=== PATIENT | male | born 1965 | race Caucasian/White ===

== ENCOUNTER 2018-07-02 13:36 | Inpatient (IN) | payer MEDICAID, SELFPAY ==
[2018-07-02] VITALS (61 sets, daily range): BP systolic 105–168; BP diastolic 78–108; PULSE 72–111; RESP 2–38; TEMP 36.6–37.1; O2SAT 87–99
--- NOTE | 2018-07-02 13:43 | DI.RAD_ITS ---
SYMPTOM/DIAGNOSIS: SEVERE SOB, HYPOXIC, PURULENT SPUTUM PORTABLE SEMI ERECT CHEST: Comparison is made with 08/25/17 and 03/01/18. The heart size is normal. There are old bilateral rib fractures. Leads overlie the chest. There are mildly increased interstitial markings which may represent chronic fibrotic changes. No focal infiltrate is seen. IMPRESSION: Increased interstitial markings are likely chronic. No acute infiltrate is seen.
[2018-07-02] MEDS: Albuterol/Ipratropium 3 ML UPD VIAL 9 ML UPD (13:47)
--- NOTE | 2018-07-02 13:51 | W.ED.GENAD ---
Discharge Plan Disposition Patient Disposition: [facility] INPATIENT Condition: Good Discharge Details Chief Complaint: SOB Clinical Impression: COPD with exacerbation, Bronchitis, Acute respiratory distress Reason For Visit: SHINE Primary Care Provider: Kristian Petersen ED Provider: Joshua Delgado Home Meds and New Rx's Prescriptions: No Action nicotine [Nicoderm CQ] 1 EACH patch 24 hour 21 mg Transdermal DAILY Qty: 30 RF: 2 polyethylene glycol 3350 [Miralax] 17 GM powder in packet 17 g PO DAILY Qty: 255 RF: 4 pulse oximeter 1 ea Miscellaneous DAILY Qty: 1 RF: 0 levothyroxine 100 MCG tablet 100 mcg PO DAILY Qty: 90 RF: 3 guaifenesin [Mucinex] 600 MG tablet extended release 12hr 1,200 mg PO BID Qty: 60 RF: 3 diltiazem HCl [Cardizem CD] 180 MG capsule,extended release 24hr 180 mg PO DAILY Qty: 90 RF: 3 ibuprofen 800 MG tablet 800 mg PO TID PRNQty: 30 RF: 0 furosemide 40 MG tablet 2 tab PO DAILY Qty: 180 RF: 3 cetirizine [Zyrtec] 10 MG capsule 10 mg PO DAILY PRN PRNQty: 90 RF: 4 ipratropium-albuterol 3 ML solution for nebulization 3 ml UPD Q4H PRN PRNQty: 3 RF: 5 albuterol sulfate [ProAir HFA] 8.5 GM HFA aerosol inhaler 2 puff Inhalation Q4H PRN Qty: 3 RF: 1 lorazepam 0.5 mg tablet 0.5 mg PO TID PRN (Reason: anxiety) Qty: 40 RF: 0 prednisone 20 mg tablet 40 mg PO DAILY Qty: 14 RF: 0 azithromycin 250 mg tablet See Label Instructions PO .COMPLEX Qty: 6 RF: 0 albuterol sulfate 0.63 mg/3 mL solution for nebulization 0.63 mg Inhalation Q4H PRN (Reason: bronchospasm) Qty: 50 RF: 4 methadone 10 MG/ML concentrate 39 mg PO BID RF: 0 fexofenadine 180 MG tablet 180 mg PO DAILY Qty: 30 RF: 3 benzonatate 200 MG capsule 200 mg PO TID PRN PRN (Reason: Cough) Qty: 30 RF: 0 Medical Decision Making This is a 52-year-old male with a past medical history of COPD, previous intubation, frequently occurring pneumonia, who presents today in respiratory distress. His home health worker called EMS after she noted him to be hypoxic and in respiratory distress. Upon his arrival to the ED after receiving a DuoNeb and 125 of Solu-Medrol he was saturating at 85-86% on his 5-6 L of home oxygen. Because of this we did start the patient on BiPAP for improved airway function. He has been on azithromycin for the last few days for suspected upper respiratory infection versus pneumonia. He is worsened in his symptoms since being on the antibiotic. He has notable purulent sputum with expectoration, he demonstrates severe wheezes rales and rhonchi throughout. He demonstrates +2 pitting edema bilaterally, but has no history of pulmonary embolism or blood clots. He does have a history of congestive heart failure for which he takes 40 mg of Flomax. We will start the patient on vancomycin and Zosyn as he has been unresponsive to his azithromycin. We will start BiPAP, evaluate for any acute cardiac etiology, continue duo nebs, and reevaluate. The patient will likely require admission. EKG 13: 47 Rate 106, sinus tachycardia, VT 180, QTc 441, QRS 102, no significant ST elevations or depressions, no T wave inversions. No delta waves or epsilon waves. 1 mm Q wave in aVF, no other significant abnormalities 3:03 PM Patient's laboratory workup has returned, she rates mild leukocytosis of the WBC count of 11.6. VBG demonstrates a normal pH but it notably elevated PCO2 showing a well compensated respiratory component. Troponin is negative, EKG is benign. Electrolytes are within normal limits. Patient's proBNP is slightly elevated, lactate is normal. Chest x-ray results are not back however notable bronchitis is suspected. Questionable left lower lobe infiltrate. I discussed the case with the hospitalist Dr. Napier, she is accepted the patient for admission, continued BiPAP, and respiratory management. I have extensively reviewed the treatment plan with the patient. I have addressed all patient concerns at this time. I have also discussed the plan with the admitting physician and they agree with the current assessment and plan and have agreed to assume responsibility for the patient. All parties demonstrate verbal understanding and agreement with our assessment and plan at this time. HPI General Date/Time Provider Initiated Documentation: 07/02/18 13:41. HPI Narrative: This is a 52-year-old male with a past medical history of severe COPD, intubation in the past, recent hospital-acquired pneumonia within the last 90 days, as well as past medical history of thyroid disease, congestive heart failure, and reflux. He presents today for evaluation of respiratory distress. Over the last 4 days the patient has had a cough with associated shortness of breath. He has had productive green sputum. He is normally on 4-6 L of home oxygen. He has been taking his home breathing treatments and oxygen but feeling increasingly short of breath. He was started on azithromycin by his primary care provider but has had no improvement of his symptomatology with this. Home health did come to visit the patient today and noted him to be in notable respiratory distress. EMS was called and the patient was noted to be in the high 80s, low 90s on pulse oximetry. They did give 125 of Solu-Medrol, and a DuoNeb and his oxygen saturation improved to the mid to high 90s. The patient denies any chest pain but does admit to notable shortness of breath. His sputum has been green and purulent. He denies any history of blood clots, he denies any recent surgeries or procedures. Patient denies any other complaints at this time. He denies any systemic symptoms of fever, chills, vomiting, or diarrhea. He denies any pertinent family history. Related Data Home Medications Medication Instructions Recorded Confirmed nicotine [Nicoderm CQ] 21 mg TRANSDERMAL DAILY #30 patch 04/15/16 07/02/18 methadone 39 mg PO BID 04/27/16 03/01/18 polyethylene glycol 3350 [Miralax] 17 g PO DAILY #255 gm 05/11/16 07/02/18 benzonatate 200 mg PO TID PRN PRN #30 capsule 08/30/17 07/02/18 fexofenadine 180 mg PO DAILY #30 tab-cap 08/30/17 07/02/18 guaifenesin [Mucinex] 1,200 mg PO BID #60 tabcr 09/15/17 07/02/18 levothyroxine 100 mcg PO DAILY #90 tab-cap 09/15/17 07/02/18 diltiazem HCl [Cardizem Cd] 180 mg PO DAILY #90 cap.er.24h 11/04/17 07/02/18 ibuprofen 800 mg PO TID PRN #30 tab 11/17/17 07/02/18 furosemide 2 tab PO DAILY #180 tab-cap 12/06/17 07/02/18 cetirizine [Zyrtec] 10 mg PO DAILY PRN PRN #90 cap 02/03/18 07/02/18 albuterol sulfate [Proair Hfa] 2 puff INHALATION Q4H PRN #3 03/07/18 07/02/18 inhaler ipratropium-albuterol 3 ml UPD Q4H PRN PRN #3 box 03/07/18 07/02/18 azithromycin 250 mg tablet See Label Instructions PO .COMPLEX 06/01/18 07/02/18 #6 tab lorazepam 0.5 mg tablet 0.5 mg PO TID PRN #40 tab 06/01/18 07/02/18 prednisone 20 mg tablet 40 mg PO DAILY #14 tab 06/01/18 07/02/18 albuterol sulfate 0.63 mg/3 mL 0.63 mg INHALATION Q4H PRN #50 06/07/18 07/02/18 solution for nebulization packet Previous Rx's Medication Instructions Recorded benzonatate 200 mg PO TID PRN PRN #30 capsule 08/30/17 fexofenadine 180 mg PO DAILY #30 tab-cap 08/30/17 guaifenesin [Mucinex] 1,200 mg PO BID #60 tabcr 09/15/17 levothyroxine 100 mcg PO DAILY #90 tab-cap 09/15/17 diltiazem HCl [Cardizem Cd] 180 mg PO DAILY #90 cap.er.24h 11/04/17 furosemide 2 tab PO DAILY #180 tab-cap 12/06/17 albuterol sulfate [Proair Hfa] 2 puff INHALATION Q4H PRN #3 03/07/18 inhaler azithromycin 250 mg tablet See Label Instructions PO .COMPLEX 06/01/18 #6 tab lorazepam 0.5 mg tablet 0.5 mg PO TID PRN #40 tab 06/01/18 prednisone 20 mg tablet 40 mg PO DAILY #14 tab 06/01/18 albuterol sulfate 0.63 mg/3 mL 0.63 mg INHALATION Q4H PRN #50 06/07/18 solution for nebulization packet Allergies Allergy/AdvReac Type Severity Reaction Status Date / Time No Known Allergies Allergy Unverified 03/01/18 14:21 General Stated Complaint: SOB MIGUEL: 2 Review of Systems Review of Systems All systems reviewed & are unremarkable except as noted in HPI and below PFSH Social History Smoking/Tobacco Use Status: Former Tobacco Use Exam Narrative Exam Narrative: 1.Const: Well-nourished, Well-developed, appearing older than stated age 2.Eyes: PERRL, no conjunctival injection, and symmetrical lids. 3.ENT: Atraumatic external nose and ears. Moist MM. Neck: Symmetric, trachea midline, No thyromegaly. 4.CVS: +S1/S2, No murmurs or gallops. Peripheral pulses 2+ and equal in all extremities. Brisk capillary refill in all extremities. 5.RESP: Notable respiratory distress with tachypnea, severe wheezes throughout, crackles throughout. Numerous rhonchi. 6.GI: Soft, Nontender/Nondistended, No hepatosplenomegaly. No guarding or rebound. 7.MSK: Normocephalic/Atraumatic, Extremities w/o deformity or ttp No cyanosis or clubbing, Normal movement of all extremities. +2 pitting edema of his lower extremities bilaterally. No calf tenderness, negative Homans sign 8.Skin: Warm, Dry. No rashes or lesions. 9.Neuro: inside b2b sales II-XII grossly intact. Sensation grossly intact, no focal neurologic deficits. 10.Psych: (AAO) x3. Appropriate mood and affect Course Vital Signs Temperature 36.6 C 07/02/18 13:41 Pulse 99 H 07/02/18 13:41 Respiratory Rate 22 07/02/18 13:41 Blood Pressure 168/99 H 07/02/18 13:41 Pulse Oximetry 87 L 07/02/18 13:41 Temperature 36.6 C 07/02/18 13:41 Temperature Source Skin 07/02/18 13:41 Pulse 99 H 07/02/18 13:41 Respiratory Rate 22 07/02/18 13:41 Blood Pressure 168/99 H 07/02/18 13:41 Pulse Oximetry 87 L 07/02/18 13:41 Oxygen Delivery Method Nasal Cannula 07/02/18 13:41 Oxygen Flow Rate 6 07/02/18 13:41 Pain Level 6 07/02/18 13:41
[2018-07-02] MEDS: Albuterol/Ipratropium 3 ML UPD VIAL 9 ML ×2 (13:55→14:07)
[2018-07-02 14:03] LABS: HCO3 (Venous) 54 mmol/L (22-28); O2 Sat (Venous) 99 % (70-80); TCO2 (Venous) 48 mmol/L (22-29); pH (Venous) 7.41 (7.32-7.43); pO2 (Venous) 115 mm/Hg (28-44)
[2018-07-02 14:04] LABS: Abs Immature Grans 0.14 k/cumm (0.0-0.09); Absolute Monocyte Count 2.04 k/cumm (0.11-0.7); Basophils % 0.3; Eosinophils % 1.6; HCT 44.8 % (40.0-50.0); HGB 14.2 g/dL (13.5-17.5); Immature Grans % 1.2; Mean Corp. HGB Concentration 31.7 g/dL (32.0-36.0); Mean Corpuscular Hemoglobin 34.3 pg (27.0-33.0); Mean Corpuscular Volume 108.2 fL (80-95); Mean Platelet Volume 8.7 fL (8.0-11.0); Monocytes % 17.6; Neutrophils % 60.3; Platelet Count 314 x1000/uL (130-400); RBC 4.14 m/cumm (4.50-6.00); RBC Distribution Width 12.9 % (11.8-14.1)
[2018-07-02] MEDS: PIPERACILLIN/TAZO 3.375 GM in Normal Saline 50 ML IVPB ×2 (14:06→20:06)
[2018-07-02 14:13] LABS: pCO2 (Venous) 86 mm/Hg (34-47)
[2018-07-02 14:17] LABS: Lactate-non-spesis 0.9 mmol/L (0.6-1.4)
[2018-07-02 14:19] LABS: Absolute Basophil Count 0.03 k/cumm (0.0-0.2); Absolute Eosinophil Count 0.19 k/cumm (0.0-0.7); Absolute Neutrophil Count 6.99 k/cumm (1.2-6.7)
[2018-07-02 14:23] LABS: Basophilic Stippling Present; Diff Comment Agrees w/ Instrument; Macrocytosis 2+; Polychromasia Present; Stomatocytes 3+
[2018-07-02 14:30] LABS: ALT 93 U/L (12-78); AST 112 U/L (15-37); Albumin 3.1 g/dL (3.4-5.0); Alkaline Phosphatase 160 U/L (46-116); BUN 3 mg/dL (7-18); Bilirubin, Total 0.5 mg/dL (0.2-1.0); CREATININE 0.52 mg/dL (0.70-1.30); Calcium 8.2 mg/dL (8.5-10.1); Chloride 88 mmol/L (98-107); Glucose 116 mg/dL (70-100); Potassium 3.4 mmol/L (3.5-5.1); Sodium 137 mmol/L (136-145); Total Protein 7.8 g/dL (6.4-8.2)
[2018-07-02 14:34] LABS: Anion Gap 3.99999 mmol/L (3-11); CO2 > 45.0 mmol/L (21.0-32.0); Troponin I < 0.02 ng/mL (0.00-0.06)
[2018-07-02 14:36] LABS: NT-proBNP 482 pg/mL
[2018-07-02] MEDS: VANCOMYCIN 2,000 MG in Normal Saline 500 ML 250 MG IVPB (14:51)
[2018-07-02 14:54] LABS: HCO3 54 mmol/L (22-28); pH 7.34 (7.35-7.45); pO2 118 mmHg (83-108); sO2 98 % (94-98); tCO2 48 mmol/L (22-29)
[2018-07-02 14:59] LABS: FIO2 50 %; Site Right Radial; pCO2 99 mmHg (34-47)
--- NOTE | 2018-07-02 15:49 | DI.VRAD_ITS ---
EXAM: XR Chest, 1 View EXAM DATE/TIME: 07/02/2018 1:48 PM CLINICAL HISTORY: 52 years old, male; Signs and symptoms; Other: Severe sob/hypoxic, purulent s TECHNIQUE: XR of the chest, 1 view. COMPARISON: CR PORTABLE CHEST ONE VIEW 03/01/2018 2:20 PM FINDINGS: Lungs: Interstitial thickening in the mid and lower lung fernandes. No consolidation. Pleural space: Unremarkable. No pleural effusion. No pneumothorax. Heart/Mediastinum: Unremarkable. No cardiomegaly. Bones/joints: Healed posterior left rib fractures. IMPRESSION: 1. Interstitial thickening in the mid and lower lung fernandes. This may represent infectious or inflammatory pneumonitis, mild pulmonary edema or artifactual accentuation of the interstitial markings by decreased penetration through the large amount of overlying soft tissue. 2. No focal infiltrate or consolidation. Dictated and Authenticated by: Tami Daley MD. Ordering:DAVIAN CHAMBERS MD
[2018-07-02] MEDS: methylPREDNISolone SUCC 125 MG VIAL 80 MG IVP ×2 (16:11→23:39)
[2018-07-02] MEDS: Furosemide 40 MG/4 ML VIAL IVP ×2 (16:11→16:21)
[2018-07-02] MEDS: Lactobacillus Acidophilus CAP 1 CAP PO (16:12)
[2018-07-02] MEDS: Enoxaparin 40 MG/0.4 ML SYR SC (16:12)
--- NOTE | 2018-07-02 16:16 | W.PM.HP.N ---
Date of service: 07/02/18 Time of Service: 16:16 Assessment and Plan (1) COPD with exacerbation: Current visit: Yes Status: Acute Due to acute bronchitis vs pneumonia - CXR read unclear. My impression is that the patient has acute bacterial bronchitis. Patient is being admitted to the ICU with BiPAP, scheduled and prn nebs, systemic steroids, symbicort, and empiric vancomycin/zosyn. We are obtaininig sputum cx. It is expected that he might be able to be weaned off of BiPAP tonight. For now, he is NPO. He is on PPI ppx as he is on steroids. (2) Acute and chronic respiratory failure with hypercapnia: Current visit: Yes Status: Acute This is already improving with above therapy - continue to monitor in the ICU on BiPAP. Patient is full code, if he deteriorates. (3) Peripheral edema: Current visit: Yes Status: Acute I suspect that the patient has underlying pulmonary hypertension from untreated obstructive sleep apnea. The patient states that he was supposed to have a sleep study yesterday, but couldn't attend it because he was sick. Will obtain echo to look for EF and any evidence of pulmonary hypertension. Diurese, monitoring I/O's and daily weights. (4) Cellulitis of both lower extremities: Current visit: Yes Status: Acute Mild and should improve with diuresis/IV abx. (5) Smoker: Current visit: Yes Status: Chronic Counselled on quitting, but not very receptive to the idea. (6) Acquired hypothyroidism: Current visit: Yes Status: Chronic Chest TSH, Continue synthroid (7) History of intravenous drug abuse: Current visit: Yes Status: Chronic Continue methadone therapy. Check UDS. History of Present Illness Chief Complaint: Shortness of breath Narrative: Mr Chi is a 52 year old male with PMHx of oxygen-dependent COPD, chronic hypoxic hypercapnic respiratory failure, normally on 4-6L of O2, RANDALL, not using CPAP, who continues to smoke who for the last 3-4 days has been feeling more short of breath and coughing at home. He was using his home nebulizer treatments without relief. His PCP prescribed him azithromycin as well as prednisone - however, the patient continued to get progressively short of breath, was wheezing, and had a productive cough. He was brought to ER by ambulance today. O2 sats were 86% on 5L. He was in visible respiratory distress. He was treated with solumedrol and nebulizers by EMS. He was placed on BiPAP in ER. With nebulizer treatments and BiPAP, the patient improved markedly, but continues to require BiPAP and is still quite bronchospastic. Hospitalists were asked to take over care for the patient, who is being admitted to the ICU. Review of Systems Review of Systems 12 systems reviewed. 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) Multiple rib fractures involving four or more ribs (Resolved) Social History Smoking/Tobacco Use Status: Current every day quit status: has quit before counseling given: provider counseling alcohol intake: current alcohol intake frequency: a few times a week substance use type: former substance user, marijuana, IV drugs and other details: Currently on methadone therapy counseling given: Yes counseling provided: provider counseling Meds Home Medications Medication Instructions Recorded Confirmed Type nicotine [Nicoderm CQ] 21 mg TRANSDERMAL DAILY #30 patch 04/15/16 07/02/18 History methadone 39 mg PO BID 04/27/16 03/01/18 History polyethylene glycol 3350 [Miralax] 17 g PO DAILY #255 gm 05/11/16 07/02/18 History Pulse Oximeter 1 ea MISCELLANEOUS DAILY #1 ea 05/27/16 07/02/18 Clinic benzonatate 200 mg PO TID PRN PRN #30 capsule 08/30/17 07/02/18 Rx fexofenadine 180 mg PO DAILY #30 tab-cap 08/30/17 07/02/18 Rx guaifenesin [Mucinex] 1,200 mg PO BID #60 tabcr 09/15/17 07/02/18 Rx levothyroxine 100 mcg PO DAILY #90 tab-cap 09/15/17 07/02/18 Rx diltiazem HCl [Cardizem Cd] 180 mg PO DAILY #90 cap.er.24h 11/04/17 07/02/18 Rx ibuprofen 800 mg PO TID PRN #30 tab 11/17/17 07/02/18 History furosemide 2 tab PO DAILY #180 tab-cap 12/06/17 07/02/18 Rx cetirizine [Zyrtec] 10 mg PO DAILY PRN PRN #90 cap 02/03/18 07/02/18 History albuterol sulfate [Proair Hfa] 2 puff INHALATION Q4H PRN #3 03/07/18 07/02/18 Rx inhaler ipratropium-albuterol 3 ml UPD Q4H PRN PRN #3 box 03/07/18 07/02/18 History azithromycin 250 mg tablet See Label Instructions PO .COMPLEX 06/01/18 07/02/18 Rx #6 tab lorazepam 0.5 mg tablet 0.5 mg PO TID PRN #40 tab 06/01/18 07/02/18 Rx prednisone 20 mg tablet 40 mg PO DAILY #14 tab 06/01/18 07/02/18 Rx albuterol sulfate 0.63 mg/3 mL 0.63 mg INHALATION Q4H PRN #50 06/07/18 07/02/18 Rx solution for nebulization packet Allergies Allergy/AdvReac Type Severity Reaction Status Date / Time No Known Allergies Allergy Unverified 03/01/18 14:21 Exam Narrative Exam Narrative: General: Obese male, wearing BiPAP, having some difficulty talking over it, speaking in 2-3 word phrases, wheezing Neurological: A&Ox3, no focal deficits Psychiatric: appropriate speech pattern and content to the extent that I was able to evaluate it with patient on BiPAP Skin: chronic venous stasis changes/mild erythema BLE's; abrasions on BLE's HEENT: atraumatic, normocephalic, EOMI, MMM, wearing BiPAP complicating exam of oropharynx, small asymmetric goiter, no submandibular/cervical lymphadenopathy, no JVD Cardiovascular: RRR, mildly tachycardic Lungs: loud wheezing on expiration Bilaterally Gastrointestinal: abdomen soft, nontender, nondistended Extremities: 2+ BLE edema 2/[address] up to the knees with mild erythema in place, no cyanosis Results Imaging Additional studies: EKG: HR 106, Sinus tach, no acute ischemia Imaging Studies: CXR: 1. Interstitial thickening in the mid and lower lung fernandes. This may represent infectious or inflammatory pneumonitis, mild pulmonary edema or artifactual accentuation of the interstitial markings by decreased penetration through the large amount of overlying soft tissue. 2. No focal infiltrate or consolidation Labs : 07/02/18 13:55 07/02/18 13:55 Laboratory Results - last 24 hr 07/02/18 07/02/18 07/02/18 13:55 13:55 13:55 WBC 11.60 H RBC 4.14 L Hgb 14.2 Hct 44.8 MCV 108.2 H MCH 34.3 H MCHC 31.7 L RDW 12.9 Plt Count 314 MPV 8.7 Immature Gran % 1.2 Neutrophils % 60.3 Lymphocytes % 19.0 Monocytes % 17.6 Eosinophils % 1.6 Basophils % 0.3 Absolute Neutrophils 6.99 H Absolute Lymphocytes 2.20 Absolute Monocytes 2.04 H Absolute Eosinophils 0.19 Absolute Basophils 0.03 Differential Comment Agrees w/ instrument RBC Morphology See below Polychromasia Present Basophilic Stippling Present Macrocytosis 2+ Stomatocytes 3+ Sample Site pCO2 pO2 O2 Saturation ABG pH ABG HCO3 ABG Total CO2 ABG Base Excess VBG pH 7.41 VBG pCO2 86 H VBG pO2 115 H VBG HCO3 54 H VBG Total CO2 48 H VBG O2 Saturation 99 H VBG Base Excess FiO2 Sodium 137 Potassium 3.4 L Chloride 88 L Carbon Dioxide > 45.0 H Anion Gap 3.87787 BUN 3 L Creatinine 0.52 L Estimated GFR/1.73 m2 >= 60.00 Glucose 116 H Lactate Calcium 8.2 L Total Bilirubin 0.5 AST 112 H ALT 93 H Alkaline Phosphatase 160 H Troponin I < 0.02 NT-Pro-B Natriuret Pep Total Protein 7.8 Albumin 3.1 L 07/02/18 07/02/18 07/02/18 13:55 13:55 14:50 WBC RBC Hgb Hct MCV MCH MCHC RDW Plt Count MPV Immature Gran % Neutrophils % Lymphocytes % Monocytes % Eosinophils % Basophils % Absolute Neutrophils Absolute Lymphocytes Absolute Monocytes Absolute Eosinophils Absolute Basophils Differential Comment RBC Morphology Polychromasia Basophilic Stippling Macrocytosis Stomatocytes Sample Site Right radial pCO2 99 H* pO2 118 H O2 Saturation 98 ABG pH 7.34 L ABG HCO3 54 H ABG Total CO2 48 H ABG Base Excess VBG pH VBG pCO2 VBG pO2 VBG HCO3 VBG Total CO2 VBG O2 Saturation VBG Base Excess FiO2 50 Sodium Potassium Chloride Carbon Dioxide Anion Gap BUN Creatinine Estimated GFR/1.73 m2 Glucose Lactate 0.9 Calcium Total Bilirubin AST ALT Alkaline Phosphatase Troponin I NT-Pro-B Natriuret Pep 482 H Total Protein Albumin Last Vital Signs Temp 36.9 C 07/02/18 15:09 Pulse 96 H 07/02/18 15:31 Resp 38 H 07/02/18 15:31 BP 131/87 07/02/18 15:31 Pulse Ox 91 L 07/02/18 15:31
--- NOTE | 2018-07-02 17:32 | DI.US_ITS ---
SYMPTOM/DIAGNOSIS: ? DVT, EDEMA BILATERAL LEGS BILATERAL LOWER EXTREMITY ULTRASOUND: The femoral and popliteal veins and visualized calf veins are freely compressible. The doppler venous wave form augments normally. No superficial thrombus or Ramirez's cyst is seen. IMPRESSION: Negative bilateral lower extremity ultrasound. No evidence of DVT.
--- NOTE | 2018-07-02 17:47 | DI.VRAD_ITS ---
EXAM: US Bilateral Duplex Lower Extremity Veins EXAM DATE/TIME: 07/02/2018 3:08 PM CLINICAL HISTORY: 52 years old, male; Signs and symptoms; Other: Bilateral lower extremity edema TECHNIQUE: Real-time duplex ultrasound of the Bilateral Lower Extremities with 2-D garner scale, color Doppler flow and spectral waveform analysis. Complete exam focused on the bilateral lower extremity veins. COMPARISON: No relevant prior studies available. FINDINGS: Right deep veins: Unremarkable. The common femoral, femoral and popliteal veins are patent without thrombus. Normal compressibility, augmentation response and Doppler waveforms. Right superficial veins: Saphenofemoral junction is patent without thrombus. Left deep veins: Unremarkable. The common femoral, femoral and popliteal veins are patent without thrombus. Normal compressibility, augmentation response and Doppler waveforms. Left superficial veins: Saphenofemoral junction is patent without thrombus. Soft tissues: Bilateral subcutaneous edema. IMPRESSION: Negative for DVT in the lower extremities. Dictated and Authenticated by: Tami Daley MD. Ordering:ANYA FLOREZ MD
[2018-07-02] MEDS: Albuterol/Ipratropium 3 ML UPD VIAL UPD ×2 (18:21→23:32)
[2018-07-02 18:46] LABS: *AMPHETAMINES SCREEN URINE Negative (Negative); *BARBITURATES SCREEN URINE Negative (Negative); *BENZODIAZEPINES SCREEN URINE Negative (Negative); Cannabinoids THC Negative (Negative); Cocaine Screen,Urine Negative (Negative); METHADONE URINE SCREEN POSITIVE (Negative); OPIATES URINE SCREEN Negative (Negative)
[2018-07-02 18:51] LABS: Tricyclic Antidepressants Negative (Negative)
[2018-07-02] MEDS: guaiFENesin 600 MG TABCR PO (20:04)
[2018-07-02] MEDS: Budesonide/Formoterol 160/4.5 6 GM 60 PUFF INH IH (20:04)
[2018-07-02] MEDS: Methadone Liquid 10 MG/ML 39 MG PO (20:04)
[2018-07-02] MEDS: Ibuprofen 800 MG TAB PO (20:31)
[2018-07-02] MEDS: LORazepam 0.5 MG TAB PO (20:32)
[2018-07-02] MEDS: Normal Saline Flush 10 ML SYR IVP ×2 (20:33→22:00)
[2018-07-02] MEDS: VANCOMYCIN 1,000 MG in Normal Saline 250 ML 166.6666 MG IV (21:35)
[2018-07-02] MEDS: Albuterol 2.5 MG/3 ML INH SOLN VIAL UPD (22:38)
[2018-07-02] MEDS: LORazepam 0.5 MG TAB 1 MG PO (23:41)
[2018-07-03] VITALS (57 sets, daily range): BP systolic 103–172; BP diastolic 59–134; PULSE 75–115; RESP 2–30; TEMP 35.2–36.6; O2SAT 88–99
[2018-07-03] MEDS: PIPERACILLIN/TAZO 3.375 GM in Normal Saline 50 ML IVPB ×4 (02:04→21:37)
[2018-07-03] MEDS: MORPHine 2 MG/ML SYR IVP ×3 (03:09→04:59)
[2018-07-03] MEDS: VANCOMYCIN 1,000 MG in Normal Saline 250 ML 167 MG IV (03:37)
[2018-07-03] MEDS: Albuterol/Ipratropium 3 ML UPD VIAL UPD ×3 (05:13→17:24)
[2018-07-03 07:16] LABS: Abs Immature Grans 0.07 k/cumm (0.0-0.09); Absolute Monocyte Count 0.58 k/cumm (0.11-0.7); Absolute Neutrophil Count 11.67 k/cumm (1.2-6.7); Basophils % 0.2; HCT 42.8 % (40.0-50.0); HGB 14.1 g/dL (13.5-17.5); Immature Grans % 0.5; Lymphocytes % 5.7; Mean Corp. HGB Concentration 32.9 g/dL (32.0-36.0); Mean Corpuscular Hemoglobin 33.9 pg (27.0-33.0); Mean Corpuscular Volume 102.9 fL (80-95); Mean Platelet Volume 9.1 fL (8.0-11.0); Monocytes % 4.4; Neutrophils % 89.2; Platelet Count 305 x1000/uL (130-400); RBC 4.16 m/cumm (4.50-6.00); RBC Distribution Width 12.6 % (11.8-14.1); White Blood Cell Count 13.08 k/cumm (4.4-10.8)
[2018-07-03 07:23] LABS: Absolute Basophil Count 0.03 k/cumm (0.0-0.2); Absolute Lymphocyte Count 0.75 k/cumm (1.2-3.4)
[2018-07-03 07:54] LABS: BUN 7 mg/dL (7-18); CREATININE 0.64 mg/dL (0.70-1.30); Glucose 140 mg/dL (70-100); Magnesium 1.8 mg/dL (1.8-2.4); TSH 1.38 uIU/mL (0.358-3.74)
[2018-07-03 08:04] LABS: Anion Gap 2.99999 mmol/L (3-11)
[2018-07-03 08:05] LABS: CO2 > 45.0 mmol/L (21.0-32.0); Chloride 89 mmol/L (98-107); Potassium 2.9 mmol/L (3.5-5.1)
[2018-07-03 08:06] LABS: Sodium 137 mmol/L (136-145)
[2018-07-03] MEDS: Levothyroxine 100 MCG TAB PO (08:53)
[2018-07-03] MEDS: LORazepam 0.5 MG TAB 1 MG PO (08:53)
[2018-07-03] MEDS: guaiFENesin 600 MG TABCR PO (08:53)
[2018-07-03] MEDS: Lactobacillus Acidophilus CAP 1 CAP PO ×2 (08:54→14:07)
[2018-07-03] MEDS: Fexofenadine 180 MG TAB PO (08:54)
[2018-07-03] MEDS: Methadone Liquid 10 MG/ML 39 MG PO (09:07)
[2018-07-03] MEDS: methylPREDNISolone SUCC 125 MG VIAL 80 MG IVP ×2 (09:08→16:32)
[2018-07-03] MEDS: Normal Saline Flush 10 ML SYR IVP ×4 (09:08→17:48)
[2018-07-03] MEDS: Nicotine 21 MG/24 HR PATCH TD (09:10)
[2018-07-03] MEDS: Pantoprazole 40 MG VIAL IVP (09:10)
[2018-07-03] MEDS: Polyethylene Glycol 3350 17 GM PACKET PO (09:33)
[2018-07-03] MEDS: Furosemide 40 MG/4 ML VIAL IVP ×2 (09:33→16:32)
[2018-07-03 09:53] LABS: Site Left Radial
[2018-07-03 09:54] LABS: FIO2 35 %
[2018-07-03 09:55] LABS: pCO2 88 mmHg (34-47); pO2 90 mmHg (83-108); sO2 96 % (94-98); tCO2 > 50 mmol/L (22-29)
[2018-07-03 09:56] LABS: HCO3 55 mmol/L (22-28)
[2018-07-03] MEDS: POTASSIUM CHLORIDE 20 MEQ/100 ML BAG 50 MEQ IVPB ×3 (09:56→14:18)
--- NOTE | 2018-07-03 10:45 | PDOC.CMIN ---
- If Service Date Differs Date of service: 07/03/18 Time of Service: 10:45 Care Management Initial Assess REASON FOR HOSPITALIZATION:: COPD, acute resp failure PAST MEDICAL HISTORY/PAST SURGICAL HISTORY:: COPD, Hep C, tobacco dependency, depressive disorder, asthma, bronchititis, hypothyroidism, multiple rib fractures, substance dependency. PREVIOUS FUNCTIONAL STATUS/SOCIAL/FAMILY SUPPORTS:: Mahamed lives at home with his roomate Marcie. He receives services through the [facility] and is on the methadone program. He care for himself with help from his roomate Marcie who transports him as needed. CURRENT FUNCTIONAL STATUS:: Mahamed is restless and having difficulty breathing. Mahamed continues to remove his bipap, he has been placed on nasal cannula. CM contacted [facility] Marcie and reviewed current supports. Marcie states that Mahamed has been ill for a few days his last cocktail was at least two days ago. She states that he drinks a few cocktails daily. Marcie will get some rest and return to be with Mahamed this afternoon. ADVANCE DIRECTIVES:: None on file at [facility] Has patient been provided with information about the portal?: No Did the patient sign up for the portal?: No CODE STATUS:: Full Code INSURANCE COVERAGE / FINANCIAL ISSUES:: Medicaid CURRENT HOME/COMMUNITY SERVICES/EQUIPMENT:: Mahamed in on chronic oxygen at home he receives his services and equipment through [facility] including nebulizer. He uses [facility] for transporation. PRIMARY CARE PHYSICIAN:: POTENTIAL DISCHARGE NEEDS:: Follow up appointment with primary care provider. PATIENT/FAMILY EDUCATION NEEDS:: Discharge education, limitations and follow up plan of care and ask me three discussion and self management. ANTICIPATED BARRIERS TO DISCHARGE:: No identified TRANSPORTATION:: Via [facility] at time of discharge. PLAN:: Mahamed is currently receiving care in the ICU. He is on bipap, receiving IV antibiotics and steroids. He will have an ABG this morning. CM reviewed plan with primary nurse. Anticpate Mahamed will remain in the ICU at this time. CM to continue to provide support to patient, discharge disposition and planning
--- NOTE | 2018-07-03 11:00 | INITIAL_ITS ---
- If Service Date Differs Date of service: 07/03/18 Time of Service: 10:45 Care Management Initial Assess REASON FOR HOSPITALIZATION:: COPD, acute resp failure PAST MEDICAL HISTORY/PAST SURGICAL HISTORY:: COPD, Hep C, tobacco dependency, depressive disorder, asthma, bronchititis, hypothyroidism, multiple rib fractures, substance dependency. PREVIOUS FUNCTIONAL STATUS/SOCIAL/FAMILY SUPPORTS:: Mahamed lives at home with his roomate Marcie. He receives services through the [facility] and is on the methadone program. He care for himself with help from his roomate Marcie who transports him as needed. CURRENT FUNCTIONAL STATUS:: Mahamed is restless and having difficulty breathing. Mahamed continues to remove his bipap, he has been placed on nasal cannula. CM contacted SO Marcie and reviewed current supports. Marcie states that Mahamed has been ill for a few days his last cocktail was at least two days ago. She states that he drinks a few cocktails daily. Marcie will get some rest and return to be with Mahamed this afternoon. ADVANCE DIRECTIVES:: None on file at [facility] Has patient been provided with information about the portal?: No Did the patient sign up for the portal?: No CODE STATUS:: Full Code INSURANCE COVERAGE / FINANCIAL ISSUES:: Medicaid CURRENT HOME/COMMUNITY SERVICES/EQUIPMENT:: Mahamed in on chronic oxygen at home he receives his services and equipment through [facility] including nebulizer. He uses [facility] for transporation. PRIMARY CARE PHYSICIAN:: POTENTIAL DISCHARGE NEEDS:: Follow up appointment with primary care provider. PATIENT/FAMILY EDUCATION NEEDS:: Discharge education, limitations and follow up plan of care and ask me three discussion and self management. ANTICIPATED BARRIERS TO DISCHARGE:: No identified TRANSPORTATION:: Via [facility] at time of discharge. PLAN:: Mahamed is currently receiving care in the ICU. He is on bipap, receiving IV antibiotics and steroids. He will have an ABG this morning. CM reviewed plan with primary nurse. Anticpate Mahamed will remain in the ICU at this time. CM to continue to provide support to patient, discharge disposition and planning
[2018-07-03] MEDS: VANCOMYCIN 1,000 MG in Normal Saline 250 ML 166 MG IV (11:15)
[2018-07-03] MEDS: LORazepam 2 MG/ML VIAL IVP ×4 (15:37→21:54)
[2018-07-03 15:41] LABS: Vancomycin, Trough 23.6 ug/mL (10.0-20.0)
[2018-07-03 15:47] LABS: Site Right Radial
[2018-07-03 15:49] LABS: pH 7.46 (7.35-7.45)
[2018-07-03 15:50] LABS: pCO2 75 mmHg (34-47); pO2 70 mmHg (83-108); sO2 93 % (94-98); tCO2 > 50 mmol/L (22-29)
[2018-07-03 15:51] LABS: HCO3 53 mmol/L (22-28)
[2018-07-03] MEDS: Enoxaparin 40 MG/0.4 ML SYR SC (16:33)
--- NOTE | 2018-07-03 16:44 | PHARADMIT ---
Addendum entered by Gene Burks III 07/14/18 15:54: Pharmacy Note Subjective Had visit from [facility], BED offer on Tuesday. Objective VS-OK Temp-37.5C Pain:03/21 Lytes,SCr, H&H,Plts-OK WBC-23.45 BM 07/13 Assessment On PO steroids, Plan Here for the weekend. Working with PT Original Note: Addendum entered by Gene Burks III 07/13/18 11:09: Pharmacy Note Subjective Improving, MD considering possible discharge home tomorrow. PT says No, he can not negotiate the stairs. Objective VS-OK Pain: 01/19 Na-135 WBC-25.46 Assessment Weaning steroids continues Plan Working with PT. SNF have refused him Original Note: Addendum entered by Sera Acosta 07/12/18 14:10: Pharmacy Note Subjective Ten day admission to date Objective VS-ok, WBC 24.87, 4L oxygen w/Sats 93% Assessment Weaning steroids Plan working w/PT (risk of falls, tremors, shaking), weak, deconditioned-not safe to return home, referral to [facility] short term rehab LE Cellulities resolved, continues Methadone Original Note: Addendum entered by Gene Burks III 07/11/18 16:12: Pharmacy Note Subjective MD says patient is good. has dyspnea on exertion. Objective BP-145/96 HR-112 K+3.7 WBC-26.45 H&H-Plts,SCr-OK Assessment IV Steroids to BID Plan Will a stay in SNF Original Note: Addendum entered by Gene Burks III 07/10/18 11:50: Pharmacy Note Subjective CIWA-Zero Objective VS-OK pain:0 K+4.5 SCr,H&H,Plts- OK WBC-20.97 Assessment Vanco,Zosyn & Levaquin have completed (6 days). IV steroids continue (see WBC) Plan No chnages Original Note: Addendum entered by Gene Burks III 07/07/18 17:35: Pharmacy Note Subjective CIWA-7 Nursing reports patient now oriented to self & place. Refusing BiPAP. MD to conduct voiding trial today. Objective VS-OK Pain:03/21 Lytes, SCr H&H,Plts-OK WBC-16.57 Wgt-93.4 kg Having BMs Assessment Zosyn & Vancomycin continue. Trough today 16.1 Plan Palliative care consult set for Tuesday Original Note: Addendum entered by Gene Burks III 07/06/18 15:09: Pharmacy Note Subjective CIWA- 8 ..ETOH withdrawal & Hepatic encephalopathy. MD believes patients new baseline is with BiPAP on. Objective VS-OK K+3.2 Na-146 SCr-0.81 WBC-17.46 H&H,Plts-up Wgt-95.3 kg. Large BM 07/05 Assessment Steroids being weaned, Lactulose added Zosyn Vancomycin continue Plan Oriented to self at this time. Original Note: Addendum entered by Gene Burks III 07/05/18 16:34: Pharmacy Note Subjective Improving, has Palliative Care consult pending Objective VS-OK HR-74 CIWA-4 K+3.3 SCr,H&H,Plts-OK WBC-17.85 Assessment Vancomycin trough (24.1) dose held 4hrs, restarted as Vancomycin 1gm IV q8hrs Zosyn ,Levaquin continue On Methadone Liquid BID, receiving Banana Bag @1800 daily. to start Flomax, (quintanilla still in place) Plan No MD note yet today Original Note: Addendum entered by Bruna Unger 07/04/18 15:44: Pharmacy Note Subjective ECHO this morning Objective HR-94 BP-159/96 other VS okay CIWA-26 K+3.2 WBC-16.15(up) Assessment vanco and zosyn continue (day 3), levofloxacin ordered today Plan vanco trough scheduled for tomorrow Original Note: Admission Pharmacy Clinical Review acute exacerbation of copd, acute/chronic resp failure Code Status Full Code Current Weight 103 kg Renally Cleared and Narrow Therapeutic Index Meds Crcl ~105.00 mL/min QTc Value / Action Taken BP Control, Fever BP 144/104 afebrile Electrolytes reviewed K+ 2.9 DVT Prophylaxis enoxaparin Opiate Usage / Scheduled Bowel Regimen Ordered heather/prn Plt/SCr for Heparin / Enoxaparin plt 305 SCr 0.64 INR for Warfarin n/a H/H stable, WBC/Bands h/h 14.1/42.8 wbc 13.08 Antibiotic appropriateness zosyn vanco Cultures and Sensitivities blood cultures- no growth at 24 hours influenza negative sputum culture- gram- cocco bacillus Surgical ABX d/c within 24 hr n/a DM control / Insulin Dosing BG 140 none Heart Failure (Check EF%) (GAURAV's, B-Block, Diuretics) diltiazem, furosemide, IV to PO Switch n/a Home Meds Reviewed multiple anticholinergic meds increases risk of adverse reactions (cetirizine, ipratropium, fexofenadine, tiotropium) multiple QTc prolonging meds- azithromycin, methadone multiple UTILITIES MANAGER depressants- methadone, lorazepam, cetirizine, fexofenadine Home Meds Not Ordered azithromycin (has other abx ordered), prednisone, tiotropium Comments vanco trough high today so dose changed to 1250 Q8h to target a trough of 14.5
--- NOTE | 2018-07-03 17:22 | PGE_ITS ---
Assessment and Plan (1) COPD with exacerbation: Current visit: Yes Status: Acute Due to acute bronchitis. Continue to monitor in the ICU with BiPAP, steroids, nebulizers. Sputum cx with Gram negative Cocco Bacillus - continue Vanco/zosyn. (2) Acute and chronic respiratory failure with hypercapnia: Current visit: Yes Status: Acute Improved by ABG - continue nebs/steroids. (3) Encephalopathy acute: Current visit: Yes Status: Acute Unlikely to be due to either CO2 retention or hypoxia. It is plausible that this is alcohol withdrawal. Continue to monitor on CIWA. Has a environmental health safety engineer at bedside (4) Peripheral edema: Current visit: Yes Status: Acute No DVT, resolved. (5) Cellulitis of both lower extremities: Current visit: Yes Status: Acute Already resolved. (6) Smoker: Current visit: Yes Status: Chronic Counselled on quitting (7) Acquired hypothyroidism: Current visit: Yes Status: Chronic TSH within desired limits, Continue synthroid (8) History of intravenous drug abuse: Current visit: Yes Status: Chronic Continue methadone therapy. UDS positive for only methadone Subjective Interval history since last seen: Mr Chi has been more anxious/confused today. We were unable to get him off of the BiPAP. Nursing has raised suspicion that his behavior might be due to alcohol withdrawal (the patient stated he drinks 2 drinks/week). He was initiated on morphine and ativan overnight - and now on CIWA. It is difficult to get the patient to respond to questions - he is distracted. Exam Narrative Exam Narrative: General: Patient was seen twice today. The first time, he was off BiPAP, tachypneic/with respiratory distress, requiring immediate placement back on BiPAP. The 2nd time, he was trying to repeatedly get up from the bed, unsteady, difficult to orient. Neurological: Difficult to establish orientation. Patient does verbalize but not so much in response to our questions Psychiatric: Anxious Skin: chronic venous stasis changes, abrasions on BLE's. Erythema resolved. HEENT: atraumatic, normocephalic, EOMI, MMM, wearing BiPAP Cardiovascular: RRR, tachycardic Lungs: Less wheezing today, but having obvious air hunger/tachypnea Gastrointestinal: abdomen soft, nontender, nondistended Extremities: trace edema BLE's, no clubbing or cyanosis Objective Objective Clinical Data: Abnormal lab results 07/03/18 07/03/18 07/03/18 Range/Units 06:38 06:38 09:00 WBC 13.08 H (4.4-10.8) k/cumm RBC 4.16 L (4.50-6.00) m/cumm MCV 102.9 H D (80-95) fL MCH 33.9 H (27.0-33.0) pg Absolute Neutrophils 11.67 H (1.2-6.7) k/cumm Absolute Lymphocytes 0.75 L (1.2-3.4) k/cumm pCO2 88 H* (34-47) mmHg pO2 (83-108) mmHg O2 Saturation (94-98) % ABG pH (7.35-7.45) ABG HCO3 55 H (22-28) mmol/L ABG Total CO2 > 50 H (22-29) mmol/L ABG Base Excess 30.0 H (-3-3) mmol/L Potassium 2.9 L* (3.5-5.1) mmol/L Chloride 89 L (98-107) mmol/L Carbon Dioxide > 45.0 H (21.0-32.0) mmol/L Anion Gap 2.10114 L (3-11) mmol/L Creatinine 0.64 L (0.70-1.30) mg/dL Glucose 140 H (70-100) mg/dL Vancomycin Trough (10.0-20.0) ug/mL 07/03/18 07/03/18 Range/Units 15:04 15:47 WBC (4.4-10.8) k/cumm RBC (4.50-6.00) m/cumm MCV (80-95) fL MCH (27.0-33.0) pg Absolute Neutrophils (1.2-6.7) k/cumm Absolute Lymphocytes (1.2-3.4) k/cumm pCO2 75 H* (34-47) mmHg pO2 70 L (83-108) mmHg O2 Saturation 93 L (94-98) % ABG pH 7.46 H (7.35-7.45) ABG HCO3 53 H (22-28) mmol/L ABG Total CO2 > 50 H (22-29) mmol/L ABG Base Excess 29.0 H (-3-3) mmol/L Potassium (3.5-5.1) mmol/L Chloride (98-107) mmol/L Carbon Dioxide (21.0-32.0) mmol/L Anion Gap (3-11) mmol/L Creatinine (0.70-1.30) mg/dL Glucose (70-100) mg/dL Vancomycin Trough 23.6 H* (10.0-20.0) ug/mL Vital Signs Temperature 36.1 C L 07/03/18 16:18 Temperature Source Temporal Artery Scan 07/03/18 16:18 Pulse 98 H 07/03/18 12:23 Pulse 107 H 07/03/18 12:10 Respiratory Rate 19 07/03/18 12:23 Respiratory Effort Accessory Muscle Use 07/03/18 16:18 Respiratory Depth Normal 07/03/18 12:23 Respiratory Pattern Normal 07/03/18 12:23 Blood Pressure 144/104 H 07/03/18 12:10 Blood Pressure Mean 113 07/03/18 12:10 Blood Pressure Position Supine 07/03/18 16:18 Pulse Oximetry 93 L 07/03/18 16:18 Oxygen Delivery Method Bi-pap 07/03/18 16:18 Oxygen Flow Rate 6 07/03/18 10:34 Fraction of Inspired Oxygen (FIO2) 30 07/03/18 16:18 Pain Level 0 07/03/18 16:18 Intake & Output 07/02/18 07/03/18 07/03/18 23:59 11:59 23:59 Intake Total 580.0 / 580.0 1360 / 1360 286 / 286 Output Total 2700 / 2700 3400 / 3400 100 / 100 Balance -2120.0 / -2120.0 -2040 / -2040 186 / 186 Weight 104 kg 103 kg Intake: IV 580.0 / 580.0 700 / 700 286 / 286 Oral 660 / 660 Output: Urine 2700 / 2700 3400 / 3400 100 / 100 Other: Urine Color Yellow Yellow Urine Appearance Clear Clear Clear Urine Odor None None Normal Comment PT REFUSED Voiding Methods Urinal Urinal Urinal Incontinent Laboratory Results WBC 13.08 k/cumm (4.4-10.8) H 07/03/18 06:38 RBC 4.16 m/cumm (4.50-6.00) L 07/03/18 06:38 Hgb 14.1 g/dL (13.5-17.5) 07/03/18 06:38 Hct 42.8 % (40.0-50.0) 07/03/18 06:38 MCV 102.9 fL (80-95) H D 07/03/18 06:38 MCH 33.9 pg (27.0-33.0) H 07/03/18 06:38 MCHC 32.9 g/dL (32.0-36.0) 07/03/18 06:38 RDW 12.6 % (11.8-14.1) 07/03/18 06:38 Plt Count 305 x1000/uL (130-400) 07/03/18 06:38 MPV 9.1 fL (8.0-11.0) 07/03/18 06:38 Immature Gran % 0.5 07/03/18 06:38 Neutrophils % 89.2 07/03/18 06:38 Lymphocytes % 5.7 07/03/18 06:38 Monocytes % 4.4 07/03/18 06:38 Eosinophils % 0.0 07/03/18 06:38 Basophils % 0.2 07/03/18 06:38 Absolute Neutrophils 11.67 k/cumm (1.2-6.7) H 07/03/18 06:38 Absolute Lymphocytes 0.75 k/cumm (1.2-3.4) L 07/03/18 06:38 Absolute Monocytes 0.58 k/cumm (0.11-0.7) 07/03/18 06:38 Absolute Eosinophils 0.00 k/cumm (0.0-0.7) 07/03/18 06:38 Absolute Basophils 0.03 k/cumm (0.0-0.2) 07/03/18 06:38 Differential Comment Agrees w/ instrument 07/02/18 13:55 RBC Morphology See below 07/02/18 13:55 Polychromasia Present 07/02/18 13:55 Basophilic Stippling Present 07/02/18 13:55 Macrocytosis 2+ 07/02/18 13:55 Stomatocytes 3+ 07/02/18 13:55 Sample Site Right radial 07/03/18 15:47 pCO2 75 mmHg (34-47) H* 07/03/18 15:47 pO2 70 mmHg (83-108) L 07/03/18 15:47 O2 Saturation 93 % (94-98) L 07/03/18 15:47 ABG pH 7.46 (7.35-7.45) H 07/03/18 15:47 ABG HCO3 53 mmol/L (22-28) H 07/03/18 15:47 ABG Total CO2 > 50 mmol/L (22-29) H 07/03/18 15:47 ABG Base Excess 29.0 mmol/L (-3-3) H 07/03/18 15:47 VBG pH 7.41 (7.32-7.43) 07/02/18 13:55 VBG pCO2 86 mm/Hg (34-47) H 07/02/18 13:55 VBG pO2 115 mm/Hg (28-44) H 07/02/18 13:55 VBG HCO3 54 mmol/L (22-28) H 07/02/18 13:55 VBG Total CO2 48 mmol/L (22-29) H 07/02/18 13:55 VBG O2 Saturation 99 % (70-80) H 07/02/18 13:55 VBG Base Excess mmol/L (-3-3) 07/02/18 13:55 Oxygen Liter Flow Bipap 06/16 30% L 07/03/18 15:47 FiO2 35 % 07/03/18 09:00 Sodium 137 mmol/L (136-145) 07/03/18 06:38 Potassium 2.9 mmol/L (3.5-5.1) L* 07/03/18 06:38 Chloride 89 mmol/L (98-107) L 07/03/18 06:38 Carbon Dioxide > 45.0 mmol/L (21.0-32.0) H 07/03/18 06:38 Anion Gap 2.16197 mmol/L (3-11) L 07/03/18 06:38 BUN 7 mg/dL (7-18) 07/03/18 06:38 Creatinine 0.64 mg/dL (0.70-1.30) L 07/03/18 06:38 Estimated GFR/1.73 m2 >= 60.00 (mL/min/1.73m2) 07/03/18 06:38 Glucose 140 mg/dL (70-100) H 07/03/18 06:38 Lactate 0.9 mmol/L (0.6-1.4) 07/02/18 13:55 Calcium 9.0 mg/dL (8.5-10.1) 07/03/18 06:38 Magnesium 1.8 mg/dL (1.8-2.4) 07/03/18 06:38 Total Bilirubin 0.5 mg/dL (0.2-1.0) 07/02/18 13:55 AST 112 U/L (15-37) H 07/02/18 13:55 ALT 93 U/L (12-78) H 07/02/18 13:55 Alkaline Phosphatase 160 U/L (46-116) H 07/02/18 13:55 Troponin I < 0.02 ng/mL (0.00-0.06) 07/02/18 13:55 NT-Pro-B Natriuret Pep 482 pg/mL (-299) H 07/02/18 13:55 Total Protein 7.8 g/dL (6.4-8.2) 07/02/18 13:55 Albumin 3.1 g/dL (3.4-5.0) L 07/02/18 13:55 TSH 1.38 uIU/mL (0.358-3.74) 07/03/18 06:38 Vancomycin Trough 23.6 ug/mL (10.0-20.0) H* 07/03/18 15:04 Urine Opiates Screen Negative (Negative) 07/02/18 18:10 Urine Methadone Screen Positive (Negative) 07/02/18 18:10 Ur Barbiturates Screen Negative (Negative) 07/02/18 18:10 Ur Tricyclics Screen Negative (Negative) 07/02/18 18:10 Ur Amphetamines Screen Negative (Negative) 07/02/18 18:10 U Benzodiazepines Scrn Negative (Negative) 07/02/18 18:10 Urine Cocaine Screen Negative (Negative) 07/02/18 18:10 Ur THC Screen Negative (Negative) 07/02/18 18:10
[2018-07-03] MEDS: POTASSIUM CHLORIDE 20 MEQ/100 ML BAG 5 MEQ IVPB (17:24)
[2018-07-03] MEDS: VANCOMYCIN 1,250 MG in Normal Saline 250 ML 166.667 MG IVPB (21:37)
[2018-07-04] VITALS (53 sets, daily range): BP systolic 94–163; BP diastolic 56–113; PULSE 64–111; RESP 4–22; TEMP 35.7–36.8; O2SAT 90–96
[2018-07-04] MEDS: LORazepam 2 MG/ML VIAL IVP ×5 (00:21→12:50)
[2018-07-04] MEDS: methylPREDNISolone SUCC 125 MG VIAL 80 MG IVP ×3 (00:40→16:39)
[2018-07-04] MEDS: Albuterol/Ipratropium 3 ML UPD VIAL UPD ×3 (00:42→18:20)
[2018-07-04] MEDS: Normal Saline Flush 10 ML SYR IVP ×7 (00:46→16:40)
[2018-07-04] MEDS: PIPERACILLIN/TAZO 3.375 GM in Normal Saline 50 ML IVPB ×4 (03:16→19:11)
[2018-07-04] MEDS: VANCOMYCIN 1,250 MG in Normal Saline 250 ML 166.667 MG IVPB ×2 (04:25→19:55)
[2018-07-04 07:19] LABS: Abs Immature Grans 0.12 k/cumm (0.0-0.09); Absolute Basophil Count 0.02 k/cumm (0.0-0.2); Absolute Lymphocyte Count 0.89 k/cumm (1.2-3.4); Absolute Monocyte Count 1.41 k/cumm (0.11-0.7); Basophils % 0.1; HCT 41.3 % (40.0-50.0); HGB 13.2 g/dL (13.5-17.5); Immature Grans % 0.7; Lymphocytes % 5.5; Mean Corpuscular Hemoglobin 33.9 pg (27.0-33.0); Mean Corpuscular Volume 106.2 fL (80-95); Mean Platelet Volume 9.1 fL (8.0-11.0); Monocytes % 8.7; Platelet Count 288 x1000/uL (130-400); RBC 3.89 m/cumm (4.50-6.00); RBC Distribution Width 13.2 % (11.8-14.1); White Blood Cell Count 16.15 k/cumm (4.4-10.8)
[2018-07-04 07:21] LABS: Absolute Neutrophil Count 13.73 k/cumm (1.2-6.7)
[2018-07-04 07:27] LABS: BUN 16 mg/dL (7-18); CREATININE 0.65 mg/dL (0.70-1.30); Calcium 8.4 mg/dL (8.5-10.1); Chloride 95 mmol/L (98-107); Glucose 141 mg/dL (70-100); Potassium 3.2 mmol/L (3.5-5.1); Sodium 139 mmol/L (136-145)
[2018-07-04 07:31] LABS: ALT 79 U/L (12-78); AST 103 U/L (15-37); Albumin 2.5 g/dL (3.4-5.0); Alkaline Phosphatase 116 U/L (46-116); Bilirubin, Direct 0.15 mg/dL (0.00-0.20); Bilirubin, Total 0.4 mg/dL (0.2-1.0); PHOSPHORUS 3.4 mg/dL (2.6-4.7); Total Protein 6.8 g/dL (6.4-8.2)
[2018-07-04 07:36] LABS: Anion Gap -1.00001 mmol/L (3-11); CO2 > 45.0 mmol/L (21.0-32.0)
[2018-07-04] MEDS: Furosemide 40 MG/4 ML VIAL IVP ×2 (09:20→16:38)
[2018-07-04] MEDS: Pantoprazole 40 MG VIAL IVP (09:20)
[2018-07-04] MEDS: Nicotine 21 MG/24 HR PATCH TD (09:39)
[2018-07-04] MEDS: POTASSIUM CHLORIDE 20 MEQ/100 ML BAG 50 MEQ IVPB ×2 (11:57→14:05)
[2018-07-04] MEDS: LEVOFLOXACIN 500 MG/100 ML BAG 100 MG IVPB (11:57)
--- NOTE | 2018-07-04 12:22 | PDOC.CMPRO ---
- If Service Date Differs Date of service: 07/04/18 Time of Service: 12:22 Care Management Progress Note S/O: Mahamed continues to be cared for in the ICU his SO Marcie has been at the bedside. No change in status today he continues to be monitored for etoh withdrawal and receive oxygen support. CM to continue to provide support to patient and family. A: 52 year old male admitted COPD, resp failure. P: Mahamed is currently receiving care in the ICU. He is on bipap, receiving IV antibiotics and steroids. CM reviewed plan with primary nurse. Anticipate Mahamed will remain in the ICU at this time. CM to continue to provide support to patient, discharge disposition and planning
--- NOTE | 2018-07-04 12:30 | MERGE_ITS ---
*[facility]* *[facility]* [address] [place] [address] Date of study: 07/04/2018 Transthoracic Echocardiography M-mode, complete 2D, complete spectral Doppler, and color Doppler *STUDY CONCLUSIONS* Summary: 1. Procedure narrative: Image quality was poor. 2. Left ventricle: The cavity size was normal. Wall thickness was normal. Systolic function was hyperdynamic. The estimated ejection fraction was 65-70%. Although no diagnostic regional wall motion abnormality was identified, this possibility cannot be completely excluded on the basis of this study. 3. Right ventricle: The cavity size was normal. Systolic function was normal. 4. Inferior vena cava: The vessel was patent and dilated. The respirophasic diameter changes were blunted (less than 50%). *PATIENT PRESENTATION* Height: 175.3cm ((69in) ) S/D Pressure: 109 / 66 Weight: 103kg ((226.5lb) ) BSA: 2.27m^2 Test start time: 12:50 PM. Test stop time: 01:30 PM. PERFORMING Unknown PERFORMING [facility] PILOT INSTRUCTOR Isela Estevez RT (R)(CT), CS REFERRING Md Jackson Duggan ORDERING Rama Napier REFERRING Rama Napier *PROCEDURE DATA* Procedure information: The patient was identified by two identifiers. This study was interpreted by [facility]. Pertinent images and digital data are archived for permanent storage and are available for subsequent review. Comparison was made to the study of 04/27/2016. Study status: Routine. Transthoracic echocardiography. M-mode, complete 2D, complete spectral Doppler, and color Doppler. A Transthoracic Echocardiogram was performed. Scanning was performed from the parasternal, apical, subcostal, and suprasternal notch acoustic windows. Images were obtained using an [id number] cardiac ultrasound machine. Image quality was poor. Study completion: The patient tolerated the procedure well. There were no complications. History: PMH: CHF ? PHTN. *CARDIAC ANATOMY* Left ventricle: The cavity size was normal. Wall thickness was normal. Systolic function was hyperdynamic. The estimated ejection fraction was 65-70%. Although no diagnostic regional wall motion abnormality was identified, this possibility cannot be completely excluded on the basis of this study. Aortic valve: Probably trileaflet; normal thickness leaflets. Mobility was not restricted. Doppler: Transvalvular velocity was within the normal range. There was no stenosis. There was no significant regurgitation. Aorta: Aortic root: The aortic root was normal in size. Ascending aorta: The ascending aorta was normal in size. Mitral valve: Structurally normal valve. Mobility was not restricted. Doppler: Transvalvular velocity was within the normal range. There was no evidence for stenosis. There was no significant regurgitation. Left atrium: The atrium was normal in size. Right ventricle: The cavity size was normal. Systolic function was normal. Pulmonic valve: Doppler: Transvalvular velocity was within the normal range. There was no evidence for stenosis. There was no significant regurgitation. Tricuspid valve: The valve appears to be grossly normal. Doppler: Transvalvular velocity was within the normal range. There was no evidence for stenosis. There was no significant regurgitation. Pulmonary artery: Systolic pressure could not be accurately estimated. Right atrium: Poorly visualized. Pericardium: A prominent pericardial fat pad was present. There was no pericardial effusion. Systemic veins: Inferior vena cava: Well visualized. The vessel was patent and dilated. The respirophasic diameter changes were blunted (less than 50%). Baseline ECG: Normal sinus rhythm. Measurements Left ventricle Value Reference LV ID, ED, PLAX 3.7 cm 3.5 - 6.0 LV ID, ES, PLAX 2.5 cm 2.1 - 4.0 LV PW thickness, ED, PLAX 1.1 cm --------- Ventricular septum Value Reference IVS thickness, ED, PLAX 0.9 cm --------- LVOT Value Reference LVOT ID, A-P 2.2 cm --------- LVOT area 3.8 cm^2 --------- Aorta Value Reference Aortic root ID, ED 3.7 cm --------- Left atrium Value Reference LA ID, A-P, ES 3.7 cm --------- LA ID/bsa, A-P 1.6 cm/m^2 <=2.2 LA/aortic root ratio 0.98 --------- Tricuspid valve Value Reference Tricuspid regurg peak velocity 2.5 m/sec --------- Tricuspid peak RV-RA gradient 25.9 mm Hg --------- Legend: (L) and (H) gagan values outside specified reference range. I have personally reviewed the images and have reviewed and edited the reported findings. Electronically signed by Sunil Guadalupe 07/04/2018 14:30
[2018-07-04] MEDS: LORazepam 2 MG/ML VIAL 1 MG IVP (13:26)
[2018-07-04] MEDS: VANCOMYCIN 1,250 MG in Normal Saline 250 ML 166 MG IVPB (14:15)
--- NOTE | 2018-07-04 15:48 | CHAPLAIN ---
Mahamed was sleeping. I visited with his SO Marcie. She has spent the night here and was planning to go home about 1:30 and return later. She hopes to unpack some boxes while she is home and set up some bookcases. She that Mahamed is interested in stopping smoking. She talked about trying to convince Mahamed to come to the hospital initially and that was frustrating for her. She seems to be very supportive of Mahamed.
[2018-07-04] MEDS: Methadone Liquid 10 MG/ML 39 MG PO (16:27)
[2018-07-04] MEDS: Enoxaparin 40 MG/0.4 ML SYR SC (16:40)
--- NOTE | 2018-07-04 18:38 | PGE_ITS ---
Assessment and Plan (1) COPD with exacerbation: Current visit: Yes Status: Acute Due to acute bronchitis with sputum cx positive for Haemophilus spp and staph aureus - speciation/sensitivities pending. Continue to monitor in the ICU with BiPAP, steroids, nebulizers. Not weaning steroids yet. Continue Vanco/ zosyn. Azithromycin added. I have placed a consult for Pulmonlogy, but none is present in the hospital today. Will attempt to contact again tomorrow. (2) Acute and chronic respiratory failure with hypercapnia: Current visit: Yes Status: Acute As above. (3) Encephalopathy acute: Current visit: Yes Status: Acute Alcohol withdrawal suspected. Continue monitoring in the ICU on CIWA. (4) Peripheral edema: Current visit: Yes Status: Acute No DVT, resolved. EF preserved on EF. Echo could not get a good look at pulmonary artery pressures - my suspicion is that the patient has R heart failure due to untreated sleep apnea. He will eventually need to obtain a formal sleep study. (5) Cellulitis of both lower extremities: Current visit: Yes Status: Acute Already resolved. (6) Smoker: Current visit: Yes Status: Chronic Counselled on quitting (7) Acquired hypothyroidism: Current visit: Yes Status: Chronic TSH within desired limits, Continue synthroid (8) History of intravenous drug abuse: Current visit: Yes Status: Chronic Continue methadone therapy. UDS positive for only methadone (9) Urinary retention: Current visit: Yes Status: Acute S/p quintanilla. Will eventually need a voiding trial. Subjective Interval history since last seen: The patient has been more calm today. He was found to be retaining >2,000 urine when quintanilla catheter was finally inserted ( when the patient was calm enough). He was too asleep to answer any questions for me. During the night he was confused, anxious, appeared to be withdrawing from alcohol. Exam Narrative Exam Narrative: General: The paient is wearing BiPAP, briefly wakes up, does not answer my questions. Neurological: Somnolent, no focal deficits Psychiatric: Difficult to assess while the patient is asleep Skin: chronic venous stasis changes, abrasions on BLE's. Erythema resolved. HEENT: atraumatic, normocephalic, EOMI, MMM, wearing BiPAP Cardiovascular: RRR, no m/r/g Lungs: Diminished breath sounds B; wearing BiPAP Gastrointestinal: abdomen soft, nontender, nondistended Extremities: trace edema BLE's, no clubbing or cyanosis Objective Objective Clinical Data: Abnormal lab results 07/04/18 07/04/18 07/04/18 Range/Units 06:23 06:23 06:23 WBC 16.15 H (4.4-10.8) k/cumm RBC 3.89 L (4.50-6.00) m/cumm Hgb 13.2 L (13.5-17.5) g/dL MCV 106.2 H D (80-95) fL MCH 33.9 H (27.0-33.0) pg Absolute Neutrophils 13.73 H (1.2-6.7) k/cumm Absolute Lymphocytes 0.89 L (1.2-3.4) k/cumm Absolute Monocytes 1.41 H (0.11-0.7) k/cumm Potassium 3.2 L (3.5-5.1) mmol/L Chloride 95 L (98-107) mmol/L Carbon Dioxide > 45.0 H (21.0-32.0) mmol/L Anion Gap -1.07181 L (3-11) mmol/L Creatinine 0.65 L (0.70-1.30) mg/dL Glucose 141 H (70-100) mg/dL Calcium 8.4 L (8.5-10.1) mg/dL AST 103 H (15-37) U/L ALT 79 H (12-78) U/L Albumin 2.5 L (3.4-5.0) g/dL Vital Signs Temperature 36.8 C 07/04/18 15:56 Temperature Source Tympanic 07/04/18 15:56 Pulse 84 07/04/18 18:01 Pulse 89 07/04/18 18:01 Respiratory Rate 12 07/04/18 18:01 Respiratory Effort Labored 07/04/18 15:56 Respiratory Depth Deep 07/04/18 15:56 Respiratory Pattern Normal 07/04/18 15:56 Blood Pressure 110/70 07/04/18 18:01 Blood Pressure Mean 80 07/04/18 18:01 Blood Pressure Position Supine 07/04/18 15:56 Pulse Oximetry 92 L 07/04/18 15:00 Oxygen Delivery Method Bi-pap 07/04/18 15:56 Oxygen Flow Rate 7.2 07/04/18 00:42 Fraction of Inspired Oxygen (FIO2) 35 07/04/18 15:00 Pain Level 0 07/04/18 15:56 Intake & Output 07/03/18 07/04/18 07/04/18 23:59 11:59 23:59 Intake Total 1276.75 / 1276.75 1027.45 / 1027.45 614 / 614 Output Total 600 / 600 4145 / 4145 Balance 676.75 / 676.75 1027.45 / 1027.45 -3531 / -3531 Weight 100.9 kg Intake: IV 1276.75 / 1276.75 1027.45 / 1027.45 614 / 614 Oral 0 / 0 Output: Urine 600 / 600 4145 / 4145 Other: Urine Color Yellow Light Tamara Urine Appearance Clear Clear Urine Odor Normal Comment PT REFUSED quintanilla patent Voiding Methods Urinal Laboratory Results WBC 16.15 k/cumm (4.4-10.8) H 07/04/18 06:23 RBC 3.89 m/cumm (4.50-6.00) L 07/04/18 06:23 Hgb 13.2 g/dL (13.5-17.5) L 07/04/18 06:23 Hct 41.3 % (40.0-50.0) 07/04/18 06:23 MCV 106.2 fL (80-95) H D 07/04/18 06:23 MCH 33.9 pg (27.0-33.0) H 07/04/18 06:23 MCHC 32.0 g/dL (32.0-36.0) 07/04/18 06:23 RDW 13.2 % (11.8-14.1) 07/04/18 06:23 Plt Count 288 x1000/uL (130-400) 07/04/18 06:23 MPV 9.1 fL (8.0-11.0) 07/04/18 06:23 Immature Gran % 0.7 07/04/18 06:23 Neutrophils % 85.0 07/04/18 06:23 Lymphocytes % 5.5 07/04/18 06:23 Monocytes % 8.7 07/04/18 06:23 Eosinophils % 0.0 07/04/18 06:23 Basophils % 0.1 07/04/18 06:23 Absolute Neutrophils 13.73 k/cumm (1.2-6.7) H 07/04/18 06:23 Absolute Lymphocytes 0.89 k/cumm (1.2-3.4) L 07/04/18 06:23 Absolute Monocytes 1.41 k/cumm (0.11-0.7) H 07/04/18 06:23 Absolute Eosinophils 0.00 k/cumm (0.0-0.7) 07/04/18 06:23 Absolute Basophils 0.02 k/cumm (0.0-0.2) 07/04/18 06:23 Differential Comment Agrees w/ instrument 07/02/18 13:55 RBC Morphology See below 07/02/18 13:55 Polychromasia Present 07/02/18 13:55 Basophilic Stippling Present 07/02/18 13:55 Macrocytosis 2+ 07/02/18 13:55 Stomatocytes 3+ 07/02/18 13:55 Sample Site Right radial 07/03/18 15:47 pCO2 75 mmHg (34-47) H* 07/03/18 15:47 pO2 70 mmHg (83-108) L 07/03/18 15:47 O2 Saturation 93 % (94-98) L 07/03/18 15:47 ABG pH 7.46 (7.35-7.45) H 07/03/18 15:47 ABG HCO3 53 mmol/L (22-28) H 07/03/18 15:47 ABG Total CO2 > 50 mmol/L (22-29) H 07/03/18 15:47 ABG Base Excess 29.0 mmol/L (-3-3) H 07/03/18 15:47 VBG pH 7.41 (7.32-7.43) 07/02/18 13:55 VBG pCO2 86 mm/Hg (34-47) H 07/02/18 13:55 VBG pO2 115 mm/Hg (28-44) H 07/02/18 13:55 VBG HCO3 54 mmol/L (22-28) H 07/02/18 13:55 VBG Total CO2 48 mmol/L (22-29) H 07/02/18 13:55 VBG O2 Saturation 99 % (70-80) H 07/02/18 13:55 VBG Base Excess mmol/L (-3-3) 07/02/18 13:55 Oxygen Liter Flow Bipap 06/16 30% L 07/03/18 15:47 FiO2 35 % 07/03/18 09:00 Sodium 139 mmol/L (136-145) 07/04/18 06:23 Potassium 3.2 mmol/L (3.5-5.1) L 07/04/18 06:23 Chloride 95 mmol/L (98-107) L 07/04/18 06:23 Carbon Dioxide > 45.0 mmol/L (21.0-32.0) H 07/04/18 06:23 Anion Gap -1.93767 mmol/L (3-11) L 07/04/18 06:23 BUN 16 mg/dL (7-18) D 07/04/18 06:23 Creatinine 0.65 mg/dL (0.70-1.30) L 07/04/18 06:23 Estimated GFR/1.73 m2 >= 60.00 (mL/min/1.73m2) 07/04/18 06:23 Glucose 141 mg/dL (70-100) H 07/04/18 06:23 Lactate 0.9 mmol/L (0.6-1.4) 07/02/18 13:55 Calcium 8.4 mg/dL (8.5-10.1) L 07/04/18 06:23 Phosphorus 3.4 mg/dL (2.6-4.7) 07/04/18 06:23 Magnesium 2.0 mg/dL (1.8-2.4) 07/04/18 06:23 Total Bilirubin 0.4 mg/dL (0.2-1.0) 07/04/18 06:23 Conjugated Bilirubin 0.15 mg/dL (0.00-0.20) 07/04/18 06:23 AST 103 U/L (15-37) H 07/04/18 06:23 ALT 79 U/L (12-78) H 07/04/18 06:23 Alkaline Phosphatase 116 U/L (46-116) 07/04/18 06:23 Troponin I < 0.02 ng/mL (0.00-0.06) 07/02/18 13:55 NT-Pro-B Natriuret Pep 482 pg/mL (-299) H 07/02/18 13:55 Total Protein 6.8 g/dL (6.4-8.2) 07/04/18 06:23 Albumin 2.5 g/dL (3.4-5.0) L 07/04/18 06:23 TSH 1.38 uIU/mL (0.358-3.74) 07/03/18 06:38 Vancomycin Trough 23.6 ug/mL (10.0-20.0) H* 07/03/18 15:04 Urine Opiates Screen Negative (Negative) 07/02/18 18:10 Urine Methadone Screen Positive (Negative) 07/02/18 18:10 Ur Barbiturates Screen Negative (Negative) 07/02/18 18:10 Ur Tricyclics Screen Negative (Negative) 07/02/18 18:10 Ur Amphetamines Screen Negative (Negative) 07/02/18 18:10 U Benzodiazepines Scrn Negative (Negative) 07/02/18 18:10 Urine Cocaine Screen Negative (Negative) 07/02/18 18:10 Ur THC Screen Negative (Negative) 07/02/18 18:10 Sputum cx positive for Haemophilus and staph aureus spp. Echo: 1. Procedure narrative: Image quality was poor. 2. Left ventricle: The cavity size was normal. Wall thickness was normal. Systolic function was hyperdynamic. The estimated ejection fraction was 65-70%. Although no diagnostic regional wall motion abnormality was identified, this possibility cannot be completely excluded on the basis of this study. 3. Right ventricle: The cavity size was normal. Systolic function was normal. 4. Inferior vena cava: The vessel was patent and dilated. The respirophasic diameter changes were blunted (less than 50%). -
[2018-07-04] MEDS: Patch Removal 1 EACH TD (23:25)
[2018-07-05] VITALS (38 sets, daily range): BP systolic 102–150; BP diastolic 62–89; PULSE 57–110; RESP 4–21; TEMP 35.6–36.8; O2SAT 86–95
[2018-07-05] MEDS: Normal Saline Flush 10 ML SYR IVP ×7 (00:35→21:27)
[2018-07-05] MEDS: methylPREDNISolone SUCC 125 MG VIAL 80 MG IVP ×3 (00:36→16:07)
[2018-07-05] MEDS: Albuterol/Ipratropium 3 ML UPD VIAL UPD ×4 (00:37→18:20)
[2018-07-05] MEDS: PIPERACILLIN/TAZO 3.375 GM in Normal Saline 50 ML IVPB ×4 (02:23→21:26)
[2018-07-05] MEDS: VANCOMYCIN 1,250 MG in Normal Saline 250 ML 167 MG IVPB (04:48)
--- NOTE | 2018-07-05 06:30 | NUR.NOTE ---
Nursing Note:5am Pt was taken off his Bipap and placed on NC at 4lmin
--- NOTE | 2018-07-05 06:41 | NUR.NOTE ---
Nursing Note: at 0500, Bipap was removed for oral care. The had of his bed was raised. At this time he opened his eyes and began to cough. Suction was initiated. Hebo-tinged sputum was expectorated. After 4minutes of suctioning on the cannula, the pt's o2sat dropped to 82%, his respirations increased from 9-10.min overnigh to 24/min. He became agitated, grunting with increased frequency in his grunting increased in frequency. He could not speak any words at this time as he had been just minutes earlier. The Bipap was put back in place. RN Chelsea encouraged deep breaths and pursed lip breathing as this caption writer gave PRN Morphine. The pt's O2 sats increased to 91%. Decreased signs of respiratory distress were observed. Pr became calm, grunting stopped.
[2018-07-05 07:33] LABS: Abs Immature Grans 0.11 k/cumm (0.0-0.09); Absolute Monocyte Count 1.71 k/cumm (0.11-0.7); Basophils % 0.1; HCT 41.5 % (40.0-50.0); HGB 12.9 g/dL (13.5-17.5); Immature Grans % 0.6; Mean Corp. HGB Concentration 31.1 g/dL (32.0-36.0); Mean Corpuscular Hemoglobin 34.1 pg (27.0-33.0); Mean Corpuscular Volume 109.8 fL (80-95); Mean Platelet Volume 9.3 fL (8.0-11.0); Monocytes % 9.6; Neutrophils % 85.7; Platelet Count 278 x1000/uL (130-400); RBC 3.78 m/cumm (4.50-6.00); RBC Distribution Width 13.3 % (11.8-14.1); White Blood Cell Count 17.85 k/cumm (4.4-10.8)
[2018-07-05 07:34] LABS: Absolute Basophil Count 0.02 k/cumm (0.0-0.2); Absolute Lymphocyte Count 0.71 k/cumm (1.2-3.4)
[2018-07-05 07:43] LABS: Anion Gap 1.99999 mmol/L (3-11); BUN 18 mg/dL (7-18); CO2 > 45.0 mmol/L (21.0-32.0); CREATININE 0.69 mg/dL (0.70-1.30); Calcium 8.4 mg/dL (8.5-10.1); Chloride 96 mmol/L (98-107); Glucose 141 mg/dL (70-100); Magnesium 2.1 mg/dL (1.8-2.4); Potassium 3.3 mmol/L (3.5-5.1); Sodium 143 mmol/L (136-145)
[2018-07-05 07:53] LABS: Diff Comment Diff Reviewed; Macrocytosis 2+; Stomatocytes 3+
[2018-07-05 07:55] LABS: Ammonia 53 umol/L (11-32)
[2018-07-05] MEDS: Furosemide 40 MG/4 ML VIAL IVP ×2 (08:42→16:08)
[2018-07-05] MEDS: Pantoprazole 40 MG VIAL IVP (08:42)
[2018-07-05] MEDS: Methadone Liquid 10 MG/ML 39 MG PO ×2 (08:51→21:27)
[2018-07-05] MEDS: Fexofenadine 180 MG TAB PO (08:52)
[2018-07-05] MEDS: Lactobacillus Acidophilus CAP 1 CAP PO (08:52)
[2018-07-05] MEDS: Levothyroxine 100 MCG TAB PO (08:52)
[2018-07-05] MEDS: guaiFENesin 600 MG TABCR PO ×2 (08:52→21:53)
[2018-07-05] MEDS: Nicotine 21 MG/24 HR PATCH TD (09:09)
[2018-07-05] MEDS: Polyethylene Glycol 3350 17 GM PACKET PO (09:10)
[2018-07-05] MEDS: Lactulose 20 GM/30 ML CUP PO ×3 (09:51→21:26)
[2018-07-05] MEDS: LEVOFLOXACIN 500 MG/100 ML BAG 100 MG IVPB (09:51)
[2018-07-05] MEDS: Potassium Chloride 20 MEQ TABCR 40 MEQ PO (09:52)
[2018-07-05] MEDS: Budesonide/Formoterol 160/4.5 6 GM 60 PUFF INH IH ×2 (10:29→20:30)
[2018-07-05 11:45] LABS: Vancomycin, Trough 24.1 ug/mL (10.0-20.0)
--- NOTE | 2018-07-05 13:15 | DI.US_ITS ---
SYMPTOMS/DIAGNOSIS: URINARY RETENTION, ? HYDRONEPHROSIS RENAL ULTRASOUND: The exam was performed portably. The exam is limited due to the patient's body habitus and inability to fully cooperate. The right kidney measures 12 cm in length. The left kidney measures 11.5 cm in length. There is no evidence of hydronephrosis or large calculi. The prevoid bladder volume measured 48 cc's. A Rice catheter is present. Postvoid volume is 7 cc's. The prostate measures 35 cc's. The bladder appears thick walled but is not well evaluated due to inadequate distention. IMPRESSION: No evidence of hydronephrosis. Thick walled bladder.
--- NOTE | 2018-07-05 13:52 | CMPROGNOTE_ITS ---
- If Service Date Differs Date of service: 07/05/18 Time of Service: 13:03 Care Management Progress Note S/O: CM into meet with patient he is resting with his BIPAP in place. CM did not awake the patient. Reviewed current care with primary nurse. Mahamed is wearing his bipap he is resting and less agitated. He continues to receive IV antibiotics, steroids and monitoring. He continues as an ICU patient. He will be transition to the floor when medically ready. Mahamed when more alert will be referred to Palliative care and CM will review advance directives with patient. A: 52 year old male admitted with COPD and resp failure P: Mahamed will have no change in status today he remains in the ICU. He will be discharged home resume services through [facility] for oxygen. Referral to palliative care and [facility]. CM to continue to provide support to patient and care team discharge planning. Mahamed will transport home via [facility] at time of discharge.
[2018-07-05] MEDS: VANCOMYCIN 1,000 MG in Normal Saline 250 ML 166.667 MG IVPB (16:07)
[2018-07-05] MEDS: Enoxaparin 40 MG/0.4 ML SYR SC (16:08)
--- NOTE | 2018-07-05 19:25 | W.PM.PROGNOT ---
Assessment and Plan (1) COPD with exacerbation: Current visit: Yes Status: Acute Due to acute bronchitis with sputum cx positive for Haemophilus spp and staph aureus - continue bipap HS and prn, weaning steroids, O2 as tolerated. Improving. (2) Acute and chronic respiratory failure with hypercapnia: Current visit: Yes Status: Acute As above. (3) Encephalopathy acute: Current visit: Yes Status: Acute Combination of hepatic encephalopathy/hyperammonemia as well as DT's. Continue CIWA. Lactulose added. (4) Peripheral edema: Current visit: Yes Status: Acute No DVT, resolved. EF preserved on echo. Will needa sleep study - ? R heart failure due to untreated sleep apnea. (5) Cellulitis of both lower extremities: Current visit: Yes Status: Acute Already resolved. (6) Smoker: Current visit: Yes Status: Chronic Counselled on quitting (7) Acquired hypothyroidism: Current visit: Yes Status: Chronic TSH within desired limits, Continue synthroid (8) History of intravenous drug abuse: Current visit: Yes Status: Chronic Continue methadone therapy. UDS positive for only methadone (9) Urinary retention: Current visit: Yes Status: Acute S/p quintanilla. Will eventually need a voiding trial. (10) Hepatic encephalopathy: Current visit: Yes Status: Acute Will need outpatient workup of possible/likely cirrhosis. At this point, on lactulose. WIll need to follow up with GI as outpatient. Subjective Interval history since last seen: The patient is having a much better day today. He is more compliant, calmer. He wears the mask. He ate. He is asleep at the time of my visit, but arousable. I was unable to get answers to my questions. Exam Narrative Exam Narrative: General: asleep, arousable, audibly wheezing. Neurological: No obvious focal deficits Skin: chronic venous stasis changes, abrasions on BLE's. No erythema. HEENT: atraumatic, normocephalic, EOMI, MMM; wheezing best heard at the neck level Cardiovascular: RRR, no m/r/g Lungs: upper airway wheezing Gastrointestinal: abdomen soft, nontender, nondistended Extremities: trace edema BLE's, no clubbing or cyanosis Objective Objective Clinical Data: Abnormal lab results 07/05/18 07/05/18 07/05/18 Range/Units 06:50 06:50 07:40 WBC 17.85 H (4.4-10.8) k/cumm RBC 3.78 L (4.50-6.00) m/cumm Hgb 12.9 L (13.5-17.5) g/dL MCV 109.8 H (80-95) fL MCH 34.1 H (27.0-33.0) pg MCHC 31.1 L (32.0-36.0) g/dL Absolute Neutrophils 15.30 H (1.2-6.7) k/cumm Absolute Lymphocytes 0.71 L (1.2-3.4) k/cumm Absolute Monocytes 1.71 H (0.11-0.7) k/cumm Potassium 3.3 L (3.5-5.1) mmol/L Chloride 96 L (98-107) mmol/L Carbon Dioxide > 45.0 H (21.0-32.0) mmol/L Anion Gap 1.56463 L (3-11) mmol/L Creatinine 0.69 L (0.70-1.30) mg/dL Glucose 141 H (70-100) mg/dL Calcium 8.4 L (8.5-10.1) mg/dL Ammonia 53 H (11-32) umol/L Vancomycin Trough (10.0-20.0) ug/mL 07/05/18 Range/Units 11:15 WBC (4.4-10.8) k/cumm RBC (4.50-6.00) m/cumm Hgb (13.5-17.5) g/dL MCV (80-95) fL MCH (27.0-33.0) pg MCHC (32.0-36.0) g/dL Absolute Neutrophils (1.2-6.7) k/cumm Absolute Lymphocytes (1.2-3.4) k/cumm Absolute Monocytes (0.11-0.7) k/cumm Potassium (3.5-5.1) mmol/L Chloride (98-107) mmol/L Carbon Dioxide (21.0-32.0) mmol/L Anion Gap (3-11) mmol/L Creatinine (0.70-1.30) mg/dL Glucose (70-100) mg/dL Calcium (8.5-10.1) mg/dL Ammonia (11-32) umol/L Vancomycin Trough 24.1 H* (10.0-20.0) ug/mL Vital Signs Temperature 36.8 C 07/05/18 15:48 Temperature Source Tympanic 07/05/18 15:48 Pulse 81 07/05/18 16:30 Pulse 83 07/05/18 16:01 Respiratory Rate 12 07/05/18 16:30 Respiratory Effort 07/05/18 15:48 Respiratory Depth Normal 07/05/18 15:48 Respiratory Pattern Normal 07/05/18 15:48 Blood Pressure 116/71 07/05/18 16:01 Blood Pressure Mean 82 07/05/18 16:01 Blood Pressure Position Supine 07/05/18 15:48 Pulse Oximetry 92 L 07/05/18 16:30 Oxygen Delivery Method Bi-pap 07/05/18 15:48 Oxygen Flow Rate 6 07/05/18 09:48 Fraction of Inspired Oxygen (FIO2) 35 07/05/18 18:11 Pain Level 0 07/05/18 15:48 Intake & Output 07/04/18 07/05/18 07/05/18 23:59 11:59 23:59 Intake Total 1717.75 / 1717.75 1170 / 1170 120 / 120 Output Total 6145 / 6145 1925 / 1925 1050 / 1050 Balance -4427.25 / -4427.25 -755 / -755 -930 / -930 Weight 96.9 kg Intake: IV 1417.75 / 1417.75 450 / 450 0 / 0 Oral 300 / 300 720 / 720 120 / 120 Output: Urine 6145 / 6145 1924 / 1924 1050 / 1050 Other: Urine Color Pale Light Roman Yellow Yellow [place] Urine Appearance Clear Hematuria Clear Comment quintanilla patent, draining clear harden colored urine Pt is reporting discomfort related to his Quintanilla catheter, writhing around in his bed at times related to catheter discomfort. Red blood noted in Quintanilla tubing. Urine is roman pink colored in collection bag. Indwelling Quintanilla catheter. Stool Occult Blood Negative Stool Size Copious Stool Characteristics Liquid Brown Laboratory Results WBC 17.85 k/cumm (4.4-10.8) H 07/05/18 06:50 RBC 3.78 m/cumm (4.50-6.00) L 07/05/18 06:50 Hgb 12.9 g/dL (13.5-17.5) L 07/05/18 06:50 Hct 41.5 % (40.0-50.0) 07/05/18 06:50 MCV 109.8 fL (80-95) H 07/05/18 06:50 MCH 34.1 pg (27.0-33.0) H 07/05/18 06:50 MCHC 31.1 g/dL (32.0-36.0) L 07/05/18 06:50 RDW 13.3 % (11.8-14.1) 07/05/18 06:50 Plt Count 278 x1000/uL (130-400) 07/05/18 06:50 MPV 9.3 fL (8.0-11.0) 07/05/18 06:50 Immature Gran % 0.6 07/05/18 06:50 Neutrophils % 85.7 07/05/18 06:50 Lymphocytes % 4.0 07/05/18 06:50 Monocytes % 9.6 07/05/18 06:50 Eosinophils % 0.0 07/05/18 06:50 Basophils % 0.1 07/05/18 06:50 Absolute Neutrophils 15.30 k/cumm (1.2-6.7) H 07/05/18 06:50 Absolute Lymphocytes 0.71 k/cumm (1.2-3.4) L 07/05/18 06:50 Absolute Monocytes 1.71 k/cumm (0.11-0.7) H 07/05/18 06:50 Absolute Eosinophils 0.00 k/cumm (0.0-0.7) 07/05/18 06:50 Absolute Basophils 0.02 k/cumm (0.0-0.2) 07/05/18 06:50 Differential Comment Diff reviewed 07/05/18 06:50 RBC Morphology See below 07/05/18 06:50 Polychromasia Present 07/02/18 13:55 Basophilic Stippling Present 07/02/18 13:55 Macrocytosis 2+ 07/05/18 06:50 Stomatocytes 3+ 07/05/18 06:50 Sample Site Right radial 07/03/18 15:47 pCO2 75 mmHg (34-47) H* 07/03/18 15:47 pO2 70 mmHg (83-108) L 07/03/18 15:47 O2 Saturation 93 % (94-98) L 07/03/18 15:47 ABG pH 7.46 (7.35-7.45) H 07/03/18 15:47 ABG HCO3 53 mmol/L (22-28) H 07/03/18 15:47 ABG Total CO2 > 50 mmol/L (22-29) H 07/03/18 15:47 ABG Base Excess 29.0 mmol/L (-3-3) H 07/03/18 15:47 VBG pH 7.41 (7.32-7.43) 07/02/18 13:55 VBG pCO2 86 mm/Hg (34-47) H 07/02/18 13:55 VBG pO2 115 mm/Hg (28-44) H 07/02/18 13:55 VBG HCO3 54 mmol/L (22-28) H 07/02/18 13:55 VBG Total CO2 48 mmol/L (22-29) H 07/02/18 13:55 VBG O2 Saturation 99 % (70-80) H 07/02/18 13:55 VBG Base Excess mmol/L (-3-3) 07/02/18 13:55 Oxygen Liter Flow Bipap 06/16 30% L 07/03/18 15:47 FiO2 35 % 07/03/18 09:00 Sodium 143 mmol/L (136-145) 07/05/18 06:50 Potassium 3.3 mmol/L (3.5-5.1) L 07/05/18 06:50 Chloride 96 mmol/L (98-107) L 07/05/18 06:50 Carbon Dioxide > 45.0 mmol/L (21.0-32.0) H 07/05/18 06:50 Anion Gap 1.17036 mmol/L (3-11) L 07/05/18 06:50 BUN 18 mg/dL (7-18) 07/05/18 06:50 Creatinine 0.69 mg/dL (0.70-1.30) L 07/05/18 06:50 Estimated GFR/1.73 m2 >= 60.00 (mL/min/1.73m2) 07/05/18 06:50 Glucose 141 mg/dL (70-100) H 07/05/18 06:50 Lactate 0.9 mmol/L (0.6-1.4) 07/02/18 13:55 Calcium 8.4 mg/dL (8.5-10.1) L 07/05/18 06:50 Phosphorus 3.4 mg/dL (2.6-4.7) 07/04/18 06:23 Magnesium 2.1 mg/dL (1.8-2.4) 07/05/18 06:50 Total Bilirubin 0.4 mg/dL (0.2-1.0) 07/04/18 06:23 Conjugated Bilirubin 0.15 mg/dL (0.00-0.20) 07/04/18 06:23 AST 103 U/L (15-37) H 07/04/18 06:23 ALT 79 U/L (12-78) H 07/04/18 06:23 Alkaline Phosphatase 116 U/L (46-116) 07/04/18 06:23 Ammonia 53 umol/L (11-32) H 07/05/18 07:40 Troponin I < 0.02 ng/mL (0.00-0.06) 07/02/18 13:55 NT-Pro-B Natriuret Pep 482 pg/mL (-299) H 07/02/18 13:55 Total Protein 6.8 g/dL (6.4-8.2) 07/04/18 06:23 Albumin 2.5 g/dL (3.4-5.0) L 07/04/18 06:23 TSH 1.38 uIU/mL (0.358-3.74) 07/03/18 06:38 Vancomycin Trough 24.1 ug/mL (10.0-20.0) H* 07/05/18 11:15 Urine Opiates Screen Negative (Negative) 07/02/18 18:10 Urine Methadone Screen Positive (Negative) 07/02/18 18:10 Ur Barbiturates Screen Negative (Negative) 07/02/18 18:10 Ur Tricyclics Screen Negative (Negative) 07/02/18 18:10 Ur Amphetamines Screen Negative (Negative) 07/02/18 18:10 U Benzodiazepines Scrn Negative (Negative) 07/02/18 18:10 Urine Cocaine Screen Negative (Negative) 07/02/18 18:10 Ur THC Screen Negative (Negative) 07/02/18 18:10
[2018-07-06] VITALS (33 sets, daily range): BP systolic 124–148; BP diastolic 78–91; PULSE 73–109; RESP 4–22; TEMP 36.3–36.7; O2SAT 90–95
[2018-07-06] MEDS: VANCOMYCIN 1,000 MG in Normal Saline 250 ML 166.667 MG IVPB (00:37)
[2018-07-06] MEDS: methylPREDNISolone SUCC 125 MG VIAL 80 MG IVP ×2 (00:37→09:54)
[2018-07-06] MEDS: Albuterol/Ipratropium 3 ML UPD VIAL UPD ×5 (00:38→23:31)
[2018-07-06] MEDS: PIPERACILLIN/TAZO 3.375 GM in Normal Saline 50 ML IVPB ×4 (02:53→23:12)
[2018-07-06 07:18] LABS: Abs Immature Grans 0.24 k/cumm (0.0-0.09); Absolute Basophil Count 0.03 k/cumm (0.0-0.2); Absolute Monocyte Count 1.59 k/cumm (0.11-0.7); Basophils % 0.2; HCT 44.4 % (40.0-50.0); HGB 13.5 g/dL (13.5-17.5); Immature Grans % 1.4; Lymphocytes % 3.6; Mean Corp. HGB Concentration 30.4 g/dL (32.0-36.0); Mean Corpuscular Hemoglobin 33.8 pg (27.0-33.0); Mean Corpuscular Volume 111.3 fL (80-95); Mean Platelet Volume 9.4 fL (8.0-11.0); Monocytes % 9.1; Neutrophils % 85.7; Platelet Count 283 x1000/uL (130-400); RBC 3.99 m/cumm (4.50-6.00); RBC Distribution Width 13.4 % (11.8-14.1); White Blood Cell Count 17.46 k/cumm (4.4-10.8)
[2018-07-06 07:19] LABS: Absolute Lymphocyte Count 0.63 k/cumm (1.2-3.4); Absolute Neutrophil Count 14.96 k/cumm (1.2-6.7)
[2018-07-06 07:25] LABS: BUN 22 mg/dL (7-18); CREATININE 0.81 mg/dL (0.70-1.30); Calcium 8.8 mg/dL (8.5-10.1); Chloride 97 mmol/L (98-107); Glucose 189 mg/dL (70-100); Magnesium 2.2 mg/dL (1.8-2.4); Potassium 3.2 mmol/L (3.5-5.1); Sodium 146 mmol/L (136-145)
[2018-07-06 07:41] LABS: Anion Gap 3.99999 mmol/L (3-11); CO2 > 45.0 mmol/L (21.0-32.0)
[2018-07-06] MEDS: Normal Saline 500 ML 30 ML IV ×2 (09:43→11:00)
[2018-07-06] MEDS: VANCOMYCIN 1,000 MG in Normal Saline 250 ML 167 MG IVPB ×2 (09:43→16:28)
[2018-07-06] MEDS: Pantoprazole 40 MG VIAL IVP (09:53)
[2018-07-06] MEDS: Furosemide 40 MG/4 ML VIAL IVP ×2 (09:54→16:35)
[2018-07-06] MEDS: Normal Saline Flush 10 ML SYR IVP (09:55)
[2018-07-06] MEDS: Tamsulosin 0.4 MG CAPCR PO (10:03)
[2018-07-06] MEDS: Lactulose 20 GM/30 ML CUP PO ×3 (10:03→20:46)
[2018-07-06] MEDS: Nicotine 21 MG/24 HR PATCH TD (10:04)
[2018-07-06] MEDS: Fexofenadine 180 MG TAB PO (10:04)
[2018-07-06] MEDS: guaiFENesin 600 MG TABCR PO ×2 (10:04→20:46)
[2018-07-06] MEDS: Lactobacillus Acidophilus CAP 1 CAP PO ×3 (10:04→16:27)
[2018-07-06] MEDS: Methadone Liquid 10 MG/ML 39 MG PO ×2 (10:06→20:51)
[2018-07-06] MEDS: Polyethylene Glycol 3350 17 GM PACKET PO (10:06)
[2018-07-06] MEDS: LEVOFLOXACIN 500 MG/100 ML BAG 100 MG IVPB (11:04)
[2018-07-06] MEDS: Potassium Chloride 20 MEQ TABCR 40 MEQ PO (11:21)
--- NOTE | 2018-07-06 12:56 | PDOC.CMPRO ---
- If Service Date Differs Date of service: 07/06/18 Time of Service: 12:56 Care Management Progress Note S/O: CM attempted to meet with Mahamed at the bedside he continues to be sleepy. He has been wearing his BIPAP the nurse states he is able to take his oral medications. Mahamed continues to be monitored anticipate he will have a change in status to medical surgical Pt per provider. Mahamed is receiving Lactulose for hepatic encephalapathy. He continues to receive IV antibiotics and resp support. A:52 year old male admitted with COPD, resp failure, ETOH withdrawal and hepatic encephalapathy P:Mahamed will return home when medically ready per provider. He continues to be ICU patient at this time. He will transport home via [facility] at time of discharge.
--- NOTE | 2018-07-06 13:08 | CMPROGNOTE_ITS ---
- If Service Date Differs Date of service: 07/06/18 Time of Service: 12:56 Care Management Progress Note S/O: CM attempted to meet with Mahamed at the bedside he continues to be sleepy. He has been wearing his BIPAP the nurse states he is able to take his oral medications. Mahamed continues to be monitored anticipate he will have a change in status to medical surgical Pt per provider. Mahamed is receiving Lactulose for hepatic encephalapathy. He continues to receive IV antibiotics and resp support. A:52 year old male admitted with COPD, resp failure, ETOH withdrawal and hepatic encephalapathy P:Mahamed will return home when medically ready per provider. He continues to be ICU patient at this time. He will transport home via [facility] at time of discharge.
[2018-07-06] MEDS: methylPREDNISolone SUCC 125 MG VIAL 60 MG IVP ×2 (16:27→22:00)
[2018-07-06] MEDS: Enoxaparin 40 MG/0.4 ML SYR SC (16:30)
--- NOTE | 2018-07-06 17:20 | W.PM.PROGNOT ---
Assessment and Plan (1) COPD with exacerbation: Current visit: Yes Status: Acute Due to acute bronchitis with sputum cx positive for Haemophilus spp, normal resp. renata, devon (devon is likely colonization) - continue bipap HS and prn, continue weaning steroids. Get patient ambulating. PT/OT. (2) Acute and chronic respiratory failure with hypercapnia: Current visit: Yes Status: Acute As above. (3) Encephalopathy acute: Current visit: Yes Status: Acute Improving. Due to Combination of hepatic encephalopathy/hyperammonemia as well as DT's. Continue CIWA, prn ativan, lactulose. (4) Peripheral edema: Current visit: Yes Status: Acute No DVT, resolved. EF preserved on echo. Will need a sleep study - ? R heart failure due to untreated sleep apnea. (5) Cellulitis of both lower extremities: Current visit: Yes Status: Resolved Resolved (6) Smoker: Current visit: Yes Status: Chronic Counselled on quitting (7) Acquired hypothyroidism: Current visit: Yes Status: Chronic TSH within desired limits, Continue synthroid (8) History of intravenous drug abuse: Current visit: Yes Status: Chronic Continue methadone therapy. UDS positive for only methadone (9) Urinary retention: Current visit: Yes Status: Acute S/p quintanilla. Will eventually need a voiding trial. (10) Hepatic encephalopathy: Current visit: Yes Status: Acute Clinically improving on lactulose. ?underlying cirrhosis Subjective Interval history since last seen: The patient has been more cooperative, appropriate, tolerating BiPAP when asleep. Spending some time on nasal canula while awake. He denied dizziness, chest pain, nausea, vomiting. He stated he is less short of breath. He was interested in getting into a chair and watching TV. Exam Narrative Exam Narrative: General: easily arousable, wearing bipap, answering questions Neurological: No obvious focal deficits Skin: chronic venous stasis changes, abrasions on BLE's. No erythema. HEENT: atraumatic, normocephalic, EOMI, MMM; some upper airway breathing noted Cardiovascular: RRR, no m/r/g Lungs: wheezing on expiration bilaterally Gastrointestinal: abdomen soft, nontender, nondistended Extremities: trace edema BLE's, no clubbing or cyanosis Objective Objective Clinical Data: Abnormal lab results 07/06/18 07/06/18 Range/Units 06:35 06:35 WBC 17.46 H (4.4-10.8) k/cumm RBC 3.99 L (4.50-6.00) m/cumm MCV 111.3 H (80-95) fL MCH 33.8 H (27.0-33.0) pg MCHC 30.4 L (32.0-36.0) g/dL Absolute Neutrophils 14.96 H (1.2-6.7) k/cumm Absolute Lymphocytes 0.63 L (1.2-3.4) k/cumm Absolute Monocytes 1.59 H (0.11-0.7) k/cumm Sodium 146 H (136-145) mmol/L Potassium 3.2 L (3.5-5.1) mmol/L Chloride 97 L (98-107) mmol/L Carbon Dioxide > 45.0 H (21.0-32.0) mmol/L BUN 22 H (7-18) mg/dL Glucose 189 H (70-100) mg/dL Vital Signs Temperature 36.3 C L 07/06/18 10:22 Temperature Source Tympanic 07/06/18 10:22 Pulse 75 07/06/18 12:01 Pulse 74 07/06/18 12:01 Respiratory Rate 9 L 07/06/18 12:01 Respiratory Effort Incrsd Work of Breathing 07/06/18 10:22 Respiratory Depth Normal 07/06/18 10:22 Respiratory Pattern Normal 07/06/18 10:22 Blood Pressure 134/79 07/06/18 12:01 Blood Pressure Mean 92 07/06/18 12:01 Blood Pressure Position Supine 07/06/18 10:22 Pulse Oximetry 92 L 07/06/18 11:10 Oxygen Delivery Method Bi-pap 07/06/18 12:14 Oxygen Flow Rate 6 07/06/18 04:29 Fraction of Inspired Oxygen (FIO2) 30 07/06/18 11:10 Pain Level 0 07/06/18 04:29 Intake & Output 07/05/18 07/06/18 07/06/18 23:59 11:59 23:59 Intake Total 470 / 470 1030 / 1030 100 / 100 Output Total 1050 / 1050 660 / 660 870 / 870 Balance -580 / -580 370 / 370 -770 / -770 Weight 95.3 kg Intake: IV 350 / 350 550 / 550 100 / 100 Oral 120 / 120 480 / 480 Output: Urine 1050 / 1050 460 / 460 870 / 870 Emesis 200 / 200 Other: Urine Color Yellow Light Tamara Pale Straw Yellow Urine Appearance Clear Clear Clear Comment Indwelling Quintanilla catheter is draining a mix of blood and urine. Quintanilla catheter intact and draining well. Stool Occult Blood Negative Stool Size Copious Smear Stool Characteristics Liquid Liquid Brown Bloody Laboratory Results WBC 17.46 k/cumm (4.4-10.8) H 07/06/18 06:35 RBC 3.99 m/cumm (4.50-6.00) L 07/06/18 06:35 Hgb 13.5 g/dL (13.5-17.5) 07/06/18 06:35 Hct 44.4 % (40.0-50.0) 07/06/18 06:35 MCV 111.3 fL (80-95) H 07/06/18 06:35 MCH 33.8 pg (27.0-33.0) H 07/06/18 06:35 MCHC 30.4 g/dL (32.0-36.0) L 07/06/18 06:35 RDW 13.4 % (11.8-14.1) 07/06/18 06:35 Plt Count 283 x1000/uL (130-400) 07/06/18 06:35 MPV 9.4 fL (8.0-11.0) 07/06/18 06:35 Immature Gran % 1.4 07/06/18 06:35 Neutrophils % 85.7 07/06/18 06:35 Lymphocytes % 3.6 07/06/18 06:35 Monocytes % 9.1 07/06/18 06:35 Eosinophils % 0.0 07/06/18 06:35 Basophils % 0.2 07/06/18 06:35 Absolute Neutrophils 14.96 k/cumm (1.2-6.7) H 07/06/18 06:35 Absolute Lymphocytes 0.63 k/cumm (1.2-3.4) L 07/06/18 06:35 Absolute Monocytes 1.59 k/cumm (0.11-0.7) H 07/06/18 06:35 Absolute Eosinophils 0.00 k/cumm (0.0-0.7) 07/06/18 06:35 Absolute Basophils 0.03 k/cumm (0.0-0.2) 07/06/18 06:35 Differential Comment Diff reviewed 07/05/18 06:50 RBC Morphology See below 07/05/18 06:50 Polychromasia Present 07/02/18 13:55 Basophilic Stippling Present 07/02/18 13:55 Macrocytosis 2+ 07/05/18 06:50 Stomatocytes 3+ 07/05/18 06:50 Sample Site Right radial 07/03/18 15:47 pCO2 75 mmHg (34-47) H* 07/03/18 15:47 pO2 70 mmHg (83-108) L 07/03/18 15:47 O2 Saturation 93 % (94-98) L 07/03/18 15:47 ABG pH 7.46 (7.35-7.45) H 07/03/18 15:47 ABG HCO3 53 mmol/L (22-28) H 07/03/18 15:47 ABG Total CO2 > 50 mmol/L (22-29) H 07/03/18 15:47 ABG Base Excess 29.0 mmol/L (-3-3) H 07/03/18 15:47 VBG pH 7.41 (7.32-7.43) 07/02/18 13:55 VBG pCO2 86 mm/Hg (34-47) H 07/02/18 13:55 VBG pO2 115 mm/Hg (28-44) H 07/02/18 13:55 VBG HCO3 54 mmol/L (22-28) H 07/02/18 13:55 VBG Total CO2 48 mmol/L (22-29) H 07/02/18 13:55 VBG O2 Saturation 99 % (70-80) H 07/02/18 13:55 VBG Base Excess mmol/L (-3-3) 07/02/18 13:55 Oxygen Liter Flow Bipap 06/16 30% L 07/03/18 15:47 FiO2 35 % 07/03/18 09:00 Sodium 146 mmol/L (136-145) H 07/06/18 06:35 Potassium 3.2 mmol/L (3.5-5.1) L 07/06/18 06:35 Chloride 97 mmol/L (98-107) L 07/06/18 06:35 Carbon Dioxide > 45.0 mmol/L (21.0-32.0) H 07/06/18 06:35 Anion Gap 3.14539 mmol/L (3-11) 07/06/18 06:35 BUN 22 mg/dL (7-18) H 07/06/18 06:35 Creatinine 0.81 mg/dL (0.70-1.30) 07/06/18 06:35 Estimated GFR/1.73 m2 >= 60.00 (mL/min/1.73m2) 07/06/18 06:35 Glucose 189 mg/dL (70-100) H 07/06/18 06:35 Lactate 0.9 mmol/L (0.6-1.4) 07/02/18 13:55 Calcium 8.8 mg/dL (8.5-10.1) 07/06/18 06:35 Phosphorus 3.4 mg/dL (2.6-4.7) 07/04/18 06:23 Magnesium 2.2 mg/dL (1.8-2.4) 07/06/18 06:35 Total Bilirubin 0.4 mg/dL (0.2-1.0) 07/04/18 06:23 Conjugated Bilirubin 0.15 mg/dL (0.00-0.20) 07/04/18 06:23 AST 103 U/L (15-37) H 07/04/18 06:23 ALT 79 U/L (12-78) H 07/04/18 06:23 Alkaline Phosphatase 116 U/L (46-116) 07/04/18 06:23 Ammonia 53 umol/L (11-32) H 07/05/18 07:40 Troponin I < 0.02 ng/mL (0.00-0.06) 07/02/18 13:55 NT-Pro-B Natriuret Pep 482 pg/mL (-299) H 07/02/18 13:55 Total Protein 6.8 g/dL (6.4-8.2) 07/04/18 06:23 Albumin 2.5 g/dL (3.4-5.0) L 07/04/18 06:23 TSH 1.38 uIU/mL (0.358-3.74) 10/22/18 06:38 Vancomycin Trough 24.1 ug/mL (10.0-20.0) H* 07/05/18 11:15 Urine Opiates Screen Negative (Negative) 07/02/18 18:10 Urine Methadone Screen Positive (Negative) 07/02/18 18:10 Ur Barbiturates Screen Negative (Negative) 07/02/18 18:10 Ur Tricyclics Screen Negative (Negative) 07/02/18 18:10 Ur Amphetamines Screen Negative (Negative) 07/02/18 18:10 U Benzodiazepines Scrn Negative (Negative) 07/02/18 18:10 Urine Cocaine Screen Negative (Negative) 07/02/18 18:10 Ur THC Screen Negative (Negative) 07/02/18 18:10
[2018-07-06] MEDS: Budesonide/Formoterol 160/4.5 6 GM 60 PUFF INH IH (20:44)
[2018-07-06] MEDS: LORazepam 0.5 MG TAB 1 MG PO (20:47)
[2018-07-07] VITALS (25 sets, daily range): BP systolic 121–148; BP diastolic 74–86; PULSE 66–104; RESP 4–21; TEMP 36.2–37; O2SAT 77–99
[2018-07-07] MEDS: VANCOMYCIN 1,000 MG in Normal Saline 250 ML 167 MG IVPB ×3 (00:13→16:29)
[2018-07-07] MEDS: Albuterol/Ipratropium 3 ML UPD VIAL UPD ×3 (05:29→18:35)
[2018-07-07] MEDS: Levothyroxine 100 MCG TAB PO (05:36)
[2018-07-07] MEDS: PIPERACILLIN/TAZO 3.375 GM in Normal Saline 50 ML IVPB ×3 (05:37→18:29)
[2018-07-07] MEDS: methylPREDNISolone SUCC 125 MG VIAL 60 MG IVP (05:37)
[2018-07-07 07:38] LABS: Absolute Basophil Count 0.02 k/cumm (0.0-0.2); Absolute Lymphocyte Count 0.71 k/cumm (1.2-3.4); Absolute Monocyte Count 1.49 k/cumm (0.11-0.7); Absolute Neutrophil Count 14.15 k/cumm (1.2-6.7); Ammonia 36 umol/L (11-32); Basophils % 0.1; HCT 43.5 % (40.0-50.0); HGB 13.6 g/dL (13.5-17.5); Immature Grans % 1.2; Lymphocytes % 4.3; Mean Corp. HGB Concentration 31.3 g/dL (32.0-36.0); Mean Corpuscular Hemoglobin 34.3 pg (27.0-33.0); Mean Corpuscular Volume 109.6 fL (80-95); Mean Platelet Volume 9.1 fL (8.0-11.0); Neutrophils % 85.4; Platelet Count 274 x1000/uL (130-400); RBC 3.97 m/cumm (4.50-6.00); RBC Distribution Width 13.2 % (11.8-14.1); White Blood Cell Count 16.57 k/cumm (4.4-10.8)
[2018-07-07 07:41] LABS: Vancomycin, Trough 16.1 ug/mL (10.0-20.0)
[2018-07-07 07:43] LABS: BUN 22 mg/dL (7-18); CREATININE 0.76 mg/dL (0.70-1.30); Calcium 8.7 mg/dL (8.5-10.1); Chloride 97 mmol/L (98-107); Glucose 158 mg/dL (70-100); Magnesium 2.2 mg/dL (1.8-2.4); Sodium 143 mmol/L (136-145)
[2018-07-07 07:48] LABS: Anion Gap 0.99999 mmol/L (3-11); CO2 > 45.0 mmol/L (21.0-32.0)
[2018-07-07] MEDS: Lactobacillus Acidophilus CAP 1 CAP PO ×3 (07:58→16:29)
[2018-07-07] MEDS: Fexofenadine 180 MG TAB PO (08:24)
[2018-07-07] MEDS: Pantoprazole 40 MG VIAL IVP (08:24)
[2018-07-07] MEDS: Lactulose 20 GM/30 ML CUP PO ×3 (08:24→21:06)
[2018-07-07] MEDS: guaiFENesin 600 MG TABCR PO ×2 (08:24→21:06)
[2018-07-07] MEDS: Tamsulosin 0.4 MG CAPCR PO (08:24)
[2018-07-07] MEDS: Nicotine 21 MG/24 HR PATCH TD (08:25)
[2018-07-07] MEDS: Furosemide 40 MG/4 ML VIAL IVP ×2 (08:25→16:29)
[2018-07-07] MEDS: Normal Saline Flush 10 ML SYR IVP (08:26)
[2018-07-07] MEDS: Methadone Liquid 10 MG/ML 39 MG PO ×2 (08:49→21:06)
--- NOTE | 2018-07-07 09:00 | PDOC.CMPRO ---
- If Service Date Differs Date of service: 07/07/18 Time of Service: 09:00 Care Management Progress Note S/O: CM met with Mahamed at the bedside he is sitting up in the chair. He is more alert today he is able to have a conversation with CM related to discharge planning. He is willing to have a referral to home health for nursing prior to discharge vs SNF referral. Mahamed thinks he may benefit from a short rehab however his conversation is not clear to CM if he is willing to have a referral sent at this time. CM will continue to provide support to patient and send referrals when he is more alert. Mahamed is not able to complete his advance directives at this time he has not wanted to deal with it. A:52 year old male admitted with COPD, resp failure, ETOH withdrawal and hepatic encephalapathy P:Mahamed is now a medical surgical patient he remains in the ICU at this time. He continues with oxygen support nasal cannula, IV antibiotics and monitoring. He will be discharged home with home health vs SNF no referral sent at this time. CM anticipates as Mahamed clears mentally he will want to be discharged home with services. CM to continue to offer SNF referral after prolonged hospitalization and PT requirement. Palliative consult will be ordered per provider.
[2018-07-07] MEDS: Budesonide/Formoterol 160/4.5 6 GM 60 PUFF INH IH ×2 (10:23→21:08)
[2018-07-07] MEDS: LEVOFLOXACIN 500 MG/100 ML BAG 100 MG IVPB (10:45)
[2018-07-07] MEDS: methylPREDNISolone SUCC 125 MG VIAL 40 MG IVP ×2 (14:05→21:07)
[2018-07-07] MEDS: Enoxaparin 40 MG/0.4 ML SYR SC (16:29)
[2018-07-07] MEDS: Normal Saline 500 ML 30 ML IV (16:40)
--- NOTE | 2018-07-07 18:33 | PGE_ITS ---
Assessment and Plan (1) COPD with exacerbation: Current visit: Yes Status: Acute Due to acute bronchitis with sputum cx positive for Haemophilus spp, normal resp. renata, devon (devon is likely colonization) - continue bipap HS and prn, continue weaning steroids. Likely needs BiPAP as outpatient - would need to have a sleep study. Signifincantly better today. To finish a 5 day course of levofloxacin tomorrow. D/c vanco and zosyn. (2) Acute and chronic respiratory failure with hypercapnia: Current visit: Yes Status: Acute As above. (3) Encephalopathy acute: Current visit: Yes Status: Acute Improving. Due to Combination of hepatic encephalopathy/hyperammonemia as well as DT's. Continue CIWA, prn ativan, lactulose. (4) Peripheral edema: Current visit: Yes Status: Resolved No DVT, resolved. EF preserved on echo. Will need a sleep study - ? R heart failure due to untreated sleep apnea. (5) Cellulitis of both lower extremities: Current visit: Yes Status: Resolved Resolved (6) Smoker: Current visit: Yes Status: Chronic Counselled on quitting (7) Acquired hypothyroidism: Current visit: Yes Status: Chronic TSH within desired limits, Continue synthroid (8) History of intravenous drug abuse: Current visit: Yes Status: Chronic Continue methadone therapy. UDS positive for only methadone. (9) Urinary retention: Current visit: Yes Status: Acute Voiding trial today. (10) Hepatic encephalopathy: Current visit: Yes Status: Acute Clinically improving on lactulose. ?underlying cirrhosis - will need outpatient workup (11) DVT prophylaxis: Current visit: Yes Status: Acute Lovenox (12) Discharge planning issues: Current visit: Yes Status: Acute Could potentially benefit from rehab as outpatient. Continue to work with PT. Subjective Interval history since last seen: Doing much better today. Denies any dizziness , chest pain, nausea, or pain in general. States he is breathing better today. Continues to have a productive cough. Using incentive spirometry. Much more awake and alert. Nurses note that the patient keeps asking for something to drink while he in fact is holding a glass of gingerale in his hand. Able to tolerate long periods of time on Nasal canula at 4 L without BiPAP on. Exam Narrative Exam Narrative: General: awake, sitting in the chair, conversant, watching TV Neurological: No obvious focal deficits Skin: chronic venous stasis changes, abrasions on BLE's. No erythema. HEENT: atraumatic, normocephalic, EOMI, MMM Cardiovascular: RRR, no m/r/g Lungs: wheezing on expiration bilaterally, much quieter today Gastrointestinal: abdomen soft, nontender, nondistended Extremities: trace edema BLE's, no clubbing or cyanosis Objective Objective Clinical Data: Abnormal lab results 07/07/18 07/07/18 07/07/18 Range/Units 07:16 07:16 07:16 WBC 16.57 H (4.4-10.8) k/cumm RBC 3.97 L (4.50-6.00) m/cumm MCV 109.6 H (80-95) fL MCH 34.3 H (27.0-33.0) pg MCHC 31.3 L (32.0-36.0) g/dL Absolute Neutrophils 14.15 H (1.2-6.7) k/cumm Absolute Lymphocytes 0.71 L (1.2-3.4) k/cumm Absolute Monocytes 1.49 H (0.11-0.7) k/cumm Chloride 97 L (98-107) mmol/L Carbon Dioxide > 45.0 H (21.0-32.0) mmol/L Anion Gap 0.01193 L (3-11) mmol/L BUN 22 H (7-18) mg/dL Glucose 158 H (70-100) mg/dL Ammonia 36 H (11-32) umol/L Vital Signs Temperature 36.4 C L 07/07/18 14:45 Temperature Source Temporal Artery Scan 07/07/18 14:45 Pulse 101 H 07/07/18 14:48 Pulse Rhythm Regular 07/07/18 14:45 Pulse 91 H 07/07/18 08:08 Respiratory Rate 17 07/07/18 08:08 Respiratory Effort 07/07/18 14:45 Respiratory Depth Shallow 07/07/18 14:45 Respiratory Pattern Normal 07/07/18 14:45 Blood Pressure 132/80 07/07/18 14:48 Blood Pressure Mean 90 07/07/18 14:48 Blood Pressure Position Supine 07/07/18 04:00 Pulse Oximetry 77 L 07/07/18 16:15 Oxygen Delivery Method Nasal Cannula 07/07/18 16:15 Oxygen Flow Rate 4 10/26/18 16:15 Fraction of Inspired Oxygen (FIO2) 30 07/06/18 11:10 Pain Level 0 07/07/18 14:45 Comment 07/07/18 14:45 Intake & Output 07/06/18 07/07/18 07/07/18 23:59 11:59 23:59 Intake Total 900 / 900 1030 / 1030 882.5 / 882.5 Output Total 3120 / 3120 2049 200 / 200 Balance -2220 / -2220 -1020 / -1020 682.5 / 682.5 Weight 93.4 kg Intake: IV 450 / 450 730 / 730 402.5 / 402.5 Oral 450 / 450 300 / 300 480 / 480 Output: Urine 2720 / 2720 2049 200 / 200 Stool 400 / 400 Other: Urine Color Yellow Yellow Urine Appearance Clear Clear Clear Urine Odor None Comment Rice catheter intact and draining well. Rice catheter intact and draining well. mixed with small amount of stool Stool Occult Blood Negative Negative Stool Size Moderate Moderate Stool Characteristics Liquid Liquid Brown Voiding Methods Indwelling Catheter Bedside Commode Laboratory Results WBC 16.57 k/cumm (4.4-10.8) H 07/07/18 07:16 RBC 3.97 m/cumm (4.50-6.00) L 07/07/18 07:16 Hgb 13.6 g/dL (13.5-17.5) 07/07/18 07:16 Hct 43.5 % (40.0-50.0) 07/07/18 07:16 MCV 109.6 fL (80-95) H 07/07/18 07:16 MCH 34.3 pg (27.0-33.0) H 07/07/18 07:16 MCHC 31.3 g/dL (32.0-36.0) L 07/07/18 07:16 RDW 13.2 % (11.8-14.1) 07/07/18 07:16 Plt Count 274 x1000/uL (130-400) 07/07/18 07:16 MPV 9.1 fL (8.0-11.0) 07/07/18 07:16 Immature Gran % 1.2 07/07/18 07:16 Neutrophils % 85.4 07/07/18 07:16 Lymphocytes % 4.3 07/07/18 07:16 Monocytes % 9.0 07/07/18 07:16 Eosinophils % 0.0 07/07/18 07:16 Basophils % 0.1 07/07/18 07:16 Absolute Neutrophils 14.15 k/cumm (1.2-6.7) H 07/07/18 07:16 Absolute Lymphocytes 0.71 k/cumm (1.2-3.4) L 07/07/18 07:16 Absolute Monocytes 1.49 k/cumm (0.11-0.7) H 07/07/18 07:16 Absolute Eosinophils 0.00 k/cumm (0.0-0.7) 07/07/18 07:16 Absolute Basophils 0.02 k/cumm (0.0-0.2) 07/07/18 07:16 Differential Comment Diff reviewed 07/05/18 06:50 RBC Morphology See below 07/05/18 06:50 Polychromasia Present 07/02/18 13:55 Basophilic Stippling Present 07/02/18 13:55 Macrocytosis 2+ 07/05/18 06:50 Stomatocytes 3+ 07/05/18 06:50 Sample Site Right radial 07/03/18 15:47 pCO2 75 mmHg (34-47) H* 07/03/18 15:47 pO2 70 mmHg (83-108) L 07/03/18 15:47 O2 Saturation 93 % (94-98) L 07/03/18 15:47 ABG pH 7.46 (7.35-7.45) H 07/03/18 15:47 ABG HCO3 53 mmol/L (22-28) H 07/03/18 15:47 ABG Total CO2 > 50 mmol/L (22-29) H 07/03/18 15:47 ABG Base Excess 29.0 mmol/L (-3-3) H 07/03/18 15:47 VBG pH 7.41 (7.32-7.43) 07/02/18 13:55 VBG pCO2 86 mm/Hg (34-47) H 07/02/18 13:55 VBG pO2 115 mm/Hg (28-44) H 07/02/18 13:55 VBG HCO3 54 mmol/L (22-28) H 07/02/18 13:55 VBG Total CO2 48 mmol/L (22-29) H 07/02/18 13:55 VBG O2 Saturation 99 % (70-80) H 07/02/18 13:55 VBG Base Excess mmol/L (-3-3) 07/02/18 13:55 Oxygen Liter Flow Bipap 06/16 30% L 07/03/18 15:47 FiO2 35 % 07/03/18 09:00 Sodium 143 mmol/L (136-145) 07/07/18 07:16 Potassium 4.0 mmol/L (3.5-5.1) D 07/07/18 07:16 Chloride 97 mmol/L (98-107) L 07/07/18 07:16 Carbon Dioxide > 45.0 mmol/L (21.0-32.0) H 07/07/18 07:16 Anion Gap 0.34997 mmol/L (3-11) L 07/07/18 07:16 BUN 22 mg/dL (7-18) H 07/07/18 07:16 Creatinine 0.76 mg/dL (0.70-1.30) 07/07/18 07:16 Estimated GFR/1.73 m2 >= 60.00 (mL/min/1.73m2) 07/07/18 07:16 Glucose 158 mg/dL (70-100) H 07/07/18 07:16 Lactate 0.9 mmol/L (0.6-1.4) 07/02/18 13:55 Calcium 8.7 mg/dL (8.5-10.1) 07/07/18 07:16 Phosphorus 3.4 mg/dL (2.6-4.7) 07/04/18 06:23 Magnesium 2.2 mg/dL (1.8-2.4) 07/07/18 07:16 Total Bilirubin 0.4 mg/dL (0.2-1.0) 07/04/18 06:23 Conjugated Bilirubin 0.15 mg/dL (0.00-0.20) 07/04/18 06:23 AST 103 U/L (15-37) H 07/04/18 06:23 ALT 79 U/L (12-78) H 07/04/18 06:23 Alkaline Phosphatase 116 U/L (46-116) 07/04/18 06:23 Ammonia 36 umol/L (11-32) H 07/07/18 07:16 Troponin I < 0.02 ng/mL (0.00-0.06) 07/02/18 13:55 NT-Pro-B Natriuret Pep 482 pg/mL (-299) H 07/02/18 13:55 Total Protein 6.8 g/dL (6.4-8.2) 07/04/18 06:23 Albumin 2.5 g/dL (3.4-5.0) L 07/04/18 06:23 TSH 1.38 uIU/mL (0.358-3.74) 07/03/18 06:38 Vancomycin Trough 16.1 ug/mL (10.0-20.0) 07/07/18 07:16 Urine Opiates Screen Negative (Negative) 07/02/18 18:10 Urine Methadone Screen Positive (Negative) 07/02/18 18:10 Ur Barbiturates Screen Negative (Negative) 07/02/18 18:10 Ur Tricyclics Screen Negative (Negative) 07/02/18 18:10 Ur Amphetamines Screen Negative (Negative) 07/02/18 18:10 U Benzodiazepines Scrn Negative (Negative) 07/02/18 18:10 Urine Cocaine Screen Negative (Negative) 07/02/18 18:10 Ur THC Screen Negative (Negative) 07/02/18 18:10
[2018-07-07] MEDS: Albuterol 2.5 MG/3 ML INH SOLN VIAL UPD (21:30)
[2018-07-08] VITALS (21 sets, daily range): BP systolic 125–156; BP diastolic 71–96; PULSE 77–106; RESP 4–20; TEMP 36.5–36.9; O2SAT 93
[2018-07-08] MEDS: Albuterol/Ipratropium 3 ML UPD VIAL UPD ×6 (00:30→23:42)
[2018-07-08] MEDS: Lactobacillus Acidophilus CAP 1 CAP PO ×3 (06:57→15:44)
[2018-07-08] MEDS: Levothyroxine 100 MCG TAB PO (06:58)
[2018-07-08] MEDS: methylPREDNISolone SUCC 125 MG VIAL 40 MG IVP (06:58)
[2018-07-08 07:02] LABS: HCT 46.1 % (40.0-50.0); HGB 14.7 g/dL (13.5-17.5); Mean Corp. HGB Concentration 31.9 g/dL (32.0-36.0); Mean Corpuscular Hemoglobin 33.9 pg (27.0-33.0); Mean Corpuscular Volume 106.2 fL (80-95); Mean Platelet Volume 9.4 fL (8.0-11.0); Platelet Count 299 x1000/uL (130-400); RBC 4.34 m/cumm (4.50-6.00); RBC Distribution Width 12.9 % (11.8-14.1); White Blood Cell Count 23.21 k/cumm (4.4-10.8)
[2018-07-08] MEDS: Normal Saline Flush 10 ML SYR IVP (07:04)
[2018-07-08 07:17] LABS: BUN 23 mg/dL (7-18); CREATININE 0.81 mg/dL (0.70-1.30); Chloride 91 mmol/L (98-107); Glucose 183 mg/dL (70-100); Sodium 138 mmol/L (136-145)
[2018-07-08 07:20] LABS: Anion Gap 1.99999 mmol/L (3-11); CO2 > 45.0 mmol/L (21.0-32.0)
[2018-07-08 07:29] LABS: Absolute Lymphocyte Count 1.39 k/cumm (1.2-3.4); Atypical Lymphocytes % 2
[2018-07-08 07:30] LABS: Absolute Monocyte Count 2.32 k/cumm (0.11-0.7); Diff Comment Manual Differential; Macrocytosis 3+; Stomatocytes 2+
[2018-07-08] MEDS: Budesonide/Formoterol 160/4.5 6 GM 60 PUFF INH IH ×2 (08:22→19:30)
[2018-07-08] MEDS: Polyethylene Glycol 3350 17 GM PACKET PO (08:26)
[2018-07-08] MEDS: Nicotine 21 MG/24 HR PATCH TD (08:26)
[2018-07-08] MEDS: Furosemide 40 MG/4 ML VIAL IVP (08:27)
[2018-07-08] MEDS: Lactulose 20 GM/30 ML CUP PO ×3 (08:27→19:29)
[2018-07-08] MEDS: guaiFENesin 600 MG TABCR PO ×2 (08:27→19:29)
[2018-07-08] MEDS: Methadone Liquid 10 MG/ML 39 MG PO ×2 (08:28→19:29)
[2018-07-08] MEDS: Pantoprazole 40 MG VIAL IVP (08:29)
[2018-07-08] MEDS: Tamsulosin 0.4 MG CAPCR PO (08:29)
[2018-07-08] MEDS: Fexofenadine 180 MG TAB PO (08:30)
[2018-07-08] MEDS: POTASSIUM CHLORIDE 20 MEQ/100 ML BAG 50 MEQ IVPB (08:35)
[2018-07-08] MEDS: Potassium Chloride 20 MEQ TABCR 40 MEQ PO ×2 (08:35→15:42)
[2018-07-08] MEDS: LEVOFLOXACIN 500 MG/100 ML BAG 100 MG IVPB (12:08)
--- NOTE | 2018-07-08 13:37 | NUR.NOTE ---
Increased confusion as day progressed. Several attempts to take apart TV remote for parts to fix pulse oximeter prope to use as a telephone. Difficult to redirect. Refused breakfast. Took 50% of lunch. Takes PO medications without incident.
--- NOTE | 2018-07-08 13:47 | PGE_ITS ---
Assessment and Plan (1) COPD with exacerbation: Current visit: Yes Status: Acute Potentially in setting of bacterial bronchitis, with sputum cx positive for Haemophilus spp, normal resp. renata, devon (devon is likely colonization ). Vancomycin and Pip-Tazo discontinued after 6 total days, currently on day #4 of Levofloxacin. Currently with worsening leukocytosis but remains afebrile - will check urinalysis and repeat CXR to ensure lack of infectious pathology. Continue BIPAP as needed, which he will likely require as outpatient. Continue IV Steroids and wean as able. Continue nebs. (2) Acute and chronic respiratory failure with hypercapnia: Current visit: Yes Status: Acute Treatment as above. Given altered mental status will recheck an ABG now. (3) Encephalopathy acute: Current visit: Yes Status: Acute Multifactorial in setting of hypercapneic and hypoxic respiratory failure as well as elevated ammonia and potential hepatic encephalopathy. Patient also underwent acute ETOH Withdrawl. Given current mental status will repeat ABG and ammonia, although patient has been maintained on lactulose, and continue CIWA protocol. May require further BIPAP pending results of blood gas. (4) Hepatic encephalopathy: Current visit: Yes Status: Acute Remains on lactulose with potential underlying cirrhosis on the basis of ETOH abuse - will need outpatient workup. (5) Cellulitis of both lower extremities: Current visit: Yes Status: Resolved Resolved (6) Smoker: Current visit: Yes Status: Chronic Previously counselled on cessation (7) Acquired hypothyroidism: Current visit: Yes Status: Chronic TSH within desired limits. Continue replacement therapy. (8) History of intravenous drug abuse: Current visit: Yes Status: Chronic Continue methadone therapy. UDS positive for only methadone. (9) Urinary retention: Current visit: Yes Status: Acute Voiding trial previously - currently without urine output the majority of the day - check bladder scan now. Also on a-loni. (10) DVT prophylaxis: Current visit: Yes Status: Acute Continue SC Lovenox Subjective Interval history since last seen: 52 year old man with a prior medical history significant for oxygen-dependent COPD, chronic hypoxic hypercapnic respiratory failure on 4-6L of home O2, and ongoing tobacco abuse admitted from [facility] Emergency Department on 07/02/2018 with acute on chronic hypoxic respiratory failure in setting of acute COPD Exacerbation. Mr. Chi continues to smoke despite his oxygen dependant COPD. He had noted worsening dyspnea, and had used his his home nebulizer treatments along with prescribed zithromycin and prednisone without relief as an outpatient. As his dyspnea progressively worsened he was brought to the ER via EMS, where he was found to be hypoxic despite high dose oxygen via Nasal Cannula. He was also noted to be in visible respiratory distress, and was referred for admission. The patient was also noted to have a change in mental status, found to be significantly hypercapneic with a PCO2 of 99, as well as with an elevated Ammonia level currently under treatment with Lactulose. He has also undergone treatment for acute alcohol withdrawl. This morning he is awake and alert, but not at baseline mental status. He also continues to be significantly dyspneic with hypoxia on minimal movement despite supplemental oxygen. WBC continues to rise. No overnight events reported. Patient remains afebrile. Exam Narrative Exam Narrative: General: Awake, alert, appears slightly confused. NAD, sitting up in bed. Neck: Supple. CV: Regular, not tachycardic. Pulmonary: Significantly decreased breathsounds diffusely, with poor air exchange. Minimal but diffuse wheezing. Abdomen: +BS, soft, non-distended. Obese in contour. Not tender. Neurologic: No focal deficits noted. Patient is moving all 4 extremities. Vascular: No LE Edema Objective Objective Clinical Data: Abnormal lab results 07/08/18 07/08/18 Range/Units 06:28 06:28 WBC 23.21 H D (4.4-10.8) k/cumm RBC 4.34 L (4.50-6.00) m/cumm MCV 106.2 H D (80-95) fL MCH 33.9 H (27.0-33.0) pg MCHC 31.9 L (32.0-36.0) g/dL Absolute Neutrophils 19.50 H (1.2-6.7) k/cumm Absolute Monocytes 2.32 H (0.11-0.7) k/cumm Potassium 3.0 L D (3.5-5.1) mmol/L Chloride 91 L (98-107) mmol/L Carbon Dioxide > 45.0 H (21.0-32.0) mmol/L Anion Gap 1.48210 L (3-11) mmol/L BUN 23 H (7-18) mg/dL Glucose 183 H (70-100) mg/dL Vital Signs Temperature 36.4 C L 07/07/18 14:45 Temperature Source Temporal Artery Scan 07/07/18 14:45 Pulse 91 H 07/08/18 12:08 Pulse Rhythm Regular 07/07/18 19:30 Pulse 91 H 07/07/18 08:08 Respiratory Rate 20 07/08/18 00:30 Respiratory Effort 07/08/18 12:22 Respiratory Depth Normal 07/08/18 12:22 Respiratory Pattern Normal 07/08/18 12:22 Blood Pressure 129/85 07/08/18 12:08 Blood Pressure Mean 96 07/08/18 12:08 Blood Pressure Position Supine 07/07/18 04:00 Pulse Oximetry 93 L 07/08/18 10:30 Oxygen Delivery Method Nasal Cannula 07/08/18 10:30 Oxygen Flow Rate 2 07/08/18 10:30 Fraction of Inspired Oxygen (FIO2) 30 07/06/18 11:10 Pain Level 0 07/08/18 08:28 Comment 07/07/18 14:45 Intake & Output 07/07/18 07/08/18 07/08/18 23:59 11:59 23:59 Intake Total 1434.0 / 1434.0 340 / 340 Output Total 200 / 200 450 / 450 Balance 1234.0 / 1234.0 -110 / -110 Weight 97.3 kg Intake: IV 474.0 / 474.0 100 / 100 Oral 960 / 960 240 / 240 Output: Urine 200 / 200 450 / 450 Other: Urine Appearance Clear Comment mixed with small amount of stool Stool Occult Blood Negative Stool Size Moderate Stool Characteristics Liquid Brown Voiding Methods Bedside Commode Laboratory Results WBC 23.21 k/cumm (4.4-10.8) H D 07/08/18 06:28 RBC 4.34 m/cumm (4.50-6.00) L 07/08/18 06:28 Hgb 14.7 g/dL (13.5-17.5) 07/08/18 06:28 Hct 46.1 % (40.0-50.0) 07/08/18 06:28 MCV 106.2 fL (80-95) H D 07/08/18 06:28 MCH 33.9 pg (27.0-33.0) H 07/08/18 06:28 MCHC 31.9 g/dL (32.0-36.0) L 07/08/18 06:28 RDW 12.9 % (11.8-14.1) 07/08/18 06:28 Plt Count 299 x1000/uL (130-400) 07/08/18 06:28 MPV 9.4 fL (8.0-11.0) 07/08/18 06:28 Immature Gran % See Differential 07/08/18 06: Neutrophils % 83.0 07/08/18 06:28 Lymphocytes % 4.0 07/08/18 06:28 Monocytes % 10.0 07/08/18 06:28 Eosinophils % 0.0 07/08/18 06:28 Basophils % 0.0 07/08/18 06:28 Absolute Neutrophils 19.50 k/cumm (1.2-6.7) H 07/08/18 06:28 Band Neutrophils 1.0 % 07/08/18 06:28 Absolute Lymphocytes 1.39 k/cumm (1.2-3.4) 07/08/18 06:28 Absolute Monocytes 2.32 k/cumm (0.11-0.7) H 07/08/18 06:28 Absolute Eosinophils 0.00 k/cumm (0.0-0.7) 07/08/18 06:28 Absolute Basophils 0.00 k/cumm (0.0-0.2) 07/08/18 06:28 Differential Comment Manual differential 07/08/18 06:28 Atypical Lymphocytes 2 07/08/18 06:28 RBC Morphology See below 07/08/18 06:28 Polychromasia Present 07/02/18 13:55 Basophilic Stippling Present 07/02/18 13:55 Macrocytosis 3+ 07/08/18 06:28 Stomatocytes 2+ 07/08/18 06:28 Sample Site Right radial 07/03/18 15:47 pCO2 75 mmHg (34-47) H* 07/03/18 15:47 pO2 70 mmHg (83-108) L 07/03/18 15:47 O2 Saturation 93 % (94-98) L 07/03/18 15:47 ABG pH 7.46 (7.35-7.45) H 07/03/18 15:47 ABG HCO3 53 mmol/L (22-28) H 07/03/18 15:47 ABG Total CO2 > 50 mmol/L (22-29) H 07/03/18 15:47 ABG Base Excess 29.0 mmol/L (-3-3) H 07/03/18 15:47 VBG pH 7.41 (7.32-7.43) 07/02/18 13:55 VBG pCO2 86 mm/Hg (34-47) H 07/02/18 13:55 VBG pO2 115 mm/Hg (28-44) H 07/02/18 13:55 VBG HCO3 54 mmol/L (22-28) H 07/02/18 13:55 VBG Total CO2 48 mmol/L (22-29) H 07/02/18 13:55 VBG O2 Saturation 99 % (70-80) H 07/02/18 13:55 VBG Base Excess mmol/L (-3-3) 07/02/18 13:55 Oxygen Liter Flow Bipap 06/16 30% L 07/03/18 15:47 FiO2 35 % 07/03/18 09:00 Sodium 138 mmol/L (136-145) 07/08/18 06:28 Potassium 3.0 mmol/L (3.5-5.1) L D 07/08/18 06:28 Chloride 91 mmol/L (98-107) L 07/08/18 06:28 Carbon Dioxide > 45.0 mmol/L (21.0-32.0) H 07/08/18 06:28 Anion Gap 1.89640 mmol/L (3-11) L 07/08/18 06:28 BUN 23 mg/dL (7-18) H 07/08/18 06:28 Creatinine 0.81 mg/dL (0.70-1.30) 07/08/18 06:28 Estimated GFR/1.73 m2 >= 60.00 (mL/min/1.73m2) 07/08/18 06:28 Glucose 183 mg/dL (70-100) H 07/08/18 06:28 Lactate 0.9 mmol/L (0.6-1.4) 07/02/18 13:55 Calcium 9.0 mg/dL (8.5-10.1) 07/08/18 06:28 Phosphorus 3.4 mg/dL (2.6-4.7) 07/04/18 06:23 Magnesium 2.0 mg/dL (1.8-2.4) 07/08/18 06:28 Total Bilirubin 0.4 mg/dL (0.2-1.0) 07/04/18 06:23 Conjugated Bilirubin 0.15 mg/dL (0.00-0.20) 07/04/18 06:23 AST 103 U/L (15-37) H 07/04/18 06:23 ALT 79 U/L (12-78) H 07/04/18 06:23 Alkaline Phosphatase 116 U/L (46-116) 07/04/18 06:23 Ammonia 36 umol/L (11-32) H 07/07/18 07:16 Troponin I < 0.02 ng/mL (0.00-0.06) 07/02/18 13:55 NT-Pro-B Natriuret Pep 482 pg/mL (-299) H 07/02/18 13:55 Total Protein 6.8 g/dL (6.4-8.2) 07/04/18 06:23 Albumin 2.5 g/dL (3.4-5.0) L 07/04/18 06:23 TSH 1.38 uIU/mL (0.358-3.74) 07/03/18 06:38 Vancomycin Trough 16.1 ug/mL (10.0-20.0) 07/07/18 07:16 Urine Opiates Screen Negative (Negative) 07/02/18 18:10 Urine Methadone Screen Positive (Negative) 07/02/18 18:10 Ur Barbiturates Screen Negative (Negative) 07/02/18 18:10 Ur Tricyclics Screen Negative (Negative) 07/02/18 18:10 Ur Amphetamines Screen Negative (Negative) 07/02/18 18:10 U Benzodiazepines Scrn Negative (Negative) 07/02/18 18:10 Urine Cocaine Screen Negative (Negative) 07/02/18 18:10 Ur THC Screen Negative (Negative) 07/02/18 18:10
--- NOTE | 2018-07-08 14:05 | DI.RAD_ITS ---
SYMPTOM/DIAGNOSIS: WORSENING LEUKOCYTOSIS PORTABLE AP CHEST: Comparison is made with 07/02/18 and 08/25/17. Heart size and pulmonary vasculature are within normal limits. There are old healed left rib fractures. There is scarring or atelectasis seen in the lung bases. No pneumothorax is seen. There is blunting seen in the left costophrenic angle which may represent a small left pleural effusion. Emphysematous changes are present in the lungs. IMPRESSION: Question of a small left pleural effusion. No acute pulmonary process.
--- NOTE | 2018-07-08 14:25 | DI.VRAD_ITS ---
EXAM: XR Chest, 1 View EXAM DATE/TIME: 07/08/2018 1:40 PM CLINICAL HISTORY: 52 years old, male; Signs and symptoms; Shortness of breath and other: Worsening leukocytosis TECHNIQUE: XR of the chest, 1 view. COMPARISON: SC XR PORTABLE CHEST AP 07/02/2018 2:56 PM FINDINGS: Lungs: No focal consolidation. Stable calcification in the left upper lobe Left basilar atelectasis Pleural space: Blunting in the left costophrenic angle may represent small left pleural effusion. Heart/Mediastinum: Stable cardiac silhouette Bones/joints: Osseous structures are stable IMPRESSION: 1. No focal consolidation. 2. Blunting in the left costophrenic angle may represent small left pleural effusion. Dictated and Authenticated by: Mia Chua MD. Ordering:JOSH PATEL MD
--- NOTE | 2018-07-08 14:38 | PDOC.CMPRO ---
- If Service Date Differs Date of service: 07/08/18 Time of Service: 14:38 Care Management Progress Note S/O: Mahamed is sitting up on the edge of his bed when this writer technical publications visits this morning. He is pleasant and receptive to discussion. At this time, Mahamed continues to be uncertain as to DC plans. Discussed SNF placement vs. home health services. Mahamed's main goal would be to return home with home health services once medically ready. He continues to think about SNF placement and if he would be receptive to this. A:52 year old male admitted with COPD, resp failure, ETOH withdrawal and hepatic encephalapathy P:Mahamed is a medical surgical patient he remains in the ICU at this time. He continues with oxygen support nasal cannula, IV antibiotics and monitoring. He will be discharged home with home health vs SNF no referral sent at this time. CM anticipates as Mahamed clears mentally he will want to be discharged home with services. CM to continue to offer SNF referral after prolonged hospitalization and PT requirement. Palliative consult will be ordered per provider.
--- NOTE | 2018-07-08 14:41 | CMPROGNOTE_ITS ---
- If Service Date Differs Date of service: 07/08/18 Time of Service: 14:38 Care Management Progress Note S/O: Mahamed is sitting up on the edge of his bed when this communications writer visits this morning. He is pleasant and receptive to discussion. At this time, Mahamed continues to be uncertain as to DC plans. Discussed SNF placement vs. home health services. Mahamed's main goal would be to return home with home health services once medically ready. He continues to think about SNF placement and if he would be receptive to this. A:52 year old male admitted with COPD, resp failure, ETOH withdrawal and hepatic encephalapathy P:Mahamed is a medical surgical patient he remains in the ICU at this time. He continues with oxygen support nasal cannula, IV antibiotics and monitoring. He will be discharged home with home health vs SNF no referral sent at this time. CM anticipates as Mahamed clears mentally he will want to be discharged home with services. CM to continue to offer SNF referral after prolonged hospitalization and PT requirement. Palliative consult will be ordered per provider.
[2018-07-08 14:49] LABS: Ammonia 25 umol/L (11-32)
[2018-07-08 15:04] LABS: HCO3 50 mmol/L (22-28); pH 7.45 (7.35-7.45); pO2 54 mmHg (83-108); sO2 88 % (94-98); tCO2 44 mmol/L (22-29)
[2018-07-08 15:06] LABS: Site Right Radial; pCO2 71 mmHg (34-47)
[2018-07-08 15:07] LABS: FIO2 Nasal Cannula %; FIO2L 4 L
[2018-07-08 15:09] LABS: Bilirubin Negative (Negative); Blood Negative (Negative); Clarity Clear; Glucose Negative (Negative); Ketones Negative (Negative); Leukocyte Esterase Negative (Negative); Nitrite Negative (Negative); Urobilinogen 0.2 EU/dL (Up TO 0.2)
[2018-07-08 15:20] LABS: *AMPHETAMINES SCREEN URINE Negative (Negative); *BARBITURATES SCREEN URINE Negative (Negative); *BENZODIAZEPINES SCREEN URINE Negative (Negative); Cannabinoids THC Negative (Negative); Cocaine Screen,Urine Negative (Negative); METHADONE URINE SCREEN POSITIVE (Negative); OPIATES URINE SCREEN Negative (Negative)
[2018-07-08 15:24] LABS: Tricyclic Antidepressants Negative (Negative)
[2018-07-08] MEDS: methylPREDNISolone SUCC 40 MG VIAL IVP ×2 (15:41→22:05)
[2018-07-08] MEDS: Enoxaparin 40 MG/0.4 ML SYR SC (15:42)
[2018-07-08] MEDS: Normal Saline 1,000 ML 75 ML IV (15:43)
[2018-07-08] MEDS: Furosemide 40 MG TAB PO (15:44)
[2018-07-08] MEDS: Albuterol 2.5 MG/3 ML INH SOLN VIAL UPD (19:27)
[2018-07-09] VITALS (14 sets, daily range): BP systolic 120–156; BP diastolic 75–91; PULSE 66–104; RESP 8–20; TEMP 36.7–37.6; O2SAT 91–92
[2018-07-09] MEDS: Albuterol/Ipratropium 3 ML UPD VIAL UPD ×5 (03:24→19:38)
[2018-07-09] MEDS: Normal Saline Flush 10 ML SYR IVP ×5 (06:12→23:33)
[2018-07-09] MEDS: Levothyroxine 100 MCG TAB PO (06:12)
[2018-07-09] MEDS: methylPREDNISolone SUCC 40 MG VIAL IVP ×3 (06:12→23:32)
[2018-07-09 06:33] LABS: Absolute Basophil Count 0.02 k/cumm (0.0-0.2); Absolute Lymphocyte Count 0.66 k/cumm (1.2-3.4); Absolute Monocyte Count 2.05 k/cumm (0.11-0.7); Basophils % 0.1; HCT 42.2 % (40.0-50.0); HGB 13.8 g/dL (13.5-17.5); Lymphocytes % 3.3; Mean Corp. HGB Concentration 32.7 g/dL (32.0-36.0); Mean Corpuscular Hemoglobin 34.2 pg (27.0-33.0); Mean Corpuscular Volume 104.7 fL (80-95); Mean Platelet Volume 9.3 fL (8.0-11.0); Monocytes % 10.3; Neutrophils % 84.3; Platelet Count 298 x1000/uL (130-400); RBC 4.03 m/cumm (4.50-6.00); RBC Distribution Width 12.9 % (11.8-14.1); White Blood Cell Count 19.87 k/cumm (4.4-10.8)
[2018-07-09 06:36] LABS: Absolute Neutrophil Count 16.75 k/cumm (1.2-6.7)
[2018-07-09 06:48] LABS: Anion Gap 1.7 mmol/L (3-11); BUN 19 mg/dL (7-18); CO2 43.3 mmol/L (21.0-32.0); CREATININE 0.68 mg/dL (0.70-1.30); Calcium 8.6 mg/dL (8.5-10.1); Chloride 91 mmol/L (98-107); Glucose 132 mg/dL (70-100); Potassium 3.9 mmol/L (3.5-5.1); Sodium 136 mmol/L (136-145)
[2018-07-09] MEDS: Budesonide/Formoterol 160/4.5 6 GM 60 PUFF INH IH ×2 (07:05→19:39)
[2018-07-09] MEDS: Lactobacillus Acidophilus CAP 1 CAP PO ×3 (08:24→15:28)
[2018-07-09] MEDS: Pantoprazole 40 MG TABCR PO (08:24)
[2018-07-09] MEDS: guaiFENesin 600 MG TABCR PO ×2 (08:25→19:38)
[2018-07-09] MEDS: Furosemide 40 MG TAB PO (08:25)
[2018-07-09] MEDS: Fexofenadine 180 MG TAB PO (08:25)
[2018-07-09] MEDS: Lactulose 20 GM/30 ML CUP PO ×3 (08:25→19:39)
[2018-07-09] MEDS: Methadone Liquid 10 MG/ML 39 MG PO ×2 (08:25→19:38)
[2018-07-09] MEDS: Tamsulosin 0.4 MG CAPCR PO (08:26)
[2018-07-09] MEDS: Nicotine 21 MG/24 HR PATCH TD (08:26)
[2018-07-09] MEDS: Albuterol 2.5 MG/3 ML INH SOLN VIAL UPD (09:14)
[2018-07-09] MEDS: LEVOFLOXACIN 500 MG/100 ML BAG 100 MG IVPB (10:02)
[2018-07-09] MEDS: Normal Saline 500 ML 30 ML IV (10:04)
--- NOTE | 2018-07-09 12:04 | CMPROGNOTE_ITS ---
- If Service Date Differs Date of service: 07/09/18 Time of Service: 12:02 Care Management Progress Note S/O: Mahamed is sitting up in bed this morning when this abstract writer visits, pleasant throughout discussion. Per report Mahamed continues to have shortness of breath when out of bed. Mahamed continues to state that he would prefer to return home with services rather than SNF placement. He would like to continue to think about his options at this time. A:52 year old male admitted with COPD, resp failure, ETOH withdrawal and hepatic encephalapathy P:Mahamed is a medical surgical patient he remains in the ICU at this time. He continues with oxygen support nasal cannula, IV antibiotics and monitoring. He will be discharged home with home health vs SNF no referral sent at this time. CM anticipates as Mahamed clears mentally he will want to be discharged home with services. CM to continue to offer SNF referral after prolonged hospitalization and PT requirement. Palliative consult will be ordered per provider.
--- NOTE | 2018-07-09 14:54 | PGE_ITS ---
Assessment and Plan (1) COPD with exacerbation: Current visit: Yes Status: Acute Potentially in setting of bacterial bronchitis, with sputum cx positive for Haemophilus spp, normal resp. renata, (Kindra Likely to be colonization). Vancomycin and Pip-Tazo discontinued after 6 total days, currently on day #5/ 5of Levofloxacin. Currently with stable but continued leukocytosis but remains afebrile - Repeat urinalysis and CXR with lack of infectious pathology. Continue BIPAP as needed, which he will likely require as outpatient. Continue IV Steroids and wean as able. Continue nebs. (2) Acute and chronic respiratory failure with hypercapnia: Current visit: Yes Status: Acute Treatment as above. PaCO2 appears improved. (3) Encephalopathy acute: Current visit: Yes Status: Acute Multifactorial in setting of hypercapneic and hypoxic respiratory failure as well as elevated ammonia and potential hepatic encephalopathy. Patient also underwent acute ETOH Withdrawl. Given current mental status may be at baseline. (4) Hepatic encephalopathy: Current visit: Yes Status: Acute Remains on lactulose with potential underlying cirrhosis on the basis of ETOH abuse - will need outpatient workup. (5) Cellulitis of both lower extremities: Current visit: Yes Status: Resolved Resolved (6) Smoker: Current visit: Yes Status: Chronic Previously counselled on cessation (7) Acquired hypothyroidism: Current visit: Yes Status: Chronic TSH within desired limits. Continue replacement therapy. (8) History of intravenous drug abuse: Current visit: Yes Status: Chronic Continue methadone therapy. UDS positive for only methadone. (9) Urinary retention: Current visit: Yes Status: Acute VAppears resolved. Continue on a-loni. (10) DVT prophylaxis: Current visit: Yes Status: Acute Continue SC Lovenox Subjective Interval history since last seen: 52 year old man with a prior medical history significant for oxygen-dependent COPD, chronic hypoxic hypercapnic respiratory failure on 4-6L of home O2, and ongoing tobacco abuse admitted from [facility] Emergency Department on 07/02/2018 with acute on chronic hypoxic respiratory failure in setting of acute COPD Exacerbation. Mr. Chi continues to smoke despite his oxygen dependant COPD. He had noted worsening dyspnea, and had used his his home nebulizer treatments along with prescribed zithromycin and prednisone without relief as an outpatient. As his dyspnea progressively worsened he was brought to the ER via EMS, where he was found to be hypoxic despite high dose oxygen via Nasal Cannula. He was also noted to be in visible respiratory distress, and was referred for admission. The patient was also noted to have a change in mental status, found to be significantly hypercapneic with a PCO2 of 99, as well as with an elevated Ammonia level. He has also undergone treatment for acute alcohol withdrawl. Yesterday morning the the patient was noted to be awake and alert, but with an altered mental status. Repeat ABG showed a PaCO2 improved at 71, and repeat ammonia levels were normalized. Given his continued and significant leukocytosis a repeat urinalysis and CXR were obtained, both negative for infection. This morning nursing reports that patient's mental status is unchanged from yesterday, but likely to be his baseline. He also continues to be significantly dyspneic with hypoxia on minimal movement despite supplemental oxygen - Continues to refuse BIPAP. No overnight events reported. Remains afebrile. Exam Narrative Exam Narrative: General: Awake, alert, appears oriented X3 this morning. NAD, sitting up in bed. Neck: Supple. CV: Regular, not tachycardic. Pulmonary: Significantly decreased breathsounds diffusely, with poor air exchange. Minimal but diffuse wheezing. Overall unchanged pulmonary exam. Abdomen: +BS, soft, non-distended. Obese in contour. Not tender. Neurologic: No focal deficits noted. Patient is moving all 4 extremities. Vascular: 1-2+ B/l LE Edema Objective Objective Clinical Data: Abnormal lab results 07/08/18 07/09/18 07/09/18 Range/Units 14:50 05:40 05:40 WBC 19.87 H (4.4-10.8) k/cumm RBC 4.03 L (4.50-6.00) m/cumm MCV 104.7 H (80-95) fL MCH 34.2 H (27.0-33.0) pg Absolute Neutrophils 16.75 H (1.2-6.7) k/cumm Absolute Lymphocytes 0.66 L (1.2-3.4) k/cumm Absolute Monocytes 2.05 H (0.11-0.7) k/cumm pCO2 71 H* (34-47) mmHg pO2 54 L (83-108) mmHg O2 Saturation 88 L (94-98) % ABG HCO3 50 H (22-28) mmol/L ABG Total CO2 44 H (22-29) mmol/L Chloride 91 L (98-107) mmol/L Carbon Dioxide 43.3 H (21.0-32.0) mmol/L Anion Gap 1.7 L (3-11) mmol/L BUN 19 H (7-18) mg/dL Creatinine 0.68 L (0.70-1.30) mg/dL Glucose 132 H (70-100) mg/dL Vital Signs Temperature 37.5 C 07/09/18 12:20 Temperature Source Temporal Artery Scan 07/09/18 12:20 Pulse 87 07/09/18 12:20 Pulse Rhythm Regular 07/09/18 08:30 Pulse 91 H 07/07/18 08:08 Respiratory Rate 20 07/09/18 12:20 Respiratory Effort 07/09/18 08:30 Respiratory Depth Normal 07/09/18 08:30 Respiratory Pattern Normal 07/09/18 08:30 Blood Pressure 134/81 07/09/18 12:20 Blood Pressure Mean 103 07/09/18 08:16 Blood Pressure Position Supine 07/07/18 04:00 Pulse Oximetry 91 L 07/09/18 12:20 Respiratory End-tidal CO2 42 07/08/18 14:52 Oxygen Delivery Method Nasal Cannula 07/09/18 13:39 Oxygen Flow Rate 4 07/09/18 12:20 Fraction of Inspired Oxygen (FIO2) 30 07/06/18 11:10 Pain Level 0 07/09/18 08:30 Comment 07/07/18 14:45 Intake & Output 07/08/18 07/09/18 07/09/18 23:59 11:59 23:59 Intake Total 400 / 400 1510 / 1510 127 / 127 Output Total 2200 / 2200 1200 / 1200 Balance -1800 / -1800 310 / 310 127 / 127 Intake: IV 100 / 100 1000 / 1000 127 / 127 Oral 300 / 300 510 / 510 Output: Urine 2200 / 2200 1200 / 1200 Other: Urine Color Light Tamara Light Tamara Urine Appearance Clear Clear Urine Odor None None Stool Size Moderate Stool Characteristics Brown Voiding Methods Urinal Urinal Laboratory Results WBC 19.87 k/cumm (4.4-10.8) H 07/09/18 05:40 RBC 4.03 m/cumm (4.50-6.00) L 07/09/18 05:40 Hgb 13.8 g/dL (13.5-17.5) 07/09/18 05:40 Hct 42.2 % (40.0-50.0) 07/09/18 05:40 MCV 104.7 fL (80-95) H 07/09/18 05:40 MCH 34.2 pg (27.0-33.0) H 07/09/18 05:40 MCHC 32.7 g/dL (32.0-36.0) 07/09/18 05:40 RDW 12.9 % (11.8-14.1) 07/09/18 05:40 Plt Count 298 x1000/uL (130-400) 07/09/18 05:40 MPV 9.3 fL (8.0-11.0) 07/09/18 05:40 Immature Gran % 2.0 07/09/18 05:40 Neutrophils % 84.3 07/09/18 05:40 Lymphocytes % 3.3 07/09/18 05:40 Monocytes % 10.3 07/09/18 05:40 Eosinophils % 0.0 07/09/18 05:40 Basophils % 0.1 07/09/18 05:40 Absolute Neutrophils 16.75 k/cumm (1.2-6.7) H 07/09/18 05:40 Band Neutrophils 1.0 % 07/08/18 06:28 Absolute Lymphocytes 0.66 k/cumm (1.2-3.4) L 07/09/18 05:40 Absolute Monocytes 2.05 k/cumm (0.11-0.7) H 07/09/18 05:40 Absolute Eosinophils 0.00 k/cumm (0.0-0.7) 07/09/18 05:40 Absolute Basophils 0.02 k/cumm (0.0-0.2) 07/09/18 05:40 Differential Comment Manual differential 07/08/18 06:28 Atypical Lymphocytes 2 07/08/18 06:28 RBC Morphology See below 07/08/18 06:28 Polychromasia Present 07/02/18 13:55 Basophilic Stippling Present 07/02/18 13:55 Macrocytosis 3+ 07/08/18 06:28 Stomatocytes 2+ 07/08/18 06:28 Sample Site Right radial 07/08/18 14:50 pCO2 71 mmHg (34-47) H* 07/08/18 14:50 pO2 54 mmHg (83-108) L 07/08/18 14:50 O2 Saturation 88 % (94-98) L 07/08/18 14:50 ABG pH 7.45 (7.35-7.45) 07/08/18 14:50 ABG HCO3 50 mmol/L (22-28) H 07/08/18 14:50 ABG Total CO2 44 mmol/L (22-29) H 07/08/18 14:50 ABG Base Excess mmol/L (-3-3) 07/08/18 14:50 VBG pH 7.41 (7.32-7.43) 07/02/18 13:55 VBG pCO2 86 mm/Hg (34-47) H 07/02/18 13:55 VBG pO2 115 mm/Hg (28-44) H 07/02/18 13:55 VBG HCO3 54 mmol/L (22-28) H 07/02/18 13:55 VBG Total CO2 48 mmol/L (22-29) H 07/02/18 13:55 VBG O2 Saturation 99 % (70-80) H 07/02/18 13:55 VBG Base Excess mmol/L (-3-3) 07/02/18 13:55 Oxygen Liter Flow 4 L 07/08/18 14:50 FiO2 Nasal cannula % 07/08/18 14:50 Sodium 136 mmol/L (136-145) 07/09/18 05:40 Potassium 3.9 mmol/L (3.5-5.1) D 07/09/18 05:40 Chloride 91 mmol/L (98-107) L 07/09/18 05:40 Carbon Dioxide 43.3 mmol/L (21.0-32.0) H 07/09/18 05:40 Anion Gap 1.7 mmol/L (3-11) L 07/09/18 05:40 BUN 19 mg/dL (7-18) H 07/09/18 05:40 Creatinine 0.68 mg/dL (0.70-1.30) L 07/09/18 05:40 Estimated GFR/1.73 m2 >= 60.00 (mL/min/1.73m2) 07/09/18 05:40 Glucose 132 mg/dL (70-100) H 07/09/18 05:40 Lactate 0.9 mmol/L (0.6-1.4) 07/02/18 13:55 Calcium 8.6 mg/dL (8.5-10.1) 07/09/18 05:40 Phosphorus 3.4 mg/dL (2.6-4.7) 07/04/18 06:23 Magnesium 2.0 mg/dL (1.8-2.4) 07/08/18 06:28 Total Bilirubin 0.4 mg/dL (0.2-1.0) 07/04/18 06:23 Conjugated Bilirubin 0.15 mg/dL (0.00-0.20) 07/04/18 06:23 AST 103 U/L (15-37) H 07/04/18 06:23 ALT 79 U/L (12-78) H 07/04/18 06:23 Alkaline Phosphatase 116 U/L (46-116) 07/04/18 06:23 Ammonia 25 umol/L (11-32) 07/08/18 14:30 Troponin I < 0.02 ng/mL (0.00-0.06) 07/02/18 13:55 NT-Pro-B Natriuret Pep 482 pg/mL (-299) H 07/02/18 13:55 Total Protein 6.8 g/dL (6.4-8.2) 07/04/18 06:23 Albumin 2.5 g/dL (3.4-5.0) L 07/04/18 06:23 TSH 1.38 uIU/mL (0.358-3.74) 07/03/18 06:38 Urine Color Yellow (Yellow) 07/08/18 14:56 Urine Clarity Clear 07/08/18 14:56 Urine pH 7.0 (5-8) 07/08/18 14:56 Ur Specific [place] 1.020 (1.005-1.025) 07/08/18 14:56 Urine Protein Negative mg/dL (Negative) 07/08/18 14:56 Urine Ketones Negative mg/dL (Negative) 07/08/18 14:56 Urine Blood Negative (Negative) 07/08/18 14:56 Urine Nitrite Negative (Negative) 07/08/18 14:56 Urine Bilirubin Negative (Negative) 07/08/18 14:56 Urine Urobilinogen 0.2 EU/dL (Up TO 0.2) 07/08/18 14:56 Ur Leukocyte Esterase Negative (Negative) 07/08/18 14:56 Urine Glucose Negative mg/dL (Negative) 07/08/18 14:56 Vancomycin Trough 16.1 ug/mL (10.0-20.0) 07/07/18 07:16 Urine Opiates Screen Negative (Negative) 07/08/18 14:56 Urine Methadone Screen Positive (Negative) 07/08/18 14:56 Ur Barbiturates Screen Negative (Negative) 07/08/18 14:56 Ur Tricyclics Screen Negative (Negative) 07/08/18 14:56 Ur Amphetamines Screen Negative (Negative) 07/08/18 14:56 U Benzodiazepines Scrn Negative (Negative) 07/08/18 14:56 Urine Cocaine Screen Negative (Negative) 07/08/18 14:56 Ur THC Screen Negative (Negative) 07/08/18 14:56
[2018-07-09] MEDS: Enoxaparin 40 MG/0.4 ML SYR SC (15:28)
[2018-07-10] VITALS (19 sets, daily range): BP systolic 105–151; BP diastolic 64–106; PULSE 63–108; RESP 4–22; TEMP 37.1–37.2; O2SAT 90–94
[2018-07-10] MEDS: Albuterol/Ipratropium 3 ML UPD VIAL UPD ×6 (00:25→21:18)
[2018-07-10] MEDS: Budesonide 0.5 MG/2 ML UPD VIAL UPD ×2 (01:41→12:30)
[2018-07-10] MEDS: Normal Saline Flush 10 ML SYR IVP ×2 (06:42→07:59)
[2018-07-10] MEDS: Levothyroxine 100 MCG TAB PO (06:42)
[2018-07-10] MEDS: methylPREDNISolone SUCC 40 MG VIAL IVP ×3 (06:42→21:19)
[2018-07-10] MEDS: Budesonide/Formoterol 160/4.5 6 GM 60 PUFF INH IH ×2 (07:20→21:17)
[2018-07-10 07:24] LABS: Abs Immature Grans 0.33 k/cumm (0.0-0.09); Absolute Neutrophil Count 17.49 k/cumm (1.2-6.7); Basophils % 0.1; HGB 13.8 g/dL (13.5-17.5); Immature Grans % 1.6; Lymphocytes % 3.6; Mean Corp. HGB Concentration 33.7 g/dL (32.0-36.0); Mean Corpuscular Hemoglobin 35.1 pg (27.0-33.0); Mean Corpuscular Volume 104.3 fL (80-95); Mean Platelet Volume 9.2 fL (8.0-11.0); Monocytes % 11.3; Neutrophils % 83.4; Platelet Count 272 x1000/uL (130-400); RBC 3.93 m/cumm (4.50-6.00); RBC Distribution Width 13.1 % (11.8-14.1); White Blood Cell Count 20.97 k/cumm (4.4-10.8)
[2018-07-10 07:27] LABS: Absolute Basophil Count 0.02 k/cumm (0.0-0.2); Absolute Lymphocyte Count 0.75 k/cumm (1.2-3.4); Absolute Monocyte Count 2.37 k/cumm (0.11-0.7); BUN 17 mg/dL (7-18); CREATININE 0.68 mg/dL (0.70-1.30); Calcium 8.7 mg/dL (8.5-10.1); Chloride 95 mmol/L (98-107); Glucose 139 mg/dL (70-100); Potassium 4.5 mmol/L (3.5-5.1); Sodium 138 mmol/L (136-145)
[2018-07-10 07:31] LABS: Anion Gap -2.00001 mmol/L (3-11); CO2 > 45.0 mmol/L (21.0-32.0)
[2018-07-10 07:54] LABS: Diff Comment Agrees w/ Instrument; RBC Morphology Normal
[2018-07-10] MEDS: Fexofenadine 180 MG TAB PO (07:59)
[2018-07-10] MEDS: Lactulose 20 GM/30 ML CUP PO ×3 (07:59→21:20)
[2018-07-10] MEDS: Polyethylene Glycol 3350 17 GM PACKET PO (07:59)
[2018-07-10] MEDS: Lactobacillus Acidophilus CAP 1 CAP PO ×3 (07:59→17:16)
[2018-07-10] MEDS: Tamsulosin 0.4 MG CAPCR PO (08:00)
[2018-07-10] MEDS: Pantoprazole 40 MG TABCR PO (08:00)
[2018-07-10] MEDS: Nicotine 21 MG/24 HR PATCH TD (08:00)
[2018-07-10] MEDS: guaiFENesin 600 MG TABCR PO ×2 (08:00→21:17)
[2018-07-10] MEDS: Methadone Liquid 10 MG/ML 39 MG PO (08:19)
[2018-07-10] MEDS: Albuterol 2.5 MG/3 ML INH SOLN VIAL UPD (09:24)
--- NOTE | 2018-07-10 11:44 | PDOC.CMPRO ---
- If Service Date Differs Date of service: 07/10/18 Time of Service: 11:44 Care Management Progress Note S/O: LILIYA met with Mahamed in the room he is sitting up in the chair. He would like a referral to [facility] as his first choice. CM faxed the referral at the request of patient. CM contacted admissions and notified of referral. CM contacted SO and left a voicemail. Mahamed states that he feels he will need at least a few weeks of rehab prior to returning home. A:52 year old male admitted with COPD, resp failure, ETOH withdrawal and hepatic encephalapathy P:Mahamed is a medical surgical patient he remains in the ICU at this time. He continues with oxygen support nasal cannula, IV antibiotics and monitoring. He will be discharged to SNF when medically ready. LILIYA anticipates as Mahamed clears mentally he will want to be discharged home with services. Palliative consult will be ordered per provider.
--- NOTE | 2018-07-10 14:15 | W.PM.PROGNOT ---
Assessment and Plan (1) COPD with exacerbation: Current visit: Yes Status: Acute Potentially in setting of bacterial bronchitis, with sputum cx positive for Haemophilus spp, normal resp. renata, (Kindra Likely to be colonization). Vancomycin and Pip-Tazo discontinued after 6 total days, Levofloxacin after 5. Currently with stable but continued leukocytosis in setting of IV Steriods - remains afebrile - Repeat urinalysis and CXR with lack of infectious pathology. Continue BIPAP as needed, which he will likely require as outpatient. Continue IV Steroids and wean as able. Continue nebs. (2) Acute and chronic respiratory failure with hypercapnia: Current visit: Yes Status: Acute Treatment as above. PaCO2 appears improved. (3) Encephalopathy acute: Current visit: Yes Status: Acute Multifactorial in setting of hypercapneic and hypoxic respiratory failure as well as elevated ammonia and potential hepatic encephalopathy. Patient also underwent acute ETOH Withdrawl. Appears improved. (4) Hepatic encephalopathy: Current visit: Yes Status: Acute Remains on lactulose with potential underlying cirrhosis on the basis of ETOH abuse - will need outpatient workup. (5) Cellulitis of both lower extremities: Current visit: Yes Status: Resolved Resolved (6) Smoker: Current visit: Yes Status: Chronic Previously counselled on cessation (7) History of intravenous drug abuse: Current visit: Yes Status: Chronic Continue methadone therapy. UDS positive for only methadone. (8) Urinary retention: Current visit: Yes Status: Acute Appears resolved. Continue on a-loni. (9) DVT prophylaxis: Current visit: Yes Status: Acute Continue SC Lovenox Subjective Interval history since last seen: 52 year old man with a prior medical history significant for oxygen-dependent COPD, chronic hypoxic hypercapnic respiratory failure on 4-6L of home O2, and ongoing tobacco abuse admitted from [facility] Emergency Department on 07/02/2018 with acute on chronic hypoxic respiratory failure in setting of acute COPD Exacerbation. Mr. Chi continues to smoke despite his oxygen dependant COPD. He had noted worsening dyspnea, and had used his his home nebulizer treatments along with prescribed Azithromycin and prednisone without relief as an outpatient. As his dyspnea progressively worsened he was brought to the ER via EMS, where he was found to be hypoxic despite high dose oxygen via Nasal Cannula. He was also noted to be in visible respiratory distress, and was referred for admission. The patient was also noted to have a change in mental status, found to be significantly hypercapneic with a PCO2 of 99, as well as with an elevated Ammonia level. He has also undergone treatment for acute alcohol withdrawl. Previously the the patient was noted to be awake and alert, but with an altered mental status. Repeat ABG showed a PaCO2 improved at 71, and repeat ammonia levels were normalized. Given his continued and significant leukocytosis a repeat urinalysis and CXR were obtained, both negative for infection. Yesterday nursing reported that patient's mental status is likely at his baseline. The patient appears much more alert and appropriate today. He also continues to be significantly dyspneic with hypoxia on minimal movement despite supplemental oxygen - Still far from his baseline. No overnight events reported. Remains afebrile. Exam Narrative Exam Narrative: General: Awake, alert, appears oriented X3 this morning. NAD, sitting up in bed. Neck: Supple. CV: Regular, not tachycardic. Pulmonary: Significantly decreased breathsounds diffusely, with poor air exchange. Minimal but diffuse wheezing. Overall unchanged pulmonary exam. Abdomen: +BS, soft, non-distended. Obese in contour. Not tender. Neurologic: No focal deficits noted. Patient is moving all 4 extremities. Vascular: 2+ B/l LE Edema Objective Objective Clinical Data: Abnormal lab results 07/10/18 07/10/18 Range/Units 06:55 06:55 WBC 20.97 H (4.4-10.8) k/cumm RBC 3.93 L (4.50-6.00) m/cumm MCV 104.3 H (80-95) fL MCH 35.1 H (27.0-33.0) pg Absolute Neutrophils 17.49 H (1.2-6.7) k/cumm Absolute Lymphocytes 0.75 L (1.2-3.4) k/cumm Absolute Monocytes 2.37 H (0.11-0.7) k/cumm Chloride 95 L (98-107) mmol/L Carbon Dioxide > 45.0 H (21.0-32.0) mmol/L Anion Gap -2.39615 L (3-11) mmol/L Creatinine 0.68 L (0.70-1.30) mg/dL Glucose 139 H (70-100) mg/dL Vital Signs Temperature 37.2 C 07/10/18 11:59 Temperature Source Temporal Artery Scan 07/10/18 11:59 Pulse 88 07/10/18 11:40 Pulse Rhythm Regular 07/10/18 08:15 Pulse 91 H 07/07/18 08:08 Respiratory Rate 22 07/10/18 11:59 Respiratory Effort Labored 07/10/18 08:15 Respiratory Depth Normal 07/10/18 08:15 Respiratory Pattern Normal 07/10/18 08:15 Blood Pressure 138/85 07/10/18 11:40 Blood Pressure Mean 97 07/10/18 11:40 Blood Pressure Position Supine 07/07/18 04:00 Pulse Oximetry 94 L 07/10/18 11:59 Respiratory End-tidal CO2 42 07/08/18 14:52 Oxygen Delivery Method Nasal Cannula 07/10/18 11:59 Oxygen Flow Rate 4 07/10/18 11:59 Fraction of Inspired Oxygen (FIO2) 30 07/06/18 11:10 Pain Level 0 07/09/18 17:37 Comment 07/10/18 11:59 Intake & Output 07/09/18 07/10/18 07/10/18 23:59 11:59 23:59 Intake Total 707 / 707 940 / 940 370 / 370 Output Total 1550 / 1550 Balance 707 / 707 -610 / -610 370 / 370 Weight 99.2 kg Intake: IV 127 / 127 10 Oral 580 / 580 930 / 930 360 / 360 Output: Urine 1550 / 1550 Other: Urine Color Yellow Straw Urine Appearance Clear Clear Urine Odor Strong Voiding Methods Urinal Laboratory Results WBC 20.97 k/cumm (4.4-10.8) H 07/10/18 06:55 RBC 3.93 m/cumm (4.50-6.00) L 07/10/18 06:55 Hgb 13.8 g/dL (13.5-17.5) 07/10/18 06:55 Hct 41.0 % (40.0-50.0) 07/10/18 06:55 MCV 104.3 fL (80-95) H 07/10/18 06:55 MCH 35.1 pg (27.0-33.0) H 07/10/18 06:55 MCHC 33.7 g/dL (32.0-36.0) 07/10/18 06:55 RDW 13.1 % (11.8-14.1) 07/10/18 06:55 Plt Count 272 x1000/uL (130-400) 07/10/18 06:55 MPV 9.2 fL (8.0-11.0) 07/10/18 06:55 Immature Gran % 1.6 07/10/18 06:55 Neutrophils % 83.4 07/10/18 06:55 Lymphocytes % 3.6 07/10/18 06:55 Monocytes % 11.3 07/10/18 06:55 Eosinophils % 0.0 07/10/18 06:55 Basophils % 0.1 07/10/18 06:55 Absolute Neutrophils 17.49 k/cumm (1.2-6.7) H 07/10/18 06:55 Band Neutrophils 1.0 % 07/08/18 06:28 Absolute Lymphocytes 0.75 k/cumm (1.2-3.4) L 07/10/18 06:55 Absolute Monocytes 2.37 k/cumm (0.11-0.7) H 07/10/18 06:55 Absolute Eosinophils 0.00 k/cumm (0.0-0.7) 07/10/18 06:55 Absolute Basophils 0.02 k/cumm (0.0-0.2) 07/10/18 06:55 Differential Comment Agrees w/ instrument 07/10/18 06:55 Atypical Lymphocytes 2 07/08/18 06:28 RBC Morphology Normal 07/10/18 06:55 Polychromasia Present 07/02/18 13:55 Basophilic Stippling Present 07/02/18 13:55 Macrocytosis 3+ 07/08/18 06:28 Stomatocytes 2+ 07/08/18 06:28 Sample Site Right radial 07/08/18 14:50 pCO2 71 mmHg (34-47) H* 07/08/18 14:50 pO2 54 mmHg (83-108) L 07/08/18 14:50 O2 Saturation 88 % (94-98) L 07/08/18 14:50 ABG pH 7.45 (7.35-7.45) 07/08/18 14:50 ABG HCO3 50 mmol/L (22-28) H 07/08/18 14:50 ABG Total CO2 44 mmol/L (22-29) H 07/08/18 14:50 ABG Base Excess mmol/L (-3-3) 07/08/18 14:50 VBG pH 7.41 (7.32-7.43) 07/02/18 13:55 VBG pCO2 86 mm/Hg (34-47) H 07/02/18 13:55 VBG pO2 115 mm/Hg (28-44) H 07/02/18 13:55 VBG HCO3 54 mmol/L (22-28) H 07/02/18 13:55 VBG Total CO2 48 mmol/L (22-29) H 07/02/18 13:55 VBG O2 Saturation 99 % (70-80) H 07/02/18 13:55 VBG Base Excess mmol/L (-3-3) 07/02/18 13:55 Oxygen Liter Flow 4 L 07/08/18 14:50 FiO2 Nasal cannula % 07/08/18 14:50 Sodium 138 mmol/L (136-145) 07/10/18 06:55 Potassium 4.5 mmol/L (3.5-5.1) 07/10/18 06:55 Chloride 95 mmol/L (98-107) L 07/10/18 06:55 Carbon Dioxide > 45.0 mmol/L (21.0-32.0) H 07/10/18 06:55 Anion Gap -2.04792 mmol/L (3-11) L 07/10/18 06:55 BUN 17 mg/dL (7-18) 07/10/18 06:55 Creatinine 0.68 mg/dL (0.70-1.30) L 07/10/18 06:55 Estimated GFR/1.73 m2 >= 60.00 (mL/min/1.73m2) 07/10/18 06:55 Glucose 139 mg/dL (70-100) H 07/10/18 06:55 Lactate 0.9 mmol/L (0.6-1.4) 07/02/18 13:55 Calcium 8.7 mg/dL (8.5-10.1) 07/10/18 06:55 Phosphorus 3.4 mg/dL (2.6-4.7) 07/04/18 06:23 Magnesium 2.0 mg/dL (1.8-2.4) 07/08/18 06:28 Total Bilirubin 0.4 mg/dL (0.2-1.0) 07/04/18 06:23 Conjugated Bilirubin 0.15 mg/dL (0.00-0.20) 07/04/18 06:23 AST 103 U/L (15-37) H 07/04/18 06:23 ALT 79 U/L (12-78) H 07/04/18 06:23 Alkaline Phosphatase 116 U/L (46-116) 07/04/18 06:23 Ammonia 25 umol/L (11-32) 07/08/18 14:30 Troponin I < 0.02 ng/mL (0.00-0.06) 07/02/18 13:55 NT-Pro-B Natriuret Pep 482 pg/mL (-299) H 07/02/18 13:55 Total Protein 6.8 g/dL (6.4-8.2) 07/04/18 06:23 Albumin 2.5 g/dL (3.4-5.0) L 07/04/18 06:23 TSH 1.38 uIU/mL (0.358-3.74) 07/03/18 06:38 Urine Color Yellow (Yellow) 07/08/18 14:56 Urine Clarity Clear 07/08/18 14:56 Urine pH 7.0 (5-8) 07/08/18 14:56 Ur Specific [place] 1.020 (1.005-1.025) 07/08/18 14:56 Urine Protein Negative mg/dL (Negative) 07/08/18 14:56 Urine Ketones Negative mg/dL (Negative) 07/08/18 14:56 Urine Blood Negative (Negative) 07/08/18 14:56 Urine Nitrite Negative (Negative) 07/08/18 14:56 Urine Bilirubin Negative (Negative) 07/08/18 14:56 Urine Urobilinogen 0.2 EU/dL (Up TO 0.2) 07/08/18 14:56 Ur Leukocyte Esterase Negative (Negative) 07/08/18 14:56 Urine Glucose Negative mg/dL (Negative) 07/08/18 14:56 Vancomycin Trough 16.1 ug/mL (10.0-20.0) 07/07/18 07:16 Urine Opiates Screen Negative (Negative) 07/08/18 14:56 Urine Methadone Screen Positive (Negative) 07/08/18 14:56 Ur Barbiturates Screen Negative (Negative) 07/08/18 14:56 Ur Tricyclics Screen Negative (Negative) 07/08/18 14:56 Ur Amphetamines Screen Negative (Negative) 07/08/18 14:56 U Benzodiazepines Scrn Negative (Negative) 07/08/18 14:56 Urine Cocaine Screen Negative (Negative) 07/08/18 14:56 Ur THC Screen Negative (Negative) 07/08/18 14:56
[2018-07-10] MEDS: Enoxaparin 40 MG/0.4 ML SYR SC (17:16)
[2018-07-10] MEDS: Furosemide 40 MG TAB PO (17:16)
[2018-07-11] VITALS (19 sets, daily range): BP systolic 120–153; BP diastolic 82–97; PULSE 91–112; RESP 4–19; TEMP 35.7–37.2; O2SAT 89–94
[2018-07-11] MEDS: Albuterol/Ipratropium 3 ML UPD VIAL UPD ×7 (00:32→23:58)
[2018-07-11] MEDS: Budesonide 0.5 MG/2 ML UPD VIAL UPD ×3 (00:33→23:59)
[2018-07-11] MEDS: Acetaminophen 325 MG TAB PO (00:35)
[2018-07-11] MEDS: Albuterol 2.5 MG/3 ML INH SOLN VIAL UPD (01:23)
[2018-07-11] MEDS: Normal Saline Flush 10 ML SYR IVP ×3 (02:40→19:22)
[2018-07-11] MEDS: Levothyroxine 100 MCG TAB PO (05:18)
[2018-07-11] MEDS: methylPREDNISolone SUCC 40 MG VIAL IVP ×2 (05:18→19:22)
[2018-07-11] MEDS: Cetirizine 10 MG TAB PO (05:18)
[2018-07-11 07:39] LABS: HCT 41.8 % (40.0-50.0); HGB 14.5 g/dL (13.5-17.5); Mean Corp. HGB Concentration 34.7 g/dL (32.0-36.0); Mean Corpuscular Hemoglobin 35.5 pg (27.0-33.0); Mean Corpuscular Volume 102.5 fL (80-95); Mean Platelet Volume 9.7 fL (8.0-11.0); Platelet Count 304 x1000/uL (130-400); RBC 4.08 m/cumm (4.50-6.00); RBC Distribution Width 13.1 % (11.8-14.1)
[2018-07-11 07:54] LABS: Anion Gap 1.7 mmol/L (3-11); BUN 16 mg/dL (7-18); CO2 43.3 mmol/L (21.0-32.0); CREATININE 0.73 mg/dL (0.70-1.30); Calcium 8.6 mg/dL (8.5-10.1); Chloride 93 mmol/L (98-107); Glucose 157 mg/dL (70-100); Potassium 3.7 mmol/L (3.5-5.1); Sodium 138 mmol/L (136-145)
[2018-07-11 08:37] LABS: White Blood Cell Count 26.45 k/cumm (4.4-10.8)
[2018-07-11 08:39] LABS: Absolute Lymphocyte Count 0.53 k/cumm (1.2-3.4); Absolute Monocyte Count 2.65 k/cumm (0.11-0.7); Absolute Neutrophil Count 21.95 k/cumm (1.2-6.7); Diff Comment Manual Differential
[2018-07-11 08:40] LABS: Macrocytosis 1+
[2018-07-11] MEDS: Tamsulosin 0.4 MG CAPCR PO (09:08)
[2018-07-11] MEDS: Methadone Liquid 10 MG/ML 39 MG PO ×2 (09:08→19:22)
[2018-07-11] MEDS: Pantoprazole 40 MG TABCR PO (09:08)
[2018-07-11] MEDS: Lactulose 20 GM/30 ML CUP PO ×3 (09:08→19:22)
[2018-07-11] MEDS: guaiFENesin 600 MG TABCR PO ×2 (09:08→19:22)
[2018-07-11] MEDS: Lactobacillus Acidophilus CAP 1 CAP PO ×3 (09:09→16:16)
[2018-07-11] MEDS: Nicotine 21 MG/24 HR PATCH TD (09:09)
[2018-07-11] MEDS: Furosemide 40 MG TAB PO ×2 (09:09→16:16)
[2018-07-11] MEDS: Fexofenadine 180 MG TAB PO (09:09)
[2018-07-11] MEDS: Polyethylene Glycol 3350 17 GM PACKET PO (09:09)
[2018-07-11] MEDS: Budesonide/Formoterol 160/4.5 6 GM 60 PUFF INH IH ×2 (09:26→19:22)
--- NOTE | 2018-07-11 09:51 | PDOC.CMPRO ---
- If Service Date Differs Date of service: 07/11/18 Time of Service: 09:52 Care Management Progress Note S/O: CM met with patient at the bedside he was told that health and rehab are declining him at this point. He is requesting a referral to the [facility] and feels that he needs short term rehab to be able to return home. CM reviewed with MD and PT consult will be ordered. Patient states he feels that his chest is congested and that he is unable to move around related to weakness. CM faxed a referral to the [facility] at Mahamed's request. A:52 year old male admitted with COPD, resp failure, ETOH withdrawal and hepatic encephalapathy P:Mahamed is a medical surgical patient he remains in the ICU at this time. He continues with oxygen support nasal cannula which is his baseline. PT consult today. He would like to be discharged to SNF when medically ready vs home with home health PT. aMhamed will resume services through [facility] for his oxygen and [facility] for substance abuse services. Transportation to be provided by [facility]. Palliative consult will be followed up as outpatient.
[2018-07-11] MEDS: POTASSIUM CHLORIDE 20 MEQ, POTASSIUM CHLORIDE 10 MEQ 30 MEQ PO (10:55)
[2018-07-11] MEDS: Enoxaparin 40 MG/0.4 ML SYR SC (16:16)
--- NOTE | 2018-07-11 19:16 | W.PM.PROGNOT ---
Assessment and Plan (1) COPD with exacerbation: Current visit: Yes Status: Acute Potentially in setting of bacterial bronchitis, with sputum cx positive for Haemophilus spp, normal resp. renata, (Kindra Likely to be colonization). Vancomycin and Pip-Tazo discontinued after 6 total days, Levofloxacin after 5. Currently with continued leukocytosis in setting of IV Steriods - remains afebrile - Repeat urinalysis and CXR with lack of infectious pathology. Continue BIPAP as needed. Continue but wean IV Steroids. Continue nebs. (2) Acute and chronic respiratory failure with hypercapnia: Current visit: Yes Status: Acute Treatment as above. PaCO2 appears improved. (3) Encephalopathy acute: Current visit: Yes Status: Acute Multifactorial in setting of hypercapneic and hypoxic respiratory failure as well as elevated ammonia and potential hepatic encephalopathy. Patient also underwent acute ETOH Withdrawl. Appears resolved and with mental status at baseline. (4) Hepatic encephalopathy: Current visit: Yes Status: Acute Remains on lactulose with potential underlying cirrhosis on the basis of ETOH abuse - will need outpatient workup. (5) Cellulitis of both lower extremities: Current visit: Yes Status: Resolved Resolved (6) Smoker: Current visit: Yes Status: Chronic Previously counselled on cessation (7) History of intravenous drug abuse: Current visit: Yes Status: Chronic Continue methadone therapy. UDS positive for only methadone. (8) Urinary retention: Current visit: Yes Status: Acute Appears resolved. Continue on a-loni. (9) DVT prophylaxis: Current visit: Yes Status: Acute Continue SC Lovenox Subjective Interval history since last seen: 52 year old man with a prior medical history significant for oxygen-dependent COPD, chronic hypoxic hypercapnic respiratory failure on 4-6L of home O2, and ongoing tobacco abuse admitted from [facility] Emergency Department on 07/02/2018 with acute on chronic hypoxic respiratory failure in setting of acute COPD Exacerbation. Mr. Chi continues to smoke despite his oxygen dependant COPD. He had noted worsening dyspnea, and had used his his home nebulizer treatments along with prescribed Azithromycin and prednisone without relief as an outpatient. As his dyspnea progressively worsened he was brought to the ER via EMS, where he was found to be hypoxic despite high dose oxygen via Nasal Cannula. He was also noted to be in visible respiratory distress, and was referred for admission. The patient was also noted to have a change in mental status, found to be significantly hypercapneic with a PCO2 of 99, as well as with an elevated Ammonia level. He has also undergone treatment for acute alcohol withdrawl. Previously the the patient was noted to be awake and alert, but with an altered mental status. Repeat ABG showed a PaCO2 improved at 71, and repeat ammonia levels were normalized. Given his continued and significant leukocytosis a repeat urinalysis and CXR were obtained, both negative for infection. The patient's mental status has since slowly returned to his baseline. Although with continued significant dyspnea and hypoxia the patient appears to be improving - Still not at his baseline. No overnight events reported. Remains afebrile. Exam Narrative Exam Narrative: General: Awake, alert, appears oriented X3 this morning. NAD, sitting up in bed. Neck: Supple. CV: Regular, not tachycardic. Pulmonary: Significantly decreased breathsounds diffusely, with poor air exchange. Minimal but diffuse wheezing. Overall with slight improvement on pulmonary exam. Abdomen: +BS, soft, non-distended. Obese in contour. Not tender. Neurologic: No focal deficits noted. Patient is moving all 4 extremities. Vascular: 2+ B/l LE Edema Objective Objective Clinical Data: Abnormal lab results 07/11/18 07/11/18 Range/Units 06:10 06:10 WBC 26.45 H* (4.4-10.8) k/cumm RBC 4.08 L (4.50-6.00) m/cumm MCV 102.5 H (80-95) fL MCH 35.5 H (27.0-33.0) pg Absolute Neutrophils 21.95 H (1.2-6.7) k/cumm Absolute Lymphocytes 0.53 L (1.2-3.4) k/cumm Absolute Monocytes 2.65 H (0.11-0.7) k/cumm Chloride 93 L (98-107) mmol/L Carbon Dioxide 43.3 H (21.0-32.0) mmol/L Anion Gap 1.7 L (3-11) mmol/L Glucose 157 H (70-100) mg/dL Vital Signs Temperature 35.7 C L 07/11/18 05:18 Temperature Source Tympanic 07/11/18 01:01 Pulse 112 H 07/11/18 15:17 Pulse Rhythm Regular 07/11/18 15:34 Pulse 91 H 07/07/18 08:08 Respiratory Rate 18 07/11/18 05:29 Respiratory Effort 07/11/18 15:34 Respiratory Depth Shallow 07/11/18 15:34 Respiratory Pattern Normal 07/11/18 15:34 Blood Pressure 145/96 H 07/11/18 09:12 Blood Pressure Mean 104 07/11/18 09:12 Blood Pressure Position Supine 07/07/18 04:00 Pulse Oximetry 90 L 07/11/18 15:17 Respiratory End-tidal CO2 42 07/08/18 14:52 Oxygen Delivery Method Nasal Cannula 07/11/18 15:17 Oxygen Flow Rate 4 07/11/18 15:17 Fraction of Inspired Oxygen (FIO2) 30 07/06/18 11:10 Pain Level 3 07/11/18 00:35 Comment 07/10/18 11:59 Intake & Output 07/10/18 07/11/18 07/11/18 23:59 11:59 23:59 Intake Total 1693 / 1693 760 / 760 1440 / 1440 Output Total 1800 / 1800 1750 / 1750 2400 / 2400 Balance -107 / -107 -990 / -990 -960 / -960 Weight 98.9 kg Intake: IV 483 / 483 Oral 1210 / 1210 760 / 760 1440 / 1440 Output: Urine 1800 / 1800 1750 / 1750 2400 / 2400 Other: Urine Color Yellow Yellow Pale Yellow Urine Appearance Clear Clear Clear Urine Odor None None Voiding Methods Urinal Urinal Laboratory Results WBC 26.45 k/cumm (4.4-10.8) H* 07/11/18 06:10 RBC 4.08 m/cumm (4.50-6.00) L 07/11/18 06:10 Hgb 14.5 g/dL (13.5-17.5) 07/11/18 06:10 Hct 41.8 % (40.0-50.0) 07/11/18 06:10 MCV 102.5 fL (80-95) H 07/11/18 06:10 MCH 35.5 pg (27.0-33.0) H 07/11/18 06:10 MCHC 34.7 g/dL (32.0-36.0) 07/11/18 06:10 RDW 13.1 % (11.8-14.1) 07/11/18 06:10 Plt Count 304 x1000/uL (130-400) 07/11/18 06:10 MPV 9.7 fL (8.0-11.0) 07/11/18 06:10 Immature Gran % See Differential 07/11/18 06:10 Neutrophils % 83.0 07/11/18 06:10 Lymphocytes % 2.0 07/11/18 06:10 Monocytes % 10.0 07/11/18 06:10 Eosinophils % 0.0 07/11/18 06:10 Basophils % 0.0 07/11/18 06:10 Absolute Neutrophils 21.95 k/cumm (1.2-6.7) H 07/11/18 06:10 Band Neutrophils 1.0 % 07/08/18 06:28 Absolute Lymphocytes 0.53 k/cumm (1.2-3.4) L 07/11/18 06:10 Absolute Monocytes 2.65 k/cumm (0.11-0.7) H 07/11/18 06:10 Absolute Eosinophils 0.00 k/cumm (0.0-0.7) 07/11/18 06:10 Absolute Basophils 0.00 k/cumm (0.0-0.2) 07/11/18 06:10 Metamyelocytes 2.0 % 07/11/18 06:10 Myelocytes 3.0 % 07/11/18 06:10 Differential Comment Manual differential 07/11/18 06:10 Atypical Lymphocytes 2 07/08/18 06:28 RBC Morphology See below 07/11/18 06:10 Polychromasia Present 07/02/18 13:55 Basophilic Stippling Present 07/02/18 13:55 Macrocytosis 1+ 07/11/18 06:10 Stomatocytes 2+ 07/08/18 06:28 Sample Site Right radial 07/08/18 14:50 pCO2 71 mmHg (34-47) H* 07/08/18 14:50 pO2 54 mmHg (83-108) L 07/08/18 14:50 O2 Saturation 88 % (94-98) L 07/08/18 14:50 ABG pH 7.45 (7.35-7.45) 07/08/18 14:50 ABG HCO3 50 mmol/L (22-28) H 07/08/18 14:50 ABG Total CO2 44 mmol/L (22-29) H 07/08/18 14:50 ABG Base Excess mmol/L (-3-3) 07/08/18 14:50 VBG pH 7.41 (7.32-7.43) 07/02/18 13:55 VBG pCO2 86 mm/Hg (34-47) H 07/02/18 13:55 VBG pO2 115 mm/Hg (28-44) H 07/02/18 13:55 VBG HCO3 54 mmol/L (22-28) H 07/02/18 13:55 VBG Total CO2 48 mmol/L (22-29) H 07/02/18 13:55 VBG O2 Saturation 99 % (70-80) H 07/02/18 13:55 VBG Base Excess mmol/L (-3-3) 07/02/18 13:55 Oxygen Liter Flow 4 L 07/08/18 14:50 FiO2 Nasal cannula % 07/08/18 14:50 Sodium 138 mmol/L (136-145) 07/11/18 06:10 Potassium 3.7 mmol/L (3.5-5.1) 07/11/18 06:10 Chloride 93 mmol/L (98-107) L 07/11/18 06:10 Carbon Dioxide 43.3 mmol/L (21.0-32.0) H 07/11/18 06:10 Anion Gap 1.7 mmol/L (3-11) L 07/11/18 06:10 BUN 16 mg/dL (7-18) 07/11/18 06:10 Creatinine 0.73 mg/dL (0.70-1.30) 07/11/18 06:10 Estimated GFR/1.73 m2 >= 60.00 (mL/min/1.73m2) 07/11/18 06:10 Glucose 157 mg/dL (70-100) H 07/11/18 06:10 Lactate 0.9 mmol/L (0.6-1.4) 07/02/18 13:55 Calcium 8.6 mg/dL (8.5-10.1) 07/11/18 06:10 Phosphorus 3.4 mg/dL (2.6-4.7) 07/04/18 06:23 Magnesium 2.0 mg/dL (1.8-2.4) 07/08/18 06:28 Total Bilirubin 0.4 mg/dL (0.2-1.0) 07/04/18 06:23 Conjugated Bilirubin 0.15 mg/dL (0.00-0.20) 07/04/18 06:23 AST 103 U/L (15-37) H 07/04/18 06:23 ALT 79 U/L (12-78) H 07/04/18 06:23 Alkaline Phosphatase 116 U/L (46-116) 07/04/18 06:23 Ammonia 25 umol/L (11-32) 07/08/18 14:30 Troponin I < 0.02 ng/mL (0.00-0.06) 07/02/18 13:55 NT-Pro-B Natriuret Pep 482 pg/mL (-299) H 07/02/18 13:55 Total Protein 6.8 g/dL (6.4-8.2) 07/04/18 06:23 Albumin 2.5 g/dL (3.4-5.0) L 07/04/18 06:23 TSH 1.38 uIU/mL (0.358-3.74) 07/03/18 06:38 Urine Color Yellow (Yellow) 07/08/18 14:56 Urine Clarity Clear 07/08/18 14:56 Urine pH 7.0 (5-8) 07/08/18 14:56 Ur Specific Jackson 1.020 (1.005-1.025) 07/08/18 14:56 Urine Protein Negative mg/dL (Negative) 07/08/18 14:56 Urine Ketones Negative mg/dL (Negative) 07/08/18 14:56 Urine Blood Negative (Negative) 07/08/18 14:56 Urine Nitrite Negative (Negative) 07/08/18 14:56 Urine Bilirubin Negative (Negative) 07/08/18 14:56 Urine Urobilinogen 0.2 EU/dL (Up TO 0.2) 07/08/18 14:56 Ur Leukocyte Esterase Negative (Negative) 07/08/18 14:56 Urine Glucose Negative mg/dL (Negative) 07/08/18 14:56 Vancomycin Trough 16.1 ug/mL (10.0-20.0) 07/07/18 07:16 Urine Opiates Screen Negative (Negative) 07/08/18 14:56 Urine Methadone Screen Positive (Negative) 07/08/18 14:56 Ur Barbiturates Screen Negative (Negative) 07/08/18 14:56 Ur Tricyclics Screen Negative (Negative) 07/08/18 14:56 Ur Amphetamines Screen Negative (Negative) 07/08/18 14:56 U Benzodiazepines Scrn Negative (Negative) 07/08/18 14:56 Urine Cocaine Screen Negative (Negative) 07/08/18 14:56 Ur THC Screen Negative (Negative) 07/08/18 14:56
[2018-07-12] VITALS (8 sets, daily range): BP systolic 129–152; BP diastolic 75–85; PULSE 74–90; RESP 8–21; TEMP 36.2–37; O2SAT 89–94
--- NOTE | 2018-07-12 00:06 | NUR.NOTE ---
Nursing Note: At 23:30, pt transferred from ICU to PR room 212 via wheelchair. Pt is A&O X3. O2 at 4 lpm nc. Pt is anxious and short of breath but is able to speak in full sentences. Pt ambulated the few steps from w/c to bed unassisted.
[2018-07-12] MEDS: Normal Saline Flush 10 ML SYR IVP ×4 (01:00→21:49)
[2018-07-12] MEDS: Albuterol/Ipratropium 3 ML UPD VIAL UPD ×6 (03:44→23:56)
[2018-07-12] MEDS: Levothyroxine 100 MCG TAB PO (05:36)
[2018-07-12 07:20] LABS: Abs Immature Grans 0.49 k/cumm (0.0-0.09); HCT 43.5 % (40.0-50.0); Mean Corp. HGB Concentration 32.2 g/dL (32.0-36.0); Mean Corpuscular Hemoglobin 33.6 pg (27.0-33.0); Mean Corpuscular Volume 104.3 fL (80-95); Mean Platelet Volume 9.2 fL (8.0-11.0); Platelet Count 296 x1000/uL (130-400); RBC 4.17 m/cumm (4.50-6.00); RBC Distribution Width 13.2 % (11.8-14.1); White Blood Cell Count 24.87 k/cumm (4.4-10.8)
[2018-07-12 07:30] LABS: Anion Gap 0.4 mmol/L (3-11); BUN 14 mg/dL (7-18); CO2 40.6 mmol/L (21.0-32.0); CREATININE 0.71 mg/dL (0.70-1.30); Calcium 8.5 mg/dL (8.5-10.1); Chloride 94 mmol/L (98-107); Glucose 158 mg/dL (70-100); Potassium 4.3 mmol/L (3.5-5.1); Sodium 135 mmol/L (136-145)
[2018-07-12] MEDS: Pantoprazole 40 MG TABCR PO (07:42)
[2018-07-12] MEDS: Lactobacillus Acidophilus CAP 1 CAP PO ×3 (07:42→15:31)
[2018-07-12] MEDS: Furosemide 40 MG TAB PO ×2 (07:42→15:29)
[2018-07-12] MEDS: guaiFENesin 600 MG TABCR PO ×2 (07:42→21:05)
[2018-07-12] MEDS: Fexofenadine 180 MG TAB PO (07:42)
[2018-07-12 07:43] LABS: Absolute Eosinophil Count 0.25 k/cumm (0.0-0.7); Absolute Lymphocyte Count 1.24 k/cumm (1.2-3.4); Absolute Monocyte Count 3.23 k/cumm (0.11-0.7)
[2018-07-12] MEDS: Tamsulosin 0.4 MG CAPCR PO (07:43)
[2018-07-12] MEDS: Lactulose 20 GM/30 ML CUP PO ×3 (07:43→21:05)
[2018-07-12] MEDS: methylPREDNISolone SUCC 40 MG VIAL IVP ×2 (07:43→21:05)
[2018-07-12 07:44] LABS: Diff Comment Manual Differential; Macrocytosis 1+; Poikilocytes 1+
[2018-07-12] MEDS: Methadone Liquid 10 MG/ML 39 MG PO ×2 (07:44→21:03)
[2018-07-12] MEDS: Patch Removal 1 EACH TD (07:46)
[2018-07-12] MEDS: Budesonide/Formoterol 160/4.5 6 GM 60 PUFF INH IH ×2 (08:16→21:48)
--- NOTE | 2018-07-12 10:06 | PT.INIE ---
Date of service: 07/12/18 Time of Service: 10:03 PT Notes Inpatient Physical Therapy Evaluation Date: 07/12/18 Referring Doctor: Emile Godinez PT Orders: PT CONSULT: deconditioning. End-stage COPD Precautions: Fall precautions Patient Profile/Admitting Diagnosis: Pt is a 53yr old male admitted with chronic obstructive pulmonary disease exacerbation, cellulitis bilateral lower extremities PMHX: hypoxic hypercapic respiratory failure, chronic obstructive pulmonary disease, asthma, depression, anxiety, hepatitis C, hypothyroidism Social History/Home Situation: Lives with a roommate in an apartment, 12 steps with railing to enter, no steps inside. Baseline mobility independent gait with no device household distances, limited by COPD and shortness of breath with exertion. Pt states recently he has not been able to even leave the house for appointments and has been home bound. Pt does not feel safe to return to home setting at this time. Equipment Owned/DME: cane, FWW, shower chair, home oxygen at 1-1.5liters nasal cannula Subjective: Pt lying in bed, agreeable to PT consult. States he has been having a hard time getting comfortable due to his difficulty breathing, states he really can't be mobile at all without feeling respiratory distress and weak. States his goal is to go to a rehab facility where he can get stronger and eventually be able to return to home setting. Objective: General Observation: 4 NC Mental Status: A& O x3 Pain: no c/o pain ROM: Right Upper Extremity: AAROM WNL Left Upper Extremity: AAROM WNL Right Lower Extremity: AROM WNL Left Lower Extremity: AROM WNL Strength: Right Upper Extremity: 4/5 shoulder flexion, 5/5 bicep, 4/5 wireworker Left Upper Extremity: 4/5 shoulder flexion, 5/5 bicep, 4/5 wireworker Right Lower Extremity: 3/5 hip flexion, 4/5 quad, 5/5 DF/PF Left Lower Extremity: 3/5 hip flexion, 4/5 quad, 5/5 DF/PF Bed Mobility/Transfers: Supine-sit: independent Sit-supine: independent Sit-stand: CGA with FWW Stand-sit: SBA Gait: CGA with FWW stood at bedside for 1min before becoming shaky and short of breath requiring sitting rest at edge of bed. Pt states he does not feel he could walk at this time. Balance: Static Sitting: normal Dynamic Sitting: normal Static Standing: fair Dynamic Standing: poor Special Tests: Mobility Limitations Standardized Measure [facility] AM-PAC 6 clicks Basic Mobility Inpatient Short Form: Raw Score: 18 Standardized Score: 43.63 CMS Score: 46.58% CMS Modifier: CK Informed Consent/Education: Patient instructed in purpose of PT consult and plan of care. Assessment: Pt is a 53yr old male admitted with chronic obstructive pulmonary disease exacerbation, cellulitis bilateral lower extremities in setting of hypoxic hypercapic respiratory failure, chronic obstructive pulmonary disease, asthma, depression, anxiet.y Patient presents with the following impairment level findings: severe shortness of breath/dyspnea with exertion requiring increased time for position changes and 4-6 liters 02 NC, dyspnea and weakness with standing mobility and gait, weakness in upper and lower extremities, decreased static and dynamic standing balance putting him at high risk for falls and requiring FWW for gait stability, tremors/shaking with exertion due to weakness and deconditioning. Pt is unable to walk to bathroom or walk across the room due to weakness. Pt will benefit from skilled therapy intervention for strengthening and progressive mobility training, progress will be dependent on respiratory capacity. He is not safe to return to home setting at this time where he needs to be independent and needs to be able to perform a flight of stairs, recommend transition to terminal computer operator care facility for rehab prior to return to home setting. Impairments are contributing to the following functional limitations: AMPAC score CMS Score: 46.58% Patient is assessed as a High 19135 complexity based on the following: History: see above Examination: see above Presentation: evolving Decision Making: AMPAC score CMS Score: 46.58% Goals: Goals X1 week 1. Supine-Sit : independent 2. Sit-Supine : independent 3. Sit-Stand : supervision with FWW 4. Stand-Sit : independent 5. Bed-Chair : SBA with FWW 6. Chair-Bed : SBA with FWW 7. Gait : SBA with FWW 30ft Plan of Care/Treatment Plan: 1-2x/day, 7 days/week x 1 week. Plan of care has been reviewed with the REMNANT SORTER providing the service under Physical Therapy direction. Initiate Physical Therapy intervention for strengthening, bed mobility, transfers, gait, stairs, balance training, use of assistive device. DISCHARGE RECOMMENDATIONS: predatory animal exterminator care faciilty for rehab TREATMENT CODE/TIME: 24min IE 10:03 G Codes in the area mobility of walking and moving around: current status [id number] CK ; projected status GP [id number]. Discharge status (if discharging) GP [id number] CK based on [facility] score CMS Score: 46.58% Stephanie Martinez PT.
--- NOTE | 2018-07-12 10:23 | IN_ITS ---
Date of service: 07/12/18 Time of Service: 10:03 PT Notes Inpatient Physical Therapy Evaluation Date: 07/12/18 Referring Doctor: Emile Godinez PT Orders: PT CONSULT: deconditioning. End-stage COPD Precautions: Fall precautions Patient Profile/Admitting Diagnosis: Pt is a 53yr old male admitted with chronic obstructive pulmonary disease exacerbation, cellulitis bilateral lower extremities PMHX: hypoxic hypercapic respiratory failure, chronic obstructive pulmonary disease, asthma, depression, anxiety, hepatitis C, hypothyroidism Social History/Home Situation: Lives with a roommate in an apartment, 12 steps with railing to enter, no steps inside. Baseline mobility independent gait with no device household distances, limited by COPD and shortness of breath with exertion. Pt states recently he has not been able to even leave the house for appointments and has been home bound. Pt does not feel safe to return to home setting at this time. Equipment Owned/DME: cane, FWW, shower chair, home oxygen at 1-1.5liters nasal cannula Subjective: Pt lying in bed, agreeable to PT consult. States he has been having a hard time getting comfortable due to his difficulty breathing, states he really can't be mobile at all without feeling respiratory distress and weak. States his goal is to go to a rehab facility where he can get stronger and eventually be able to return to home setting. Objective: General Observation: 4 NC Mental Status: A& O x3 Pain: no c/o pain ROM: Right Upper Extremity: AAROM WNL Left Upper Extremity: AAROM WNL Right Lower Extremity: AROM WNL Left Lower Extremity: AROM WNL Strength: Right Upper Extremity: 4/5 shoulder flexion, 5/5 bicep, 4/5 cable television line technician Left Upper Extremity: 4/5 shoulder flexion, 5/5 bicep, 4/5 cable television line technician Right Lower Extremity: 3/5 hip flexion, 4/5 quad, 5/5 DF/PF Left Lower Extremity: 3/5 hip flexion, 4/5 quad, 5/5 DF/PF Bed Mobility/Transfers: Supine-sit: independent Sit-supine: independent Sit-stand: CGA with FWW Stand-sit: SBA Gait: CGA with FWW stood at bedside for 1min before becoming shaky and short of breath requiring sitting rest at edge of bed. Pt states he does not feel he could walk at this time. Balance: Static Sitting: normal Dynamic Sitting: normal Static Standing: fair Dynamic Standing: poor Special Tests: Mobility Limitations Standardized Measure [facility] AM-PAC 6 clicks Basic Mobility Inpatient Short Form: Raw Score: 18 Standardized Score: 43.63 CMS Score: 46.58% CMS Modifier: CK Informed Consent/Education: Patient instructed in purpose of PT consult and plan of care. Assessment: Pt is a 53yr old male admitted with chronic obstructive pulmonary disease exacerbation, cellulitis bilateral lower extremities in setting of hypoxic hypercapic respiratory failure, chronic obstructive pulmonary disease, asthma, depression, anxiet.y Patient presents with the following impairment level findings: severe shortness of breath/dyspnea with exertion requiring increased time for position changes and 4-6 liters 02 NC, dyspnea and weakness with standing mobility and gait, weakness in upper and lower extremities, decreased static and dynamic standing balance putting him at high risk for falls and requiring FWW for gait stability, tremors/shaking with exertion due to weakness and deconditioning. Pt is unable to walk to bathroom or walk across the room due to weakness. Pt will benefit from skilled therapy intervention for strengthening and progressive mobility training, progress will be dependent on respiratory capacity. He is not safe to return to home setting at this time where he needs to be independent and needs to be able to perform a flight of stairs, recommend transition to termite treater helper care facility for rehab prior to return to home setting. Impairments are contributing to the following functional limitations: AMPAC score CMS Score: 46.58% Patient is assessed as a High [id number] complexity based on the following: History: see above Examination: see above Presentation: evolving Decision Making: AMPAC score CMS Score: 46.58% Goals: Goals X1 week 1. Supine-Sit : independent 2. Sit-Supine : independent 3. Sit-Stand : supervision with FWW 4. Stand-Sit : independent 5. Bed-Chair : SBA with FWW 6. Chair-Bed : SBA with FWW 7. Gait : SBA with FWW 30ft Plan of Care/Treatment Plan: 1-2x/day, 7 days/week x 1 week. Plan of care has been reviewed with the CLARK DRIVER providing the service under Physical Therapy direction. Initiate Physical Therapy intervention for strengthening, bed mobility, transfers, gait, stairs, balance training, use of assistive device. DISCHARGE RECOMMENDATIONS: oil heaterman care faciilty for rehab TREATMENT CODE/TIME: 24min IE 10:03 G Codes in the area mobility of walking and moving around: current status [id number] CK ; projected status GP [id number]. Discharge status (if discharging) GP [id number] CK based on [facility] score CMS Score: 46.58% Stephanie Martinez PT.
[2018-07-12] MEDS: Budesonide 0.5 MG/2 ML UPD VIAL UPD (12:00)
--- NOTE | 2018-07-12 14:15 | PGE_ITS ---
Assessment and Plan (1) COPD with exacerbation: Current visit: Yes Status: Acute Potentially in setting of bacterial bronchitis, with sputum cx positive for Haemophilus spp, normal resp. renata, (Kindra Likely to be colonization). Vancomycin and Pip-Tazo discontinued after 6 total days, Levofloxacin after 5. Currently with continued leukocytosis in setting of IV Steriods - remains afebrile - Repeat urinalysis and CXR with lack of infectious pathology. Continue BIPAP as needed. Continue but wean IV Steroids. Continue nebs. (2) Acute and chronic respiratory failure with hypercapnia: Current visit: Yes Status: Acute Treatment as above. PaCO2 appears improved. (3) Encephalopathy acute: Current visit: Yes Status: Acute Multifactorial in setting of hypercapneic and hypoxic respiratory failure as well as elevated ammonia and potential hepatic encephalopathy. Patient also underwent acute ETOH Withdrawl. Appears resolved and with mental status at baseline. (4) Hepatic encephalopathy: Current visit: Yes Status: Acute Remains on lactulose with potential underlying cirrhosis on the basis of ETOH abuse - will need outpatient workup. (5) Cellulitis of both lower extremities: Current visit: Yes Status: Resolved Resolved (6) Smoker: Current visit: Yes Status: Chronic Previously counselled on cessation (7) History of intravenous drug abuse: Current visit: Yes Status: Chronic Continue methadone therapy. UDS positive for only methadone. (8) Urinary retention: Current visit: Yes Status: Acute Appears resolved. Continue on a-loni. (9) DVT prophylaxis: Current visit: Yes Status: Acute Continue SC Lovenox Subjective Interval history since last seen: 52 year old man with a prior medical history significant for oxygen-dependent COPD, chronic hypoxic hypercapnic respiratory failure on 4-6L of home O2, and ongoing tobacco abuse admitted from [facility] Emergency Department on 07/02/2018 with acute on chronic hypoxic respiratory failure in setting of acute COPD Exacerbation. Mr. Chi continues to smoke despite his oxygen dependant COPD. He had noted worsening dyspnea, and had used his his home nebulizer treatments along with prescribed Azithromycin and prednisone without relief as an outpatient. As his dyspnea progressively worsened he was brought to the ER via EMS, where he was found to be hypoxic despite high dose oxygen via Nasal Cannula. He was also noted to be in visible respiratory distress, and was referred for admission. The patient was also noted to have a change in mental status, found to be significantly hypercapneic with a PCO2 of 99, as well as with an elevated Ammonia level. He has also undergone treatment for acute alcohol withdrawl. Previously the the patient was noted to be awake and alert, but with an altered mental status. Repeat ABG showed a PaCO2 improved at 71, and repeat ammonia levels were normalized. Given his continued and significant leukocytosis a repeat urinalysis and CXR were obtained, both negative for infection. The patient's mental status has since slowly returned to his baseline. Although with continued significant dyspnea and hypoxia the patient appears to be improving - Still not at his baseline. No overnight events reported. Remains afebrile. Exam Narrative Exam Narrative: General: Awake, alert, oriented X3 this morning. NAD, sitting up in bed. Neck: Supple. CV: Regular, not tachycardic. Pulmonary: Significantly decreased breathsounds diffusely, with poor air entry but improved since initial exam. Minimal but diffuse wheezing. Overall with improvement on pulmonary exam. Abdomen: +BS, soft, non-distended. Obese in contour. Not tender. Neurologic: No focal deficits noted. Patient is moving all 4 extremities. Vascular: 2+ B/l LE Edema Objective Objective Clinical Data: Abnormal lab results 07/12/18 07/12/18 Range/Units 06:15 06:15 WBC 24.87 H (4.4-10.8) k/cumm RBC 4.17 L (4.50-6.00) m/cumm MCV 104.3 H (80-95) fL MCH 33.6 H (27.0-33.0) pg Absolute Neutrophils 19.90 H (1.2-6.7) k/cumm Absolute Monocytes 3.23 H (0.11-0.7) k/cumm Sodium 135 L (136-145) mmol/L Chloride 94 L (98-107) mmol/L Carbon Dioxide 40.6 H (21.0-32.0) mmol/L Anion Gap 0.4 L (3-11) mmol/L Glucose 158 H (70-100) mg/dL Vital Signs Temperature 37.0 C 07/12/18 03:50 Temperature Source Tympanic 07/12/18 03:50 Pulse 89 07/12/18 03:50 Pulse Rhythm Regular 07/12/18 07:40 Pulse 91 H 07/07/18 08:08 Respiratory Rate 18 07/12/18 03:50 Respiratory Effort Labored 07/12/18 07:40 Respiratory Depth Shallow 07/12/18 07:40 Respiratory Pattern Normal 07/12/18 07:40 Blood Pressure 152/83 H 07/12/18 03:50 Blood Pressure Mean 97 07/11/18 17:45 Blood Pressure Position Supine 07/07/18 04:00 Pulse Oximetry 94 L 07/12/18 03:50 Respiratory End-tidal CO2 42 07/08/18 14:52 Oxygen Delivery Method Nasal Cannula 07/12/18 03:50 Oxygen Flow Rate 4 07/12/18 03:50 Fraction of Inspired Oxygen (FIO2) 30 07/06/18 11:10 Pain Level 0 07/12/18 03:50 Comment 07/10/18 11:59 Intake & Output 07/11/18 07/12/18 07/12/18 23:59 11:59 23:59 Intake Total 1790 / 1790 462 / 462 Output Total 3550 / 3550 Balance -1760 / -1760 462 / 462 Weight 94.5 kg Intake: IV Oral 1790 / 1790 450 / 450 Output: Urine 3550 / 3550 Other: Urine Color Light Tamara Urine Appearance Clear Urine Odor None Comment mixed with stool Stool Size Small Large Stool Characteristics Formed Soft Brown Formed Brown Voiding Methods Bedside Commode Urinal Laboratory Results WBC 24.87 k/cumm (4.4-10.8) H 07/12/18 06:15 RBC 4.17 m/cumm (4.50-6.00) L 07/12/18 06:15 Hgb 14.0 g/dL (13.5-17.5) 07/12/18 06:15 Hct 43.5 % (40.0-50.0) 07/12/18 06:15 MCV 104.3 fL (80-95) H 07/12/18 06:15 MCH 33.6 pg (27.0-33.0) H 07/12/18 06:15 MCHC 32.2 g/dL (32.0-36.0) 07/12/18 06:15 RDW 13.2 % (11.8-14.1) 07/12/18 06:15 Plt Count 296 x1000/uL (130-400) 07/12/18 06:15 MPV 9.2 fL (8.0-11.0) 07/12/18 06:15 Immature Gran % See Differential 07/12/18 06:15 Neutrophils % 79.0 07/12/18 06:15 Lymphocytes % 5.0 07/12/18 06:15 Monocytes % 13.0 07/12/18 06:15 Eosinophils % 1.0 07/12/18 06:15 Basophils % 0.0 07/12/18 06:15 Absolute Neutrophils 19.90 k/cumm (1.2-6.7) H 07/12/18 06:15 Band Neutrophils 1.0 % 07/12/18 06:15 Absolute Lymphocytes 1.24 k/cumm (1.2-3.4) 07/12/18 06:15 Absolute Monocytes 3.23 k/cumm (0.11-0.7) H 07/12/18 06:15 Absolute Eosinophils 0.25 k/cumm (0.0-0.7) 07/12/18 06:15 Absolute Basophils 0.00 k/cumm (0.0-0.2) 07/12/18 06:15 Metamyelocytes 1.0 % 07/12/18 06:15 Myelocytes 3.0 % 07/11/18 06:10 Differential Comment Manual differential 07/12/18 06:15 Atypical Lymphocytes 2 07/08/18 06:28 RBC Morphology See below 07/12/18 06:15 Polychromasia Present 07/02/18 13:55 Poikilocytosis 1+ 07/12/18 06:15 Basophilic Stippling Present 07/02/18 13:55 Macrocytosis 1+ 07/12/18 06:15 Stomatocytes 2+ 07/08/18 06:28 Sample Site Right radial 07/08/18 14:50 pCO2 71 mmHg (34-47) H* 07/08/18 14:50 pO2 54 mmHg (83-108) L 07/08/18 14:50 O2 Saturation 88 % (94-98) L 07/08/18 14:50 ABG pH 7.45 (7.35-7.45) 07/08/18 14:50 ABG HCO3 50 mmol/L (22-28) H 07/08/18 14:50 ABG Total CO2 44 mmol/L (22-29) H 07/08/18 14:50 ABG Base Excess mmol/L (-3-3) 07/08/18 14:50 VBG pH 7.41 (7.32-7.43) 07/02/18 13:55 VBG pCO2 86 mm/Hg (34-47) H 07/02/18 13:55 VBG pO2 115 mm/Hg (28-44) H 07/02/18 13:55 VBG HCO3 54 mmol/L (22-28) H 07/02/18 13:55 VBG Total CO2 48 mmol/L (22-29) H 07/02/18 13:55 VBG O2 Saturation 99 % (70-80) H 07/02/18 13:55 VBG Base Excess mmol/L (-3-3) 07/02/18 13:55 Oxygen Liter Flow 4 L 07/08/18 14:50 FiO2 Nasal cannula % 07/08/18 14:50 Sodium 135 mmol/L (136-145) L 07/12/18 06:15 Potassium 4.3 mmol/L (3.5-5.1) 07/12/18 06:15 Chloride 94 mmol/L (98-107) L 07/12/18 06:15 Carbon Dioxide 40.6 mmol/L (21.0-32.0) H 07/12/18 06:15 Anion Gap 0.4 mmol/L (3-11) L 07/12/18 06:15 BUN 14 mg/dL (7-18) 07/12/18 06:15 Creatinine 0.71 mg/dL (0.70-1.30) 07/12/18 06:15 Estimated GFR/1.73 m2 >= 60.00 (mL/min/1.73m2) 07/12/18 06:15 Glucose 158 mg/dL (70-100) H 07/12/18 06:15 Lactate 0.9 mmol/L (0.6-1.4) 07/02/18 13:55 Calcium 8.5 mg/dL (8.5-10.1) 07/12/18 06:15 Phosphorus 3.4 mg/dL (2.6-4.7) 07/04/18 06:23 Magnesium 2.0 mg/dL (1.8-2.4) 07/08/18 06:28 Total Bilirubin 0.4 mg/dL (0.2-1.0) 07/04/18 06:23 Conjugated Bilirubin 0.15 mg/dL (0.00-0.20) 07/04/18 06:23 AST 103 U/L (15-37) H 07/04/18 06:23 ALT 79 U/L (12-78) H 07/04/18 06:23 Alkaline Phosphatase 116 U/L (46-116) 07/04/18 06:23 Ammonia 25 umol/L (11-32) 07/08/18 14:30 Troponin I < 0.02 ng/mL (0.00-0.06) 07/02/18 13:55 NT-Pro-B Natriuret Pep 482 pg/mL (-299) H 07/02/18 13:55 Total Protein 6.8 g/dL (6.4-8.2) 07/04/18 06:23 Albumin 2.5 g/dL (3.4-5.0) L 07/04/18 06:23 TSH 1.38 uIU/mL (0.358-3.74) 07/03/18 06:38 Urine Color Yellow (Yellow) 07/08/18 14:56 Urine Clarity Clear 07/08/18 14:56 Urine pH 7.0 (5-8) 07/08/18 14:56 Ur Specific [place] 1.020 (1.005-1.025) 07/08/18 14:56 Urine Protein Negative mg/dL (Negative) 07/08/18 14:56 Urine Ketones Negative mg/dL (Negative) 07/08/18 14:56 Urine Blood Negative (Negative) 07/08/18 14:56 Urine Nitrite Negative (Negative) 07/08/18 14:56 Urine Bilirubin Negative (Negative) 07/08/18 14:56 Urine Urobilinogen 0.2 EU/dL (Up TO 0.2) 07/08/18 14:56 Ur Leukocyte Esterase Negative (Negative) 07/08/18 14:56 Urine Glucose Negative mg/dL (Negative) 07/08/18 14:56 Vancomycin Trough 16.1 ug/mL (10.0-20.0) 07/07/18 07:16 Urine Opiates Screen Negative (Negative) 07/08/18 14:56 Urine Methadone Screen Positive (Negative) 07/08/18 14:56 Ur Barbiturates Screen Negative (Negative) 07/08/18 14:56 Ur Tricyclics Screen Negative (Negative) 07/08/18 14:56 Ur Amphetamines Screen Negative (Negative) 07/08/18 14:56 U Benzodiazepines Scrn Negative (Negative) 07/08/18 14:56 Urine Cocaine Screen Negative (Negative) 07/08/18 14:56 Ur THC Screen Negative (Negative) 07/08/18 14:56
--- NOTE | 2018-07-12 14:54 | PT.INTREAT ---
Date of service: 07/12/18 Time of Service: 14:54 PT Notes Inpatient Physical Therapy Treatment Note Date: 07/12/18 PRECAUTIONS: Fall SUBJECTIVE: Mahamed states that he is extremely exhausted this afternoon, that he has not been able to get comfortable in his bed, therefore has been unable to get much rest. OBJECTIVE: Provide patient with recliner chair. PAIN: Patient complains of general aches, preventing him from being comfortable in bed, BED MOBILITY/TRANSFERS Supine-sit: I Sit-stand: SBA Stand-sit: SBA Bed-Chair: SBA GAIT Assistive Device: No AD Weight bearing: Full Assist: SBA Distance: 3' Deviation: SOB ASSESSMENT: Patient tolerated transfer from bed to chair with increased SOB, requiring lengthy rest period for recovery. Patient would benefit from continued transfer and gait training to improve mobility. PLAN: Continue with PTs POC TREATMENT CODE/TIME: 15 minutes; DAVID
[2018-07-12] MEDS: Enoxaparin 40 MG/0.4 ML SYR SC (15:29)
--- NOTE | 2018-07-12 16:13 | PDOC.CMPRO ---
- If Service Date Differs Date of service: 07/12/18 Time of Service: 16:13 Care Management Progress Note S/O: CM met with patient in the room he continues on his oxygen support. [facility] declined him today. PT consult today recommended a short rehab stay. Local facilities have declined Mahamed at this time. Mahamed is not ready for discharge at this time his antibiotics have been completed he continues on IV steroids. Mahamed will consider other options for SNF vs home with home health services. A:52 year old male admitted with COPD, resp failure, ETOH withdrawal and hepatic encephalapathy P:No change in status today. He continues with oxygen support nasal cannula which is his baseline. He is on IV steroids which are being tapered. PT consult recomends that he be discharged to a SNF. Mahamed would like to be discharged to SNF when medically ready vs home with home health PT. Mahamed will resume services through [facility] for his oxygen and [facility] for substance abuse services. Transportation to be provided by [facility]. Palliative consult will be followed up as outpatient.
--- NOTE | 2018-07-12 16:22 | CMPROGNOTE_ITS ---
- If Service Date Differs Date of service: 07/12/18 Time of Service: 16:13 Care Management Progress Note S/O: CM met with patient in the room he continues on his oxygen support. [facility] declined him today. PT consult today recommended a short rehab stay. Local facilities have declined Mahamed at this time. Mahamed is not ready for discharge at this time his antibiotics have been completed he continues on IV steroids. Mahamed will consider other options for SNF vs home with home health services. A:52 year old male admitted with COPD, resp failure, ETOH withdrawal and hepatic encephalapathy P:No change in status today. He continues with oxygen support nasal cannula which is his baseline. He is on IV steroids which are being tapered. PT consult recomends that he be discharged to a SNF. Mahamed would like to be discharged to SNF when medically ready vs home with home health PT. Mahamed will resume services through [facility] for his oxygen and [facility] for substance abuse services. Transportation to be provided by [facility]. Palliative consult will be followed up as outpatient.
[2018-07-13] VITALS (10 sets, daily range): BP systolic 125–141; BP diastolic 80–89; PULSE 61–104; RESP 4–28; TEMP 36.7–37.1; O2SAT 91–99
[2018-07-13] MEDS: Budesonide 0.5 MG/2 ML UPD VIAL UPD ×2 (00:08→13:06)
[2018-07-13] MEDS: Albuterol/Ipratropium 3 ML UPD VIAL UPD ×5 (03:45→19:51)
[2018-07-13] MEDS: Levothyroxine 100 MCG TAB PO (05:34)
[2018-07-13 07:41] LABS: Abs Immature Grans 0.37 k/cumm (0.0-0.09); Absolute Basophil Count 0.03 k/cumm (0.0-0.2); Absolute Lymphocyte Count 0.74 k/cumm (1.2-3.4); Basophils % 0.1; HCT 43.3 % (40.0-50.0); HGB 14.2 g/dL (13.5-17.5); Immature Grans % 1.5; Lymphocytes % 2.9; Mean Corp. HGB Concentration 32.8 g/dL (32.0-36.0); Mean Corpuscular Hemoglobin 34.1 pg (27.0-33.0); Mean Corpuscular Volume 103.8 fL (80-95); Mean Platelet Volume 9.7 fL (8.0-11.0); Monocytes % 11.7; Neutrophils % 83.8; Platelet Count 318 x1000/uL (130-400); RBC 4.17 m/cumm (4.50-6.00); RBC Distribution Width 13.3 % (11.8-14.1)
[2018-07-13 07:51] LABS: Absolute Monocyte Count 2.98 k/cumm (0.11-0.7); Absolute Neutrophil Count 21.34 k/cumm (1.2-6.7); White Blood Cell Count 25.46 k/cumm (4.4-10.8)
[2018-07-13 07:58] LABS: BUN 16 mg/dL (7-18); CREATININE 0.73 mg/dL (0.70-1.30); Calcium 8.6 mg/dL (8.5-10.1); Chloride 94 mmol/L (98-107); Glucose 158 mg/dL (70-100); Sodium 135 mmol/L (136-145)
[2018-07-13] MEDS: Budesonide/Formoterol 160/4.5 6 GM 60 PUFF INH IH ×2 (09:25→21:26)
[2018-07-13] MEDS: Lactulose 20 GM/30 ML CUP PO ×3 (09:26→19:51)
[2018-07-13] MEDS: Polyethylene Glycol 3350 17 GM PACKET PO (09:26)
[2018-07-13] MEDS: predniSONE 20 MG TAB 40 MG PO ×2 (09:27→19:51)
[2018-07-13] MEDS: Tamsulosin 0.4 MG CAPCR PO (09:28)
[2018-07-13] MEDS: Fexofenadine 180 MG TAB PO (09:29)
[2018-07-13] MEDS: guaiFENesin 600 MG TABCR PO ×2 (09:29→19:51)
[2018-07-13] MEDS: Furosemide 40 MG TAB PO ×2 (09:29→16:34)
[2018-07-13] MEDS: Pantoprazole 40 MG TABCR PO (09:29)
[2018-07-13] MEDS: Lactobacillus Acidophilus CAP 1 CAP PO ×3 (09:33→16:34)
--- NOTE | 2018-07-13 09:58 | PT.INTREAT ---
Date of service: 07/13/18 Time of Service: 09:59 PT Notes Inpatient Physical Therapy Treatment Note Date: 07/13/18 PRECAUTIONS:Fall SUBJECTIVE: Sanjiv states that he was able to get some sleep in the recliner last night. OBJECTIVE: PAIN: Patient c/o back pain BED MOBILITY/TRANSFERS Sit-stand: S Stand-sit: S GAIT Assistive Device: FWW Weight bearing: Full Assist: SBA Distance: 20' x2 Deviation: Standing rest x3, shaky, SOB THEREX: Static standing x2 minutes, [id number] x3 ASSESSMENT: Patient tolerated a progression in his gait distance with FWW support, although required several standing rests due to shakiness and SOB. Patient would benefit from continued gait and transfer training as well as strengthening for improved activity tolerance. PLAN: Continue with PT's POC TREATMENT CODE/TIME: 25 minutes; TAx2
--- NOTE | 2018-07-13 10:02 | PTTR_ITS ---
Date of service: 07/13/18 Time of Service: 09:59 PT Notes Inpatient Physical Therapy Treatment Note Date: 07/13/18 PRECAUTIONS:Fall SUBJECTIVE: Sanjiv states that he was able to get some sleep in the recliner last night. OBJECTIVE: PAIN: Patient c/o back pain BED MOBILITY/TRANSFERS Sit-stand: S Stand-sit: S GAIT Assistive Device: FWW Weight bearing: Full Assist: SBA Distance: 20' x2 Deviation: Standing rest x3, shaky, SOB THEREX: Static standing x2 minutes, [id number] x3 ASSESSMENT: Patient tolerated a progression in his gait distance with FWW support, although required several standing rests due to shakiness and SOB. Patient would benefit from continued gait and transfer training as well as strengthening for improved activity tolerance. PLAN: Continue with PT's POC TREATMENT CODE/TIME: 25 minutes; TAx2
[2018-07-13] MEDS: Methadone Liquid 10 MG/ML 39 MG PO ×2 (11:08→19:50)
--- NOTE | 2018-07-13 14:53 | PT.INTREAT ---
Date of service: 07/13/18 Time of Service: 14:53 PT Notes Inpatient Physical Therapy Treatment Note Date: 07/13/18 PRECAUTIONS:Fall Precautions SUBJECTIVE: Pt states that he did well today and feels the medication is helping to clear out his lungs. He states that he is very tire this afternoon and sore. OBJECTIVE: GAIT VITALS: Oxygen was 89-90% with 4L of oxygen THEREX: Pt completed seated UE and LE ther ex as per flow sheet. Pt did require short rest periods due to fatigue and some slight SOB. STAIRS: ASSESSMENT: Pt was noticeably fatigued this afternoon. We will monitor pt's response to today's session and progress accordingly. PLAN: Cont as per PT POC as per felicitas. TREATMENT CODE/TIME: 2:35-2:45 (10) TP
--- NOTE | 2018-07-13 14:57 | PGE_ITS ---
Assessment and Plan (1) COPD with exacerbation: Current visit: Yes Status: Acute Potentially in setting of bacterial bronchitis, with sputum cx positive for Haemophilus spp, normal resp. renata, (Kindra Likely to be colonization). Completed a course of antibiotic therapy for presumed bacterial bronchitis. Currently with continued leukocytosis in setting of IV Steriods - remains afebrile - Repeat urinalysis and CXR with lack of infectious pathology. Continue BIPAP as needed. Continue but wean IV Steroids. Continue nebs. (2) Acute and chronic respiratory failure with hypercapnia: Current visit: Yes Status: Acute Treatment as above. PaCO2 appears improved. (3) Encephalopathy acute: Current visit: Yes Status: Acute Multifactorial in setting of hypercapneic and hypoxic respiratory failure as well as elevated ammonia and potential hepatic encephalopathy. Patient also underwent acute ETOH Withdrawl. Appears resolved and with mental status now at baseline. (4) Hepatic encephalopathy: Current visit: Yes Status: Acute Remains on lactulose with potential underlying cirrhosis on the basis of ETOH abuse - will need outpatient workup. (5) Cellulitis of both lower extremities: Current visit: Yes Status: Resolved Resolved (6) Smoker: Current visit: Yes Status: Chronic Previously counselled on cessation (7) History of intravenous drug abuse: Current visit: Yes Status: Chronic Continue methadone therapy. UDS positive for only methadone. (8) Urinary retention: Current visit: Yes Status: Acute Appears resolved. Continue on a-loni. (9) DVT prophylaxis: Current visit: Yes Status: Acute Continue SC Lovenox (10) Discharge planning issues: Current visit: Yes Status: Acute Will likely benefit from SNF placement at time of discharge if he qualifies - Case Management working with referrals currently. Subjective Interval history since last seen: 52 year old man with a prior medical history significant for oxygen-dependent COPD, chronic hypoxic hypercapnic respiratory failure on 4-6L of home O2, and ongoing tobacco abuse admitted from [facility] Emergency Department on 07/02/2018 with acute on chronic hypoxic respiratory failure in setting of acute COPD Exacerbation. Mr. Chi continues to smoke despite his oxygen dependant COPD. He had noted worsening dyspnea, and had used his his home nebulizer treatments along with prescribed Azithromycin and prednisone without relief as an outpatient. As his dyspnea progressively worsened he was brought to the ER via EMS, where he was found to be hypoxic despite high dose oxygen via Nasal Cannula. He was also noted to be in visible respiratory distress, and was referred for admission. The patient was also noted to have a change in mental status, found to be significantly hypercapneic with a PCO2 of 99, as well as with an elevated Ammonia level. He has also undergone treatment for acute alcohol withdrawl. Previously the the patient was noted to be awake and alert, but with an altered mental status. Repeat ABG showed a PaCO2 improved at 71, and repeat ammonia levels were normalized. Given his continued and significant leukocytosis a repeat urinalysis and CXR were obtained, both negative for infection. The patient's mental status has since slowly returned to his baseline. Although with continued significant dyspnea and hypoxia the patient appears to be improving - Still not at his baseline. Continues to work with PT. No overnight events reported. Remains afebrile. Exam Narrative Exam Narrative: General: Awake, alert, oriented X3. NAD, sitting up in bed. Neck: Supple. CV: Regular, not tachycardic. Pulmonary: Significantly decreased breathsounds diffusely, with poor air entry but improved since initial exam. Minimal but diffuse wheezing. Abdomen: +BS, soft, non-distended. Obese in contour. Not tender. Neurologic: No focal deficits noted. Patient is moving all 4 extremities. Vascular: 2+ B/l LE Edema Objective Objective Clinical Data: Abnormal lab results 07/13/18 07/13/18 Range/Units 06:40 06:40 WBC 25.46 H* (4.4-10.8) k/cumm RBC 4.17 L (4.50-6.00) m/cumm MCV 103.8 H (80-95) fL MCH 34.1 H (27.0-33.0) pg Absolute Neutrophils 21.34 H (1.2-6.7) k/cumm Absolute Lymphocytes 0.74 L (1.2-3.4) k/cumm Absolute Monocytes 2.98 H (0.11-0.7) k/cumm Sodium 135 L (136-145) mmol/L Chloride 94 L (98-107) mmol/L Carbon Dioxide 39.0 H (21.0-32.0) mmol/L Anion Gap 2.0 L (3-11) mmol/L Glucose 158 H (70-100) mg/dL Vital Signs Temperature 37.1 C 07/13/18 13:05 Temperature Source Skin 07/13/18 13:05 Pulse 61 07/13/18 13:05 Pulse Rhythm Regular 07/13/18 13:34 Pulse 91 H 07/07/18 08:08 Respiratory Rate 22 07/13/18 13:05 Respiratory Effort 07/13/18 13:34 Respiratory Depth Shallow 07/13/18 13:34 Respiratory Pattern Tachypnea 07/13/18 13:34 Blood Pressure 126/80 07/13/18 13:05 Blood Pressure Mean 97 07/11/18 17:45 Blood Pressure Position Supine 07/07/18 04:00 Pulse Oximetry 96 07/13/18 13:05 Respiratory End-tidal CO2 42 07/08/18 14:52 Oxygen Delivery Method Nasal Cannula 07/13/18 13:05 Oxygen Flow Rate 4 07/13/18 13:05 Fraction of Inspired Oxygen (FIO2) 30 07/06/18 11:10 Pain Level 0 07/13/18 13:05 Comment 07/13/18 08:50 Intake & Output 07/12/18 07/13/18 07/13/18 23:59 11:59 23:59 Intake Total 250 / 250 120 / 120 Output Total 500 / 500 1700 / 1700 Balance -500 / -500 -1450 / -1450 120 / 120 Intake: IV Oral 240 / 240 120 / 120 Output: Urine 500 / 500 1700 / 1700 Other: Urine Color Yellow Straw Urine Appearance Clear Clear Clear Urine Odor Normal Normal Voiding Methods Urinal Urinal Laboratory Results WBC 25.46 k/cumm (4.4-10.8) H* 07/13/18 06:40 RBC 4.17 m/cumm (4.50-6.00) L 07/13/18 06:40 Hgb 14.2 g/dL (13.5-17.5) 07/13/18 06:40 Hct 43.3 % (40.0-50.0) 07/13/18 06:40 MCV 103.8 fL (80-95) H 07/13/18 06:40 MCH 34.1 pg (27.0-33.0) H 07/13/18 06:40 MCHC 32.8 g/dL (32.0-36.0) 07/13/18 06:40 RDW 13.3 % (11.8-14.1) 07/13/18 06:40 Plt Count 318 x1000/uL (130-400) 07/13/18 06:40 MPV 9.7 fL (8.0-11.0) 07/13/18 06:40 Immature Gran % 1.5 07/13/18 06:40 Neutrophils % 83.8 07/13/18 06:40 Lymphocytes % 2.9 07/13/18 06:40 Monocytes % 11.7 07/13/18 06:40 Eosinophils % 0.0 07/13/18 06:40 Basophils % 0.1 07/13/18 06:40 Absolute Neutrophils 21.34 k/cumm (1.2-6.7) H 07/13/18 06:40 Band Neutrophils 1.0 % 07/12/18 06:15 Absolute Lymphocytes 0.74 k/cumm (1.2-3.4) L 07/13/18 06:40 Absolute Monocytes 2.98 k/cumm (0.11-0.7) H 07/13/18 06:40 Absolute Eosinophils 0.00 k/cumm (0.0-0.7) 07/13/18 06:40 Absolute Basophils 0.03 k/cumm (0.0-0.2) 07/13/18 06:40 Metamyelocytes 1.0 % 07/12/18 06:15 Myelocytes 3.0 % 07/11/18 06:10 Differential Comment Manual differential 07/12/18 06:15 Atypical Lymphocytes 2 07/08/18 06:28 RBC Morphology See below 07/12/18 06:15 Polychromasia Present 07/02/18 13:55 Poikilocytosis 1+ 07/12/18 06:15 Basophilic Stippling Present 07/02/18 13:55 Macrocytosis 1+ 07/12/18 06:15 Stomatocytes 2+ 07/08/18 06:28 Sample Site Right radial 07/08/18 14:50 pCO2 71 mmHg (34-47) H* 07/08/18 14:50 pO2 54 mmHg (83-108) L 07/08/18 14:50 O2 Saturation 88 % (94-98) L 07/08/18 14:50 ABG pH 7.45 (7.35-7.45) 07/08/18 14:50 ABG HCO3 50 mmol/L (22-28) H 07/08/18 14:50 ABG Total CO2 44 mmol/L (22-29) H 07/08/18 14:50 ABG Base Excess mmol/L (-3-3) 07/08/18 14:50 VBG pH 7.41 (7.32-7.43) 07/02/18 13:55 VBG pCO2 86 mm/Hg (34-47) H 07/02/18 13:55 VBG pO2 115 mm/Hg (28-44) H 07/02/18 13:55 VBG HCO3 54 mmol/L (22-28) H 07/02/18 13:55 VBG Total CO2 48 mmol/L (22-29) H 07/02/18 13:55 VBG O2 Saturation 99 % (70-80) H 07/02/18 13:55 VBG Base Excess mmol/L (-3-3) 07/02/18 13:55 Oxygen Liter Flow 4 L 07/08/18 14:50 FiO2 Nasal cannula % 07/08/18 14:50 Sodium 135 mmol/L (136-145) L 07/13/18 06:40 Potassium 4.0 mmol/L (3.5-5.1) 07/13/18 06:40 Chloride 94 mmol/L (98-107) L 07/13/18 06:40 Carbon Dioxide 39.0 mmol/L (21.0-32.0) H 07/13/18 06:40 Anion Gap 2.0 mmol/L (3-11) L 07/13/18 06:40 BUN 16 mg/dL (7-18) 07/13/18 06:40 Creatinine 0.73 mg/dL (0.70-1.30) 07/13/18 06:40 Estimated GFR/1.73 m2 >= 60.00 (mL/min/1.73m2) 07/13/18 06:40 Glucose 158 mg/dL (70-100) H 07/13/18 06:40 Lactate 0.9 mmol/L (0.6-1.4) 07/02/18 13:55 Calcium 8.6 mg/dL (8.5-10.1) 07/13/18 06:40 Phosphorus 3.4 mg/dL (2.6-4.7) 07/04/18 06:23 Magnesium 2.0 mg/dL (1.8-2.4) 07/08/18 06:28 Total Bilirubin 0.4 mg/dL (0.2-1.0) 07/04/18 06:23 Conjugated Bilirubin 0.15 mg/dL (0.00-0.20) 07/04/18 06:23 AST 103 U/L (15-37) H 07/04/18 06:23 ALT 79 U/L (12-78) H 07/04/18 06:23 Alkaline Phosphatase 116 U/L (46-116) 07/04/18 06:23 Ammonia 25 umol/L (11-32) 07/08/18 14:30 Troponin I < 0.02 ng/mL (0.00-0.06) 07/02/18 13:55 NT-Pro-B Natriuret Pep 482 pg/mL (-299) H 07/02/18 13:55 Total Protein 6.8 g/dL (6.4-8.2) 07/04/18 06:23 Albumin 2.5 g/dL (3.4-5.0) L 07/04/18 06:23 TSH 1.38 uIU/mL (0.358-3.74) 07/03/18 06:38 Urine Color Yellow (Yellow) 07/08/18 14:56 Urine Clarity Clear 07/08/18 14:56 Urine pH 7.0 (5-8) 07/08/18 14:56 Ur Specific [place] 1.020 (1.005-1.025) 07/08/18 14:56 Urine Protein Negative mg/dL (Negative) 07/08/18 14:56 Urine Ketones Negative mg/dL (Negative) 07/08/18 14:56 Urine Blood Negative (Negative) 07/08/18 14:56 Urine Nitrite Negative (Negative) 07/08/18 14:56 Urine Bilirubin Negative (Negative) 07/08/18 14:56 Urine Urobilinogen 0.2 EU/dL (Up TO 0.2) 07/08/18 14:56 Ur Leukocyte Esterase Negative (Negative) 07/08/18 14:56 Urine Glucose Negative mg/dL (Negative) 07/08/18 14:56 Vancomycin Trough 16.1 ug/mL (10.0-20.0) 07/07/18 07:16 Urine Opiates Screen Negative (Negative) 07/08/18 14:56 Urine Methadone Screen Positive (Negative) 07/08/18 14:56 Ur Barbiturates Screen Negative (Negative) 07/08/18 14:56 Ur Tricyclics Screen Negative (Negative) 07/08/18 14:56 Ur Amphetamines Screen Negative (Negative) 07/08/18 14:56 U Benzodiazepines Scrn Negative (Negative) 07/08/18 14:56 Urine Cocaine Screen Negative (Negative) 07/08/18 14:56 Ur THC Screen Negative (Negative) 07/08/18 14:56
[2018-07-13] MEDS: Enoxaparin 40 MG/0.4 ML SYR SC (16:34)
[2018-07-14] VITALS (10 sets, daily range): BP systolic 114–137; BP diastolic 69–98; PULSE 68–102; RESP 4–22; TEMP 36.2–37.5; O2SAT 86–95
[2018-07-14] MEDS: Albuterol/Ipratropium 3 ML UPD VIAL UPD ×6 (01:22→23:41)
[2018-07-14] MEDS: Budesonide 0.5 MG/2 ML UPD VIAL UPD ×3 (01:22→23:43)
[2018-07-14] MEDS: Levothyroxine 100 MCG TAB PO (06:45)
[2018-07-14 07:22] LABS: Abs Immature Grans 0.32 k/cumm (0.0-0.09); Absolute Basophil Count 0.05 k/cumm (0.0-0.2); Basophils % 0.2; HCT 44.5 % (40.0-50.0); HGB 14.6 g/dL (13.5-17.5); Immature Grans % 1.4; Lymphocytes % 4.4; Mean Corp. HGB Concentration 32.8 g/dL (32.0-36.0); Mean Corpuscular Hemoglobin 33.7 pg (27.0-33.0); Mean Corpuscular Volume 102.8 fL (80-95); Mean Platelet Volume 9.1 fL (8.0-11.0); Monocytes % 14.6; Neutrophils % 79.4; Platelet Count 276 x1000/uL (130-400); RBC 4.33 m/cumm (4.50-6.00); RBC Distribution Width 13.3 % (11.8-14.1); White Blood Cell Count 23.45 k/cumm (4.4-10.8)
[2018-07-14 07:23] LABS: Absolute Lymphocyte Count 1.03 k/cumm (1.2-3.4); Absolute Monocyte Count 3.42 k/cumm (0.11-0.7); Absolute Neutrophil Count 18.62 k/cumm (1.2-6.7)
[2018-07-14 07:31] LABS: Anion Gap 3.2 mmol/L (3-11); BUN 13 mg/dL (7-18); CO2 39.8 mmol/L (21.0-32.0); CREATININE 0.67 mg/dL (0.70-1.30); Calcium 8.5 mg/dL (8.5-10.1); Chloride 95 mmol/L (98-107); Glucose 141 mg/dL (70-100); Potassium 4.2 mmol/L (3.5-5.1); Sodium 138 mmol/L (136-145)
[2018-07-14] MEDS: Lactulose 20 GM/30 ML CUP PO ×3 (09:20→19:48)
[2018-07-14] MEDS: Pantoprazole 40 MG TABCR PO (09:20)
[2018-07-14] MEDS: Polyethylene Glycol 3350 17 GM PACKET PO (09:20)
[2018-07-14] MEDS: Furosemide 40 MG TAB PO ×2 (09:20→17:06)
[2018-07-14] MEDS: guaiFENesin 600 MG TABCR PO ×2 (09:21→19:48)
[2018-07-14] MEDS: Lactobacillus Acidophilus CAP 1 CAP PO ×3 (09:21→17:06)
[2018-07-14] MEDS: predniSONE 20 MG TAB 40 MG PO ×2 (09:21→19:48)
[2018-07-14] MEDS: Tamsulosin 0.4 MG CAPCR PO (09:21)
[2018-07-14] MEDS: Fexofenadine 180 MG TAB PO (09:21)
[2018-07-14] MEDS: Budesonide/Formoterol 160/4.5 6 GM 60 PUFF INH IH ×2 (09:30→19:53)
--- NOTE | 2018-07-14 10:02 | PDOC.CMPRO ---
- If Service Date Differs Date of service: 07/13/18 Time of Service: 10:00 Care Management Progress Note S/O: CM met with Mahamed at the bedside he is alert and engaged. Mahamed is working with RT towards a COPD action plan. He is engaged with PT and is in need of short term rehab prior to returning home. The [facility] is planning on meeting with Mahamed to reconsider admission. Mahamed is willing to have referrals sent to other local facilities including [facility], [facility] and [facility]. A: Mahamed is admitted with COPD, and resp failure P: Mahamde will have no change in status today. CM to increase referrals to other local SNF's and plan to have the [facility] meet with him on Tuesday. Mahamed will transport RCT w/c van to be coordinated by CM pending disposition.
--- NOTE | 2018-07-14 10:22 | CMPROGNOTE_ITS ---
- If Service Date Differs Date of service: 07/13/18 Time of Service: 10:00 Care Management Progress Note S/O: CM met with Mahamed at the bedside he is alert and engaged. Mahamed is working with RT towards a COPD action plan. He is engaged with PT and is in need of short term rehab prior to returning home. The [facility] is planning on meeting with Mahamed to reconsider admission. Mahamed is willing to have referrals sent to other local facilities including [facility], [facility] and [facility]. A: Mahamed is admitted with COPD, and resp failure P: Mahamed will have no change in status today. CM to increase referrals to other local SNF's and plan to have the [facility] meet with him on Tuesday. Mahamed will transport RCT w/c van to be coordinated by CM pending disposition.
--- NOTE | 2018-07-14 10:48 | NUR.NOTE ---
Nursing Note: Patient desats with activity, and when he removes his 02. he is reminded to keep [address] and monitor his activity, he states this is how he manages at home
--- NOTE | 2018-07-14 10:50 | PT.INTREAT ---
Date of service: 07/14/18 Time of Service: 10:51 PT Notes Inpatient Physical Therapy Treatment Note Date: 07/14/18 PRECAUTIONS: Fall precautions SUBJECTIVE: Pt sitting at edge of bed, states his back is stiff from lying in the bed last night, reports he had to get up and sleep in the recliner chair and got 2 hours of sleep. States he has been trying to change positions frequently and be up in the room to the chair and the commode. OBJECTIVE: General observation: 5 liters 02 NC PAIN: c/o back stiffness, all over body ache BED MOBILITY/TRANSFERS Rolling L/R: independent Supine-sit: independent Sit-stand: independent Stand-sit: independent Bed-Chair: independent with FWW Chair-bed: independent with FWW GAIT Assistive Device: FWW Assist: SBA Distance: 20ftx2 Deviation: slow step through gait pattern with decreased stride length, pt requires pacing and energy conservation with activity due to shortness of breath with exertion, requiring 5 liters 02 NC which is at similar to home use. Pt up in chair after gait session for recovery period for breathing. STAIRS: pt not yet strong enough to start stair training, has 12 steps with railing at home ASSESSMENT: Pt is very motivated to improve strength and functional mobility, transfers have improved to independent with FWW, gait distance has improved but is still limited due to COPD and limited respiratory capacity. Pt benefits from instruction in pacing and energy conservation techniques to maximize his functional potential. Pt needs to be independent with all mobility including up 12 stairs, he is not yet at that level and would benefit from rehab facility prior to return to home for strengthening. PLAN: Progress gait distance Progress strengthening TREATMENT CODE/TIME: 23min TAx2 10:45 Stephanie Martinez PT
[2018-07-14] MEDS: Methadone Liquid 10 MG/ML 39 MG PO ×2 (11:46→19:49)
--- NOTE | 2018-07-14 15:34 | PDOC.CMPRO ---
- If Service Date Differs Date of service: 07/14/18 Time of Service: 15:34 Care Management Progress Note S/O: LILIYA met with Mahamed at the bedside he is alert and engaged. Mahamed is working with RT towards a COPD action plan. He is engaged with PT and is in need of short term rehab prior to returning home. Mahamed states that he is not ready to be discharge he states that he becomes extremely dysgenic with any activity. He reports he is coughing thick sputum. The [facility] has met with Mahamed and anticipate he will have a bed offer for Tuesday. LILIYA provided the admission coordinator and nurse maintenance mechanic supervisor an updated referral. Mahamed is hopeful that he can improve his physical health so that he could be eligible to receive treatments that could improve his quality of life and COPD. Mahamed is receptive to palliative care and an order will be placed for palliative as outpatient. A: Mahamed is admitted with COPD, and resp failure P: Mahamed will have no change in status today. Anticipate Mahamed will be discharged to the [facility] pending bed availability on Tuesday. Mahamed will have palliative consult ordered at time of discharge. He continues to receive medication adjustments, oral steroids, resp support with RT. Pending bed offer from the [facility] Mahamed [facility] transport [facility] w/c [place].
--- NOTE | 2018-07-14 15:43 | CMPROGNOTE_ITS ---
- If Service Date Differs Date of service: 07/14/18 Time of Service: 15:34 Care Management Progress Note S/O: LILIYA met with Mahamed at the bedside he is alert and engaged. Mahamed is working with RT towards a COPD action plan. He is engaged with PT and is in need of short term rehab prior to returning home. Mahamed states that he is not ready to be discharge he states that he becomes extremely dysgenic with any activity. He reports he is coughing thick sputum. The [facility] has met with Mahamed and anticipate he will have a bed offer for Tuesday. LILIYA provided the admission coordinator and nurse supervisor diagnostic an updated referral. Mahamed is hopeful that he can improve his physical health so that he could be eligible to receive treatments that could improve his quality of life and COPD. Mahamed is receptive to palliative care and an order will be placed for palliative as outpatient. A: Mahamed is admitted with COPD, and resp failure P: Mahamed will have no change in status today. Anticipate Mahamed will be discharged to the [facility] pending bed availability on Tuesday. Mahamed will have palliative consult ordered at time of discharge. He continues to receive medication adjustments, oral steroids, resp support with RT. Pending bed offer from the [facility] Mahamed will transport to [facility] w/c [place].
[2018-07-14] MEDS: Enoxaparin 40 MG/0.4 ML SYR SC (17:06)
--- NOTE | 2018-07-14 19:23 | W.PM.PROGNOT ---
Date of Service Date of service: 07/14/18 Time of Service: 19:23 Assessment and Plan (1) COPD with exacerbation: Current visit: Yes Status: Acute Potentially in setting of bacterial bronchitis, with sputum cx positive for Haemophilus spp, normal resp. renata, (Kindra Likely to be colonization). Completed a course of antibiotic therapy for presumed bacterial bronchitis. Currently with continued leukocytosis in setting of IV Steriods - remains afebrile - Repeat urinalysis and CXR with lack of infectious pathology. Continue BIPAP as needed. Continue but wean IV Steroids. Continue nebs. Breathing appears vastly improved. (2) Acute and chronic respiratory failure with hypercapnia: Current visit: Yes Status: Acute Treatment as above. PaCO2 appears improved. (3) Encephalopathy acute: Current visit: Yes Status: Acute Multifactorial in setting of hypercapneic and hypoxic respiratory failure as well as elevated ammonia and potential hepatic encephalopathy. Patient also underwent acute ETOH Withdrawl. Appears resolved and with mental status now at baseline. (4) Hepatic encephalopathy: Current visit: Yes Status: Acute Remains on lactulose with potential underlying cirrhosis on the basis of ETOH abuse - will need outpatient workup. (5) Cellulitis of both lower extremities: Current visit: Yes Status: Resolved Resolved (6) Smoker: Current visit: Yes Status: Chronic Previously counselled on cessation (7) History of intravenous drug abuse: Current visit: Yes Status: Chronic Continue methadone therapy. UDS positive for only methadone. (8) Urinary retention: Current visit: Yes Status: Acute Appears resolved. Continue on a-loni. (9) DVT prophylaxis: Current visit: Yes Status: Acute Continue SC Lovenox (10) Discharge planning issues: Current visit: Yes Status: Acute Will likely benefit from SNF placement at time of discharge - has been accepted at the [facility], with plans on admission on 07/17. Subjective Interval history since last seen: 52 year old man with a prior medical history significant for oxygen-dependent COPD, chronic hypoxic hypercapnic respiratory failure on 4-6L of home O2, and ongoing tobacco abuse admitted from [facility] Emergency Department on 07/02/2018 with acute on chronic hypoxic respiratory failure in setting of acute COPD Exacerbation. Mr. Chi continues to smoke despite his oxygen dependant COPD. He had noted worsening dyspnea, and had used his his home nebulizer treatments along with prescribed Azithromycin and prednisone without relief as an outpatient. As his dyspnea progressively worsened he was brought to the ER via EMS, where he was found to be hypoxic despite high dose oxygen via Nasal Cannula. He was also noted to be in visible respiratory distress, and was referred for admission. The patient was also noted to have a change in mental status, found to be significantly hypercapneic with a PCO2 of 99, as well as with an elevated Ammonia level. He has also undergone treatment for acute alcohol withdrawl. Previously the the patient was noted to be awake and alert, but with an altered mental status. Repeat ABG showed a PaCO2 improved at 71, and repeat ammonia levels were normalized. Given his continued and significant leukocytosis a repeat urinalysis and CXR were obtained, both negative for infection. The patient's mental status has since slowly returned to his baseline. Although with continued significant dyspnea and hypoxia the patient appears to be vastly improved - today the patient states that this is the best he has felt from a respiratory standpoint in over 2 years. Continues to work with PT. Has been accepted at [facility]. No overnight events reported. Remains afebrile. Exam Narrative Exam Narrative: General: Awake, alert, oriented X3. NAD, sitting up in bed. Neck: Supple. CV: Regular, not tachycardic. Pulmonary: Significantly decreased breathsounds diffusely, with poor air entry but much improved since initial exam. Minimal but diffuse wheezing. Abdomen: +BS, soft, non-distended. Obese in contour. Not tender. Neurologic: No focal deficits noted. Patient is moving all 4 extremities. Vascular: Improved 1+ B/l LE Edema Objective Objective Clinical Data: Abnormal lab results 07/14/18 07/14/18 Range/Units 06:50 06:50 WBC 23.45 H (4.4-10.8) k/cumm RBC 4.33 L (4.50-6.00) m/cumm MCV 102.8 H (80-95) fL MCH 33.7 H (27.0-33.0) pg Absolute Neutrophils 18.62 H (1.2-6.7) k/cumm Absolute Lymphocytes 1.03 L (1.2-3.4) k/cumm Absolute Monocytes 3.42 H (0.11-0.7) k/cumm Chloride 95 L (98-107) mmol/L Carbon Dioxide 39.8 H (21.0-32.0) mmol/L Creatinine 0.67 L (0.70-1.30) mg/dL Glucose 141 H (70-100) mg/dL Vital Signs Temperature 37.1 C 07/14/18 16:28 Temperature Source Tympanic 07/14/18 16:28 Pulse 85 07/14/18 16:28 Pulse Rhythm Regular 07/14/18 10:55 Pulse 91 H 07/07/18 08:08 Respiratory Rate 22 07/14/18 16:28 Respiratory Effort Labored 07/14/18 10:55 Respiratory Depth Shallow 07/14/18 10:55 Respiratory Pattern Tachypnea 07/14/18 10:55 Blood Pressure 114/77 07/14/18 16:28 Blood Pressure Mean 97 07/11/18 17:45 Blood Pressure Position Supine 07/07/18 04:00 Pulse Oximetry 95 07/14/18 16:28 Respiratory End-tidal CO2 42 07/08/18 14:52 Oxygen Delivery Method Nasal Cannula 07/14/18 16:28 Oxygen Flow Rate 2 07/14/18 16:28 Fraction of Inspired Oxygen (FIO2) 30 07/06/18 11:10 Pain Level 7 07/14/18 11:46 Comment 07/14/18 11:45 Intake & Output 07/13/18 07/14/18 07/14/18 23:59 11:59 23:59 Intake Total 480 / 480 240 / 240 360 / 360 Output Total 550 / 550 1600 / 1600 700 / 700 Balance -70 / -70 -1360 / -1360 -340 / -340 Weight 94.5 kg Intake: Oral 480 / 480 240 / 240 360 / 360 Output: Urine 550 / 550 1600 / 1600 700 / 700 Other: Urine Color Yellow Yellow Light Tamara Urine Appearance Clear Clear Urine Odor None Normal Stool Size Moderate Stool Characteristics Soft Liquid Brown Voiding Methods Toilet Urinal Urinal Laboratory Results WBC 23.45 k/cumm (4.4-10.8) H 07/14/18 06:50 RBC 4.33 m/cumm (4.50-6.00) L 07/14/18 06:50 Hgb 14.6 g/dL (13.5-17.5) 07/14/18 06:50 Hct 44.5 % (40.0-50.0) 07/14/18 06:50 MCV 102.8 fL (80-95) H 07/14/18 06:50 MCH 33.7 pg (27.0-33.0) H 07/14/18 06:50 MCHC 32.8 g/dL (32.0-36.0) 07/14/18 06:50 RDW 13.3 % (11.8-14.1) 07/14/18 06:50 Plt Count 276 x1000/uL (130-400) 07/14/18 06:50 MPV 9.1 fL (8.0-11.0) 07/14/18 06:50 Immature Gran % 1.4 07/14/18 06:50 Neutrophils % 79.4 07/14/18 06:50 Lymphocytes % 4.4 07/14/18 06:50 Monocytes % 14.6 07/14/18 06:50 Eosinophils % 0.0 07/14/18 06:50 Basophils % 0.2 07/14/18 06:50 Absolute Neutrophils 18.62 k/cumm (1.2-6.7) H 07/14/18 06:50 Band Neutrophils 1.0 % 07/12/18 06:15 Absolute Lymphocytes 1.03 k/cumm (1.2-3.4) L 07/14/18 06:50 Absolute Monocytes 3.42 k/cumm (0.11-0.7) H 07/14/18 06:50 Absolute Eosinophils 0.00 k/cumm (0.0-0.7) 07/14/18 06:50 Absolute Basophils 0.05 k/cumm (0.0-0.2) 07/14/18 06:50 Metamyelocytes 1.0 % 07/12/18 06:15 Myelocytes 3.0 % 07/11/18 06:10 Differential Comment Manual differential 07/12/18 06:15 Atypical Lymphocytes 2 07/08/18 06:28 RBC Morphology See below 07/12/18 06:15 Polychromasia Present 07/02/18 13:55 Poikilocytosis 1+ 07/12/18 06:15 Basophilic Stippling Present 07/02/18 13:55 Macrocytosis 1+ 07/12/18 06:15 Stomatocytes 2+ 07/08/18 06:28 Sample Site Right radial 07/08/18 14:50 pCO2 71 mmHg (34-47) H* 07/08/18 14:50 pO2 54 mmHg (83-108) L 07/08/18 14:50 O2 Saturation 88 % (94-98) L 07/08/18 14:50 ABG pH 7.45 (7.35-7.45) 07/08/18 14:50 ABG HCO3 50 mmol/L (22-28) H 07/08/18 14:50 ABG Total CO2 44 mmol/L (22-29) H 07/08/18 14:50 ABG Base Excess mmol/L (-3-3) 07/08/18 14:50 VBG pH 7.41 (7.32-7.43) 07/02/18 13:55 VBG pCO2 86 mm/Hg (34-47) H 07/02/18 13:55 VBG pO2 115 mm/Hg (28-44) H 07/02/18 13:55 VBG HCO3 54 mmol/L (22-28) H 07/02/18 13:55 VBG Total CO2 48 mmol/L (22-29) H 07/02/18 13:55 VBG O2 Saturation 99 % (70-80) H 07/02/18 13:55 VBG Base Excess mmol/L (-3-3) 07/02/18 13:55 Oxygen Liter Flow 4 L 07/08/18 14:50 FiO2 Nasal cannula % 07/08/18 14:50 Sodium 138 mmol/L (136-145) 07/14/18 06:50 Potassium 4.2 mmol/L (3.5-5.1) 07/14/18 06:50 Chloride 95 mmol/L (98-107) L 07/14/18 06:50 Carbon Dioxide 39.8 mmol/L (21.0-32.0) H 07/14/18 06:50 Anion Gap 3.2 mmol/L (3-11) 07/14/18 06:50 BUN 13 mg/dL (7-18) 07/14/18 06:50 Creatinine 0.67 mg/dL (0.70-1.30) L 07/14/18 06:50 Estimated GFR/1.73 m2 >= 60.00 (mL/min/1.73m2) 07/14/18 06:50 Glucose 141 mg/dL (70-100) H 07/14/18 06:50 Lactate 0.9 mmol/L (0.6-1.4) 07/02/18 13:55 Calcium 8.5 mg/dL (8.5-10.1) 07/14/18 06:50 Phosphorus 3.4 mg/dL (2.6-4.7) 07/04/18 06:23 Magnesium 2.0 mg/dL (1.8-2.4) 07/08/18 06:28 Total Bilirubin 0.4 mg/dL (0.2-1.0) 07/04/18 06:23 Conjugated Bilirubin 0.15 mg/dL (0.00-0.20) 07/04/18 06:23 AST 103 U/L (15-37) H 07/04/18 06:23 ALT 79 U/L (12-78) H 07/04/18 06:23 Alkaline Phosphatase 116 U/L (46-116) 07/04/18 06:23 Ammonia 25 umol/L (11-32) 07/08/18 14:30 Troponin I < 0.02 ng/mL (0.00-0.06) 07/02/18 13:55 NT-Pro-B Natriuret Pep 482 pg/mL (-299) H 07/02/18 13:55 Total Protein 6.8 g/dL (6.4-8.2) 07/04/18 06:23 Albumin 2.5 g/dL (3.4-5.0) L 07/04/18 06:23 TSH 1.38 uIU/mL (0.358-3.74) 07/03/18 06:38 Urine Color Yellow (Yellow) 07/08/18 14:56 Urine Clarity Clear 07/08/18 14:56 Urine pH 7.0 (5-8) 07/08/18 14:56 Ur Specific [place] 1.020 (1.005-1.025) 07/08/18 14:56 Urine Protein Negative mg/dL (Negative) 07/08/18 14:56 Urine Ketones Negative mg/dL (Negative) 07/08/18 14:56 Urine Blood Negative (Negative) 07/08/18 14:56 Urine Nitrite Negative (Negative) 07/08/18 14:56 Urine Bilirubin Negative (Negative) 07/08/18 14:56 Urine Urobilinogen 0.2 EU/dL (Up TO 0.2) 07/08/18 14:56 Ur Leukocyte Esterase Negative (Negative) 07/08/18 14:56 Urine Glucose Negative mg/dL (Negative) 07/08/18 14:56 Vancomycin Trough 16.1 ug/mL (10.0-20.0) 07/07/18 07:16 Urine Opiates Screen Negative (Negative) 07/08/18 14:56 Urine Methadone Screen Positive (Negative) 07/08/18 14:56 Ur Barbiturates Screen Negative (Negative) 07/08/18 14:56 Ur Tricyclics Screen Negative (Negative) 07/08/18 14:56 Ur Amphetamines Screen Negative (Negative) 07/08/18 14:56 U Benzodiazepines Scrn Negative (Negative) 07/08/18 14:56 Urine Cocaine Screen Negative (Negative) 07/08/18 14:56 Ur THC Screen Negative (Negative) 07/08/18 14:56
[2018-07-14] MEDS: Ibuprofen 800 MG TAB PO (19:48)
[2018-07-15 00:11] VITALS: PULSE 90; RESP 20; RESP 4; RESP 8; O2SAT 95
[2018-07-15 03:22] VITALS: RESP 1; RESP 8
[2018-07-15] MEDS: Albuterol/Ipratropium 3 ML UPD VIAL UPD ×4 (03:22→23:59)
[2018-07-15] MEDS: Levothyroxine 100 MCG TAB PO (05:48)
[2018-07-15 07:33] LABS: Abs Immature Grans 0.46 k/cumm (0.0-0.09); HCT 42.5 % (40.0-50.0); HGB 14.7 g/dL (13.5-17.5); Mean Corp. HGB Concentration 34.6 g/dL (32.0-36.0); Mean Corpuscular Hemoglobin 34.8 pg (27.0-33.0); Mean Corpuscular Volume 100.5 fL (80-95); Mean Platelet Volume 9.6 fL (8.0-11.0); Platelet Count 318 x1000/uL (130-400); RBC 4.23 m/cumm (4.50-6.00)
[2018-07-15 07:52] LABS: Anion Gap 2.4 mmol/L (3-11); BUN 18 mg/dL (7-18); CO2 38.6 mmol/L (21.0-32.0); CREATININE 0.83 mg/dL (0.70-1.30); Calcium 8.9 mg/dL (8.5-10.1); Chloride 92 mmol/L (98-107); Glucose 131 mg/dL (70-100); Potassium 3.9 mmol/L (3.5-5.1); Sodium 133 mmol/L (136-145)
[2018-07-15 07:55] VITALS: BP 121/83; PULSE 96; RESP 15; TEMP 36; O2SAT 95
[2018-07-15 07:56] VITALS: RESP 1; RESP 8
[2018-07-15 08:26] VITALS: RESP 1; RESP 8
[2018-07-15 08:40] LABS: Absolute Lymphocyte Count 0.77 k/cumm (1.2-3.4); Absolute Monocyte Count 3.32 k/cumm (0.11-0.7); Absolute Neutrophil Count 20.94 k/cumm (1.2-6.7); White Blood Cell Count 25.54 k/cumm (4.4-10.8)
[2018-07-15 08:50] LABS: Diff Comment Agrees w/ Instrument
[2018-07-15] MEDS: Budesonide/Formoterol 160/4.5 6 GM 60 PUFF INH IH ×2 (09:05→19:47)
[2018-07-15] MEDS: Methadone Liquid 10 MG/ML 39 MG PO ×2 (09:18→19:50)
[2018-07-15] MEDS: Polyethylene Glycol 3350 17 GM PACKET PO (09:19)
[2018-07-15] MEDS: Lactobacillus Acidophilus CAP 1 CAP PO ×2 (09:19→16:24)
[2018-07-15] MEDS: guaiFENesin 600 MG TABCR PO ×2 (09:19→19:50)
[2018-07-15] MEDS: predniSONE 20 MG TAB 40 MG PO ×2 (09:19→19:50)
[2018-07-15] MEDS: Lactulose 20 GM/30 ML CUP PO ×3 (09:19→19:50)
[2018-07-15] MEDS: Pantoprazole 40 MG TABCR PO (09:19)
[2018-07-15] MEDS: Fexofenadine 180 MG TAB PO (09:19)
[2018-07-15] MEDS: Furosemide 40 MG TAB PO ×2 (09:20→16:24)
[2018-07-15] MEDS: Tamsulosin 0.4 MG CAPCR PO (09:21)
--- NOTE | 2018-07-15 10:52 | PT.INTREAT ---
Date of service: 07/15/18 Time of Service: 10:52 PT Notes 07/15/18 SUBJECTIVE: Mahamed stating he was up all night with discomfort in his low back. He reports he was up walking around his room. His breathing seems to be improving and he can't believe he can carry on a conversation without being SOB. OBJECTIVE: Seated at EOB. Agreeable to PT treatment. Bed mobility/transfers: Sit to Stand: I Stand to sit: I Gait: Device: FWW Weight bearing: Full Assist: SBA Distance: 20'+20'+10' Deviation: 4 L NC Vitals: 89-92% throughout, 101-117 b/m Therex: Pt stood greater than 5 minutes in the room performing marching and intermittent walking with FWW. ASSESSMENT: Pt appears to be less SOB today. He is utilizing the walker to take some pressure off his back today although he states he has been doing some walking without it. PLAN: Continue current POC progressing towards established goals. Time: 15 minutes DAVID Malik, FAMILY CONSUMER SCIENTIST
--- NOTE | 2018-07-15 12:41 | PDOC.CMPRO ---
- If Service Date Differs Date of service: 07/15/18 Time of Service: 12:41 Care Management Progress Note S/O: Mahamed is sitting on the edge of his bed finishing breakfast when CM met with him this morning. He is engaged in conversation, makes good eye contact, and is talkative. Mahamed reports he's frustrated that he is back at the hospital. He reportedly has had other admissions but per pt has not had one recently and thought he was doing better. Mahamed has been offered a bed at the [facility] and he will likely discharge there on Tuesday, 07/17 A: Mahamed is admitted with COPD, and respiratory failure P: Mahamed will have no change in status today. Anticipate Mahamed will be discharged to the [facility] pending bed availability on Tuesday. Mahamed will have palliative consult ordered at time of discharge. He continues to receive medication adjustments, oral steroids, and respiratory support with RT. Mahamed will transport to the [facility] via [employer] w/c van at discharge. CM will continue to offer support to patient and care team regarding discharge planning and disposition.
--- NOTE | 2018-07-15 13:10 | CMPROGNOTE_ITS ---
- If Service Date Differs Date of service: 07/15/18 Time of Service: 12:41 Care Management Progress Note S/O: Mahamed is sitting on the edge of his bed finishing breakfast when CM met with him this morning. He is engaged in conversation, makes good eye contact, and is talkative. Mahamed reports he's frustrated that he is back at the hospital. He reportedly has had other admissions but per pt has not had one recently and thought he was doing better. Mahamed has been offered a bed at the [facility] and he will likely discharge there on Tuesday, 07/17 A: Mahamed is admitted with COPD, and respiratory failure P: Mahamed will have no change in status today. Anticipate Mahamed will be discharged to the [facility] pending bed availability on Tuesday. Mahamed will have palliative consult ordered at time of discharge. He continues to receive medication adjustments, oral steroids, and respiratory support with RT. Mahamed will transport to the [facility] via [employer] w/c van at discharge. CM will continue to offer support to patient and care team regarding discharge planning and disposition.
[2018-07-15 15:29] VITALS: RESP 8
[2018-07-15] MEDS: Budesonide 0.5 MG/2 ML UPD VIAL UPD ×2 (15:37→23:58)
[2018-07-15] MEDS: Enoxaparin 40 MG/0.4 ML SYR SC (16:24)
[2018-07-15] MEDS: Ibuprofen 800 MG TAB PO (16:28)
[2018-07-15] MEDS: Normal Saline Flush 10 ML SYR IVP (18:18)
--- NOTE | 2018-07-15 18:58 | PGE_ITS ---
Date of Service Date of service: 07/15/18 Time of Service: 15:00 Assessment and Plan (1) COPD with exacerbation: Current visit: Yes Status: Acute Due to bacterial bronchitis, with sputum cx positive for Haemophilus spp, normal resp. renata, (Kindra Likely colonization). Completed antiobiotics. Current leucocytosis more likely due to steroids. Weaning steroids slowly. Continue nebs (decrease frequency of scheduled nebs). (2) Acute and chronic respiratory failure with hypercapnia: Current visit: Yes Status: Acute Clinically much improved. Will need a sleep study as outpatient. (3) Encephalopathy acute: Current visit: Yes Status: Acute Multifactorial in setting of hypercapneic and hypoxic respiratory failure as well as elevated ammonia and potential hepatic encephalopathy. Patient also underwent acute ETOH Withdrawl. Resolved; at baseline- continue lactulose. (4) Hepatic encephalopathy: Current visit: Yes Status: Resolved Continue lactulose. Outpatient workup of cirrhosis. (5) Cellulitis of both lower extremities: Current visit: Yes Status: Resolved Resolved (6) Smoker: Current visit: Yes Status: Chronic Again counselled on cessation (7) History of intravenous drug abuse: Current visit: Yes Status: Chronic Continue methadone therapy. UDS positive for only methadone. (8) Urinary retention: Current visit: Yes Status: Acute Appears resolved. Continue on a-loni. (9) DVT prophylaxis: Current visit: Yes Status: Acute Continue SC Lovenox (10) Discharge planning issues: Current visit: Yes Status: Acute SNF placement at time of discharge - has been accepted at the [facility], with plans on admission on 07/17. Subjective Interval history since last seen: I found the patient in the room sitting at the side of the bed, not wearing Oxygen. When asked about this, he stated he couldn't find it when he just woke up from the nap. He states he feels much better than he has in years. He is very thankful for the care he received. He denies any dizziness, chest pain, nausea, vomiting. He is short of breath - but this is much better than his actual baseline. Exam Narrative Exam Narrative: General: awake, sitting at the site of the bed, very conversant, able to speak fluently in multiple complete sentences before he really seems to get any shortness of breath Neurological: No obvious focal deficits Skin: chronic venous stasis changes, abrasions on BLE's HEENT: atraumatic, normocephalic, EOMI, MMM Cardiovascular: RRR, no m/r/g Lungs: wheezing on expiration bilaterally, much quieter than on admission Gastrointestinal: abdomen soft, nontender, nondistended Extremities: trace edema BLE's, no clubbing or cyanosis Objective Objective Clinical Data: Abnormal lab results 07/15/18 07/15/18 Range/Units 06:25 06:25 WBC 25.54 H* (4.4-10.8) k/cumm RBC 4.23 L (4.50-6.00) m/cumm MCV 100.5 H (80-95) fL MCH 34.8 H (27.0-33.0) pg Absolute Neutrophils 20.94 H (1.2-6.7) k/cumm Absolute Lymphocytes 0.77 L (1.2-3.4) k/cumm Absolute Monocytes 3.32 H (0.11-0.7) k/cumm Sodium 133 L (136-145) mmol/L Chloride 92 L (98-107) mmol/L Carbon Dioxide 38.6 H (21.0-32.0) mmol/L Anion Gap 2.4 L (3-11) mmol/L Glucose 131 H (70-100) mg/dL Vital Signs Temperature 36.0 C L 07/15/18 07:55 Temperature Source Tympanic 07/15/18 07:55 Pulse 96 H 07/15/18 07:55 Pulse Rhythm Regular 07/15/18 11:00 Pulse 91 H 07/07/18 08:08 Respiratory Rate 15 07/15/18 07:55 Respiratory Effort Accessory Muscle Use 07/15/18 11:00 Respiratory Depth Shallow 07/15/18 11:00 Respiratory Pattern Irregular 07/15/18 11:00 Blood Pressure 121/83 07/15/18 07:55 Blood Pressure Mean 97 07/11/18 17:45 Blood Pressure Position Supine 07/07/18 04:00 Pulse Oximetry 95 07/15/18 07:55 Respiratory End-tidal CO2 42 07/08/18 14:52 Oxygen Delivery Method Nasal Cannula 07/15/18 07:55 Oxygen Flow Rate 4 07/15/18 07:55 Fraction of Inspired Oxygen (FIO2) 30 07/06/18 11:10 Pain Level 8 07/15/18 16:28 Comment 07/14/18 11:45 Intake & Output 07/14/18 07/15/18 07/15/18 23:59 11:59 23:59 Intake Total 360 / 360 240 / 240 Output Total 700 / 700 1600 / 1600 1300 / 1300 Balance -340 / -340 -1360 / -1360 -1300 / -1300 Intake: Oral 360 / 360 240 / 240 Output: Urine 700 / 700 1600 / 1600 1300 / 1300 Other: Urine Color Light Tamara Light Tamara Light Tamara Urine Appearance Clear Clear Urine Odor None Comment void x 2 to toilet in room Voiding Methods Urinal Urinal Urinal Laboratory Results WBC 25.54 k/cumm (4.4-10.8) H* 07/15/18 06:25 RBC 4.23 m/cumm (4.50-6.00) L 07/15/18 06:25 Hgb 14.7 g/dL (13.5-17.5) 07/15/18 06:25 Hct 42.5 % (40.0-50.0) 07/15/18 06:25 MCV 100.5 fL (80-95) H 07/15/18 06:25 MCH 34.8 pg (27.0-33.0) H 07/15/18 06:25 MCHC 34.6 g/dL (32.0-36.0) 07/15/18 06:25 RDW 13.0 % (11.8-14.1) 07/15/18 06:25 Plt Count 318 x1000/uL (130-400) 07/15/18 06:25 MPV 9.6 fL (8.0-11.0) 07/15/18 06:25 Immature Gran % See Differential 07/15/18 06:25 Neutrophils % 82.0 07/15/18 06:25 Lymphocytes % 3.0 07/15/18 06:25 Monocytes % 13.0 07/15/18 06:25 Eosinophils % 0.0 07/15/18 06:25 Basophils % 0.0 07/15/18 06:25 Absolute Neutrophils 20.94 k/cumm (1.2-6.7) H 07/15/18 06:25 Band Neutrophils 1.0 % 07/12/18 06:15 Absolute Lymphocytes 0.77 k/cumm (1.2-3.4) L 07/15/18 06:25 Absolute Monocytes 3.32 k/cumm (0.11-0.7) H 07/15/18 06:25 Absolute Eosinophils 0.00 k/cumm (0.0-0.7) 07/15/18 06:25 Absolute Basophils 0.00 k/cumm (0.0-0.2) 07/15/18 06:25 Metamyelocytes 1.0 % 07/12/18 06:15 Myelocytes 3.0 % 07/11/18 06:10 Differential Comment Agrees w/ instrument 07/15/18 06:25 Atypical Lymphocytes 2 07/08/18 06:28 RBC Morphology See below 07/12/18 06:15 Polychromasia Present 07/02/18 13:55 Poikilocytosis 1+ 07/12/18 06:15 Basophilic Stippling Present 07/02/18 13:55 Macrocytosis 1+ 07/12/18 06:15 Stomatocytes 2+ 07/08/18 06:28 Sample Site Right radial 07/08/18 14:50 pCO2 71 mmHg (34-47) H* 07/08/18 14:50 pO2 54 mmHg (83-108) L 07/08/18 14:50 O2 Saturation 88 % (94-98) L 07/08/18 14:50 ABG pH 7.45 (7.35-7.45) 07/08/18 14:50 ABG HCO3 50 mmol/L (22-28) H 07/08/18 14:50 ABG Total CO2 44 mmol/L (22-29) H 07/08/18 14:50 ABG Base Excess mmol/L (-3-3) 07/08/18 14:50 VBG pH 7.41 (7.32-7.43) 07/02/18 13:55 VBG pCO2 86 mm/Hg (34-47) H 07/02/18 13:55 VBG pO2 115 mm/Hg (28-44) H 07/02/18 13:55 VBG HCO3 54 mmol/L (22-28) H 07/02/18 13:55 VBG Total CO2 48 mmol/L (22-29) H 07/02/18 13:55 VBG O2 Saturation 99 % (70-80) H 07/02/18 13:55 VBG Base Excess mmol/L (-3-3) 07/02/18 13:55 Oxygen Liter Flow 4 L 07/08/18 14:50 FiO2 Nasal cannula % 07/08/18 14:50 Sodium 133 mmol/L (136-145) L 07/15/18 06:25 Potassium 3.9 mmol/L (3.5-5.1) 07/15/18 06:25 Chloride 92 mmol/L (98-107) L 07/15/18 06:25 Carbon Dioxide 38.6 mmol/L (21.0-32.0) H 07/15/18 06:25 Anion Gap 2.4 mmol/L (3-11) L 07/15/18 06:25 BUN 18 mg/dL (7-18) 07/15/18 06:25 Creatinine 0.83 mg/dL (0.70-1.30) 07/15/18 06:25 Estimated GFR/1.73 m2 >= 60.00 (mL/min/1.73m2) 07/15/18 06:25 Glucose 131 mg/dL (70-100) H 07/15/18 06:25 Lactate 0.9 mmol/L (0.6-1.4) 07/02/18 13:55 Calcium 8.9 mg/dL (8.5-10.1) 07/15/18 06:25 Phosphorus 3.4 mg/dL (2.6-4.7) 07/04/18 06:23 Magnesium 2.0 mg/dL (1.8-2.4) 07/08/18 06:28 Total Bilirubin 0.4 mg/dL (0.2-1.0) 07/04/18 06:23 Conjugated Bilirubin 0.15 mg/dL (0.00-0.20) 07/04/18 06:23 AST 103 U/L (15-37) H 07/04/18 06:23 ALT 79 U/L (12-78) H 07/04/18 06:23 Alkaline Phosphatase 116 U/L (46-116) 07/04/18 06:23 Ammonia 25 umol/L (11-32) 07/08/18 14:30 Troponin I < 0.02 ng/mL (0.00-0.06) 07/02/18 13:55 NT-Pro-B Natriuret Pep 482 pg/mL (-299) H 07/02/18 13:55 Total Protein 6.8 g/dL (6.4-8.2) 07/04/18 06:23 Albumin 2.5 g/dL (3.4-5.0) L 07/04/18 06:23 TSH 1.38 uIU/mL (0.358-3.74) 07/03/18 06:38 Urine Color Yellow (Yellow) 07/08/18 14:56 Urine Clarity Clear 07/08/18 14:56 Urine pH 7.0 (5-8) 07/08/18 14:56 Ur Specific [place] 1.020 (1.005-1.025) 07/08/18 14:56 Urine Protein Negative mg/dL (Negative) 07/08/18 14:56 Urine Ketones Negative mg/dL (Negative) 07/08/18 14:56 Urine Blood Negative (Negative) 07/08/18 14:56 Urine Nitrite Negative (Negative) 07/08/18 14:56 Urine Bilirubin Negative (Negative) 07/08/18 14:56 Urine Urobilinogen 0.2 EU/dL (Up TO 0.2) 07/08/18 14:56 Ur Leukocyte Esterase Negative (Negative) 07/08/18 14:56 Urine Glucose Negative mg/dL (Negative) 07/08/18 14:56 Vancomycin Trough 16.1 ug/mL (10.0-20.0) 07/07/18 07:16 Urine Opiates Screen Negative (Negative) 07/08/18 14:56 Urine Methadone Screen Positive (Negative) 07/08/18 14:56 Ur Barbiturates Screen Negative (Negative) 07/08/18 14:56 Ur Tricyclics Screen Negative (Negative) 07/08/18 14:56 Ur Amphetamines Screen Negative (Negative) 07/08/18 14:56 U Benzodiazepines Scrn Negative (Negative) 07/08/18 14:56 Urine Cocaine Screen Negative (Negative) 07/08/18 14:56 Ur THC Screen Negative (Negative) 07/08/18 14:56
[2018-07-16] VITALS (8 sets, daily range): BP systolic 107–148; BP diastolic 72–81; PULSE 88–116; RESP 8–22; TEMP 36.2–37.1; O2SAT 91–96
[2018-07-16] MEDS: Levothyroxine 100 MCG TAB PO (06:54)
[2018-07-16] MEDS: Albuterol/Ipratropium 3 ML UPD VIAL UPD ×3 (06:55→17:30)
[2018-07-16 07:51] LABS: Abs Immature Grans 0.29 k/cumm (0.0-0.09); Absolute Basophil Count 0.02 k/cumm (0.0-0.2); Absolute Monocyte Count 2.71 k/cumm (0.11-0.7); Absolute Neutrophil Count 19.23 k/cumm (1.2-6.7); Basophils % 0.1; Eosinophils % 0.1; HCT 42.2 % (40.0-50.0); Immature Grans % 1.2; Mean Corp. HGB Concentration 33.2 g/dL (32.0-36.0); Mean Corpuscular Hemoglobin 34.2 pg (27.0-33.0); Mean Corpuscular Volume 103.2 fL (80-95); Mean Platelet Volume 9.1 fL (8.0-11.0); Monocytes % 11.3; Neutrophils % 80.3; Platelet Count 298 x1000/uL (130-400); RBC 4.09 m/cumm (4.50-6.00); RBC Distribution Width 13.1 % (11.8-14.1); White Blood Cell Count 23.95 k/cumm (4.4-10.8)
[2018-07-16 07:55] LABS: Absolute Eosinophil Count 0.02 k/cumm (0.0-0.7); Absolute Lymphocyte Count 1.68 k/cumm (1.2-3.4)
[2018-07-16 08:04] LABS: Anion Gap 3.6 mmol/L (3-11); BUN 20 mg/dL (7-18); CO2 38.4 mmol/L (21.0-32.0); CREATININE 0.91 mg/dL (0.70-1.30); Calcium 8.2 mg/dL (8.5-10.1); Chloride 95 mmol/L (98-107); Glucose 160 mg/dL (70-100); Magnesium 2.1 mg/dL (1.8-2.4); Potassium 3.6 mmol/L (3.5-5.1); Sodium 137 mmol/L (136-145)
[2018-07-16] MEDS: Pantoprazole 40 MG TABCR PO (08:35)
[2018-07-16] MEDS: predniSONE 20 MG TAB 40 MG PO (08:35)
[2018-07-16] MEDS: guaiFENesin 600 MG TABCR PO ×2 (08:35→20:17)
[2018-07-16] MEDS: Furosemide 40 MG TAB PO ×2 (08:35→16:26)
[2018-07-16] MEDS: Lactobacillus Acidophilus CAP 1 CAP PO ×3 (08:35→16:26)
[2018-07-16] MEDS: Fexofenadine 180 MG TAB PO (08:35)
[2018-07-16] MEDS: Lactulose 20 GM/30 ML CUP PO ×3 (08:35→20:17)
[2018-07-16] MEDS: Methadone Liquid 10 MG/ML 39 MG PO ×2 (08:36→20:17)
[2018-07-16] MEDS: Tamsulosin 0.4 MG CAPCR PO (08:36)
[2018-07-16] MEDS: Budesonide/Formoterol 160/4.5 6 GM 60 PUFF INH IH ×2 (09:21→20:17)
[2018-07-16] MEDS: Polyethylene Glycol 3350 17 GM PACKET PO (09:59)
--- NOTE | 2018-07-16 10:57 | PT.INTREAT ---
Date of service: 07/16/18 Time of Service: 10:58 PT Notes 07/16/18 SUBJECTIVE: Pt complaining of his feet bothering him today. He is going to see if he can get some shoes brought in to see if this helps. OBJECTIVE: Seated EOB. 4 L NC. Agreeable to PT. Transfers: Sit to stand: I Stand to sit: I GAIT: Device: FWW Weight bearing: Full Assist: SBA Distance: 60' Deviation: 4 L NC Vitals: 94-87%, 100-95 b/m throughout treatment ASSESSMENT: Pt able to increase gait distance today despite increase in discomfort in bilateral feet. We lower his walker for increased support to his back and pt will try to obtain shoes for gait. PLAN: Continue current POC progressing toward's established goals. Time: 15 minutes DAVID Malik, STIFF LEG DERRICK OPERATOR
[2018-07-16] MEDS: Acetaminophen 325 MG TAB PO (10:58)
[2018-07-16] MEDS: Ibuprofen 800 MG TAB PO ×2 (10:58→20:25)
[2018-07-16] MEDS: Sodium Chloride-Nasal SPRAY-ADULT 44 ML BTL NS (11:14)
[2018-07-16] MEDS: Fluticasone NASAL SPRAY 16 GM BTL NS (11:15)
--- NOTE | 2018-07-16 15:01 | PDOC.CMPRO ---
Care Management Progress Note S/O: Mahamed was sitting on the side of his bed, oxygen on. He was SOB while speaking with this medical writer and reviewing discharge plan. He reported looking forward to transitioning to the [facility] and is hopeful he is medically cleared to discharge from [facility] tomorrow. No change to overall plan. A: Mahamed is admitted with COPD, and respiratory failure P: Mahamed will discharged to the [facility] when ready per MD; anticipate 07/17/18. Mahamed will have palliative consult ordered at time of discharge. He will transport to the [facility] via [facility] W/C van at discharge. CM will continue to offer support to patient and care team regarding discharge planning and disposition.
--- NOTE | 2018-07-16 15:03 | CMPROGNOTE_ITS ---
Care Management Progress Note S/O: Mahmaed was sitting on the side of his bed, oxygen on. He was SOB while speaking with this auto service writer and reviewing discharge plan. He reported looking forward to transitioning to the [facility] and is hopeful he is medically cleared to discharge from [facility] tomorrow. No change to overall plan. A: Mahamed is admitted with COPD, and respiratory failure P: Mahamed will discharged to the [facility] when ready per MD; anticipate Tuesday, 07/17. Mahamed will have palliative consult ordered at time of discharge. He will transport to the [facility] via [facility] W/C van at discharge. CM will continue to offer support to patient and care team regarding discharge planning and disposition.
[2018-07-16] MEDS: Enoxaparin 40 MG/0.4 ML SYR SC (16:26)
--- NOTE | 2018-07-16 18:29 | W.PM.PROGNOT ---
Date of Service Date of service: 07/16/18 Time of Service: 14:00 Assessment and Plan (1) COPD with exacerbation: Current visit: Yes Status: Acute Much improved. Due to bacterial bronchitis, with sputum cx positive for Haemophilus spp, normal resp. renata, (Kindra Likely colonization). Completed antiobiotics. Current leucocytosis more likely due to steroids. Continue slow steroid taper. Continue nebs, symbicort. (2) Acute and chronic respiratory failure with hypercapnia: Current visit: Yes Status: Acute Clinically much improved. Will need a sleep study as outpatient. (3) Encephalopathy acute: Current visit: Yes Status: Resolved Multifactorial, in setting of hypercapneic and hypoxic respiratory failure as well as elevated ammonia and hepatic encephalopathy. Patient also underwent acute ETOH Withdrawl. Resolved; at baseline- continue lactulose. (4) Hepatic encephalopathy: Current visit: Yes Status: Resolved Continue lactulose. Outpatient workup of cirrhosis. (5) Cellulitis of both lower extremities: Current visit: Yes Status: Resolved Resolved (6) Smoker: Current visit: Yes Status: Chronic counselled on cessation (7) History of intravenous drug abuse: Current visit: Yes Status: Chronic Continue methadone therapy. UDS positive for only methadone. (8) Urinary retention: Current visit: Yes Status: Acute Appears resolved. Continue on a-loni. (9) DVT prophylaxis: Current visit: Yes Status: Acute Continue SC Lovenox (10) Discharge planning issues: Current visit: Yes Status: Acute SNF placement 07/17. Subjective Interval history since last seen: Continues to feel better. Denies dizziness, chest pain, nausea, vomiting. Breathing is better today. Complains of nasal congestion and feeling like he needs to have his ears cleared out. Exam Narrative Exam Narrative: General: awake, sitting in a chair, no evidence of shortness of breath Neurological: No obvious focal deficits Skin: chronic venous stasis changes, abrasions on BLE's, no evidence of cellulitis HEENT: atraumatic, normocephalic, EOMI, MMM Cardiovascular: RRR, no m/r/g Lungs: improved wheezing on expiration bilaterally Gastrointestinal: abdomen soft, nontender, nondistended Extremities: trace edema BLE's, no clubbing or cyanosis Objective Objective Clinical Data: Abnormal lab results 07/16/18 07/16/18 Range/Units 07:00 07:00 WBC 23.95 H (4.4-10.8) k/cumm RBC 4.09 L (4.50-6.00) m/cumm MCV 103.2 H (80-95) fL MCH 34.2 H (27.0-33.0) pg Absolute Neutrophils 19.23 H (1.2-6.7) k/cumm Absolute Monocytes 2.71 H (0.11-0.7) k/cumm Chloride 95 L (98-107) mmol/L Carbon Dioxide 38.4 H (21.0-32.0) mmol/L BUN 20 H (7-18) mg/dL Glucose 160 H (70-100) mg/dL Calcium 8.2 L (8.5-10.1) mg/dL Vital Signs Temperature 36.8 C 07/16/18 16:12 Temperature Source Tympanic 07/16/18 16:12 Pulse 92 H 07/16/18 16:12 Pulse Rhythm Regular 07/16/18 07:37 Pulse 91 H 07/07/18 08:08 Respiratory Rate 20 07/16/18 16:12 Respiratory Effort Non-Labored 07/16/18 07:37 Respiratory Depth Shallow 07/16/18 07:37 Respiratory Pattern Normal 07/16/18 07:37 Blood Pressure 129/81 07/16/18 16:12 Blood Pressure Mean 97 07/11/18 17:45 Blood Pressure Position Supine 07/07/18 04:00 Pulse Oximetry 93 L 07/16/18 16:12 Respiratory End-tidal CO2 42 07/08/18 14:52 Oxygen Delivery Method Nasal Cannula 07/16/18 16:12 Oxygen Flow Rate 4 07/16/18 16:12 Fraction of Inspired Oxygen (FIO2) 30 07/06/18 11:10 Pain Level 2 07/16/18 11:58 Comment 07/14/18 11:45 Intake & Output 07/16/18 07/16/18 07/16/18 00:59 11:59 23:59 Intake Total 840 / 840 Output Total Balance 840 / 840 Weight Intake: Oral 840 / 840 Output: Urine Other: Urine Color Urine Appearance Urine Odor Comment Void x3 in the toilet. Stool Size Stool Characteristics Voiding Methods Toilet Laboratory Results WBC 23.95 k/cumm (4.4-10.8) H 07/16/18 07:00 RBC 4.09 m/cumm (4.50-6.00) L 07/16/18 07:00 Hgb 14.0 g/dL (13.5-17.5) 07/16/18 07:00 Hct 42.2 % (40.0-50.0) 07/16/18 07:00 MCV 103.2 fL (80-95) H 07/16/18 07:00 MCH 34.2 pg (27.0-33.0) H 07/16/18 07:00 MCHC 33.2 g/dL (32.0-36.0) 07/16/18 07:00 RDW 13.1 % (11.8-14.1) 07/16/18 07:00 Plt Count 298 x1000/uL (130-400) 07/16/18 07:00 MPV 9.1 fL (8.0-11.0) 07/16/18 07:00 Immature Gran % 1.2 07/16/18 07:00 Neutrophils % 80.3 07/16/18 07:00 Lymphocytes % 7.0 07/16/18 07:00 Monocytes % 11.3 07/16/18 07:00 Eosinophils % 0.1 07/16/18 07:00 Basophils % 0.1 07/16/18 07:00 Absolute Neutrophils 19.23 k/cumm (1.2-6.7) H 07/16/18 07:00 Band Neutrophils 1.0 % 07/12/18 06:15 Absolute Lymphocytes 1.68 k/cumm (1.2-3.4) 07/16/18 07:00 Absolute Monocytes 2.71 k/cumm (0.11-0.7) H 07/16/18 07:00 Absolute Eosinophils 0.02 k/cumm (0.0-0.7) 07/16/18 07:00 Absolute Basophils 0.02 k/cumm (0.0-0.2) 07/16/18 07:00 Metamyelocytes 1.0 % 07/12/18 06:15 Myelocytes 3.0 % 07/11/18 06:10 Differential Comment Agrees w/ instrument 07/15/18 06:25 Atypical Lymphocytes 2 07/08/18 06:28 RBC Morphology See below 07/12/18 06:15 Polychromasia Present 07/02/18 13:55 Poikilocytosis 1+ 07/12/18 06:15 Basophilic Stippling Present 07/02/18 13:55 Macrocytosis 1+ 07/12/18 06:15 Stomatocytes 2+ 07/08/18 06:28 Sample Site Right radial 07/08/18 14:50 pCO2 71 mmHg (34-47) H* 07/08/18 14:50 pO2 54 mmHg (83-108) L 07/08/18 14:50 O2 Saturation 88 % (94-98) L 07/08/18 14:50 ABG pH 7.45 (7.35-7.45) 07/08/18 14:50 ABG HCO3 50 mmol/L (22-28) H 07/08/18 14:50 ABG Total CO2 44 mmol/L (22-29) H 07/08/18 14:50 ABG Base Excess mmol/L (-3-3) 07/08/18 14:50 VBG pH 7.41 (7.32-7.43) 07/02/18 13:55 VBG pCO2 86 mm/Hg (34-47) H 07/02/18 13:55 VBG pO2 115 mm/Hg (28-44) H 07/02/18 13:55 VBG HCO3 54 mmol/L (22-28) H 07/02/18 13:55 VBG Total CO2 48 mmol/L (22-29) H 07/02/18 13:55 VBG O2 Saturation 99 % (70-80) H 07/02/18 13:55 VBG Base Excess mmol/L (-3-3) 07/02/18 13:55 Oxygen Liter Flow 4 L 07/08/18 14:50 FiO2 Nasal cannula % 07/08/18 14:50 Sodium 137 mmol/L (136-145) 07/16/18 07:00 Potassium 3.6 mmol/L (3.5-5.1) 07/16/18 07:00 Chloride 95 mmol/L (98-107) L 07/16/18 07:00 Carbon Dioxide 38.4 mmol/L (21.0-32.0) H 07/16/18 07:00 Anion Gap 3.6 mmol/L (3-11) 07/16/18 07:00 BUN 20 mg/dL (7-18) H 07/16/18 07:00 Creatinine 0.91 mg/dL (0.70-1.30) 07/16/18 07:00 Estimated GFR/1.73 m2 >= 60.00 (mL/min/1.73m2) 07/16/18 07:00 Glucose 160 mg/dL (70-100) H 07/16/18 07:00 Lactate 0.9 mmol/L (0.6-1.4) 07/02/18 13:55 Calcium 8.2 mg/dL (8.5-10.1) L 07/16/18 07:00 Phosphorus 3.4 mg/dL (2.6-4.7) 07/04/18 06:23 Magnesium 2.1 mg/dL (1.8-2.4) 07/16/18 07:00 Total Bilirubin 0.4 mg/dL (0.2-1.0) 07/04/18 06:23 Conjugated Bilirubin 0.15 mg/dL (0.00-0.20) 07/04/18 06:23 AST 103 U/L (15-37) H 07/04/18 06:23 ALT 79 U/L (12-78) H 07/04/18 06:23 Alkaline Phosphatase 116 U/L (46-116) 07/04/18 06:23 Ammonia 25 umol/L (11-32) 07/08/18 14:30 Troponin I < 0.02 ng/mL (0.00-0.06) 07/02/18 13:55 NT-Pro-B Natriuret Pep 482 pg/mL (-299) H 07/02/18 13:55 Total Protein 6.8 g/dL (6.4-8.2) 07/04/18 06:23 Albumin 2.5 g/dL (3.4-5.0) L 07/04/18 06:23 TSH 1.38 uIU/mL (0.358-3.74) 07/03/18 06:38 Urine Color Yellow (Yellow) 07/08/18 14:56 Urine Clarity Clear 07/08/18 14:56 Urine pH 7.0 (5-8) 07/08/18 14:56 Ur Specific [place] 1.020 (1.005-1.025) 07/08/18 14:56 Urine Protein Negative mg/dL (Negative) 07/08/18 14:56 Urine Ketones Negative mg/dL (Negative) 07/08/18 14:56 Urine Blood Negative (Negative) 07/08/18 14:56 Urine Nitrite Negative (Negative) 07/08/18 14:56 Urine Bilirubin Negative (Negative) 07/08/18 14:56 Urine Urobilinogen 0.2 EU/dL (Up TO 0.2) 07/08/18 14:56 Ur Leukocyte Esterase Negative (Negative) 07/08/18 14:56 Urine Glucose Negative mg/dL (Negative) 07/08/18 14:56 Vancomycin Trough 16.1 ug/mL (10.0-20.0) 07/07/18 07:16 Urine Opiates Screen Negative (Negative) 07/08/18 14:56 Urine Methadone Screen Positive (Negative) 07/08/18 14:56 Ur Barbiturates Screen Negative (Negative) 07/08/18 14:56 Ur Tricyclics Screen Negative (Negative) 07/08/18 14:56 Ur Amphetamines Screen Negative (Negative) 07/08/18 14:56 U Benzodiazepines Scrn Negative (Negative) 07/08/18 14:56 Urine Cocaine Screen Negative (Negative) 07/08/18 14:56 Ur THC Screen Negative (Negative) 07/08/18 14:56
[2018-07-16] MEDS: predniSONE 20 MG TAB PO (20:17)
[2018-07-17] VITALS: PULSE 68; RESP 20; RESP 4; RESP 5; O2SAT 95
[2018-07-17 00:30] VITALS: PULSE 78; RESP 18; RESP 8; O2SAT 96
[2018-07-17] MEDS: Levothyroxine 100 MCG TAB PO (05:57)
[2018-07-17 05:58] VITALS: PULSE 77; RESP 18; RESP 4; O2SAT 94
[2018-07-17] MEDS: Albuterol/Ipratropium 3 ML UPD VIAL UPD ×2 (05:58)
[2018-07-17 07:02] LABS: Absolute Lymphocyte Count 1.74 k/cumm (1.2-3.4); Absolute Neutrophil Count 17.38 k/cumm (1.2-6.7); Basophils % 0.2; Eosinophils % 0.1; HCT 42.1 % (40.0-50.0); Immature Grans % 1.4; Lymphocytes % 7.9; Mean Corp. HGB Concentration 33.3 g/dL (32.0-36.0); Mean Corpuscular Hemoglobin 34.3 pg (27.0-33.0); Mean Corpuscular Volume 103.2 fL (80-95); Mean Platelet Volume 9.2 fL (8.0-11.0); Monocytes % 11.4; Platelet Count 288 x1000/uL (130-400); RBC 4.08 m/cumm (4.50-6.00)
[2018-07-17 07:08] LABS: Absolute Basophil Count 0.04 k/cumm (0.0-0.2); Absolute Eosinophil Count 0.02 k/cumm (0.0-0.7); Absolute Monocyte Count 2.51 k/cumm (0.11-0.7)
[2018-07-17 07:15] LABS: Anion Gap 2.7 mmol/L (3-11); BUN 20 mg/dL (7-18); CO2 37.3 mmol/L (21.0-32.0); CREATININE 0.89 mg/dL (0.70-1.30); Calcium 8.4 mg/dL (8.5-10.1); Chloride 93 mmol/L (98-107); Glucose 142 mg/dL (70-100); Magnesium 1.9 mg/dL (1.8-2.4); Potassium 4.1 mmol/L (3.5-5.1); Sodium 133 mmol/L (136-145)
[2018-07-17 07:45] VITALS: BP 128/70; PULSE 78; RESP 19; TEMP 36.2; O2SAT 94
[2018-07-17] MEDS: Lactulose 20 GM/30 ML CUP PO (08:49)
[2018-07-17] MEDS: Methadone Liquid 10 MG/ML 39 MG PO (08:55)
[2018-07-17] MEDS: guaiFENesin 600 MG TABCR PO (08:57)
[2018-07-17] MEDS: Tamsulosin 0.4 MG CAPCR PO (08:58)
[2018-07-17] MEDS: Furosemide 40 MG TAB PO (08:58)
[2018-07-17] MEDS: predniSONE 20 MG TAB PO (08:58)
[2018-07-17] MEDS: Pantoprazole 40 MG TABCR PO (08:58)
[2018-07-17] MEDS: Fexofenadine 180 MG TAB PO (08:59)
[2018-07-17 09:05] VITALS: O2SAT 94
[2018-07-17] MEDS: Budesonide/Formoterol 160/4.5 6 GM 60 PUFF INH IH (09:10)
[2018-07-17] MEDS: Fluticasone NASAL SPRAY 16 GM BTL NS (09:35)
--- NOTE | 2018-07-17 09:57 | W.PM.DS.N ---
Date of service: 07/17/18 Time of Service: 09:30 DS: Diagnosis Discharge Diagnosis (1) COPD with exacerbation: Status: Acute (2) Acute and chronic respiratory failure with hypercapnia: Status: Acute (3) Encephalopathy acute: Status: Resolved (4) Hepatic encephalopathy: Status: Resolved (5) Cellulitis of both lower extremities: Status: Resolved (6) Smoker: Status: Chronic (7) History of intravenous drug abuse: Status: Chronic (8) Urinary retention: Status: Acute (9) DVT prophylaxis: Status: Acute (10) Discharge planning issues: Status: Acute Discharge Plan Disposition Condition: Good Discharge Details Reason For Visit: ACUTE EXACERBATION OF COPD, ACUTE/CHRONIC RESP KATTY Admit Date/Time: 07/02/18 14:42 Admit Provider: Rama Napier Attending Provider: Rama Napier Primary Care Provider: Kristian Petersen [facility] Hospital Course: Mr Chi is a 52 year old male with PMHx of oxygen-dependent COPD, chronic hypoxic hypercapnic respiratory failure, normally on 4-6L of O2, RANDALL, not using CPAP, who continues to smoke who for the last 3-4 days has been feeling more short of breath and coughing at home. He was using his home nebulizer treatments without relief. His PCP prescribed him azithromycin as well as prednisone - however, the patient continued to get progressively short of breath, was wheezing, and had a productive cough. He was brought to ER by ambulance today. O2 sats were 86% on 5L. He was in visible respiratory distress. He was treated with solumedrol and nebulizers by EMS. He was placed on BiPAP in ER. With nebulizer treatments and BiPAP, the patient improved markedly, but continues to require BiPAP and is still quite bronchospastic. He was admitted to ICU under hospitalist service. Hospital course was complicated by acute encephalopathy multifactorial in setting of hypercapneic and hypoxic respiratory failure as well as elevated ammonia and potential hepatic encephalopathy. Treated with lactulose, bipap and treatment for ETOH withdrawal. The patient's mental status is now likely at his baseline, or his new baseline. Given his continued and significant leukocytosis a repeat urinalysis and CXR were obtained, both negative for infection. He also underwent an echocardiogram for peripheral edema which showed a preserved LV function with EF of 65-70%. Echo could not get a good look at pulmonary artery pressures and there is a strong concern for diastolic heart failure secondary to untreated sleep apnea. It will be recommended that he obtain a formal sleep study as an outpatient. stay was also complicated by urinary retention. He was started on flomax with good effect and is voiding well at time of discharge. He slowly improved with the ongoing treatment. He completed 6 days of vanco/zosyn and 5 days of levaquin. He is on a steroid taper. Home Meds and New Rx's Prescriptions: New budesonide-formoterol [Symbicort] 160-4.5 mcg/actuation Hfa Aerosol Inhaler 2 puff Inhalation BID Qty: 1 RF: 0 prednisone 20 mg Tablet 20 mg PO BID Qty: 30 RF: 0 tamsulosin 0.4 mg Capsule 0.4 mg PO DAILY 30 Days Qty: 30 RF: 0 lactulose 20 gram/30 mL Solution 20 g PO TID 30 Days Qty: 2700 RF: 0 Continue nicotine [Nicoderm CQ] 1 EACH patch 24 hour 21 mg Transdermal DAILY Qty: 30 RF: 2 polyethylene glycol 3350 [Miralax] 17 GM powder in packet 17 g PO DAILY Qty: 255 RF: 4 pulse oximeter 1 ea Miscellaneous DAILY Qty: 1 RF: 0 levothyroxine 100 MCG tablet 100 mcg PO DAILY Qty: 90 RF: 3 guaifenesin [Mucinex] 600 MG tablet extended release 12hr 1,200 mg PO BID Qty: 60 RF: 3 diltiazem HCl [Cardizem CD] 180 MG capsule,extended release 24hr 180 mg PO DAILY Qty: 90 RF: 3 ibuprofen 800 MG tablet 800 mg PO TID PRNQty: 30 RF: 0 furosemide 40 MG tablet 2 tab PO DAILY Qty: 180 RF: 3 cetirizine [Zyrtec] 10 MG capsule 10 mg PO DAILY PRN PRNQty: 90 RF: 4 ipratropium-albuterol 3 ML solution for nebulization 3 ml UPD Q4H PRN PRNQty: 3 RF: 5 albuterol sulfate [ProAir HFA] 8.5 GM HFA aerosol inhaler 2 puff Inhalation Q4H PRN Qty: 3 RF: 1 lorazepam 0.5 mg tablet 0.5 mg PO TID PRN (Reason: anxiety) Qty: 40 RF: 0 prednisone 20 mg tablet 40 mg PO DAILY Qty: 14 RF: 0 albuterol sulfate 0.63 mg/3 mL solution for nebulization 0.63 mg Inhalation Q4H PRN (Reason: bronchospasm) Qty: 50 RF: 4 methadone 10 MG/ML concentrate 39 mg PO BID RF: 0 fexofenadine 180 MG tablet 180 mg PO DAILY Qty: 30 RF: 3 benzonatate 200 MG capsule 200 mg PO TID PRN PRN (Reason: Cough) Qty: 30 RF: 0 Discontinued azithromycin 250 mg tablet See Label Instructions PO .COMPLEX Qty: 6 RF: 0 Discharge Instructions Instructions: COPD (Chronic Obstructive Pulmonary Disease) (DC) Additional Instructions: continue to taper steroids as directed: prednisone 20 mg twice daily for 3 more days, then 20 mg daily for 3 days, then 10 mg daily until directed by your primary care provider or first line production supervisor. continue oxygen as directed, 2 L nasal canula to keep sats at 90%. Stand Alone Forms: Nursing Discharge Form Referrals: Kristian Petersen MD [Primary Care Provider] - 07/18/18 11:20 am Activity:: Activity as Tolerated Activity:: Activity as Tolerated Equipment/Supplies:: No Equipment Needed Diet:: As Tolerated Exam Const General: cooperative, comfortable, no acute distress, disheveled (older than stated age) and ill appearing chronically Nutritional Appearance: overweight Orientation: alert and oriented x3 HENMN Head: normocephalic and atraumatic Chest Chest: normal inspection of the chest Resp Effort & Inspection: normal respiratory effort Auscultation: diminished lung sounds bilaterally throughout and wheezes expiratory wheezes and scattered wheezes Cardio Rate: regular rate Rhythm: regular rhythm GI Inspection: distended and obesity Palpation: firm, no masses and nontender Auscultation: normal bowel sounds Other: areas of ecchymosis from heparin injection sites. Skin General skin exam: ecchymosis (abdomen at heparin injection sites) and other (various large tatoos) Hair: general thinning (long, in pony tail) Neuro General: alert, awake and oriented x3 Gait: gait assisted Method: walker Motor: muscle tone normal throughout Extrem General: edema Laterality: bilateral (lower, trace) Psych Appearance: grossly normal and disheveled Mental Status: mental status grossly normal Speech and Movement: speech and movement normal Mood: congruent mood Affect: normal affect Attitude: cooperative DS: Data Vitals/I&O Vitals and I&O: Vital Signs Temperature 36.2 C L 07/17/18 07:45 Temperature Source Tympanic 07/17/18 07:45 Pulse 78 07/17/18 07:45 Pulse Rhythm Regular 07/17/18 09:00 Pulse 91 H 07/07/18 08:08 Respiratory Rate 19 07/17/18 07:45 Respiratory Effort Non-Labored 07/17/18 09:00 Respiratory Depth Shallow 07/17/18 09:00 Respiratory Pattern Normal 07/17/18 09:00 Blood Pressure 128/70 07/17/18 07:45 Blood Pressure Mean 97 07/11/18 17:45 Blood Pressure Position Supine 07/07/18 04:00 Pulse Oximetry 94 L 07/17/18 07:45 Respiratory End-tidal CO2 42 07/08/18 14:52 Oxygen Delivery Method Nasal Cannula 07/17/18 07:45 Oxygen Flow Rate 4 07/17/18 07:45 Fraction of Inspired Oxygen (FIO2) 30 07/06/18 11:10 Pain Level 7 07/17/18 07:45 Comment 07/14/18 11:45 Intake & Output 07/16/18 07/16/18 07/17/18 11:59 23:59 11:59 Intake Total 840 / 840 Balance 840 / 840 Weight 85.6 kg Intake: Oral 840 / 840 Other: Comment Void x1 in the toilet. Stool Characteristics Soft Brown Voiding Methods Toilet Toilet Labs on day of discharge: Labs from last 24 hours 07/17/18 07/17/18 06:25 06:25 WBC 22.00 H RBC 4.08 L Hgb 14.0 Hct 42.1 MCV 103.2 H MCH 34.3 H MCHC 33.3 RDW 13.0 Plt Count 288 MPV 9.2 Immature Gran % 1.4 Neutrophils % 79.0 Lymphocytes % 7.9 Monocytes % 11.4 Eosinophils % 0.1 Basophils % 0.2 Absolute Neutrophils 17.38 H Absolute Lymphocytes 1.74 Absolute Monocytes 2.51 H Absolute Eosinophils 0.02 Absolute Basophils 0.04 Sodium 133 L Potassium 4.1 Chloride 93 L Carbon Dioxide 37.3 H Anion Gap 2.7 L BUN 20 H Creatinine 0.89 Estimated GFR/1.73 m2 >= 60.00 Glucose 142 H Calcium 8.4 L Magnesium 1.9
[2018-07-17] MEDS: Albuterol 2.5 MG/3 ML INH SOLN VIAL UPD (10:39)
--- NOTE | 2018-07-17 10:50 | PDOC.CMDIS ---
- If Service Date Differs Date of service: 07/17/18 Time of Service: 10:50 LACE Index Scoring Tool - Questions: Length of Stay (in days): 7 - 13 Acuity (Admit via E.D.?): Yes Comorbidities: Chronic Pulmonary Disease, Liver or Renal Disease E.D. Visits: 4 - Answers: Total Score: 17 Risk of Readmission: High Risk Care Management Discharge Reason for Hospitalization: COPD, acute resp failure Discharge Plan: Mahamed will be discharged to the [facility] for short term rehab prior to returning home with home health services. Mahamed will be transported by RCT car and RT will arrange oxygen for transportaiton. Patient/Family Education Needs: Discharge education and follow up plan of care. Transition to the [facility]. Services Needed at Discharge: Long-Term Facility
--- NOTE | 2018-07-17 10:56 | PT.INDS ---
Date of service: 07/17/18 Time of Service: 10:56 PT Notes Inpatient Physical Therapy Discharge Summary Date: 07/17/18 Dates of Service: 07/12/18-07/16/18 SUBJECTIVE: NT OBJECTIVE: 07/12/18-07/16/18 Bed Mobility/Transfers: Supine-sit: independent Sit-supine: independent Sit-stand: independent Stand-sit: independent Bed-chair: independent Chair-bed: independent Gait: SBA with FWW 60ft Balance: Static Sitting: normal Dynamic Sitting: normal Static Standing: fair Dynamic Standing: fair Assessment: Pt is a 53yr old male admitted with chronic obstructive pulmonary disease exacerbation, cellulitis bilateral lower extremities in setting of hypoxic hypercapic respiratory failure, chronic obstructive pulmonary disease, asthma, depression, anxiety. Patient was seen for 6 PT visits. Progressed from CGA standing transfers to independent, from CGA gait with FWW standing 1 min to SBA gait with FWW 60ft, dynamic standing balance improved from poor to fair. Pt is being discharged to the [facility] for continued rehab. Goals: Goals X1 week 1. Supine-Sit : independent 2. Sit-Supine : independent 3. Sit-Stand : supervision with FWW 4. Stand-Sit : independent 5. Bed-Chair : SBA with FWW 6. Chair-Bed : SBA with FWW 7. Gait : SBA with FWW 30ft Pt met goals # 1, 2, 3, 4, 5, 6, 7 DISCHARGE RECOMMENDATIONS: The [facility] in the area mobility of walking and moving around: projected status GP [id number]. Discharge status (if discharging) GP [id number] CK Stephanie Martinez PT.
--- NOTE | 2018-07-17 11:00 | INDS_ITS ---
Date of service: 07/17/18 Time of Service: 10:56 PT Notes Inpatient Physical Therapy Discharge Summary Date: 07/17/18 Dates of Service: 07/12/18-07/16/18 SUBJECTIVE: NT OBJECTIVE: 07/12/18-07/16/18 Bed Mobility/Transfers: Supine-sit: independent Sit-supine: independent Sit-stand: independent Stand-sit: independent Bed-chair: independent Chair-bed: independent Gait: SBA with FWW 60ft Balance: Static Sitting: normal Dynamic Sitting: normal Static Standing: fair Dynamic Standing: fair Assessment: Pt is a 53yr old male admitted with chronic obstructive pulmonary disease exacerbation, cellulitis bilateral lower extremities in setting of hypoxic hypercapic respiratory failure, chronic obstructive pulmonary disease, asthma, depression, anxiety. Patient was seen for 6 PT visits. Progressed from CGA standing transfers to independent, from CGA gait with FWW standing 1 min to SBA gait with FWW 60ft, dynamic standing balance improved from poor to fair. Pt is being discharged to the [facility] for continued rehab. Goals: Goals X1 week 1. Supine-Sit : independent 2. Sit-Supine : independent 3. Sit-Stand : supervision with FWW 4. Stand-Sit : independent 5. Bed-Chair : SBA with FWW 6. Chair-Bed : SBA with FWW 7. Gait : SBA with FWW 30ft Pt met goals # 1, 2, 3, 4, 5, 6, 7 DISCHARGE RECOMMENDATIONS: The [facility] in the area mobility of walking and moving around: projected status GP [id number]. Discharge status (if discharging) GP [id number] CK Stephanie Martinez PT.
--- NOTE | 2018-07-17 11:03 | CMDISCH_ITS ---
- If Service Date Differs Date of service: 07/17/18 Time of Service: 10:50 LACE Index Scoring Tool - Questions: Length of Stay (in days): 7 - 13 Acuity (Admit via E.D.?): Yes Comorbidities: Chronic Pulmonary Disease, Liver or Renal Disease E.D. Visits: 4 - Answers: Total Score: 17 Risk of Readmission: High Risk Care Management Discharge Reason for Hospitalization: COPD, acute resp failure Discharge Plan: Mahamed will be discharged to the [facility] for short term rehab prior to returning home with home health services. Mahamed will be transported by RCT car and RT will arrange oxygen for transportaiton. Patient/Family Education Needs: Discharge education and follow up plan of care. Transition to the [facility]. Services Needed at Discharge: [facility]
== END 2018-07-17 11:13 | disposition home or self-care (01) | DRG 190 ==
LOC: ER 15:44 → ICU 15:51 → MS 07-11 23:50
PROVIDERS: Internal Medicine; Admitting Provider Internal Medicine; Emergency Provider Student in an Organized Health Care Education/Training Program; PCP Family Medicine; Visit Provider Internal Medicine
DX: J44.1 Chronic obstructive pulmonary disease with (acute) exacerbation (principal); J96.22 Acute and chronic respiratory failure with hypercapnia; J96.21 Acute and chronic respiratory failure with hypoxia; L03.115 Cellulitis of right lower limb; L03.116 Cellulitis of left lower limb; F11.20 Opioid dependence, uncomplicated; I50.32 Chronic diastolic (congestive) heart failure; G93.40 Encephalopathy, unspecified; E72.20 Disorder of urea cycle metabolism, unspecified; F10.230 Alcohol dependence with withdrawal, uncomplicated; J20.1 Acute bronchitis due to Hemophilus influenzae; J44.0 Chronic obstructive pulmonary disease with (acute) lower respiratory infection; R60.9 Edema, unspecified; F17.210 Nicotine dependence, cigarettes, uncomplicated; E03.9 Hypothyroidism, unspecified; F19.11 Other psychoactive substance abuse, in remission; Z99.81 Dependence on supplemental oxygen; G47.33 Obstructive sleep apnea (adult) (pediatric); Z71.6 Tobacco abuse counseling; K72.90 Hepatic failure, unspecified without coma
CPT/HCPCS: 36410; 36415; 76770; 80048; 80053; 80076; 80307; 82805; 87040; 87077; 87449; 93005; 94618; 94640; 96365; 96366; 96368; 97110; 97163; 97530; 99232; 99233; 99239; 99285; 99291; J1650; 36600; 71045; 80202; 81003; 82140; 83605; 83735; 83880; 84100; 84443; 84484; 85025; 87070; 87205; 93010; 93306; 93970; 94660; J1940; J1956; J2060; J2543; J2930; J3480; J3490; J7512; J7613; J7620; J7626

== ENCOUNTER 2018-12-10 23:03 | Inpatient (IN) | payer MEDICAID, SELFPAY ==
[2018-12-10] VITALS (12 sets, daily range): BP systolic 83–174; BP diastolic 59–115; PULSE 99–127; RESP 15–48; O2SAT 27–100
[2018-12-10] MEDS: Etomidate 20 MG/10 ML VIAL IVP (23:14)
[2018-12-10] MEDS: Succinylcholine 100 MG/5 ML SYR IVP (23:14)
[2018-12-10] MEDS: PROPOFOL 1,000 MG/100 ML BTL 21.6 MG IVPB (23:18)
--- NOTE | 2018-12-10 23:18 | W.ED.GENAD ---
Discharge Plan Disposition Patient Disposition: [facility] INPATIENT Condition: Serious Discharge Details Chief Complaint: SOB Clinical Impression: Acute and chronic respiratory failure with hypercapnia Admit Date/Time: 12/11/18 01:24 Admit Provider: George Stroud Attending Provider: George Stroud Primary Care Provider: Kristian Petersen ED Provider: Biju Mcelroy Medical Decision Making 53-year-old male with a history of O2 dependent COPD brought by EMS for respiratory failure at home. Initial room air sat approximately 60% per EMS. He arrives cyanotic and ill-appearing, unresponsive on positive pressure noninvasive ventilation. Family note hours of worsening difficulty breathing at home this evening. Patient placed on a environmental monitoring specialist, given initial in-line DuoNeb and given the severity of his presentation preparations were made to intubate which was performed by myself via direct laryngoscopy. NG placed by nursing staff. Differential diagnosis includes hypercapnic respiratory failure, pneumonia, CHF. He has a history of encephalopathy as well. Labs including cultures, cardiac workup obtained. Reviewed recent records including palliative care note from December 06 which states that he would like to be a full code. ABG: pH 7.26, pCO2 93. Labs reveal hyponatremia with sodium of 132. Mild hyperkalemia of 5.6; elevated ammonia level of 135. Chronic elevation of LFTs. Normal saline infusing and patient given Kayexalate. He will require lactulose. CXR: Vascular congestion present. Coarse interstitial opacities. Question left pleural line at the apex. Therefore patient referred for CT scan of the chest, as well as abdomen given its distention on initial exam; no acute findings of abdomen, emphysematous changes of the chest and both compression and age-indeterminate rib fractures present blood and sputum cultures obtained and antibiotics initiated. CT head: No acute findings Rice catheter placed with brisk diuresis of approximately 2000+ cc (hx of urinary retention). Sedation initiated with propofol, patient with some expected hypotension and propofol weaned in favor of Ativan gtt. Patient will require require admission to the ICU for ongoing management. Case discussed with Dr. Stroud and patient to be admitted. Lab Data Laboratory Results - last 24 hr 12/10/18 12/10/18 12/10/18 23:25 23:25 23:25 WBC 13.81 H RBC 4.67 Hgb 15.4 Hct 49.6 MCV 106.2 H MCH 33.0 MCHC 31.0 L RDW 14.9 H Plt Count 284 MPV 8.8 Immature Gran % See Differential Neutrophils % 72.0 Lymphocytes % 11.0 Monocytes % 14.0 Eosinophils % 1.0 Basophils % 0.0 Metamyelocytes % 2.0 Absolute Neutrophils 9.94 H Absolute Lymphocytes 1.52 Absolute Monocytes 1.93 H Absolute Eosinophils 0.14 Absolute Basophils 0.00 Differential Comment Manual differential RBC Morphology See below Macrocytosis 3+ Sample Site pCO2 pO2 O2 Saturation ABG pH ABG HCO3 ABG Total CO2 ABG Base Excess Sodium 132 L Potassium 5.6 H Chloride 91 L Carbon Dioxide 41.6 H Anion Gap -0.6 L BUN 9 Creatinine 0.80 Estimated GFR/1.73 m2 >= 60.00 Glucose 192 H Calcium 9.1 Magnesium 2.1 Total Bilirubin 0.5 AST 184 H ALT 101 H Alkaline Phosphatase 200 H Ammonia 135 H Troponin I < 0.02 NT-Pro-B Natriuret Pep Total Protein 9.1 H Albumin 3.4 Urine Color Urine Clarity Urine pH Ur Specific [place] Urine Protein Urine Ketones Urine Blood Urine Nitrite Urine Bilirubin Urine Urobilinogen Ur Leukocyte Esterase Urine Glucose 12/10/18 12/10/18 12/10/18 23:25 23:25 23:33 WBC RBC Hgb Hct MCV MCH MCHC RDW Plt Count MPV Immature Gran % Neutrophils % Lymphocytes % Monocytes % Eosinophils % Basophils % Metamyelocytes % Absolute Neutrophils Absolute Lymphocytes Absolute Monocytes Absolute Eosinophils Absolute Basophils Differential Comment RBC Morphology Macrocytosis Sample Site Unknown pCO2 pO2 100 O2 Saturation 97 ABG pH 7.13 L* ABG HCO3 ABG Total CO2 ABG Base Excess Sodium Potassium Chloride Carbon Dioxide Anion Gap BUN Creatinine Estimated GFR/1.73 m2 Glucose Calcium Magnesium Total Bilirubin AST ALT Alkaline Phosphatase Ammonia Troponin I NT-Pro-B Natriuret Pep 228 Total Protein Albumin Urine Color Yellow Urine Clarity Clear Urine pH 6.5 Ur Specific [place] 1.010 Urine Protein Negative Urine Ketones Negative Urine Blood Negative Urine Nitrite Negative Urine Bilirubin Negative Urine Urobilinogen 0.2 Ur Leukocyte Esterase Negative Urine Glucose Negative ECG Data Attestation: I personally reviewed and interpreted this ECG (s) as follows: Interpretation: Sinus tachycardia with a rate of 106, the QRS is narrow. There is J-point elevation present HPI General Mode of arrival: EMS. Date/Time Provider Initiated Documentation: 12/10/18 23:07. Limitations to Documentation: other (Unresponsive on CPAP machine). Information obtained by: EMS. History of Present Illness 53 year old M presents to the emergency department with the chief complaint of Brought by EMS for respiratory difficulty and unresponsiveness at home. , described as severe and similar to prior episodes, Patient did receive the following treatments prior to arrival, other (DuoNeb and CPAP) Related Data Home Medications Medication Instructions Recorded Confirmed nicotine [Nicoderm CQ] 21 mg TRANSDERMAL DAILY #30 patch 04/15/16 07/02/18 methadone 39 mg PO BID 04/27/16 03/01/18 polyethylene glycol 3350 [Miralax] 17 g PO DAILY #255 gm 05/11/16 07/02/18 furosemide 2 tab PO DAILY #180 tab-cap 12/06/17 07/02/18 cetirizine 10 mg tablet 10 mg PO DAILY #30 tab 08/01/18 fluticasone propionate 50 2 spray ANALILIA DAILY 08/24/18 mcg/actuation nasal spray,suspension multivitamin tablet 1 tab PO DAILY 08/24/18 tamsulosin 0.4 mg capsule See Rx Instructions PO HS #180 cap 08/24/18 diltiazem CD 180 mg 180 mg PO DAILY #90 cap.er.24h 08/25/18 08/25/18 capsule,extended release 24 hr levothyroxine 100 mcg tablet 100 mcg PO DAILY #90 tab-cap 08/25/18 08/25/18 azithromycin 500 mg tablet See Rx Instructions PO .COMPLEX 08/31/18 #18 tab lactulose 20 gram/30 mL oral 30 gm PO TID #1200 ml 09/14/18 solution ibuprofen 600 mg tablet 600 mg PO TID PRN #30 tab 10/19/18 ipratropium-albuterol 0.5 mg-3 3 ml UPD Q4H PRN PRN #120 ml 11/15/18 mg(2.5 mg base)/3 mL nebulization soln lorazepam 0.5 mg tablet 0.5 mg PO TID PRN #40 tab 11/16/18 budesonide-formoterol HFA 160 2 puff INHALATION BID #1 g 11/23/18 mcg-4.5 mcg/actuation aerosol inhaler guaifenesin ER 600 mg tablet, 1,200 mg PO BID #60 tabcr 11/23/18 extended release 12 hr albuterol sulfate 2.5 mg/3 mL 2.5 mg IH Q2H PRN #180 ml 12/08/18 12/08/18 (0.083 %) solution for nebulization albuterol sulfate HFA 90 2 puff INHALATION Q2H #18 gm 12/08/18 12/08/18 mcg/actuation aerosol inhaler prednisone 5 mg tablet 20 mg PO DAILY #60 tab 12/08/18 12/08/18 Previous Rx's Medication Instructions Recorded furosemide 2 tab PO DAILY #180 tab-cap 12/06/17 cetirizine 10 mg tablet 10 mg PO DAILY #30 tab 08/01/18 tamsulosin 0.4 mg capsule See Rx Instructions PO HS #180 cap 08/24/18 diltiazem CD 180 mg 180 mg PO DAILY #90 cap.er.24h 08/25/18 capsule,extended release 24 hr levothyroxine 100 mcg tablet 100 mcg PO DAILY #90 tab-cap 08/25/18 azithromycin 500 mg tablet See Rx Instructions PO .COMPLEX 08/31/18 #18 tab lactulose 20 gram/30 mL oral 30 gm PO TID #1200 ml 09/14/18 solution ibuprofen 600 mg tablet 600 mg PO TID PRN #30 tab 10/19/18 ipratropium-albuterol 0.5 mg-3 3 ml UPD Q4H PRN PRN #120 ml 11/15/18 mg(2.5 mg base)/3 mL nebulization soln lorazepam 0.5 mg tablet 0.5 mg PO TID PRN #40 tab 11/16/18 budesonide-formoterol HFA 160 2 puff INHALATION BID #1 g 11/23/18 mcg-4.5 mcg/actuation aerosol inhaler guaifenesin ER 600 mg tablet, 1,200 mg PO BID #60 tabcr 11/23/18 extended release 12 hr albuterol sulfate 2.5 mg/3 mL 2.5 mg IH Q2H PRN #180 ml 12/08/18 (0.083 %) solution for nebulization albuterol sulfate HFA 90 2 puff INHALATION Q2H #18 gm 12/08/18 mcg/actuation aerosol inhaler prednisone 5 mg tablet 20 mg PO DAILY #60 tab 12/08/18 Allergies Allergy/AdvReac Type Severity Reaction Status Date / Time No Known Allergies Allergy Unverified 03/01/18 14:21 General MIGUEL: 2 Review of Systems Review of Systems Unobtainable due to mental status [facility] Medical History Hepatitis C (Chronic) Smoker (Chronic 04/15/16) Peripheral edema (Resolved 12/06/17) Depressive disorder (Chronic) Chronic obstructive lung disease (Chronic) Asthma (Chronic) Allergic rhinitis (Chronic) Acquired hypothyroidism (Chronic 07/02/16) Acute and chronic respiratory failure with hypercapnia (Chronic) 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 Exam Narrative Exam Narrative: GEN: Poorly groomed, unresponsive, localizes pain HEAD: Normocephalic, atraumatic ENT: Mucous membranes dry, partially edentulous e, External ear exam unremarkable EYES: PERRL, EOMI NECK: Full ROM, no JEREMIAH, no menigismus CHEST/RESP: Diminished with inspiratory expiratory wheezes throughout and tachypnea CARDIOVASCULAR: Distant, regular and tachycardia, no murmur, rub hernan. 2+ Rad pulse bilateral ABDOMEN: Distended, nontender, no mass. +Bowel sounds EXT: Full ROM, trace pretibial edema, no rash Neuro: Unresponsive, localizes pain, eyes closed. Psych: Unable to assess Critical Care Time Critical Care Time: Yes Total Critical Care Time: 50 Attestation: Bedside management. Review of records. Discussion with family.
--- NOTE | 2018-12-10 23:23 | DI.CT_ITS ---
SYMPTOM/DIAGNOSIS: UNRESPONSIVE, EXAC OF COPD, ? PLEURAL LINE LT APEX ON CHEST XR CHEST/ABDOMEN AND PELVIC CT: A noncontrast CT examination of the chest, abdomen and pelvis was performed. There are compression fractures of uncertain age, probably subacute or old, of vertebral bodies T 7, T 8 and T 10. There are multiple bilateral healed or healing rib fractures. There is an endotracheal tube and NG tube in position. There is severe pulmonary emphysema, most prominent in the upper lobes. No focal consolidation or mass identified. No pleural effusion or pneumothorax. Tracheobronchial tree grossly unremarkable except for the aforementioned ET tube in place. No gross mediastinal mass, adenopathy or fluid collection. No pleural effusion. There is hepatic steatosis. Otherwise liver, spleen, pancreas, gallbladder and bile ducts are unremarkable by noncontrast criteria. There is a presumed mid pole right renal cyst. Otherwise the kidneys and adrenals are unremarkable. Abdominal aorta is of normal diameter. No significant abdominal wall hernia is seen. No significant abdominal or pelvic adenopathy is seen. Appendix is normal. No bowel obstruction. There is a quintanilla catheter in the urinary bladder. There are minimal endplate compression fractures of L 3 and L 4 of uncertain age. CONCLUSION: No evidence of acute process involving chest, abdomen or pelvis. T 7, T 8 and T 10 vertebral body compression fractures of uncertain age, please correlate clinically.
--- NOTE | 2018-12-10 23:23 | DI.CT_ITS ---
SYMPTOMS/DIAGNOSIS: UNRESPONSIVE, COPD EXACERBATION CRANIAL CT: Noncontrast was performed. There are endotracheal and NG tubes which are partially visualized. There is no evidence of acute intracranial hemorrhage, mass effect or midline shift. The ventricular system is normal in appearance. The orbital and temporal bone structures appear intact as visualized. CONCLUSION: No evidence of acute intracranial process.
[2018-12-10] MEDS: methylPREDNISolone SUCC 125 MG VIAL IVP (23:25)
[2018-12-10] MEDS: Albuterol/Ipratropium 3 ML UPD VIAL UPD (23:25)
--- NOTE | 2018-12-10 23:25 | DI.RAD_ITS ---
SYMPTOM/DIAGNOSIS: RESPIRATORY DISTRESS SUPINE PORTABLE AP CHEST AT 2325 HOURS: There is an ET tube in good position. There is an NG tube, the tip of which is not included on the film but which lies in the stomach. Lungs are grossly clear except for minimal prominence of interstitial markings and a few focal scars. CONCLUSION: ET and NG tubes in good position.
[2018-12-10 23:41] LABS: pO2 100 mmHg (83-108); sO2 97 % (94-98)
[2018-12-10 23:45] LABS: pH 7.13 (7.35-7.45)
[2018-12-10 23:55] LABS: Ammonia 135 umol/L (11-32)
[2018-12-10 23:56] LABS: Abs Immature Grans 0.16 k/cumm (0.0-0.09); HCT 49.6 % (40.0-50.0); HGB 15.4 g/dL (13.5-17.5); Mean Corpuscular Volume 106.2 fL (80-95); Mean Platelet Volume 8.8 fL (8.0-11.0); Platelet Count 284 x1000/uL (130-400); RBC 4.67 m/cumm (4.50-6.00); RBC Distribution Width 14.9 % (11.8-14.1); White Blood Cell Count 13.81 k/cumm (4.4-10.8)
[2018-12-11] VITALS (170 sets, daily range): BP systolic 71–141; BP diastolic 47–87; PULSE 74–104; RESP 4–40; TEMP 36.5–37.2; O2SAT 85–100
--- NOTE | 2018-12-11 | DI.VRAD_ITS ---
Addendum created by Swapnil Juarez MD on 12/11/2018 12:01:27 AM EDT THIS REPORT CONTAINS FINDINGS THAT MAY BE CRITICAL TO PATIENT CARE. The findings were verbally communicated via telephone conference with VEENA GARCÍA at 12:01 AM EDT on 12/11/2018. The findings were acknowledged and understood. Initial report created on 12/11/2018 12:00:15 AM EDT EXAM: XR Chest, 1 View EXAM DATE/TIME: 12/10/2018 11:01 PM CLINICAL HISTORY: 53 years old, male; Device placement; Other: S/P intubation and ng tube; Patient HX: Respiratory distress. S/P intubation and n/g tube TECHNIQUE: Imaging protocol: XR of the chest, 1 view. COMPARISON: SC XR PORTABLE CHEST AP 07/08/2018 2:02 PM FINDINGS: Tubes, catheters and devices: Endotracheal terminates approximately 5.5 cm superior to the lorena. The enteric tube extends below the diaphragm and beyond the inferior aspect of the image. Telemetry leads overlying thorax. Lungs: Mild central pulmonary vascular congestion. Upper lobe hyperlucency and diffuse coarse interstitial opacities are present, likely indicating emphysema. Atelectasis or scarring is noted at the peripheral left base. No focal airspace consolidation is seen. Pleural space: Possible left pleural line near the apex, which may indicate pneumothorax. No pleural effusion. Heart/Mediastinum: The cardiac silhouette appears mildly prominent. Based on contours are otherwise within normal limits. Bones/joints: Old left posterior rib fractures again noted. No acute fractures are seen. IMPRESSION: 1. Appropriately positioned endotracheal and enteric tubes. 2. Questionable left pleural line near the apex. Finding may represent a superimposed skinfold; however, pneumothorax is not entirely excluded. 3. Suggestion of mildly increased size of cardiac silhouette and mild central pulmonary vascular congestion, which may be indicative of congestive heart failure. No focal consolidation. 4. Emphysema. Dictated and Authenticated by: Swapnil Juarez MD. Ordering:RADHA Ivy MD
[2018-12-11 00:05] LABS: NT-proBNP 228 pg/mL
[2018-12-11 00:10] LABS: Bilirubin Negative (Negative); Blood Negative (Negative); Clarity Clear; Glucose Negative (Negative); Ketones Negative (Negative); Leukocyte Esterase Negative (Negative); Nitrite Negative (Negative); Urobilinogen 0.2 EU/dL (Up TO 0.2); pH 6.5 (5-8)
[2018-12-11 00:12] LABS: ALT 101 U/L (12-78); AST 184 U/L (15-37); Albumin 3.4 g/dL (3.4-5.0); Alkaline Phosphatase 200 U/L (46-116); Anion Gap -0.6 mmol/L (3-11); BUN 9 mg/dL (7-18); Bilirubin, Total 0.5 mg/dL (0.2-1.0); CO2 41.6 mmol/L (21.0-32.0); Calcium 9.1 mg/dL (8.5-10.1); Chloride 91 mmol/L (98-107); Glucose 192 mg/dL (70-100); Magnesium 2.1 mg/dL (1.8-2.4); Potassium 5.6 mmol/L (3.5-5.1); Sodium 132 mmol/L (136-145); Total Protein 9.1 g/dL (6.4-8.2)
[2018-12-11 00:14] LABS: Troponin I < 0.02 ng/mL (0.00-0.06)
--- NOTE | 2018-12-11 00:15 | DI.VRAD_ITS ---
EXAM: CT Head Without Contrast EXAM DATE/TIME: 12/10/2018 11:24 PM CLINICAL HISTORY: 53 years old, male; Signs and symptoms; Altered mental status/memory loss; Other: Unresponsive; Patient HX: Unresponsive copd exacerbation TECHNIQUE: Imaging protocol: Axial computed tomography images of the head/brain without contrast. Coronal and sagittal reformatted images were created and reviewed. Radiation optimization: All CT scans at this facility use at least one of these dose optimization techniques: automated exposure control; mA and/or kV adjustment per patient size (includes targeted exams where dose is matched to clinical indication); or iterative reconstruction. COMPARISON: No relevant prior studies available. FINDINGS: Tubes, catheters and devices: Endotracheal and enteric tubes are partially visualized. Brain: There is no evidence of hemorrhage or mass effect. Minimal areas of hypoattenuation in the bilateral periventricular white matter are consistent with gliosis in the setting of chronic microvascular ischemia. Smith-white matter differentiation is preserved. Ventricles: Normal. No ventriculomegaly. Bones/joints: Unremarkable. No acute fracture. Sinuses: Visualized sinuses are unremarkable. No acute sinusitis. Mastoid air cells: Visualized mastoid air cells are unremarkable. No mastoid effusion. Soft tissues: Unremarkable. Nasal cavity: There is mild debris in the nasal cavity and pharynx due to intubated status. IMPRESSION: No acute intracranial abnormality. Dictated and Authenticated by: Swapnil Juarez MD. Ordering:RADHA Ivy MD
[2018-12-11 00:18] LABS: Absolute Eosinophil Count 0.14 k/cumm (0.0-0.7); Absolute Lymphocyte Count 1.52 k/cumm (1.2-3.4); Absolute Monocyte Count 1.93 k/cumm (0.11-0.7); Absolute Neutrophil Count 9.94 k/cumm (1.2-6.7)
[2018-12-11 00:19] LABS: Diff Comment Manual Differential; Macrocytosis 3+
[2018-12-11 00:36] LABS: PTT Activated 25.2 sec (21.0-31.4); Prothrombin Time 10.3 sec (9.3-11.0)
[2018-12-11] MEDS: cefTRIAXone 1,000 MG in Normal Saline 50 ML 100 MG IVPB (00:54)
[2018-12-11 00:56] LABS: HCO3 41 mmol/L (22-28); pH 7.26 (7.35-7.45); pO2 70 mmHg (83-108); sO2 94 % (94-98); tCO2 38 mmol/L (22-29)
[2018-12-11 00:57] LABS: BE 14.3 mmol/L (-3-3); pCO2 93 mmHg (34-47)
[2018-12-11 00:58] LABS: Site Left Radial
--- NOTE | 2018-12-11 01:04 | DI.VRAD_ITS ---
EXAM: CT Chest Without Contrast EXAM DATE/TIME: 12/11/2018 12:03 AM CLINICAL HISTORY: 53 years old, male; Signs and symptoms; Other: Resp. Distress; Additional info: ? Pleural line l apex on cxr. Copd. Resp failure. Abdominal distention TECHNIQUE: Imaging protocol: Axial computed tomography images of the chest without intravenous contrast. Coronal and sagittal reformatted images were created and reviewed. Radiation optimization: All CT scans at this facility use at least one of these dose optimization techniques: automated exposure control; mA and/or kV adjustment per patient size (includes targeted exams where dose is matched to clinical indication); or iterative reconstruction. COMPARISON: CT CHEST FOR PULMONARY EMBOLUS 11/14/2017 11:29 AM FINDINGS: Tubes, catheters and devices: Endotracheal tube terminates approximately 5.8 cm superior to the lorena. Enteric tube is present with distal tip and sidehole within the stomach. Lungs: There is moderate to severe upper lobe predominant panlobular emphysema. There are scattered areas of atelectasis/scarring, primarily in the lung bases. No focal airspace consolidation is seen. Scattered of bronchial wall thickening is consistent with sequela of chronic bronchitis. Pleural space: No pneumothorax. No pleural effusion. Heart: There is no cardiomegaly or pericardial effusion. Minimal coronary artery calcifications are present. Pulmonary arteries: Pulmonary arteries are mildly prominent, suggesting pulmonary arterial hypertension. Aorta: Normal. No aortic aneurysm. Lymph nodes: Unremarkable. No enlarged lymph nodes. Bones/joints: Multiple subacute to chronic bilateral rib fractures are noted. There are old compression fractures involving the T6, T7 and T9 vertebral bodies, with focally accentuated kyphosis centered at T7. Likely old sternal fracture noted. No definite acute fractures are seen. Soft tissues: Unremarkable. IMPRESSION: 1. Findings consistent with moderate to severe upper lobe predominant panlobular emphysema and chronic bronchitis. Otherwise, no evident acute cardiopulmonary process. 2. No pneumothorax. 3. Numerous subacute to chronic bilateral rib fractures and multiple thoracic vertebral body compression fractures, as above. 4. Appropriately positioned endotracheal and enteric tubes. EXAM: CT Abdomen and Pelvis Without Contrast EXAM DATE/TIME: 12/11/2018 12:03 AM CLINICAL HISTORY: 53 years old, male; Signs and symptoms; Other: Resp. Distress; Additional info: ? Pleural line l apex on cxr. Copd. Resp failure. Abdominal distention TECHNIQUE: Imaging protocol: Axial computed tomography images of the abdomen and pelvis without contrast. COMPARISON: CT CHEST FOR PULMONARY EMBOLUS 11/14/2017 11:29 AM FINDINGS: Tubes, catheters and devices: An enteric tube is noted, with distal tip and sidehole within the stomach. Lower thorax: No acute findings. ABDOMEN: Liver: There is a diffuse decrease in hepatic parenchymal density, consistent with fatty infiltration. No discrete mass. Gallbladder and bile ducts: Normal. No calcified stones. No ductal dilation. Pancreas: Normal. No ductal dilation. Spleen: Normal. No splenomegaly. Adrenals: Normal. No mass. Kidneys and ureters: 2 cm right renal cyst noted (series 2, image 61). No urinary tract stones are seen. There is no hydronephrosis. Stomach and bowel: Normal. No obstruction. No mucosal thickening. Appendix: No evidence of appendicitis. PELVIS: Bladder: The bladder is decompressed by a Rice catheter. Likely redundant bladder dome, with mild wall thickening. No discrete mass identified. Reproductive: Unremarkable as visualized. ABDOMEN and PELVIS: Intraperitoneal space: Normal. No free air. No significant fluid collection. Bones/joints: Apparent compression deformity involving the superior L3 and L4 vertebral body endplates, consistent with compression fractures of uncertain acuity. Mild facet degenerative changes are present in the lower lumbosacral spine. Otherwise, no acute osseous abnormalities are seen. Soft tissues: Unremarkable. Vasculature: Mild vascular calcifications are present. There is no abdominal aortic aneurysm. Lymph nodes: Normal. No enlarged lymph nodes. IMPRESSION: 1. No acute intra-abdominal process. 2. Compression fractures of uncertain acuity involving the superior L3 and L4 vertebral body endplates. Correlate with clinical history and physical exam findings. Dictated and Authenticated by: Swapnil Juarez MD. Ordering:RADHA Ivy MD
--- NOTE | 2018-12-11 01:06 | NUR.NOTE ---
nursing note: 2309 ems stretcher to bed 2 stretcher. 2311--preparing to intubate onto [facility] CPAP 06/16 at 100%. 2312--Saturation 27%--ambubag 100% oxygenation initiated. 2314--RT Ericka Cordero arrived. 2315--Intubated with 8.0 ETT tube 24 cm at the lip. pulled back to 23 cm at the lip. Spo2 increased to 100%. End tidal C02 at 139. positive bilateral breaht sounds and colormetric --color changes. 2318--patient color improved. Sat o2 at 100% HR 120. ETCO2 -88. 2319-NGT- inserted by A Courser RN Left nare 16 [place], 65 cm left nares. 2323--Portable xray obtained, labs drawn off right hand. 2323--quintanilla catheter placed 16 [place]ian. return of clear yellow urine. placed by A. Courser RN. 2329--increased propofol to 55 mcg/kg/min (39.6 ml/hr) with [address] Mcelroy. 2332--2900 ml of urine out from quintanilla clamped. 500 dark green output from NGT. 2338--Propofol increased to 80- mcg/kg/min 2345--transport to for CT head. 2356--transport to room 2 ER. 2358--Return to DI for CT chest/abd pelvis. 5--Chest/abd/pelvic CT obtained return to ER. 0026--Return to Room ER 2. 0029--Inline suction for large amount of thick sputum dropped to mid-70s sat o2 during transport and back up to 97% on 100% o2. 0030--caregiver arrived and athe bedside. usually on 2-3 liters of o2 nasal cannula at home. 0025-updated caregiver. lab over for blood culture draws. Resp Jonathan in for ABG. 0040--BP dropping see vitals. titrated Propofol down and off for 7 minutes. NS 1000 ml bolus per MD. BP rising. 25 mcg/min started at 0047.titrating Propofol down to 10 mcg/kg/min currently at 130 am.
[2018-12-11] MEDS: LORazepam 2 MG/ML VIAL IVP ×2 (01:53→04:39)
[2018-12-11] MEDS: Normal Saline Flush 10 ML SYR IVP ×3 (01:54→15:42)
[2018-12-11] MEDS: PIPERACILLIN/TAZO 4.5 GM in Normal Saline 100 ML IVPB ×3 (01:54→18:01)
[2018-12-11] MEDS: Normal Saline 1,000 ML 125 ML IV ×3 (01:54→18:37)
[2018-12-11] MEDS: Albuterol/Ipratropium 3 ML UPD VIAL (02:02)
[2018-12-11] MEDS: levoFLOXacin 750 MG/150 ML BAG 100 MG IVPB (02:14)
--- NOTE | 2018-12-11 02:26 | NUR.NOTE ---
Nursing Note: BP stabilizing at 10 mcg/kg/min propofol with intermittent ativan 2 mg bolus IV. BP currently 99/70. suctioning continues to be an issue with large amount of thick secretions being suctioned every hour or so. Patient sats will drop when suctioning is needed. Jonathan SINGH closely monitoring. --Bernardo CRAWFORD.
--- NOTE | 2018-12-11 02:37 | HPE_ITS ---
Date of service: 12/11/18 Time of Service: 02:36 Assessment and Plan (1) Acute and chronic respiratory failure with hypercapnia: Current visit: No Status: Chronic patient presented w/ progressive rapid decline in his chronically ill respiratory failure. multiple etiologies include infection, mucous plugging, excessive use of his home oxygen with abolishment of his hypoxemic respiratory drive (his caregiver describes him using his nebulizer mask w/ oxygen in addition to his nasal cannula. Patient is at endstage COPD and recently met w/ Dr. Delatorre, his Palliative care physician. Apparently the patient was not ready at that meeting to decide upon a comfort care measure yet and still wanted full resuscitation. for now will continue mechanical ventilatory support along w/ broad spectrum antibiotics, beta agonist bronchodilators and stress dosed corticosteroids. Per his caregiver, the patient's son lives in [place]. Hopefully he can be contacted in the a.m. to discuss patient poor prognosis and to include him in discussion w/ palliative medicine on patient's wishes regarding prolonged life support. (2) COPD exacerbation: Current visit: Yes Status: Acute as above (3) Urinary retention: Current visit: No Status: Acute continue quintanilla catheter until he is extubated (4) Hepatitis C: Current visit: No Status: Chronic allegedly has been treated w/ no active disease however his transaminase contradict this. He has the chronic sequelae of cirrhosis and hepatic encephalopathy. Cause of his HCV is due to previous IV drug abuse. He is chronically on methadone which [facility] is reportedly trying to wean him off because he is home bound and unable to attend [facility] on daily basis. Qualifiers: Hepatic coma status: without hepatic coma Viral hepatitis chronicity: chronic Qualified Code(s): B18.2 - Chronic viral hepatitis C (5) Hyperammonemia: Current visit: Yes Status: Acute he has chronic hepatic encephalopathy and usually is on lactulose History of Present Illness Chief Complaint: dyspnea Narrative: 53 yr old male w/ endstage COPD on home oxygen and chronic suppressive antibiotics who has had increased dyspnea over past several days w/ acute worsening in last 24hr. He was recently prescribed another course of prednisone according to his caregiver. Tonight the patient developed respiratory extremis and 911 was called. Upon EMS arrival patient was cyanotic and unresponsive and hypoxemic w/ SPO2 of 60%. He was transported on NIPPV. On arrival to the emergency room Dr. Biju Mcelroy (see his ER note) noted the patient to be cyanotic and unresponsive and prepared for immediate intubation which was accomplished via direct laryngoscopy. Patient was sedated w/ propofol and ativan. Patient was found to have abdominal distension and quintanilla was placed for residual urine over 2000 mL. Blood and urine cultures were sent. CXR post intubation confirmed ET placement however questionable left apical pleural line vs skin fold vs pneumothorax resu lted in CT of chest being performed. CT of head and abdomen were also done. CT of chest confirmed panlobular emphysema and chronic bronchitis but no focal airspace consolidation and no pneumothorax. he has old bilateral rib fractures and multiple thoraci vetebral body compression fractures. CT of abdomen did not show any acute intra-abdominal process. he has compression fractures of L3, L4. Labs demonstrated leukocytosis of 13,000, chronic macrocytic RBC changes, ABG showed severe respiratory acidosis of pH 7.13 with repeat ABG showing some improvement in pH to 7.26 and PCO2 of 90 and PO2 70 on ventilator at AC 20/TV 450/FIO2 40% and PEEP 5 cm. CMP demonstrated chronic hyponatremia at 132, and hypochloremia 91, with chronically elevated CO2 of 41 which is higher than his prior levels of 38. Normal renal function w/ BUN 9, creatinine 0.8. Elevated transaminases (AST 184, ALT 101, ALK PHOS 200), and ammonia of 135. He has known HCV and hepatic encephalopathy. Troponin was normal at <0.02 and BNP was normal at 228. UA was unremarkable. Patient was treated w/ antibiotics including Ceftriaxone 1 gm, Levaquin 750 mg and Zosyn 4.5 gm. and he was given Solumedrol 125 mg. Patient is now sedated on propofol drip which has been titrated down to 15 mcg/kg/minute (patient has some post intubation hypotension) and also given ativan prn for sedation. 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 Meds Home Medications Medication Instructions Recorded Confirmed Type nicotine [Nicoderm CQ] 21 mg TRANSDERMAL DAILY #30 patch 04/15/16 07/02/18 History methadone 39 mg PO BID 04/27/16 03/01/18 History polyethylene glycol 3350 [Miralax] 17 g PO DAILY #255 gm 05/11/16 07/02/18 History Pulse Oximeter 1 ea MISCELLANEOUS DAILY #1 ea 05/27/16 07/02/18 Clinic furosemide 2 tab PO DAILY #180 tab-cap 12/06/17 07/02/18 Rx cetirizine 10 mg tablet 10 mg PO DAILY #30 tab 08/01/18 Rx fluticasone propionate 50 2 spray ANALILIA DAILY 08/24/18 History mcg/actuation nasal spray,suspension multivitamin tablet 1 tab PO DAILY 08/24/18 History tamsulosin 0.4 mg capsule See Rx Instructions PO HS #180 cap 08/24/18 Rx diltiazem CD 180 mg 180 mg PO DAILY #90 cap.er.24h 08/25/18 08/25/18 Rx capsule,extended release 24 hr levothyroxine 100 mcg tablet 100 mcg PO DAILY #90 tab-cap 08/25/18 08/25/18 Rx azithromycin 500 mg tablet See Rx Instructions PO .COMPLEX 08/31/18 Rx #18 tab lactulose 20 gram/30 mL oral 30 gm PO TID #1200 ml 09/14/18 Rx solution ibuprofen 600 mg tablet 600 mg PO TID PRN #30 tab 10/19/18 Rx ipratropium-albuterol 0.5 mg-3 3 ml UPD Q4H PRN PRN #120 ml 11/15/18 Rx mg(2.5 mg base)/3 mL nebulization soln lorazepam 0.5 mg tablet 0.5 mg PO TID PRN #40 tab 11/16/18 Rx budesonide-formoterol HFA 160 2 puff INHALATION BID #1 g 11/23/18 Rx mcg-4.5 mcg/actuation aerosol inhaler guaifenesin ER 600 mg tablet, 1,200 mg PO BID #60 tabcr 11/23/18 Rx extended release 12 hr albuterol sulfate 2.5 mg/3 mL 2.5 mg IH Q2H PRN #180 ml 12/08/18 12/08/18 Rx (0.083 %) solution for nebulization albuterol sulfate HFA 90 2 puff INHALATION Q2H #18 gm 12/08/18 12/08/18 Rx mcg/actuation aerosol inhaler prednisone 5 mg tablet 20 mg PO DAILY #60 tab 12/08/18 12/08/18 Rx Allergies Allergy/AdvReac Type Severity Reaction Status Date / Time No Known Allergies Allergy Unverified 03/01/18 14:21 Exam Const General: patient mechanically ventilated Nutritional Appearance: overweight Orientation: obtunded Limitations: altered mental status [facility] Head: normal to inspection, no palpable skull fracture, normocephalic and atraumatic Face and sinus: normal facial exam Mouth: other (unable to visualize d/t intubated) Eyes General: appearance normal, both eyes and all related structures Alignment and Position: alignment normal Periorbital: periorbital findings normal Eyelids: eyelids normal Conjunctivae: conjunctivae normal Cornea: corneas normal Neck Neck: normal visual inspection, full ROM, trachea midline and no JVD Thyroid: thyroid normal Carotids: normal carotid upstroke Lymphatic: no lymphadenopathy noted Chest Chest: abnormal inspection of the chest barrel chest Resp Effort & Inspection: other (intubated) Auscultation: wheezes scattered wheezes Cardio Jugular venous pressure: no JVD Palpation: normal PMI Rate: regular rate Rhythm: regular rhythm Heart Sounds: S1 normal, S2 normal and no murmurs Bruits: no abdominal aortic bruits Pulses: posterior tibial pulses present bilaterally 1+ and diminished and dorsalis pedis pulses present bilaterally 1+ and diminished GI Inspection: distended and obesity Palpation: soft Auscultation: hypoactive bowel sounds Skin Lesions: lesion noted (excoriations) bilateral anterior lower leg Rashes: no rashes Neuro General: obtunded Sensory Exam: lower extremity (withdrawal to noxious stimulation) bilateral and upper extremity (withdrawal to noxious stimulation) bilateral Pupils: Normal pupillary reactivity/response: bilateral and Mid position: bilateral Extrem General: cyanosis of the toes Results Labs : 12/10/18 23:25 12/10/18 23:25 Laboratory Results - last 24 hr 12/10/18 12/10/18 12/10/18 23:25 23:25 23:25 WBC 13.81 H RBC 4.67 Hgb 15.4 Hct 49.6 MCV 106.2 H MCH 33.0 MCHC 31.0 L RDW 14.9 H Plt Count 284 MPV 8.8 Immature Gran % See Differential Neutrophils % 72.0 Lymphocytes % 11.0 Monocytes % 14.0 Eosinophils % 1.0 Basophils % 0.0 Metamyelocytes % 2.0 Absolute Neutrophils 9.94 H Absolute Lymphocytes 1.52 Absolute Monocytes 1.93 H Absolute Eosinophils 0.14 Absolute Basophils 0.00 Differential Comment Manual differential RBC Morphology See below Macrocytosis 3+ PT INR APTT Sample Site pCO2 pO2 O2 Saturation ABG pH ABG HCO3 ABG Total CO2 ABG Base Excess Oxygen Liter Flow FiO2 Sodium 132 L Potassium 5.6 H Chloride 91 L Carbon Dioxide 41.6 H Anion Gap -0.6 L BUN 9 Creatinine 0.80 Estimated GFR/1.73 m2 >= 60.00 Glucose 192 H Calcium 9.1 Magnesium 2.1 Total Bilirubin 0.5 AST 184 H ALT 101 H Alkaline Phosphatase 200 H Ammonia 135 H Troponin I < 0.02 NT-Pro-B Natriuret Pep Total Protein 9.1 H Albumin 3.4 Urine Color Urine Clarity Urine pH Ur Specific [place] Urine Protein Urine Ketones Urine Blood Urine Nitrite Urine Bilirubin Urine Urobilinogen Ur Leukocyte Esterase Urine Glucose 12/10/18 12/10/18 12/10/18 23:25 23:25 23:25 WBC RBC Hgb Hct MCV MCH MCHC RDW Plt Count MPV Immature Gran % Neutrophils % Lymphocytes % Monocytes % Eosinophils % Basophils % Metamyelocytes % Absolute Neutrophils Absolute Lymphocytes Absolute Monocytes Absolute Eosinophils Absolute Basophils Differential Comment RBC Morphology Macrocytosis PT 10.3 INR 1.0 APTT 25.2 Sample Site Unknown pCO2 pO2 100 O2 Saturation 97 ABG pH 7.13 L* ABG HCO3 ABG Total CO2 ABG Base Excess Oxygen Liter Flow FiO2 Sodium Potassium Chloride Carbon Dioxide Anion Gap BUN Creatinine Estimated GFR/1.73 m2 Glucose Calcium Magnesium Total Bilirubin AST ALT Alkaline Phosphatase Ammonia Troponin I NT-Pro-B Natriuret Pep 228 Total Protein Albumin Urine Color Urine Clarity Urine pH Ur Specific [place] Urine Protein Urine Ketones Urine Blood Urine Nitrite Urine Bilirubin Urine Urobilinogen Ur Leukocyte Esterase Urine Glucose 12/10/18 12/11/18 23:33 00:42 WBC RBC Hgb Hct MCV MCH MCHC RDW Plt Count MPV Immature Gran % Neutrophils % Lymphocytes % Monocytes % Eosinophils % Basophils % Metamyelocytes % Absolute Neutrophils Absolute Lymphocytes Absolute Monocytes Absolute Eosinophils Absolute Basophils Differential Comment RBC Morphology Macrocytosis PT INR APTT Sample Site Left radial pCO2 93 H* pO2 70 L O2 Saturation 94 ABG pH 7.26 L ABG HCO3 41 H ABG Total CO2 38 H ABG Base Excess 14.3 H Oxygen Liter Flow A/c 20 vt 450 FiO2 35% 5 peep Sodium Potassium Chloride Carbon Dioxide Anion Gap BUN Creatinine Estimated GFR/1.73 m2 Glucose Calcium Magnesium Total Bilirubin AST ALT Alkaline Phosphatase Ammonia Troponin I NT-Pro-B Natriuret Pep Total Protein Albumin Urine Color Yellow Urine Clarity Clear Urine pH 6.5 Ur Specific [place] 1.010 Urine Protein Negative Urine Ketones Negative Urine Blood Negative Urine Nitrite Negative Urine Bilirubin Negative Urine Urobilinogen 0.2 Ur Leukocyte Esterase Negative Urine Glucose Negative Last Vital Signs Pulse 79 12/11/18 00:51 Resp 22 12/11/18 02:19 BP 84/56 L 12/11/18 00:51 Pulse Ox 93 L 12/11/18 02:19
--- NOTE | 2018-12-11 02:48 | NUR.NOTE ---
Nursing Note: last hour been at a RASS of -1. sedation adequate, awakens momentarily to suction and back to eyes shut and no movement afterwards. No bucking vent or biting tube. --Bernardo CRAWFORD .
[2018-12-11] MEDS: Pantoprazole 40 MG VIAL IVP (03:51)
[2018-12-11] MEDS: Water,Injection,Bacteriostatic 30 ML VIAL (04:07)
--- NOTE | 2018-12-11 05:21 | NUR.NOTE ---
Nursing Note: Patient up to ICU with this screenplay writer and RT at 0500 am after report called to Chelsy Dhillon RN. Patient titrated up to 45 mcg/kg/min upon entrance into ICU as patient was waking up and moving hands toward tube. patient caregiver instructed to ICU waiting room. --Bernardo CRAWFORD.
[2018-12-11] MEDS: Enoxaparin 40 MG/0.4 ML SYR SC (05:26)
[2018-12-11] MEDS: LORazepam 2 MG/ML VIAL 1 MG IVP (05:27)
[2018-12-11] MEDS: Albuterol/Ipratropium 3 ML UPD VIAL UPD ×4 (05:31→21:38)
[2018-12-11 06:19] LABS: Absolute Basophil Count 0.01 k/cumm (0.0-0.2); Absolute Monocyte Count 0.83 k/cumm (0.11-0.7); Basophils % 0.1; HCT 40.9 % (40.0-50.0); HGB 12.9 g/dL (13.5-17.5); Immature Grans % 0.8; Lymphocytes % 2.4; Mean Corp. HGB Concentration 31.5 g/dL (32.0-36.0); Mean Corpuscular Hemoglobin 33.3 pg (27.0-33.0); Mean Corpuscular Volume 105.7 fL (80-95); Monocytes % 6.6; Neutrophils % 90.1; Platelet Count 261 x1000/uL (130-400); RBC 3.87 m/cumm (4.50-6.00); RBC Distribution Width 14.4 % (11.8-14.1); White Blood Cell Count 12.59 k/cumm (4.4-10.8)
[2018-12-11 06:23] LABS: Absolute Neutrophil Count 11.34 k/cumm (1.2-6.7)
[2018-12-11 06:47] LABS: ALT 88 U/L (12-78); AST 180 U/L (15-37); Albumin 2.5 g/dL (3.4-5.0); Alkaline Phosphatase 143 U/L (46-116); Anion Gap 3.5 mmol/L (3-11); BUN 11 mg/dL (7-18); Bilirubin, Total 0.8 mg/dL (0.2-1.0); CO2 34.5 mmol/L (21.0-32.0); CREATININE 0.83 mg/dL (0.70-1.30); Calcium 7.9 mg/dL (8.5-10.1); Chloride 96 mmol/L (98-107); Glucose 123 mg/dL (70-100); Potassium 4.6 mmol/L (3.5-5.1); Sodium 134 mmol/L (136-145); TSH 3.26 uIU/mL (0.358-3.74); Total Protein 6.7 g/dL (6.4-8.2); Troponin I 0.04 ng/mL (0.00-0.06)
[2018-12-11] MEDS: PROPOFOL 1,000 MG/100 ML BTL 32.4 MG IV ×6 (06:50→22:45)
[2018-12-11 07:38] LABS: HCO3 38 mmol/L (22-28); pH 7.39 (7.35-7.45); pO2 55 mmHg (83-108); sO2 91 % (94-98); tCO2 34 mmol/L (22-29)
[2018-12-11 07:40] LABS: BE 12.5 mmol/L (-3-3); pCO2 62 mmHg (34-47)
[2018-12-11 07:41] LABS: FIO2L 30 L; Site Right Radial
[2018-12-11 07:42] LABS: FIO2 Ventilator %
--- NOTE | 2018-12-11 07:55 | DI.RAD_ITS ---
SYMPTOM/DIAGNOSIS:RESPIRATORY FAILURE, F/U PORTABLE AP CHEST: ET tube again noted in position. The tip lies about 7 cm. above the lorena. The lungs are predominantly clear with mild prominence of interstitial markings. NG tube again noted in position. CONCLUSION: ET tube appears to have migrated superiorly and lies about 7 cm. above the lorena. Please correlate clinically.
--- NOTE | 2018-12-11 08:10 | INITIAL_ITS ---
- If Service Date Differs Date of service: 12/11/18 Time of Service: 08:08 Care Management Initial Assess REASON FOR HOSPITALIZATION:: COPD, acute resp failure PAST MEDICAL HISTORY/PAST SURGICAL HISTORY:: COPD, Hep C, tobacco dependency, depressive disorder, asthma, bronchititis, hypothyroidism, multiple rib fractures, substance dependency. PREVIOUS FUNCTIONAL STATUS/SOCIAL/FAMILY SUPPORTS:: Mahamed lives at home with his roomate Marcie. He receives services through the [facility] and is on the methadone program. He cares for himself with help from his roomate Marcie who transports him as needed. CURRENT FUNCTIONAL STATUS:: Mahamed is currently intubated he is unable to particpate in assessment at this time. Mahamed has identified Marcie as his person in the past to make his decisions if he is unable to. However Mahamed has met with palliative care in the past and was unable to complete an advance directive or a COLST at that time. ADVANCE DIRECTIVES:: None on file Has patient been provided with information about the portal?: No Did the patient sign up for the portal?: No CODE STATUS:: Full Code INSURANCE COVERAGE / FINANCIAL ISSUES:: Medicaid CURRENT HOME/COMMUNITY SERVICES/EQUIPMENT:: Home Health, palliative and BARRT, oxygen through [facility] PRIMARY CARE PHYSICIAN:: POTENTIAL DISCHARGE NEEDS:: Undertermine discharge plan at this time, pt is currently intubated in the ICU. PATIENT/FAMILY EDUCATION NEEDS:: Education r/t plan and acute care PLAN:: Discharge plan to be determined, Mahamed is currently admitted to the ICU, intubated and sedated. He is receiving IV antibiotics and steroids. Mahamed may be transfered to [facility]. LILIYA did review with she met with him last week. Per report he relayed to her that he would look to Marcie to make his decisions if he was unable to. LILIYA has met with Mahamed several times previous admissions and this information has been consistant.
[2018-12-11] MEDS: Lactulose 20 GM/30 ML CUP NG (09:30)
[2018-12-11 10:20] LABS: HCO3 39 mmol/L (22-28); tCO2 35 mmol/L (22-29)
[2018-12-11 10:23] LABS: FIO2 Ventilator %; FIO2L 30 L; Site Right Radial
[2018-12-11] MEDS: methylPREDNISolone SUCC 125 MG VIAL 60 MG IVP ×3 (10:52→21:38)
--- NOTE | 2018-12-11 12:25 | DI.RAD_ITS ---
SYMPTOMS/DIAGNOSIS: S/P PICC LINE INSERTION PORTABLE AP CHEST 12:30 P.M. 12/11/18: ET tube again noted about 6-7 cm above the lorena, this may have been advanced slightly. NG tube noted in position. PICC line noted on the right. The tip of which appears to lie at the origin of the jugular vein on the right.
--- NOTE | 2018-12-11 12:53 | DI.RAD_ITS ---
SYMPTOMS/DIAGNOSIS: CONFIRM PICC PLACEMENT PORTABLE AP CHEST 13:10 HOURS 12/11/18: Repeat chest film was obtained to re-evaluate PICC line placement. The PICC line now lies with its tip at the junction of SVC and right atrium. No other change seen.
[2018-12-11 13:08] LABS: FIO2 30 %; FIO2L Ventilator L; Site Left Radial; pH 7.38 (7.35-7.45)
[2018-12-11 13:09] LABS: BE 13.5 mmol/L (-3-3); HCO3 39 mmol/L (22-28); pCO2 65 mmHg (34-47); pO2 60 mmHg (83-108); sO2 92 % (94-98); tCO2 35 mmol/L (22-29)
[2018-12-11] MEDS: Lactulose 20 GM/30 ML CUP 30 GM NG ×2 (13:54→19:45)
[2018-12-11 14:12] LABS: pH 7.36 (7.35-7.45)
[2018-12-11 14:16] LABS: pCO2 69 mmHg (34-47); pO2 58 mmHg (83-108)
[2018-12-11 14:17] LABS: sO2 91 % (94-98)
[2018-12-11 14:18] LABS: BE 13.1 mmol/L (-3-3)
[2018-12-11 14:46] LABS: Troponin I 0.02 ng/mL (0.00-0.06)
--- NOTE | 2018-12-11 22:59 | W.ED.GENAD ---
Discharge Plan Disposition Patient Disposition: [facility] INPATIENT Condition: Serious Discharge Details Chief Complaint: SOB Clinical Impression: Acute and chronic respiratory failure with hypercapnia Admit Date/Time: 12/11/18 01:24 Admit Provider: George Stroud Attending Provider: George Stroud Primary Care Provider: Kristian Petersen ED Provider: Biju Mcelroy Discharge Data Discharge Date/Time-TO BE ENTERED AT DEPARTURE: 12/11/18 04:53 HPI General Mode of arrival: EMS. Date/Time Provider Initiated Documentation: 12/10/18 23:07. Limitations to Documentation: other (Unresponsive on CPAP machine). Information obtained by: EMS. History of Present Illness Patient did receive the following treatments prior to arrival, other (DuoNeb and CPAP) Related Data Home Medications Medication Instructions Recorded Confirmed nicotine [Nicoderm CQ] 21 mg TRANSDERMAL DAILY #30 patch 04/15/16 07/02/18 methadone 39 mg PO BID 04/27/16 03/01/18 polyethylene glycol 3350 [Miralax] 17 g PO DAILY #255 gm 05/11/16 07/02/18 furosemide 2 tab PO DAILY #180 tab-cap 12/06/17 07/02/18 cetirizine 10 mg tablet 10 mg PO DAILY #30 tab 08/01/18 fluticasone propionate 50 2 spray ANALILIA DAILY 08/24/18 mcg/actuation nasal spray,suspension multivitamin tablet 1 tab PO DAILY 08/24/18 tamsulosin 0.4 mg capsule See Rx Instructions PO HS #180 cap 08/24/18 diltiazem CD 180 mg 180 mg PO DAILY #90 cap.er.24h 08/25/18 08/25/18 capsule,extended release 24 hr levothyroxine 100 mcg tablet 100 mcg PO DAILY #90 tab-cap 08/25/18 08/25/18 azithromycin 500 mg tablet See Rx Instructions PO .COMPLEX 08/31/18 #18 tab lactulose 20 gram/30 mL oral 30 gm PO TID #1200 ml 09/14/18 solution ibuprofen 600 mg tablet 600 mg PO TID PRN #30 tab 10/19/18 ipratropium-albuterol 0.5 mg-3 3 ml UPD Q4H PRN PRN #120 ml 11/15/18 mg(2.5 mg base)/3 mL nebulization soln lorazepam 0.5 mg tablet 0.5 mg PO TID PRN #40 tab 11/16/18 budesonide-formoterol HFA 160 2 puff INHALATION BID #1 g 11/23/18 mcg-4.5 mcg/actuation aerosol inhaler guaifenesin ER 600 mg tablet, 1,200 mg PO BID #60 tabcr 11/23/18 extended release 12 hr albuterol sulfate 2.5 mg/3 mL 2.5 mg IH Q2H PRN #180 ml 12/08/18 12/08/18 (0.083 %) solution for nebulization albuterol sulfate HFA 90 2 puff INHALATION Q2H #18 gm 12/08/18 12/08/18 mcg/actuation aerosol inhaler prednisone 5 mg tablet 20 mg PO DAILY #60 tab 12/08/18 12/08/18 Previous Rx's Medication Instructions Recorded furosemide 2 tab PO DAILY #180 tab-cap 12/06/17 cetirizine 10 mg tablet 10 mg PO DAILY #30 tab 08/01/18 tamsulosin 0.4 mg capsule See Rx Instructions PO HS #180 cap 08/24/18 diltiazem CD 180 mg 180 mg PO DAILY #90 cap.er.24h 08/25/18 capsule,extended release 24 hr levothyroxine 100 mcg tablet 100 mcg PO DAILY #90 tab-cap 08/25/18 azithromycin 500 mg tablet See Rx Instructions PO .COMPLEX 08/31/18 #18 tab lactulose 20 gram/30 mL oral 30 gm PO TID #1200 ml 09/14/18 solution ibuprofen 600 mg tablet 600 mg PO TID PRN #30 tab 10/19/18 ipratropium-albuterol 0.5 mg-3 3 ml UPD Q4H PRN PRN #120 ml 11/15/18 mg(2.5 mg base)/3 mL nebulization soln lorazepam 0.5 mg tablet 0.5 mg PO TID PRN #40 tab 11/16/18 budesonide-formoterol HFA 160 2 puff INHALATION BID #1 g 11/23/18 mcg-4.5 mcg/actuation aerosol inhaler guaifenesin ER 600 mg tablet, 1,200 mg PO BID #60 tabcr 11/23/18 extended release 12 hr albuterol sulfate 2.5 mg/3 mL 2.5 mg IH Q2H PRN #180 ml 12/08/18 (0.083 %) solution for nebulization albuterol sulfate HFA 90 2 puff INHALATION Q2H #18 gm 12/08/18 mcg/actuation aerosol inhaler prednisone 5 mg tablet 20 mg PO DAILY #60 tab 12/08/18 Allergies Allergy/AdvReac Type Severity Reaction Status Date / Time No Known Allergies Allergy Unverified 03/01/18 14:21 General Stated Complaint: SOB MIGUEL: 2 PFSH Medical History Hepatitis C (Chronic) Smoker (Chronic 04/15/16) Peripheral edema (Resolved 12/06/17) Depressive disorder (Chronic) Chronic obstructive lung disease (Chronic) Asthma (Chronic) Allergic rhinitis (Chronic) Acquired hypothyroidism (Chronic 07/02/16) Acute and chronic respiratory failure with hypercapnia (Chronic) 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 Course Vital Signs Respiratory Rate 23 12/10/18 23:01 Pulse Oximetry 27 L 12/10/18 23:01 Temperature 36.8 C 12/11/18 15:35 Temperature Source Temporal Artery Scan 12/11/18 15:35 Pulse 81 12/11/18 22:16 Pulse 83 12/11/18 22:16 Respiratory Rate 16 12/11/18 22:16 Respiratory Effort 12/11/18 15:35 Respiratory Depth Normal 12/11/18 07:40 Respiratory Pattern Normal 12/11/18 07:40 Blood Pressure 133/77 12/11/18 22:16 Blood Pressure Mean 89 12/11/18 22:16 Blood Pressure Position Supine 12/11/18 04:55 Pulse Oximetry 95 12/11/18 22:16 Respiratory End-tidal CO2 47 12/11/18 22:16 Oxygen Delivery Method Mechanical Ventilator 12/11/18 15:35 Oxygen Flow Rate 0 04/01/19 15:35 Fraction of Inspired Oxygen (FIO2) 40 12/11/18 17:44 Pain Level 0 12/11/18 04:55 Comment 12/10/18 23:05 Lab/Test Results Lab/Test Results: 12/11/18 16:21 Sputum Sputum Culture - Pending 12/11/18 16:21 Sputum Gram Stain - Pending 12/11/18 16:21 Sputum Gram Stain - Pending 12/11/18 12:10 Sputum Sputum Culture - Pending 12/11/18 12:10 Sputum Gram Stain - Pending 12/10/18 01:28 Blood Blood Culture - Pending 12/10/18 00:55 Blood Blood Culture - Pending 12/10/18 23:34 Nasopharynx Influenza Types A,B Antigen - Final Laboratory Tests Range/Units 12/10/18 12/10/18 12/10/18 23:25 23:25 23:25 WBC (4.4-10.8) k/cumm 13.81 H RBC (4.50-6.00) m/cumm 4.67 Hgb (13.5-17.5) g/dL 15.4 Hct (40.0-50.0) % 49.6 MCV (80-95) fL 106.2 H MCH (27.0-33.0) pg 33.0 MCHC (32.0-36.0) g/dL 31.0 L RDW (11.8-14.1) % 14.9 H Plt Count (130-400) x1000/uL 284 MPV (8.0-11.0) fL 8.8 Immature Gran % See Differential Neutrophils % 72.0 Lymphocytes % 11.0 Monocytes % 14.0 Eosinophils % 1.0 Basophils % 0.0 Metamyelocytes % % 2.0 Absolute Neutrophils (1.2-6.7) k/cumm 9.94 H Absolute Lymphocytes (1.2-3.4) k/cumm 1.52 Absolute Monocytes (0.11-0.7) k/cumm 1.93 H Absolute Eosinophils (0.0-0.7) k/cumm 0.14 Absolute Basophils (0.0-0.2) k/cumm 0.00 Differential Comment Manual differential RBC Morphology See below Macrocytosis 3+ PT (9.3-11.0) sec INR (0.9-1.1) APTT (21.0-31.4) sec Sample Site pCO2 (34-47) mmHg pO2 (83-108) mmHg O2 Saturation (94-98) % ABG pH (7.35-7.45) ABG HCO3 (22-28) mmol/L ABG Total CO2 (22-29) mmol/L ABG Base Excess (-3-3) mmol/L Oxygen Liter Flow L FiO2 % Sodium (136-145) mmol/L 132 L Potassium (3.5-5.1) mmol/L 5.6 H Chloride (98-107) mmol/L 91 L Carbon Dioxide (21.0-32.0) mmol/L 41.6 H Anion Gap (3-11) mmol/L -0.6 L BUN (7-18) mg/dL 9 Creatinine (0.70-1.30) mg/dL 0.80 Estimated GFR/1.73 m2 (mL/min/1.73m2) >= 60.00 Glucose (70-100) mg/dL 192 H Calcium (8.5-10.1) mg/dL 9.1 Magnesium (1.8-2.4) mg/dL 2.1 Total Bilirubin (0.2-1.0) mg/dL 0.5 AST (15-37) U/L 184 H ALT (12-78) U/L 101 H Alkaline Phosphatase (46-116) U/L 200 H Ammonia (11-32) umol/L 135 H Troponin I (0.00-0.06) ng/mL < 0.02 NT-Pro-B Natriuret Pep ( - 299) pg/mL Total Protein (6.4-8.2) g/dL 9.1 H Albumin (3.4-5.0) g/dL 3.4 TSH (0.358-3.74) uIU/mL Urine Color (Yellow) Urine Clarity Urine pH (5-8) Ur Specific Boyle (1.005-1.025) Urine Protein (Negative) mg/dL Urine Ketones (Negative) mg/dL Urine Blood (Negative) Urine Nitrite (Negative) Urine Bilirubin (Negative) Urine Urobilinogen (Up TO 0.2) EU/dL Ur Leukocyte Esterase (Negative) Urine Glucose (Negative) mg/dL Range/Units 12/10/18 12/10/18 12/10/18 23:25 23:25 23:25 WBC (4.4-10.8) k/cumm RBC (4.50-6.00) m/cumm Hgb (13.5-17.5) g/dL Hct (40.0-50.0) % MCV (80-95) fL MCH (27.0-33.0) pg MCHC (32.0-36.0) g/dL RDW (11.8-14.1) % Plt Count (130-400) x1000/uL MPV (8.0-11.0) fL Immature Gran % Neutrophils % Lymphocytes % Monocytes % Eosinophils % Basophils % Metamyelocytes % % Absolute Neutrophils (1.2-6.7) k/cumm Absolute Lymphocytes (1.2-3.4) k/cumm Absolute Monocytes (0.11-0.7) k/cumm Absolute Eosinophils (0.0-0.7) k/cumm Absolute Basophils (0.0-0.2) k/cumm Differential Comment RBC Morphology Macrocytosis PT (9.3-11.0) sec 10.3 INR (0.9-1.1) 1.0 APTT (21.0-31.4) sec 25.2 Sample Site Unknown pCO2 (34-47) mmHg pO2 (83-108) mmHg 100 O2 Saturation (94-98) % 97 ABG pH (7.35-7.45) 7.13 L* ABG HCO3 (22-28) mmol/L ABG Total CO2 (22-29) mmol/L ABG Base Excess (-3-3) mmol/L Oxygen Liter Flow L FiO2 % Sodium (136-145) mmol/L Potassium (3.5-5.1) mmol/L Chloride (98-107) mmol/L Carbon Dioxide (21.0-32.0) mmol/L Anion Gap (3-11) mmol/L BUN (7-18) mg/dL Creatinine (0.70-1.30) mg/dL Estimated GFR/1.73 m2 (mL/min/1.73m2) Glucose (70-100) mg/dL Calcium (8.5-10.1) mg/dL Magnesium (1.8-2.4) mg/dL Total Bilirubin (0.2-1.0) mg/dL AST (15-37) U/L ALT (12-78) U/L Alkaline Phosphatase (46-116) U/L Ammonia (11-32) umol/L Troponin I (0.00-0.06) ng/mL NT-Pro-B Natriuret Pep ( - 299) pg/mL 228 Total Protein (6.4-8.2) g/dL Albumin (3.4-5.0) g/dL TSH (0.358-3.74) uIU/mL Urine Color (Yellow) Urine Clarity Urine pH (5-8) Ur Specific Boyle (1.005-1.025) Urine Protein (Negative) mg/dL Urine Ketones (Negative) mg/dL Urine Blood (Negative) Urine Nitrite (Negative) Urine Bilirubin (Negative) Urine Urobilinogen (Up TO 0.2) EU/dL Ur Leukocyte Esterase (Negative) Urine Glucose (Negative) mg/dL Range/Units 12/10/18 12/10/18 12/11/18 23:33 23:38 00:42 WBC (4.4-10.8) k/cumm RBC (4.50-6.00) m/cumm Hgb (13.5-17.5) g/dL Hct (40.0-50.0) % MCV (80-95) fL MCH (27.0-33.0) pg MCHC (32.0-36.0) g/dL RDW (11.8-14.1) % Plt Count (130-400) x1000/uL MPV (8.0-11.0) fL Immature Gran % Neutrophils % Lymphocytes % Monocytes % Eosinophils % Basophils % Metamyelocytes % % Absolute Neutrophils (1.2-6.7) k/cumm Absolute Lymphocytes (1.2-3.4) k/cumm Absolute Monocytes (0.11-0.7) k/cumm Absolute Eosinophils (0.0-0.7) k/cumm Absolute Basophils (0.0-0.2) k/cumm Differential Comment RBC Morphology Macrocytosis PT (9.3-11.0) sec INR (0.9-1.1) APTT (21.0-31.4) sec Sample Site Left radial pCO2 (34-47) mmHg 93 H* pO2 (83-108) mmHg 70 L O2 Saturation (94-98) % 94 ABG pH (7.35-7.45) 7.26 L ABG HCO3 (22-28) mmol/L 41 H ABG Total CO2 (22-29) mmol/L 38 H ABG Base Excess (-3-3) mmol/L 14.3 H Oxygen Liter Flow L A/c 20 vt 450 FiO2 % 35% 5 peep Sodium (136-145) mmol/L Potassium (3.5-5.1) mmol/L Chloride (98-107) mmol/L Carbon Dioxide (21.0-32.0) mmol/L Anion Gap (3-11) mmol/L BUN (7-18) mg/dL Creatinine (0.70-1.30) mg/dL Estimated GFR/1.73 m2 (mL/min/1.73m2) Glucose (70-100) mg/dL Calcium (8.5-10.1) mg/dL Magnesium (1.8-2.4) mg/dL Total Bilirubin (0.2-1.0) mg/dL AST (15-37) U/L ALT (12-78) U/L Alkaline Phosphatase (46-116) U/L Ammonia (11-32) umol/L Troponin I (0.00-0.06) ng/mL NT-Pro-B Natriuret Pep ( - 299) pg/mL Total Protein (6.4-8.2) g/dL Albumin (3.4-5.0) g/dL TSH (0.358-3.74) uIU/mL Urine Color (Yellow) Yellow Cancelled Urine Clarity Clear Cancelled Urine pH (5-8) 6.5 Cancelled Ur Specific Boyle (1.005-1.025) 1.010 Cancelled Urine Protein (Negative) mg/dL Negative Cancelled Urine Ketones (Negative) mg/dL Negative Cancelled Urine Blood (Negative) Negative Cancelled Urine Nitrite (Negative) Negative Cancelled Urine Bilirubin (Negative) Negative Cancelled Urine Urobilinogen (Up TO 0.2) EU/dL 0.2 Cancelled Ur Leukocyte Esterase (Negative) Negative Cancelled Urine Glucose (Negative) mg/dL Negative Cancelled Range/Units 12/11/18 12/11/1819 05:55 05:55 07:30 WBC (4.4-10.8) k/cumm 12.59 H RBC (4.50-6.00) m/cumm 3.87 L Hgb (13.5-17.5) g/dL 12.9 L D Hct (40.0-50.0) % 40.9 MCV (80-95) fL 105.7 H MCH (27.0-33.0) pg 33.3 H MCHC (32.0-36.0) g/dL 31.5 L RDW (11.8-14.1) % 14.4 H Plt Count (130-400) x1000/uL 261 MPV (8.0-11.0) fL 9.0 Immature Gran % 0.8 Neutrophils % 90.1 Lymphocytes % 2.4 Monocytes % 6.6 Eosinophils % 0.0 Basophils % 0.1 Metamyelocytes % % Absolute Neutrophils (1.2-6.7) k/cumm 11.34 H Absolute Lymphocytes (1.2-3.4) k/cumm 0.30 L Absolute Monocytes (0.11-0.7) k/cumm 0.83 H Absolute Eosinophils (0.0-0.7) k/cumm 0.00 Absolute Basophils (0.0-0.2) k/cumm 0.01 Differential Comment RBC Morphology Macrocytosis PT (9.3-11.0) sec INR (0.9-1.1) APTT (21.0-31.4) sec Sample Site Right radial pCO2 (34-47) mmHg 62 H* pO2 (83-108) mmHg 55 L O2 Saturation (94-98) % 91 L ABG pH (7.35-7.45) 7.39 ABG HCO3 (22-28) mmol/L 38 H ABG Total CO2 (22-29) mmol/L 34 H ABG Base Excess (-3-3) mmol/L 12.5 H Oxygen Liter Flow L 30 FiO2 % Ventilator Sodium (136-145) mmol/L 134 L Potassium (3.5-5.1) mmol/L 4.6 Chloride (98-107) mmol/L 96 L Carbon Dioxide (21.0-32.0) mmol/L 34.5 H Anion Gap (3-11) mmol/L 3.5 BUN (7-18) mg/dL 11 Creatinine (0.70-1.30) mg/dL 0.83 Estimated GFR/1.73 m2 (mL/min/1.73m2) >= 60.00 Glucose (70-100) mg/dL 123 H Calcium (8.5-10.1) mg/dL 7.9 L Magnesium (1.8-2.4) mg/dL Total Bilirubin (0.2-1.0) mg/dL 0.8 AST (15-37) U/L 180 H ALT (12-78) U/L 88 H Alkaline Phosphatase (46-116) U/L 143 H Ammonia (11-32) umol/L Troponin I (0.00-0.06) ng/mL 0.04 NT-Pro-B Natriuret Pep ( - 299) pg/mL Total Protein (6.4-8.2) g/dL 6.7 Albumin (3.4-5.0) g/dL 2.5 L TSH (0.358-3.74) uIU/mL 3.26 Urine Color (Yellow) Urine Clarity Urine pH (5-8) Ur Specific Boyle (1.005-1.025) Urine Protein (Negative) mg/dL Urine Ketones (Negative) mg/dL Urine Blood (Negative) Urine Nitrite (Negative) Urine Bilirubin (Negative) Urine Urobilinogen (Up TO 0.2) EU/dL Ur Leukocyte Esterase (Negative) Urine Glucose (Negative) mg/dL Range/Units 12/11/18 12/11/18 12/11/18 10:14 12:30 14:20 WBC (4.4-10.8) k/cumm RBC (4.50-6.00) m/cumm Hgb (13.5-17.5) g/dL Hct (40.0-50.0) % MCV (80-95) fL MCH (27.0-33.0) pg MCHC (32.0-36.0) g/dL RDW (11.8-14.1) % Plt Count (130-400) x1000/uL MPV (8.0-11.0) fL Immature Gran % Neutrophils % Lymphocytes % Monocytes % Eosinophils % Basophils % Metamyelocytes % % Absolute Neutrophils (1.2-6.7) k/cumm Absolute Lymphocytes (1.2-3.4) k/cumm Absolute Monocytes (0.11-0.7) k/cumm Absolute Eosinophils (0.0-0.7) k/cumm Absolute Basophils (0.0-0.2) k/cumm Differential Comment RBC Morphology Macrocytosis PT (9.3-11.0) sec INR (0.9-1.1) APTT (21.0-31.4) sec Sample Site Right radial Left radial pCO2 (34-47) mmHg 69 H* 65 H* pO2 (83-108) mmHg 58 L 60 L O2 Saturation (94-98) % 91 L 92 L ABG pH (7.35-7.45) 7.36 7.38 ABG HCO3 (22-28) mmol/L 39 H 39 H ABG Total CO2 (22-29) mmol/L 35 H 35 H ABG Base Excess (-3-3) mmol/L 13.1 H 13.5 H Oxygen Liter Flow L 30 Ventilator FiO2 % Ventilator 30 Sodium (136-145) mmol/L Potassium (3.5-5.1) mmol/L Chloride (98-107) mmol/L Carbon Dioxide (21.0-32.0) mmol/L Anion Gap (3-11) mmol/L BUN (7-18) mg/dL Creatinine (0.70-1.30) mg/dL Estimated GFR/1.73 m2 (mL/min/1.73m2) Glucose (70-100) mg/dL Calcium (8.5-10.1) mg/dL Magnesium (1.8-2.4) mg/dL Total Bilirubin (0.2-1.0) mg/dL AST (15-37) U/L ALT (12-78) U/L Alkaline Phosphatase (46-116) U/L Ammonia (11-32) umol/L Troponin I (0.00-0.06) ng/mL 0.02 NT-Pro-B Natriuret Pep ( - 299) pg/mL Total Protein (6.4-8.2) g/dL Albumin (3.4-5.0) g/dL TSH (0.358-3.74) uIU/mL Urine Color (Yellow) Urine Clarity Urine pH (5-8) Ur Specific Boyle (1.005-1.025) Urine Protein (Negative) mg/dL Urine Ketones (Negative) mg/dL Urine Blood (Negative) Urine Nitrite (Negative) Urine Bilirubin (Negative) Urine Urobilinogen (Up TO 0.2) EU/dL Ur Leukocyte Esterase (Negative) Urine Glucose (Negative) mg/dL Procedures Intubation Time out performed: Yes sedative: Etomidate Mg Given: 20 paralytic: Succinylcholine Mg Given: 100 Laryngoscope: Cezar ET Tube Size: 8 ET Tube Uncuffed: Yes Tube Placement Confirmation: visualized tube passing through cords, equal breath sounds bilaterally and confirmation by capnometry Patient Tolerated Procedure: well
[2018-12-12] VITALS (80 sets, daily range): BP systolic 115–149; BP diastolic 61–90; PULSE 69–100; RESP 4–86; TEMP 37–37.4; O2SAT 86–98
[2018-12-12] MEDS: LORazepam 2 MG/ML VIAL 1 MG IVP ×3 (00:54→23:38)
[2018-12-12] MEDS: PIPERACILLIN/TAZO 4.5 GM in Normal Saline 100 ML IVPB ×3 (01:02→18:48)
[2018-12-12] MEDS: Normal Saline 1,000 ML 125 ML IV ×2 (02:24→16:35)
[2018-12-12] MEDS: Pantoprazole 40 MG VIAL IVP (02:27)
[2018-12-12] MEDS: Enoxaparin 40 MG/0.4 ML SYR SC (02:28)
[2018-12-12] MEDS: Normal Saline Flush 10 ML SYR IVP ×3 (02:28→20:16)
[2018-12-12] MEDS: Albuterol/Ipratropium 3 ML UPD VIAL UPD ×3 (02:29→18:36)
[2018-12-12] MEDS: methylPREDNISolone SUCC 125 MG VIAL 60 MG IVP ×4 (03:18→22:00)
[2018-12-12] MEDS: PROPOFOL 1,000 MG/100 ML BTL 36 MG IV ×6 (04:46→18:49)
[2018-12-12] MEDS: Levothyroxine 100 MCG TAB PO (06:59)
[2018-12-12 07:19] LABS: Abs Immature Grans 0.14 k/cumm (0.0-0.09); Absolute Eosinophil Count 0.03 k/cumm (0.0-0.7); Basophils % 0.1; Eosinophils % 0.2; HCT 38.3 % (40.0-50.0); HGB 12.5 g/dL (13.5-17.5); Immature Grans % 0.8; Lymphocytes % 3.6; Mean Corp. HGB Concentration 32.6 g/dL (32.0-36.0); Mean Corpuscular Hemoglobin 33.9 pg (27.0-33.0); Mean Corpuscular Volume 103.8 fL (80-95); Mean Platelet Volume 9.5 fL (8.0-11.0); Monocytes % 10.6; Neutrophils % 84.7; Platelet Count 293 x1000/uL (130-400); RBC 3.69 m/cumm (4.50-6.00); RBC Distribution Width 14.9 % (11.8-14.1); White Blood Cell Count 16.55 k/cumm (4.4-10.8)
[2018-12-12 07:32] LABS: Absolute Basophil Count 0.02 k/cumm (0.0-0.2); Absolute Monocyte Count 1.75 k/cumm (0.11-0.7); Absolute Neutrophil Count 14.02 k/cumm (1.2-6.7)
[2018-12-12 07:54] LABS: ALT 81 U/L (12-78); AST 138 U/L (15-37); Albumin 2.3 g/dL (3.4-5.0); Alkaline Phosphatase 124 U/L (46-116); BUN 12 mg/dL (7-18); Bilirubin, Total 0.5 mg/dL (0.2-1.0); CO2 34.2 mmol/L (21.0-32.0); CREATININE 0.72 mg/dL (0.70-1.30); Calcium 8.2 mg/dL (8.5-10.1); Glucose 118 mg/dL (70-100); Magnesium 1.9 mg/dL (1.8-2.4); Total Protein 6.5 g/dL (6.4-8.2)
[2018-12-12 08:00] LABS: Anion Gap 3.8 mmol/L (3-11); Chloride 103 mmol/L (98-107); Potassium 3.9 mmol/L (3.5-5.1); Sodium 141 mmol/L (136-145)
[2018-12-12 08:03] LABS: Macrocytosis 2+; Stomatocytes 2+
[2018-12-12 08:26] LABS: BE 8.8 mmol/L (-3-3); HCO3 35 mmol/L (22-28); pO2 82 mmHg (83-108); sO2 95 % (94-98); tCO2 32 mmol/L (22-29)
[2018-12-12 08:27] LABS: Site Right Radial; pCO2 72 mmHg (34-47)
--- NOTE | 2018-12-12 08:38 | PDOC.CMPRO ---
- If Service Date Differs Date of service: 12/12/18 Time of Service: 08:38 Care Management Progress Note S/O:Mahamed remains intubated in the ICU minimal change in status today. He continues on IV antibiotics and steroids. He is sedated his significant other has been updated over the phone. A:Mahamed is a 53 year old male admitted with resp failure with a history of chronic COPD p: Mahamed remains in the ICU intubated. CM to continue to provide support to patient and family discharge disposition and possible transfer to tertiary facility.
--- NOTE | 2018-12-12 09:00 | DI.RAD_ITS ---
SYMPTOM/DIAGNOSIS: ETT POSITIONING PORTABLE AP CHEST: The lungs are free of infiltrate. There is no apparent pleural effusion. The heart is not enlarged. There is some prominence of the upper lobe vasculature raising the possibility of pulmonary venous hypertension. When compared with the previous images, the endotracheal tube and PICC line remain in good position. SUMMARY: Question pulmonary venous hypertension. No evidence of overt congestive failure.
--- NOTE | 2018-12-12 11:02 | PHARADMIT ---
Addendum entered by Sera Acosta 12/13/18 14:52: Pharmacy Note Subjective Possible wean trial off ventilator today around noontime, decreased sedation Objective BP 145/90, Afebrile, lytes in normal range, WBC 16.39, LFT's up today SCr has been steady, today 0.74 Micro sputum: heavy Pseudomonas Assessment Lasix IV daily, IV steroids Zosyn day#2 (started 12/11/18) Zosyn is extended interval Vanco day#2 (started 12/11/18) Vanco trough yesterday 17.4, continued on 1250mg Q8h Plan Will order Vanco trough for 12/14/18 @ 11am Likely extubation tonight/tomorrow Original Note: Admission Pharmacy Clinical Review acute on chronic hypercarbic respiratory failure Code Status Full Code Current Weight 105 kg Renally Cleared and Narrow Therapeutic Index Meds Crcl ~104.00 mL/min current meds okay QTc Value / Action Taken QTc 428 BP Control, Fever BP 115/61 afebrile Electrolytes reviewed within normal limits DVT Prophylaxis enoxaparin Opiate Usage / Scheduled Bowel Regimen Ordered prn/no Plt/SCr for Heparin / Enoxaparin plt 293 SCr 0.72 INR for Warfarin n/a H/H stable, WBC/Bands h/h 12.5/38.3 wbc 16.55 Antibiotic appropriateness vanco and zosyn Cultures and Sensitivities blood cultures- no growth @24 hours sputim culture- pending rapid flu-negative Surgical ABX d/c within 24 hr n/a DM control / Insulin Dosing BG 118 Heart Failure (Check EF%) (GAURAV's, B-Block, Diuretics) none IV to PO Switch n/a Home Meds Reviewed -multiple anticholinergic meds- cetirizine, ipratropium, tiotropium -multiple QTc prolonging meds-azithromycin, methadone, albuterol, formoterol -multiple ILLUMINATOR depressing meds- methadone, lorazepam, cetirizine -separate admin of levothyroxine from multivitamin -ibuprofen may diminish the diuretic effects of furosemide Home Meds Not Ordered azithromycin, budesonide and formoterol, cetirizine, diltiazem, flonase, furosemide, guaifenesin, ibuprofen, multivitamin, nicotine, miralax, prednisone, tiotropium Comments vanco trough today was 17.4 continuing current dosing to target a trough of 16.6
[2018-12-12] MEDS: Methadone Liquid 10 MG/ML 30 MG PO (11:08)
[2018-12-12] MEDS: Lactulose 20 GM/30 ML CUP 30 GM NG ×3 (11:08→20:16)
[2018-12-12 11:59] LABS: Vancomycin, Trough 17.4 ug/mL (10.0-20.0)
--- NOTE | 2018-12-12 14:11 | NUR.NOTE ---
Pt was placed on a spontaneous breathing trial with Mone Ford RN and Jonathan Cordero RT. Propofol was shut off at 1248 and patient gradually woke up to where he was able to follow some commands. Patient was able to maintain adequate rate and volume on his own. Dr. Godinez came to the room to assess the patient during the SBT and opted to re-sedate the patient and plan for another SBT in the AM with the hope of extubation. The patient shook his head no when asked if he was in pain. The patient became more agitated with the tube and being restrained towards the end of the breathing trial and he would calm some with verbal support. The patient was oriented by RT to his situation and the patient shook his head yes when asked if he was okay with having the tube in to help him breath and if it was okay if we leave it in until tomorrow. Propofol was restarted at 1322 at 80mcg/kg/min as patient was increasing distressed with the tube in his mouth. The patient was fully sedated and propofol reduced to 50mcg/kg/min at 1332. Pt resting well with ETT and NG tube in place. Nursing Note:
[2018-12-12 17:25] LABS: Streptococcus Pneumoniae Ag, U Negative (Negative)
--- NOTE | 2018-12-12 20:24 | W.PM.PROGNOT ---
Date of Service Date of service: 12/12/18 Time of Service: 20:25 Assessment and Plan (1) Acute and chronic respiratory failure with hypercapnia: Current visit: No Status: Chronic Acute on chronic hypercapneic and hypoxic respiratory failure in patient with significant underlying COPD. Currently stable - continue current vent settings. On antibiotics without clear source for infection but with underlying COPD. Continue high dose steroids, frequent nebs. Patient will likely be difficult to extubate given extent of his disease. He met with his palliative care physician earlier the week prior to his admission, and expressed his wishes to be full code and expects prolonged life support. (2) COPD exacerbation: Current visit: Yes Status: Acute As above. (3) Cirrhosis: Current visit: Yes Status: Acute Prior history of Hep C Cirrhosis, although with potential EtOH abuse as well. Has a history of hepatic encephalopathy, on Lactulose. This will be continued via NGT while patient is intubated, to allow for attempts at weaning. (4) Hepatitis C: Current visit: No Status: Chronic Reportedly treated, but with continued elevated LFTs. Cause for HCV is prior history of IVDA, for which he is on Methadone via BAART. Qualifiers: Viral hepatitis chronicity: chronic Hepatic coma status: without hepatic coma Qualified Code(s): B18.2 - Chronic viral hepatitis C (5) DVT prophylaxis: Current visit: Yes Status: Acute Continue SC Lovenox. Also on PPI for GI prophylaxis. (6) Advance directive on file: Current visit: Yes Status: Acute Full Code. Subjective Interval history since last seen: 53 year old man with a history of endstage COPD, admitted from [facility] Emergency Department on 12/11 with a diagnosis of acute Hypercapneic Hypoxic Respiratory Failure. Mr. 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 He also has a noted history of depression, anxiety, and hypothyroidism. The patient had been experiencing worsening dyspnea over the few days to his admission, acutely worsened over the course of 24 hours. He was recently prescribed another course of prednisone taper per report from his caregiver. On the night of his admission he developed an acute respiratory distress, and was transported to the ED by EMS who found him upon arrival to be cyanotic, unresponsive, and hypoxic with SPO2 levels of 60%. He was transported on NIPPV with BiPAP. Upon arrival the patient was found to be cyanotic and unresponsive, immediately intubated and placed on mechanical ventilation, and referred for admission to the ICU. His workup included a CT of the chest that did not confirm a focal airspace consolidation, and a CT of the abdomen without any acute pathology. He was noted to have a leukocytosis, and ABG showed respiratory Acidosis with a significant elevation of his PCO2. Following admission for Montero was placed on broad-spectrum antibiotics, high-dose steroids, and maintained on sedation with a propofol drip. He has since remained intubated and on mechanical ventilation. Patient did surprisingly well on a weaning trial this morning, but appeared significantly fatigued and tachypneic by the end. No other events reported. He remains afebrile. Exam Narrative Exam Narrative: General: Patient is sedated, intubated, and on mechanical ventilation is. Neck: Supple CV: Regular, nontachycardic, S1S2, No rubs, murmurs, or gallops. Distant Heart Sounds. Pulmonary: Significantly decreased breath sounds and wheezing diffusely wondering if this does not work while transferring Abdomen: + Bowel Sounds, soft, nontender, nondistended Vascular: No lower extremity edema Neurologic: CN II-XII grossly intact. No focal deficits. Psych: Normal mood and affect. Objective Objective Clinical Data: Abnormal lab results 12/12/18 12/12/18 12/12/18 Range/Units 06:20 06:20 08:26 WBC 16.55 H D (4.4-10.8) k/cumm RBC 3.69 L (4.50-6.00) m/cumm Hgb 12.5 L (13.5-17.5) g/dL Hct 38.3 L (40.0-50.0) % MCV 103.8 H (80-95) fL MCH 33.9 H (27.0-33.0) pg RDW 14.9 H (11.8-14.1) % Absolute Neutrophils 14.02 H (1.2-6.7) k/cumm Absolute Lymphocytes 0.60 L (1.2-3.4) k/cumm Absolute Monocytes 1.75 H (0.11-0.7) k/cumm pCO2 72 H* (34-47) mmHg pO2 82 L (83-108) mmHg ABG pH 7.30 L (7.35-7.45) ABG HCO3 35 H (22-28) mmol/L ABG Total CO2 32 H (22-29) mmol/L ABG Base Excess 8.8 H (-3-3) mmol/L Carbon Dioxide 34.2 H (21.0-32.0) mmol/L Glucose 118 H (70-100) mg/dL Calcium 8.2 L (8.5-10.1) mg/dL AST 138 H (15-37) U/L ALT 81 H (12-78) U/L Alkaline Phosphatase 124 H (46-116) U/L Albumin 2.3 L (3.4-5.0) g/dL Vital Signs Temperature 37.1 C 12/12/18 20:17 Temperature Source Tympanic 12/12/18 20:17 Pulse 77 12/12/18 20:00 Pulse 77 12/12/18 20:01 Respiratory Rate 31 H 12/12/18 20:01 Respiratory Effort 12/12/18 15:27 Respiratory Depth Shallow 12/12/18 15:27 Respiratory Pattern Normal 12/12/18 15:27 Blood Pressure 132/76 12/12/18 20:00 Blood Pressure Mean 87 12/12/18 20:00 Blood Pressure Position Supine 12/11/18 19:35 Pulse Oximetry 89 L 12/12/18 20:01 Respiratory End-tidal CO2 45 12/12/18 20:01 Oxygen Delivery Method Mechanical Ventilator 12/11/18 19:35 Oxygen Flow Rate 0 12/11/18 19:35 Fraction of Inspired Oxygen (FIO2) 30 12/12/18 18:55 Pain Level 0 12/12/18 15:27 Comment 12/10/18 23:05 Intake & Output 12/11/18 12/12/18 12/12/18 23:59 11:59 23:59 Intake Total 213.44 / 3869.22 2601.117 / 3293.117 692.0 / 3293.117 Output Total 1525 / 5700 600 / 1450 850 / 1450 Balance 610.44 / -1830.78 2001.117 / 1843.117 -158.0 / 1843.117 Weight 105 kg 105 kg Intake: IV 2135.44 / 3869.22 2601.117 / 3293.117 692.0 / 3293.117 Output: Gastric Drainage 350 / 350 Right Nare 350 / 350 Urine 1525 / 5700 600 / 1100 500 / 1100 Other: Urine Color Light Roman Dark Roman Dark Roman Urine Appearance Clear Clear Clear Comment quintanilla with light colored roman urine that dipsticked sg 1.010, trace leukocytes and +blood Quintanilla in place Quintanilla in place Gastric Occult Blood Left Nare Positive Laboratory Results WBC 16.55 k/cumm (4.4-10.8) H D 12/12/18 06:20 RBC 3.69 m/cumm (4.50-6.00) L 12/12/18 06:20 Hgb 12.5 g/dL (13.5-17.5) L 12/12/18 06:20 Hct 38.3 % (40.0-50.0) L 12/12/18 06:20 MCV 103.8 fL (80-95) H 12/12/18 06:20 MCH 33.9 pg (27.0-33.0) H 12/12/18 06:20 MCHC 32.6 g/dL (32.0-36.0) 12/12/18 06:20 RDW 14.9 % (11.8-14.1) H 12/12/18 06:20 Plt Count 293 x1000/uL (130-400) 12/12/18 06:20 MPV 9.5 fL (8.0-11.0) 12/12/18 06:20 Immature Gran % 0.8 12/12/18 06:20 Neutrophils % 84.7 12/12/18 06:20 Lymphocytes % 3.6 12/12/18 06:20 Monocytes % 10.6 12/12/18 06:20 Eosinophils % 0.2 12/12/18 06:20 Basophils % 0.1 12/12/18 06:20 Metamyelocytes % 2.0 % 12/10/18 23:25 Absolute Neutrophils 14.02 k/cumm (1.2-6.7) H 12/12/18 06:20 Absolute Lymphocytes 0.60 k/cumm (1.2-3.4) L 12/12/18 06:20 Absolute Monocytes 1.75 k/cumm (0.11-0.7) H 12/12/18 06:20 Absolute Eosinophils 0.03 k/cumm (0.0-0.7) 12/12/18 06:20 Absolute Basophils 0.02 k/cumm (0.0-0.2) 12/12/18 06:20 Differential Comment Comment 12/12/18 06:20 RBC Morphology See below 12/12/18 06:20 Macrocytosis 2+ 12/12/18 06:20 Stomatocytes 2+ 12/12/18 06:20 PT 10.3 sec (9.3-11.0) 12/10/18 23:25 INR 1.0 (0.9-1.1) 12/10/18 23:25 APTT 25.2 sec (21.0-31.4) 12/10/18 23:25 Sample Site Right radial 12/12/18 08:26 pCO2 72 mmHg (34-47) H* 12/12/18 08:26 pO2 82 mmHg (83-108) L 12/12/18 08:26 O2 Saturation 95 % (94-98) 12/12/18 08:26 ABG pH 7.30 (7.35-7.45) L 12/12/18 08:26 ABG HCO3 35 mmol/L (22-28) H 12/12/18 08:26 ABG Total CO2 32 mmol/L (22-29) H 12/12/18 08:26 ABG Base Excess 8.8 mmol/L (-3-3) H 12/12/18 08:26 Oxygen Liter Flow A/c 16 vt 450 L 12/12/18 08:26 FiO2 40% 5 peep % 12/12/18 08:26 Sodium 141 mmol/L (136-145) 12/12/18 06:20 Potassium 3.9 mmol/L (3.5-5.1) 12/12/18 06:20 Chloride 103 mmol/L (98-107) 12/12/18 06:20 Carbon Dioxide 34.2 mmol/L (21.0-32.0) H 12/12/18 06:20 Anion Gap 3.8 mmol/L (3-11) 12/12/18 06:20 BUN 12 mg/dL (7-18) 12/12/18 06:20 Creatinine 0.72 mg/dL (0.70-1.30) 12/12/18 06:20 Estimated GFR/1.73 m2 >= 60.00 (mL/min/1.73m2) 12/12/18 06:20 Glucose 118 mg/dL (70-100) H 12/12/18 06:20 Calcium 8.2 mg/dL (8.5-10.1) L 12/12/18 06:20 Magnesium 1.9 mg/dL (1.8-2.4) 12/12/18 06:20 Total Bilirubin 0.5 mg/dL (0.2-1.0) 12/12/18 06:20 AST 138 U/L (15-37) H 12/12/18 06:20 ALT 81 U/L (12-78) H 12/12/18 06:20 Alkaline Phosphatase 124 U/L (46-116) H 12/12/18 06:20 Ammonia 135 umol/L (11-32) H 12/10/18 23:25 Troponin I 0.02 ng/mL (0.00-0.06) 12/11/18 14:20 NT-Pro-B Natriuret Pep 228 pg/mL (-299) 12/10/18 23:25 Total Protein 6.5 g/dL (6.4-8.2) 12/12/18 06:20 Albumin 2.3 g/dL (3.4-5.0) L 12/12/18 06:20 TSH 3.26 uIU/mL (0.358-3.74) 12/11/18 05:55 Urine Color Yellow (Yellow) 12/10/18 23:33 Urine Clarity Clear 12/10/18 23:33 Urine pH 6.5 (5-8) 12/10/18 23:33 Ur Specific [place] 1.010 (1.005-1.025) 12/10/18 23:33 Urine Protein Negative mg/dL (Negative) 12/10/18 23:33 Urine Ketones Negative mg/dL (Negative) 12/10/18 23:33 Urine Blood Negative (Negative) 12/10/18 23:33 Urine Nitrite Negative (Negative) 12/10/18 23:33 Urine Bilirubin Negative (Negative) 12/10/18 23:33 Urine Urobilinogen 0.2 EU/dL (Up TO 0.2) 12/10/18 23:33 Ur Leukocyte Esterase Negative (Negative) 12/10/18 23:33 Urine Glucose Negative mg/dL (Negative) 12/10/18 23:33 Vancomycin Trough 17.4 ug/mL (10.0-20.0) 12/12/18 11:00 Legionella Source (see note) 12/11/18 12:30 Legionella Reprt Status (see note) 12/11/18 12:30 Legionella Final Result (see note) 12/11/18 12:30
[2018-12-13] VITALS (59 sets, daily range): BP systolic 128–167; BP diastolic 72–103; PULSE 51–120; RESP 8–37; TEMP 36.5–37.4; O2SAT 89–98
[2018-12-13] MEDS: PROPOFOL 1,000 MG/100 ML BTL 43.2 MG IV ×4 (00:10→06:25)
[2018-12-13] MEDS: PIPERACILLIN/TAZO 4.5 GM in Normal Saline 100 ML IVPB ×3 (02:00→18:23)
[2018-12-13] MEDS: Normal Saline 1,000 ML 100 ML IV (02:10)
[2018-12-13] MEDS: Enoxaparin 40 MG/0.4 ML SYR SC (04:13)
[2018-12-13] MEDS: Normal Saline Flush 10 ML SYR IVP ×5 (04:13→15:13)
[2018-12-13] MEDS: methylPREDNISolone SUCC 125 MG VIAL 60 MG IVP ×4 (04:13→21:53)
[2018-12-13] MEDS: Pantoprazole 40 MG VIAL IVP (04:13)
[2018-12-13] MEDS: Albuterol/Ipratropium 3 ML UPD VIAL UPD ×5 (06:09→23:01)
[2018-12-13] MEDS: Levothyroxine 100 MCG TAB PO (06:09)
[2018-12-13 07:19] LABS: Abs Immature Grans 0.15 k/cumm (0.0-0.09); Absolute Basophil Count 0.02 k/cumm (0.0-0.2); Absolute Lymphocyte Count 0.85 k/cumm (1.2-3.4); Absolute Monocyte Count 2.13 k/cumm (0.11-0.7); Absolute Neutrophil Count 13.24 k/cumm (1.2-6.7); Basophils % 0.1; HCT 39.8 % (40.0-50.0); Immature Grans % 0.9; Lymphocytes % 5.2; Mean Corp. HGB Concentration 32.7 g/dL (32.0-36.0); Mean Corpuscular Volume 104.2 fL (80-95); Mean Platelet Volume 9.4 fL (8.0-11.0); Neutrophils % 80.8; Platelet Count 314 x1000/uL (130-400); RBC 3.82 m/cumm (4.50-6.00); White Blood Cell Count 16.39 k/cumm (4.4-10.8)
[2018-12-13 07:34] LABS: ALT 108 U/L (12-78); AST 181 U/L (15-37); Albumin 2.4 g/dL (3.4-5.0); Alkaline Phosphatase 122 U/L (46-116); Anion Gap 4.3 mmol/L (3-11); BUN 18 mg/dL (7-18); Bilirubin, Total 0.5 mg/dL (0.2-1.0); CO2 32.7 mmol/L (21.0-32.0); CREATININE 0.74 mg/dL (0.70-1.30); Calcium 8.5 mg/dL (8.5-10.1); Chloride 105 mmol/L (98-107); Glucose 128 mg/dL (70-100); Magnesium 2.1 mg/dL (1.8-2.4); Potassium 3.8 mmol/L (3.5-5.1); Sodium 142 mmol/L (136-145); Total Protein 6.6 g/dL (6.4-8.2)
[2018-12-13 07:37] LABS: Macrocytosis 2+; Polychromasia Present; Stomatocytes 2+
[2018-12-13 07:41] LABS: BE 9.2 mmol/L (-3-3); HCO3 35 mmol/L (22-28); pH 7.36 (7.35-7.45); pO2 61 mmHg (83-108); sO2 92 % (94-98); tCO2 32 mmol/L (22-29)
[2018-12-13 07:43] LABS: FIO2 30 %; FIO2L Vent L; Site Left Radial; pCO2 62 mmHg (34-47)
[2018-12-13] MEDS: Potassium Chloride Liquid 20 MEQ PKT PO (08:44)
[2018-12-13] MEDS: Furosemide 40 MG/4 ML VIAL IVP (08:44)
[2018-12-13] MEDS: Lactulose 20 GM/30 ML CUP 30 GM NG ×3 (08:44→19:45)
[2018-12-13] MEDS: Tamsulosin 0.4 MG CAPCR PO (08:44)
[2018-12-13] MEDS: Methadone Liquid 10 MG/ML 30 MG PO (08:45)
[2018-12-13] MEDS: Potassium Chloride 20 MEQ TABCR PO (09:03)
[2018-12-13] MEDS: PROPOFOL 1,000 MG/100 ML BTL 36 MG IV ×6 (09:29→22:00)
[2018-12-13] MEDS: Albuterol 2.5 MG/3 ML INH SOLN VIAL UPD (10:10)
[2018-12-13] MEDS: LORazepam 2 MG/ML VIAL 1 MG IVP (12:59)
--- NOTE | 2018-12-13 15:45 | PGE_ITS ---
Date of Service Date of service: 12/13/18 Time of Service: 15:41 Assessment and Plan (1) Acute and chronic respiratory failure with hypercapnia: Current visit: No Status: Chronic Acute on chronic hypercapneic and hypoxic respiratory failure in patient with significant, end-stage underlying COPD. Currently stable - continue current vent settings. On antibiotics without clear source for infection but with underlying COPD. Continue high dose steroids, frequent nebs. Patient will likely be difficult to extubate given extent of his disease. He met with his palliative care physician earlier the week prior to his admission, and expressed his wishes to be full code and expects prolonged life support. Plan on repeat wean attempt tomorrow, and if not able to extubate may consider transfer to tertiary center. (2) COPD exacerbation: Current visit: Yes Status: Acute As above. (3) Cirrhosis: Current visit: Yes Status: Acute Prior history of Hep C Cirrhosis, although with potential EtOH abuse as well. Has a history of hepatic encephalopathy, on Lactulose. (4) Hepatitis C: Current visit: No Status: Chronic Reportedly treated, but with continued elevated LFTs. Cause for HCV is prior history of IVDA, for which he is on Methadone via BAART. Qualifiers: Viral hepatitis chronicity: chronic Hepatic coma status: without hepatic coma Qualified Code(s): B18.2 - Chronic viral hepatitis C (5) DVT prophylaxis: Current visit: Yes Status: Acute Continue SC Lovenox. Also on PPI for GI prophylaxis. (6) Advance directive on file: Current visit: Yes Status: Acute Full Code. Subjective Interval history since last seen: 53 year old man with a history of endstage COPD, admitted from [facility] Emergency Department on 12/11 with a diagnosis of acute Hypercapneic Hypoxic Respiratory Failure. Mr. 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 His other prior medical history includes HCV, EtOH, c irrhosis with prior episodes of hepatic encephalopathy on chronic lactulose, and a history of IVDA on methadone therapy. He also has a noted history of depression, anxiety, and hypothyroidism. The patient had been experiencing worsening dyspnea over the few days to his admission, acutely worsened over the course of 24 hours. He was recently prescribed another course of prednisone taper per report from his caregiver. On the night of his admission he developed an acute respiratory distress, and was transported to the ED by EMS who found him upon arrival to be cyanotic, unresponsive, and hypoxic with SPO2 levels of 60%. He was transported on NIPPV with BiPAP. Upon arrival the patient was found to be cyanotic and unresponsive, immediately intubated and placed on mechanical ventilation, and referred for admission to the ICU. His workup included a CT of the chest that did not confirm a focal airspace consolidation, and a CT of the abdomen without any acute pathology. He was noted to have a leukocytosis, and ABG showed respiratory Acidosis with a significant elevation of his PCO2. Following admission Mr. Montero was placed on broad-spectrum antibiotics, high- dose steroids, and maintained on sedation with a propofol drip. He has since remained intubated and on mechanical ventilation, clinically unchanged since yesterday. Patient did surprisingly well on a weaning trial yesterday morning, but appeared fatigued and tachypneic by the end. Repeated wean trial this morning with similiar results. No other events reported. He remains afebrile. Exam Narrative Exam Narrative: General: Patient is sedated, intubated, and on mechanical ventilation is. Neck: Supple CV: Regular, nontachycardic, S1S2, No rubs, murmurs, or gallops. Distant Heart Sounds. Pulmonary: Significantly decreased although improved breath sounds and wheezing diffusely Abdomen: + Bowel Sounds, soft, nontender, nondistended Vascular: No lower extremity edema Objective Objective Clinical Data: Abnormal lab results 12/13/18 12/13/18 12/13/18 Range/Units 06:15 06:15 07:38 WBC 16.39 H (4.4-10.8) k/cumm RBC 3.82 L (4.50-6.00) m/cumm Hgb 13.0 L (13.5-17.5) g/dL Hct 39.8 L (40.0-50.0) % MCV 104.2 H (80-95) fL MCH 34.0 H (27.0-33.0) pg RDW 15.0 H (11.8-14.1) % Absolute Neutrophils 13.24 H (1.2-6.7) k/cumm Absolute Lymphocytes 0.85 L (1.2-3.4) k/cumm Absolute Monocytes 2.13 H (0.11-0.7) k/cumm pCO2 62 H* (34-47) mmHg pO2 61 L (83-108) mmHg O2 Saturation 92 L (94-98) % ABG HCO3 35 H (22-28) mmol/L ABG Total CO2 32 H (22-29) mmol/L ABG Base Excess 9.2 H (-3-3) mmol/L Carbon Dioxide 32.7 H (21.0-32.0) mmol/L Glucose 128 H (70-100) mg/dL AST 181 H (15-37) U/L ALT 108 H (12-78) U/L Alkaline Phosphatase 122 H (46-116) U/L Albumin 2.4 L (3.4-5.0) g/dL Vital Signs Temperature 36.9 C 12/13/18 08:15 Temperature Source Temporal Artery Scan 12/13/18 08:15 Pulse 62 12/13/18 12:01 Pulse 65 12/13/18 12:01 Respiratory Rate 16 12/13/18 14:55 Respiratory Effort 12/13/18 08:15 Respiratory Depth Shallow 12/13/18 08:15 Respiratory Pattern Normal 12/13/18 08:15 Blood Pressure 145/90 H 12/13/18 12:01 Blood Pressure Mean 103 12/13/18 12:01 Blood Pressure Position Supine 12/13/18 08:15 Pulse Oximetry 94 L 12/13/18 14:55 Respiratory End-tidal CO2 48 12/13/18 14:55 Oxygen Delivery Method Mechanical Ventilator 12/13/18 08:15 Oxygen Flow Rate 0 12/13/18 08:15 Fraction of Inspired Oxygen (FIO2) 30 12/13/18 14:55 Pain Level 0 12/13/18 08:15 Comment 12/10/18 23:05 Intake & Output 12/12/18 12/13/18 12/13/18 23:59 11:59 23:59 Intake Total 1142.0 / 3743.117 2524.976 / 2974.976 450.000 / 2974.976 Output Total 850 / 1450 3125 / 3825 700 / 3825 Balance 292.0 / 2293.117 -600.024 / -850.024 -250.000 / -850.024 Weight 105 kg 104.5 kg Intake: IV 1142.0 / 3743.117 2524.976 / 2974.976 450.000 / 2974.976 Output: Gastric Drainage 350 / 350 150 / 150 Right Nare 350 / 350 150 / 150 Urine 500 / 1100 2975 / 3675 700 / 3675 Other: Urine Color Dark Tamara Pale Yellow Yellow Urine Appearance Cloudy Clear Clear Comment Indwelling uqintanilla catheter in place Indwelling urinary quintanilla catheter in place and patent, draining. Stool Occult Blood Negative Stool Size Moderate Stool Characteristics Soft Brown Gastric Occult Blood Right Nare Negative Negative Laboratory Results WBC 16.39 k/cumm (4.4-10.8) H 12/13/18 06:15 RBC 3.82 m/cumm (4.50-6.00) L 12/13/18 06:15 Hgb 13.0 g/dL (13.5-17.5) L 12/13/18 06:15 Hct 39.8 % (40.0-50.0) L 12/13/18 06:15 MCV 104.2 fL (80-95) H 12/13/18 06:15 MCH 34.0 pg (27.0-33.0) H 12/13/18 06:15 MCHC 32.7 g/dL (32.0-36.0) 12/13/18 06:15 RDW 15.0 % (11.8-14.1) H 12/13/18 06:15 Plt Count 314 x1000/uL (130-400) 12/13/18 06:15 MPV 9.4 fL (8.0-11.0) 12/13/18 06:15 Immature Gran % 0.9 12/13/18 06:15 Neutrophils % 80.8 12/13/18 06:15 Lymphocytes % 5.2 12/13/18 06:15 Monocytes % 13.0 12/13/18 06:15 Eosinophils % 0.0 12/13/18 06:15 Basophils % 0.1 12/13/18 06:15 Metamyelocytes % 2.0 % 12/10/18 23:25 Absolute Neutrophils 13.24 k/cumm (1.2-6.7) H 12/13/18 06:15 Absolute Lymphocytes 0.85 k/cumm (1.2-3.4) L 12/13/18 06:15 Absolute Monocytes 2.13 k/cumm (0.11-0.7) H 12/13/18 06:15 Absolute Eosinophils 0.00 k/cumm (0.0-0.7) 12/13/18 06:15 Absolute Basophils 0.02 k/cumm (0.0-0.2) 12/13/18 06:15 Differential Comment Comment 12/13/18 06:15 RBC Morphology See below 12/13/18 06:15 Polychromasia Present 12/13/18 06:15 Macrocytosis 2+ 12/13/18 06:15 Stomatocytes 2+ 12/13/18 06:15 PT 10.3 sec (9.3-11.0) 12/10/18 23:25 INR 1.0 (0.9-1.1) 12/10/18 23:25 APTT 25.2 sec (21.0-31.4) 12/10/18 23:25 Sample Site Left radial 12/13/18 07:38 pCO2 62 mmHg (34-47) H* 12/13/18 07:38 pO2 61 mmHg (83-108) L 12/13/18 07:38 O2 Saturation 92 % (94-98) L 12/13/18 07:38 ABG pH 7.36 (7.35-7.45) 12/13/18 07:38 ABG HCO3 35 mmol/L (22-28) H 12/13/18 07:38 ABG Total CO2 32 mmol/L (22-29) H 12/13/18 07:38 ABG Base Excess 9.2 mmol/L (-3-3) H 12/13/18 07:38 Oxygen Liter Flow Vent L 12/13/18 07:38 FiO2 30 % 12/13/18 07:38 Sodium 142 mmol/L (136-145) 12/13/18 06:15 Potassium 3.8 mmol/L (3.5-5.1) 12/13/18 06:15 Chloride 105 mmol/L (98-107) 12/13/18 06:15 Carbon Dioxide 32.7 mmol/L (21.0-32.0) H 12/13/18 06:15 Anion Gap 4.3 mmol/L (3-11) 12/13/18 06:15 BUN 18 mg/dL (7-18) D 12/13/18 06:15 Creatinine 0.74 mg/dL (0.70-1.30) 12/13/18 06:15 Estimated GFR/1.73 m2 >= 60.00 (mL/min/1.73m2) 12/13/18 06:15 Glucose 128 mg/dL (70-100) H 12/13/18 06:15 Calcium 8.5 mg/dL (8.5-10.1) 12/13/18 06:15 Magnesium 2.1 mg/dL (1.8-2.4) 12/13/18 06:15 Total Bilirubin 0.5 mg/dL (0.2-1.0) 12/13/18 06:15 AST 181 U/L (15-37) H 12/13/18 06:15 ALT 108 U/L (12-78) H 12/13/18 06:15 Alkaline Phosphatase 122 U/L (46-116) H 12/13/18 06:15 Ammonia 135 umol/L (11-32) H 12/10/18 23:25 Troponin I 0.02 ng/mL (0.00-0.06) 12/11/18 14:20 NT-Pro-B Natriuret Pep 228 pg/mL (-299) 12/10/18 23:25 Total Protein 6.6 g/dL (6.4-8.2) 12/13/18 06:15 Albumin 2.4 g/dL (3.4-5.0) L 12/13/18 06:15 TSH 3.26 uIU/mL (0.358-3.74) 12/11/18 05:55 Urine Color Yellow (Yellow) 12/10/18 23:33 Urine Clarity Clear 12/10/18 23:33 Urine pH 6.5 (5-8) 12/10/18 23:33 Ur Specific [place] 1.010 (1.005-1.025) 12/10/18 23:33 Urine Protein Negative mg/dL (Negative) 12/10/18 23:33 Urine Ketones Negative mg/dL (Negative) 12/10/18 23:33 Urine Blood Negative (Negative) 12/10/18 23:33 Urine Nitrite Negative (Negative) 12/10/18 23:33 Urine Bilirubin Negative (Negative) 12/10/18 23:33 Urine Urobilinogen 0.2 EU/dL (Up TO 0.2) 12/10/18 23:33 Ur Leukocyte Esterase Negative (Negative) 12/10/18 23:33 Urine Glucose Negative mg/dL (Negative) 12/10/18 23:33 Vancomycin Trough 17.4 ug/mL (10.0-20.0) 12/12/18 11:00 Legionella Source (see note) 12/11/18 12:30 Legionella Reprt Status (see note) 12/11/18 12:30 L.pneumophila Antibody Negative (Negative) 12/11/18 06:00 Legionella Final Result (see note) 12/11/18 12:30 Ur Strep pneumoniae Ag Negative (Negative) 12/11/18 12:30
--- NOTE | 2018-12-13 16:53 | PDOC.CMPRO ---
- If Service Date Differs Date of service: 12/13/18 Time of Service: 16:53 Care Management Progress Note S/O: Mahamed remains intubated he failed his wean trial today. Per provider will attempt another trial tomorrow anticipate transfer to tertiary center. No other changes today he remains sedated with IV medications while intubated and continues to receive IV antibiotics and steroids at this time. A: Mahamed is a 53 year old male admitted with resp failure, he has a long standing history of COPD, and chronic oxygen use at home. Per palliative provider during home visit Mahamed has poor activity tolerance due to difficulty breathing. P: No change in Mahamed's condition today plan will attempt to wean him off the ventilator again on . Anticipate transfer to tertiary center for ongoing management of respiratory failure and prolonged intubation.
[2018-12-13] MEDS: Normal Saline 1,000 ML 125 ML IV (17:02)
[2018-12-13] MEDS: VANCOMYCIN 1,250 MG in Normal Saline 250 ML 166.667 MG IVPB (19:45)
[2018-12-13 23:46] LABS: Mycoplasma Pneumoniae PCR Negative; Specimen source SPUTUM
[2018-12-14] VITALS (51 sets, daily range): BP systolic 128–183; BP diastolic 72–114; PULSE 49–113; RESP 4–39; TEMP 36.5–36.6; O2SAT 88–100
[2018-12-14] MEDS: PROPOFOL 1,000 MG/100 ML BTL 36 MG IV ×3 (00:52→06:23)
[2018-12-14] MEDS: PIPERACILLIN/TAZO 4.5 GM in Normal Saline 100 ML IVPB ×2 (01:28→10:30)
[2018-12-14] MEDS: Normal Saline 1,000 ML 125 ML IV ×2 (01:34→12:27)
[2018-12-14] MEDS: VANCOMYCIN 1,250 MG in Normal Saline 250 ML 166.667 MG IVPB (03:20)
[2018-12-14] MEDS: methylPREDNISolone SUCC 125 MG VIAL 60 MG IVP ×2 (03:20→10:31)
[2018-12-14] MEDS: Pantoprazole 40 MG VIAL IVP (03:20)
[2018-12-14] MEDS: Enoxaparin 40 MG/0.4 ML SYR SC (03:21)
[2018-12-14] MEDS: Normal Saline Flush 10 ML SYR IVP (03:21)
[2018-12-14] MEDS: Albuterol/Ipratropium 3 ML UPD VIAL UPD ×2 (05:07→12:17)
[2018-12-14] MEDS: Levothyroxine 100 MCG TAB PO (05:07)
[2018-12-14 07:04] LABS: Abs Immature Grans 0.15 k/cumm (0.0-0.09); Absolute Basophil Count 0.03 k/cumm (0.0-0.2); Absolute Lymphocyte Count 0.83 k/cumm (1.2-3.4); Absolute Monocyte Count 2.23 k/cumm (0.11-0.7); Absolute Neutrophil Count 11.04 k/cumm (1.2-6.7); Basophils % 0.2; HCT 40.8 % (40.0-50.0); HGB 13.2 g/dL (13.5-17.5); Immature Grans % 1.1; Lymphocytes % 5.8; Mean Corp. HGB Concentration 32.4 g/dL (32.0-36.0); Mean Corpuscular Hemoglobin 33.6 pg (27.0-33.0); Mean Corpuscular Volume 103.8 fL (80-95); Mean Platelet Volume 9.3 fL (8.0-11.0); Monocytes % 15.6; Neutrophils % 77.3; Platelet Count 316 x1000/uL (130-400); RBC 3.93 m/cumm (4.50-6.00); RBC Distribution Width 15.3 % (11.8-14.1); White Blood Cell Count 14.28 k/cumm (4.4-10.8)
[2018-12-14 07:34] LABS: HCO3 36 mmol/L (22-28); pH 7.36 (7.35-7.45); pO2 62 mmHg (83-108); sO2 91 % (94-98); tCO2 33 mmol/L (22-29)
[2018-12-14 07:36] LABS: ALT 143 U/L (12-78); AST 224 U/L (15-37); Albumin 1.5 g/dL (3.4-5.0); Alkaline Phosphatase 108 U/L (46-116); Anion Gap 3.6 mmol/L (3-11); BUN 24 mg/dL (7-18); Bilirubin, Total 0.4 mg/dL (0.2-1.0); CO2 34.4 mmol/L (21.0-32.0); CREATININE 0.77 mg/dL (0.70-1.30); Calcium 8.2 mg/dL (8.5-10.1); Chloride 108 mmol/L (98-107); Glucose 124 mg/dL (70-100); Magnesium 2.2 mg/dL (1.8-2.4); Sodium 146 mmol/L (136-145); Total Protein 6.4 g/dL (6.4-8.2)
[2018-12-14 07:37] LABS: BE 10.7 mmol/L (-3-3)
[2018-12-14 07:39] LABS: pCO2 64 mmHg (34-47)
[2018-12-14] MEDS: Methadone Liquid 10 MG/ML 30 MG PO (08:38)
[2018-12-14] MEDS: Lactulose 20 GM/30 ML CUP 30 GM NG (08:38)
[2018-12-14] MEDS: Furosemide 40 MG/4 ML VIAL IVP (08:38)
--- NOTE | 2018-12-14 09:40 | CMPROGNOTE_ITS ---
- If Service Date Differs Date of service: 12/14/18 Time of Service: 09:39 Care Management Progress Note S/O: Mahamed is being transferred to [facility] he failed multiple weaning trials. A: Mahamed is a 53 year old male admitted with resp failure, he has a long standing history of COPD, and chronic oxygen use at home. Per palliative provider during home visit Mahamed has poor activity tolerance due to difficulty breathing. P: Mahamed has been transferred to [facility] via [facility]. His signifigant other was notified over the phone per ICU nurse.
--- NOTE | 2018-12-14 11:22 | W.NUTCONSULT ---
Date of service: 12/14/18 Time of Service: 11:22 Nutritional Consult ASSESSMENT: Mr. Chi remains intubated. He has been NPO since 12/11/18. He is 67 and 235 lbs. His BMI is 34.7 kg/m2 which is consistent with class 1 obesity. NUTRITIONAL DIAGNOSIS: Inability to take oral foods and fluids related to intubation. INTERVENTION: Would recommend nutrition support if Mr. Chi is unable to take oral foods and fluids within the next 24 to 48 hours to prevent malnutrition. MONITORING AND EVALUATION: 1. Will monitor for advance of PO. Will monitor weight. 2. Will evaluate nutrition care plan ongoing and adjust as needed. Time Spent in Nutritional Counseling and Treatment: SARA
[2018-12-14] MEDS: PROPOFOL 1,000 MG/100 ML BTL 50.4 MG IV (11:35)
[2018-12-14 11:47] LABS: Vancomycin, Trough 25.2 ug/mL (10.0-20.0)
--- NOTE | 2018-12-14 13:16 | CHAPLAIN ---
Mahamed remains intubated and will likely be transferred to [facility] or [facility]. I haven't yet met Mahamed's partner Marcie. I will continue to visit.
--- NOTE | 2018-12-14 14:57 | W.PM.DS.N ---
Date of service: 12/14/18 Time of Service: 14:57 DS: Diagnosis Discharge Diagnosis (1) Acute and chronic respiratory failure with hypercapnia: Status: Chronic (2) COPD exacerbation: Status: Acute (3) Cirrhosis: Status: Chronic (4) Hepatitis C: Status: Chronic (5) Chronic obstructive lung disease: Status: Chronic Discharge Plan Disposition Patient Disposition: [facility] Condition: Serious Discharge Details Reason For Visit: ACUTE ON CHRONIC HYPERCARBIC RESPIRATORY FAILURE Admit Date/Time: 12/11/18 01:24 Admit Provider: George Stroud Attending Provider: George Stroud Primary Care Provider: Kristian Petersen [facility] Course Hospital Course: CC: Hypoxia HPI: 53 year old man with a history of end-stage COPD, admitted from [facility] Emergency Department on 12/11 with a diagnosis of acute Hypercapneic Hypoxic Respiratory Failure. Mr. 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 He also has a noted history of depression, anxiety, and hypothyroidism. The patient had been experiencing worsening dyspnea over the few days to his admission, acutely worsened over the course of 24 hours. He was recently prescribed another course of prednisone taper per report from his caregiver. On the night of his admission he developed an acute respiratory distress, and was transported to the ED by EMS who found him upon arrival to be cyanotic, unresponsive, and hypoxic with SPO2 levels of 60%. He was transported on NIPPV with BiPAP. Upon arrival the patient was found to be cyanotic and unresponsive, immediately intubated and placed on mechanical ventilation, and referred for admission to the ICU. His workup included a CT of the chest that did not confirm a focal airspace consolidation, and a CT of the abdomen without any acute pathology. He was noted to have a leukocytosis, and ABG showed respiratory Acidosis with a significant elevation of his PCO2. Following admission Mr. Montero was placed on broad-spectrum antibiotics, high-dose steroids, and maintained on sedation with a propofol drip. He has since remained intubated and on mechanical ventilation, clinically unchanged since yesterday. Patient did surprisingly well on a weaning trial on the morning following his admission, but has appeared fatigued and tachypneic on repeat wean trials since. Repeated wean trial this morning with similiar results, with RSBI >110. No other events reported. He remains afebrile. Hospital Course: (1) Acute and chronic respiratory failure with hypercapnia: Acute on chronic hypercapneic and hypoxic respiratory failure in patient with significant, end-stage underlying COPD. Currently stable. Failed wean trial this morning with a RSBI >110, and appearing fatigued with worsening work of breathing. Patient may require long intubation vs. trach. Discussed case with [facility] and patient was accepted in transfer. Will continue on current vent settings - ABG this morning unchanged with values of 7.36/64/62/36/91%. Patient typically has bicarb levels in the high 30's to low 40's. Has maintained sedation with Propofol. Currently on empiric antibiotics without clear source for infection but with underlying COPD, with Vancomycin / Pip-Tazo day #3. Also on high dose steroids, frequent nebs. Of note, Mr. Chi met with his palliative care physician Dr. Kinjal Gonzalez earlier the week prior to his admission, and expressed his wishes to be full code and expects prolonged life support. (2) COPD exacerbation: As above. (3) Cirrhosis: Prior history of Hep C Cirrhosis, although with potential EtOH abuse as well. Has a history of hepatic encephalopathy, on Lactulose at his home dose via NGT. (4) Hepatitis C: Reportedly treated, but with continued elevated chronic elevation in LFTs. Cause for HCV is prior history of IVDA, for which he is on Methadone via BAART. (5) DVT prophylaxis: Continue SC Lovenox. Also on PPI for GI prophylaxis. (6) Advance directive on file: Full Code. Home Meds and New Rx's Prescriptions: Continued albuterol sulfate 2.5 mg /3 mL (0.083 %) solution for nebulization 2.5 mg IH Q2H PRN (Reason: shortness of breath or wheezing) Qty: 180 RF: 4 albuterol sulfate [ProAir HFA] 90 mcg/actuation HFA aerosol inhaler 2 puff Inhalation Q2H Qty: 18 RF: 4 prednisone 5 mg tablet 20 mg PO DAILY Qty: 60 RF: 0 diltiazem HCl [Cardizem CD] 180 mg capsule,extended release 24hr 180 mg PO DAILY Qty: 90 RF: 3 levothyroxine 100 mcg tablet 100 mcg PO DAILY Qty: 90 RF: 3 nicotine [Nicoderm CQ] 1 EACH patch 24 hour 21 mg Transdermal DAILY Qty: 30 RF: 2 polyethylene glycol 3350 [Miralax] 17 GM powder in packet 17 g PO DAILY Qty: 255 RF: 4 pulse oximeter 1 ea Miscellaneous DAILY Qty: 1 RF: 0 furosemide 40 MG tablet 2 tab PO DAILY Qty: 180 RF: 3 cetirizine 10 mg tablet 10 mg PO DAILY Qty: 30 RF: 3 multivitamin tablet 1 tab PO DAILY RF: 0 fluticasone propionate 50 mcg/actuation spray,suspension 2 spray ANALILIA DAILY RF: 0 tamsulosin 0.4 mg capsule See Rx Instructions PO HS Qty: 180 RF: 4 azithromycin [Zithromax] 500 mg tablet See Patient Comments PO .COMPLEX Qty: 18 RF: 4 lactulose 20 gram/30 mL solution 30 gm PO TID Qty: 1200 RF: 4 ibuprofen 600 mg tablet 600 mg PO TID PRN (Reason: pain) Qty: 30 RF: 3 ipratropium-albuterol 0.5 mg-3 mg(2.5 mg base)/3 mL solution for nebulization 3 ml UPD Q4H PRN PRN (Reason: shortness of breath or wheezing) Qty: 120 RF: 5 lorazepam 0.5 mg tablet 0.5 mg PO TID PRN (Reason: anxiety) Qty: 40 RF: 1 Symbicort 160-4.5 mcg/actuation HFA aerosol inhaler 2 puff Inhalation BID Qty: 1 RF: 4 guaifenesin [Mucinex] 600 mg tablet extended release 12hr 1,200 mg PO BID Qty: 60 RF: 3 methadone 10 MG/ML concentrate 39 mg PO BID RF: 0 Discharge Instructions Activity:: Bedrest Diet:: Currently NPO Discharge Orders Discharge Orders: Discharge Order (Routine); Ordered 12/14/18 Ordered By: Emile Godinez Exam Narrative Exam Narrative: General: Patient is sedated, intubated, and on mechanical ventilation. Neck: Supple CV: Regular, nontachycardic, S1S2, No rubs, murmurs, or gallops. Distant Heart Sounds. Pulmonary: Significantly decreased although improved breath sounds. Mild and improved wheezing diffusely Abdomen: + Bowel Sounds, soft, nontender, nondistended Vascular: No lower extremity edema DS: Data Vitals/I&O Vitals and I&O: Vital Signs Temperature 36.5 C 12/14/18 07:24 Temperature Source Temporal Artery Scan 12/14/18 07:24 Pulse 56 L 12/14/18 12:17 Pulse 70 12/14/18 11:27 Respiratory Rate 19 12/14/18 12:18 Respiratory Effort 12/14/18 07:24 Respiratory Depth Normal 12/14/18 07:24 Respiratory Pattern Normal 12/14/18 07:24 Blood Pressure 163/89 H 12/14/18 11:27 Blood Pressure Mean 104 12/14/18 11:27 Blood Pressure Position Supine 12/14/18 07:24 Pulse Oximetry 92 L 12/14/18 12:18 Respiratory End-tidal CO2 54 12/14/18 12:18 Oxygen Delivery Method Mechanical Ventilator 12/14/18 07:24 Oxygen Flow Rate 0 12/14/18 07:24 Fraction of Inspired Oxygen (FIO2) 30 12/14/18 12:18 Pain Level 0 12/13/18 14:53 Comment 12/10/18 23:05 Intake & Output 12/13/18 12/14/18 12/14/18 23:59 11:59 23:59 Intake Total 1288.424 / 3813.400 1759.20 / 2804.20 1045 / 2804.20 Output Total 700 / 3825 2875 / 2875 Balance 588.424 / -11.600 -1115.80 / -70.80 1045 / -70.80 Weight 106.6 kg Intake: IV 1288.424 / 3813.400 1759.20 / 2804.20 1045 / 2804.20 Output: Urine 700 / 3675 2875 / 2875 Other: Urine Color Light Tamara Pale Yellow Urine Appearance Clear Clear Comment Indwelling quintanilla catheter in place. Indwelling quintanilla catheter in place. Stool Occult Blood Negative Negative Stool Size Moderate Small Stool Characteristics Liquid Soft Brown Gastric Occult Blood Right Nare Negative Negative Completed studies during hospitalization [Text1]: EXAM: XR Chest, 1 View EXAM DATE/TIME: 12/10/2018 11:01 PM CLINICAL HISTORY: 53 years old, male; Device placement; Other: S/P intubation and ng tube; Patient HX: Respiratory distress. S/P intubation and n/g tube TECHNIQUE: Imaging protocol: XR of the chest, 1 view. COMPARISON: [facility] XR PORTABLE CHEST AP 07/08/2018 2:02 PM FINDINGS: Tubes, catheters and devices: Endotracheal terminates approximately 5.5 cm superior to the lorena. The enteric tube extends below the diaphragm and beyond the inferior aspect of the image. Telemetry leads overlying thorax. Lungs: Mild central pulmonary vascular congestion. Upper lobe hyperlucency and diffuse coarse interstitial opacities are present, likely indicating emphysema. Atelectasis or scarring is noted at the peripheral left base. No focal airspace consolidation is seen. Pleural space: Possible left pleural line near the apex, which may indicate pneumothorax. No pleural effusion. Heart/Mediastinum: The cardiac silhouette appears mildly prominent. Based on contours are otherwise within normal limits. Bones/joints: Old left posterior rib fractures again noted. No acute fractures are seen. IMPRESSION: 1. Appropriately positioned endotracheal and enteric tubes. 2. Questionable left pleural line near the apex. Finding may represent a superimposed skinfold; however, pneumothorax is not entirely excluded. 3. Suggestion of mildly increased size of cardiac silhouette and mild central pulmonary vascular congestion, which may be indicative of congestive heart failure. No focal consolidation. 4. Emphysema. ----- Exam(s) 12/[address]:CT head wo SYMPTOMS/DIAGNOSIS: UNRESPONSIVE, COPD EXACERBATION CRANIAL CT: Noncontrast was performed. There are endotracheal and NG tubes which are partially visualized. There is no evidence of acute intracranial hemorrhage, mass effect or midline shift. The ventricular system is normal in appearance. The orbital and temporal bone structures appear intact as visualized. CONCLUSION: No evidence of acute intracranial process. ----- Exam(s) a RAD:XR portable chest AP post line SYMPTOM/DIAGNOSIS: RESPIRATORY DISTRESS SUPINE PORTABLE AP CHEST AT 2325 HOURS: There is an ET tube in good position. There is an NG tube, the tip of which is not included on the film but which lies in the stomach. Lungs are grossly clear except for minimal prominence of interstitial markings and a few focal scars. CONCLUSION: ET and NG tubes in good position. ----- Exam(s) 12/[address]:CT chest/abd/pel wo SYMPTOM/DIAGNOSIS: UNRESPONSIVE, EXAC OF COPD, ? PLEURAL LINE LT APEX ON CHEST XR CHEST/ABDOMEN AND PELVIC CT: A noncontrast CT examination of the chest, abdomen and pelvis was performed. There are compression fractures of uncertain age, probably subacute or old, of vertebral bodies T 7, T 8 and T 10. There are multiple bilateral healed or healing rib fractures. There is an endotracheal tube and NG tube in position. There is severe pulmonary emphysema, most prominent in the upper lobes. No focal consolidation or mass identified. No pleural effusion or pneumothorax. Tracheobronchial tree grossly unremarkable except for the aforementioned ET tube in place. No gross mediastinal mass, adenopathy or fluid collection. No pleural effusion. There is hepatic steatosis. Otherwise liver, spleen, pancreas, gallbladder and bile ducts are unremarkable by noncontrast criteria. There is a presumed mid pole right renal cyst. Otherwise the kidneys and adrenals are unremarkable. Abdominal aorta is of normal diameter. No significant abdominal wall hernia is seen. No significant abdominal or pelvic adenopathy is seen. Appendix is normal. No bowel obstruction. There is a quintanilla catheter in the urinary bladder. There are minimal endplate compression fractures of L 3 and L 4 of uncertain age. CONCLUSION: No evidence of acute process involving chest, abdomen or pelvis. T 7, T 8 and T 10 vertebral body compression fractures of uncertain age, please correlate clinically. -------- Exam(s) 12/11 a RAD:XR portable chest AP SYMPTOM/DIAGNOSIS:RESPIRATORY FAILURE, F/U PORTABLE AP CHEST: ET tube again noted in position. The tip lies about 7 cm. above the lorena. The lungs are predominantly clear with mild prominence of interstitial markings. NG tube again noted in position. CONCLUSION: ET tube appears to have migrated superiorly and lies about 7 cm. above the lorena. Please correlate clinically. ------- Exam(s) a RAD:XR portable chest AP post line SYMPTOMS/DIAGNOSIS: CONFIRM PICC PLACEMENT PORTABLE AP CHEST 13:10 HOURS 12/11/18: Repeat chest film was obtained to re-evaluate PICC line placement. The PICC line now lies with its tip at the junction of SVC and right atrium. No other change seen. ------ Exam(s) a RAD:XR portable chest AP post line SYMPTOM/DIAGNOSIS: ETT POSITIONING PORTABLE AP CHEST: The lungs are free of infiltrate. There is no apparent pleural effusion. The heart is not enlarged. There is some prominence of the upper lobe vasculature raising the possibility of pulmonary venous hypertension. When compared with the previous images, the endotracheal tube and PICC line remain in good position. SUMMARY: Question pulmonary venous hypertension. No evidence of overt congestive failure. Labs on day of discharge: Labs from last 24 hours 12/14/18 12/14/18 12/14/18 11:06 07:25 06:10 WBC 14.28 H RBC 3.93 L Hgb 13.2 L Hct 40.8 MCV 103.8 H MCH 33.6 H MCHC 32.4 RDW 15.3 H Plt Count 316 MPV 9.3 Immature Gran % 1.1 Neutrophils % 77.3 Lymphocytes % 5.8 Monocytes % 15.6 Eosinophils % 0.0 Basophils % 0.2 Absolute Neutrophils 11.04 H Absolute Lymphocytes 0.83 L Absolute Monocytes 2.23 H Absolute Eosinophils 0.00 Absolute Basophils 0.03 Sample Site Pending pCO2 64 H* pO2 62 L O2 Saturation 91 L ABG pH 7.36 ABG HCO3 36 H ABG Total CO2 33 H ABG Base Excess 10.7 H Sodium Potassium Chloride Carbon Dioxide Anion Gap BUN Creatinine Estimated GFR/1.73 m2 Glucose Calcium Magnesium Total Bilirubin AST ALT Alkaline Phosphatase Total Protein Albumin Vancomycin Trough 25.2 H* M. pneumoniae Source M. pneumoniae (PCR) 12/14/18 12/11/18 06:10 16:00 WBC RBC Hgb Hct MCV MCH MCHC RDW Plt Count MPV Immature Gran % Neutrophils % Lymphocytes % Monocytes % Eosinophils % Basophils % Absolute Neutrophils Absolute Lymphocytes Absolute Monocytes Absolute Eosinophils Absolute Basophils Sample Site pCO2 pO2 O2 Saturation ABG pH ABG HCO3 ABG Total CO2 ABG Base Excess Sodium 146 H Potassium 4.0 Chloride 108 H Carbon Dioxide 34.4 H Anion Gap 3.6 BUN 24 H Creatinine 0.77 Estimated GFR/1.73 m2 >= 60.00 Glucose 124 H Calcium 8.2 L Magnesium 2.2 Total Bilirubin 0.4 AST 224 H ALT 143 H Alkaline Phosphatase 108 Total Protein 6.4 Albumin 1.5 L Vancomycin Trough M. pneumoniae Source Sputum M. pneumoniae (PCR) Negative Preliminary micro results at discharge 12/10/18 01:28 Blood Culture - Preliminary Blood NO GROWTH 72 HOURS 12/10/18 00:55 Blood Culture - Preliminary Blood NO GROWTH 72 HOURS [facility] Medical History Cirrhosis (Chronic) Hyperammonemia (Chronic) Hepatic encephalopathy (Resolved) History of intravenous drug abuse (Chronic) Hepatitis C (Chronic) Smoker (Chronic 04/15/16) Peripheral edema (Resolved 12/06/17) Depressive disorder (Chronic) Chronic obstructive lung disease (Chronic) Asthma (Chronic) Allergic rhinitis (Chronic) Acquired hypothyroidism (Chronic 07/02/16) Acute and chronic respiratory failure with hypercapnia (Chronic) 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
[2018-12-14] MEDS: PROPOFOL 1,000 MG/100 ML BTL 80 MG IV (15:23)
[2018-12-14 16:55] LABS: Site Right Radial
== END 2018-12-14 15:50 | disposition short-term general hospital (02) | DRG 208 ==
LOC: ER 12-11 01:49 → ICU 12-11 04:54
PROVIDERS: Admitting Provider Internal Medicine; Emergency Provider Emergency Medicine; PCP Family Medicine; Visit Provider Internal Medicine
DX: J96.22 Acute and chronic respiratory failure with hypercapnia (principal); E87.2 Acidosis; J44.1 Chronic obstructive pulmonary disease with (acute) exacerbation; E72.20 Disorder of urea cycle metabolism, unspecified; E87.1 Hypo-osmolality and hyponatremia; J96.01 Acute respiratory failure with hypoxia; K74.60 Unspecified cirrhosis of liver; B18.2 Chronic viral hepatitis C; K72.10 Chronic hepatic failure without coma; R33.9 Retention of urine, unspecified; E03.9 Hypothyroidism, unspecified; E87.8 Other disorders of electrolyte and fluid balance, not elsewhere classified; R74.0 Nonspecific elevation of levels of transaminase and lactic acid dehydrogenase [LDH]; F17.210 Nicotine dependence, cigarettes, uncomplicated; F11.21 Opioid dependence, in remission; Z71.3 Dietary counseling and surveillance; Z78.1 Physical restraint status; Z99.81 Dependence on supplemental oxygen; Z79.2 Long term (current) use of antibiotics; Z96.0 Presence of urogenital implants
CPT/HCPCS: 36415; 36569; 36592; 71045; 71250; 80053; 82805; 86713; 87040; 87077; 87449; 94640; 96361; 96365; 96366; 96367; 96368; 96375; 96376; 99223; 99232; 99239; 99285; J1650; 36600; 70450; 74176; 80202; 81003; 82140; 83735; 83880; 84443; 84484; 85025; 85610; 85730; 87070; 87186; 87205; 87450; 87581; 93005; 93010; 94002; 94003; 99284; J0696; J1940; J1956; J2060; J2543; J2930; J3370; J7613; J7620

== ENCOUNTER 2019-03-02 15:11 | Outpatient (RCR) | payer MEDICAID, SELFPAY | END 2019-03-11 23:59 | disposition home or self-care (01) | LOC: PRC 15:11 | PROVIDERS: PCP Family Medicine; Visit Provider Family Medicine | DX: Z51.89 Encounter for other specified aftercare (principal) ==

== ENCOUNTER 2019-03-20 09:15 | Outpatient (RCR) | payer MEDICAID, SELFPAY | END 2019-04-11 23:59 | disposition home or self-care (01) | LOC: PRC 09:15 | PROVIDERS: PCP Family Medicine; Visit Provider Family Medicine | DX: Z51.89 Encounter for other specified aftercare (principal); J44.9 Chronic obstructive pulmonary disease, unspecified ==

== ENCOUNTER 2019-10-10 15:23 | Inpatient (IN) | payer MEDICAID, SELFPAY ==
[2019-10-10] VITALS (80 sets, daily range): BP systolic 100–160; BP diastolic 56–127; PULSE 87–146; RESP 4–37; TEMP 30–37; O2SAT 64–96
--- NOTE | 2019-10-10 15:24 | NUR.NOTE ---
1525 hours 36.8 c bp 148/78, 93-95 02 with mask, pulse 116...c.field
--- NOTE | 2019-10-10 15:25 | NUR.NOTE ---
Nursing Note: 1525 hours, 36.8 C BP 148/78, 02 93-95 WITH RESP HOLDING MASK. PULSE 116
--- NOTE | 2019-10-10 15:27 | ED.GENADUL_ITS ---
Discharge Plan Disposition Patient Disposition: [facility] INPATIENT Condition: Serious Discharge Details Chief Complaint: SOB Clinical Impression: Multifocal pneumonia, Acute hepatic encephalopathy Primary Care Provider: Kristian Petersen ED Provider: Biju Mcelroy Home Meds and New Rx's Prescriptions: No Action guaifenesin [Mucinex] 600 mg tablet extended release 12hr 1,200 mg PO BID Qty: 120 RF: 3 prednisone 10 mg tablet 10 mg PO DAILY PRN (Reason: copd) Qty: 30 RF: 1 diltiazem HCl [Cardizem CD] 180 mg capsule,extended release 24hr 180 mg PO DAILY Qty: 90 RF: 3 levothyroxine 100 mcg tablet 100 mcg PO DAILY Qty: 90 RF: 3 ondansetron HCl 4 mg tablet 4 mg PO QID PRN (Reason: nausea and vomiting) Qty: 20 RF: 0 clonidine HCl 0.1 mg tablet 0.1 mg PO BID Qty: 20 RF: 1 nicotine [Nicoderm CQ] 1 EACH patch 24 hour 21 mg Transdermal DAILY Qty: 30 RF: 2 polyethylene glycol 3350 [Miralax] 17 GM powder in packet 17 g PO DAILY Qty: 255 RF: 4 pulse oximeter 1 ea Miscellaneous DAILY Qty: 1 RF: 0 multivitamin tablet 1 tab PO DAILY RF: 0 fluticasone propionate 50 mcg/actuation spray,suspension 2 spray ANALILIA DAILY RF: 0 tamsulosin 0.4 mg capsule See Rx Instructions PO HS Qty: 180 RF: 4 lactulose 20 gram/30 mL solution 30 gm PO TID Qty: 1200 RF: 4 cetirizine 10 mg tablet 10 mg PO DAILY Qty: 30 RF: 3 Symbicort 160-4.5 mcg/actuation HFA aerosol inhaler 2 puff Inhalation BID Qty: 1 RF: 4 albuterol sulfate [ProAir HFA] 90 mcg/actuation HFA aerosol inhaler 2 puff Inhalation Q2H Qty: 18 RF: 4 ibuprofen 600 mg tablet 600 mg PO TID PRN (Reason: pain) Qty: 30 RF: 3 doxycycline hyclate 100 mg tablet 100 mg PO BID Qty: 20 RF: 0 prednisone 10 mg tablet See Rx Instructions .Route .COMPLEX Qty: 63 RF: 0 furosemide 40 mg tablet 80 mg PO DAILY Qty: 180 RF: 3 azithromycin [Zithromax] 500 mg tablet See Rx Instructions PO .COMPLEX Qty: 18 RF: 4 lorazepam 0.5 mg tablet 0.5 mg PO TID PRN (Reason: anxiety) Qty: 90 RF: 0 ipratropium-albuterol 0.5 mg-3 mg(2.5 mg base)/3 mL solution for nebulization 3 ml UPD Q4H PRN PRN (Reason: shortness of breath or wheezing) Qty: 120 RF: 5 morphine 10 mg/5 mL solution 5 mg PO Q6H MDD 20 mg PRN (Reason: dyspnea) Qty: 100 RF: 0 albuterol sulfate 2.5 mg /3 mL (0.083 %) solution for nebulization 2.5 mg IH Q2H PRN (Reason: shortness of breath or wheezing) Qty: 180 RF: 4 Medical Decision Making 54-year-old male arrives from home via EMS. They were called for patient unresponsive on the ground. They arrived to find him sitting on the ground, no history of a fall, with wheezing and increased work of breathing. The patient had Ativan 0.5 mg at home, he was placed on CPAP by EMS and administered 2 duo nebs en route. He is chronically ill with history of hepatitis C, oxygen dependent COPD, obesity. He arrives afebrile with a temperature of 36.8, blood pressure 148/78, mildly tachycardic with a pulse of 112, is breathing 20-30 times a minute and oxygenating 92% on 40% FiO2. BiPAP 16/7 40%. He is interactive with staff, but speech is slurred, Lung fernandes are diminished in both lung fernandes. Patient placed on BiPAP. Given inhaled DuoNeb x2, Solu-Medrol, is mildly anxious and given 0.5 mg of Ativan. Chest x-ray with multifocal pulmonary infiltrates. ABG reveals pH 7.36, PO2 66, PCO2 69. Influenza screen is negative. He has a chronic transaminitis and LFTs are mildly up again today. Ammonia is elevated at 90 white blood cell count 8, hematocrit 38, platelets 403. Chemistries noted sodium 132, BNP is negative at 260. Ammonia elevated at 91. Lab Data Lab results reviewed: Yes I reviewed the patient's lab results. Labs: Laboratory Results - last 24 hr 10/10/19 10/10/19 10/10/19 15:30 15:30 15:30 WBC 8.68 RBC 3.68 L Hgb 12.1 L Hct 38.3 L MCV 104.1 H MCH 32.9 MCHC 31.6 L RDW 16.2 H Plt Count 403 H MPV 8.6 Immature Gran % See Differential Neutrophils % 60.0 Band Neutrophils % 0.0 Lymphocytes % 12.0 Monocytes % 20.0 Eosinophils % 5.0 Basophils % 0.0 Metamyelocytes % 3.0 Absolute Neutrophils 5.21 Absolute Lymphocytes 1.04 L Absolute Monocytes 1.74 H Absolute Eosinophils 0.43 Absolute Basophils 0.00 Differential Comment Manual differential RBC Morphology See below Poikilocytosis 2+ Macrocytosis 3+ Stomatocytes 2+ PT 14.4 H INR 1.4 H Sample Site pCO2 pO2 O2 Saturation ABG pH ABG HCO3 ABG Total CO2 ABG Base Excess Oxygen Liter Flow FiO2 Sodium 132 L Potassium 4.0 Chloride 93 L Carbon Dioxide 38.9 H Anion Gap 0.1 L BUN 6 L Creatinine 0.84 Estimated GFR/1.73 m2 >= 60.00 Glucose 115 H Calcium 8.8 Total Bilirubin 1.8 H AST 249 H ALT 104 H Alkaline Phosphatase 181 H Troponin I < 0.05 NT-Pro-B Natriuret Pep Total Protein 7.6 Albumin 2.3 L 10/10/19 10/10/19 15:30 15:42 WBC RBC Hgb Hct MCV MCH MCHC RDW Plt Count MPV Immature Gran % Neutrophils % Band Neutrophils % Lymphocytes % Monocytes % Eosinophils % Basophils % Metamyelocytes % Absolute Neutrophils Absolute Lymphocytes Absolute Monocytes Absolute Eosinophils Absolute Basophils Differential Comment RBC Morphology Poikilocytosis Macrocytosis Stomatocytes PT INR Sample Site Right radial pCO2 69 H* pO2 66 L O2 Saturation 93 L ABG pH 7.36 ABG HCO3 39 H ABG Total CO2 36 H ABG Base Excess 13.5 H Oxygen Liter Flow Bipap 16/7 FiO2 40 Sodium Potassium Chloride Carbon Dioxide Anion Gap BUN Creatinine Estimated GFR/1.73 m2 Glucose Calcium Total Bilirubin AST ALT Alkaline Phosphatase Troponin I NT-Pro-B Natriuret Pep 260 Total Protein Albumin ECG Data Attestation: I personally reviewed and interpreted this ECG (s) as follows: Interpretation: Sinus tachycardia with a rate of 113, the QRS is narrow, there is nonspecific ST flattening in the inferior leads, no ST segment elevation, QTc is 458. HPI General Mode of arrival: EMS . Date/Time Provider Initiated Documentation: 10/10/19 15:32 . Limitations to Documentation: altered mental status . Information obtained by: EMS . History of Present Illness 54 year old M presents to the emergency department with the chief complaint of Altered mental status and shortness of breath at home, poor historian, described as similar to prior episodes, Quality is described as constant, and is localized to the chest. Patient started experiencing this unknown other things that improve symptom(s), (Improved with CPAP and DuoNeb en route) Patient did receive the following treatments prior to arrival, other (Ativan 0.5 mg at home, DuoNeb x2 en route, CPAP) Related Data Home Medications Medication Instructions Recorded Confirmed nicotine [Nicoderm CQ] 21 mg TRANSDERMAL DAILY #30 patch 04/15/16 07/02/18 polyethylene glycol 3350 [Miralax] 17 g PO DAILY #255 gm 05/11/16 07/02/18 fluticasone propionate 50 2 spray ANALILIA DAILY 08/24/18 mcg/actuation nasal spray,suspension multivitamin 1 tab PO DAILY 08/24/18 tamsulosin 0.4 mg capsule See Rx Instructions PO HS #180 cap 08/24/18 diltiazem HCl 180 mg 180 mg PO DAILY #90 cap.er.24h 08/25/18 08/25/18 capsule,extended release 24 hr levothyroxine 100 mcg tablet 100 mcg PO DAILY #90 tab-cap 08/25/18 08/25/18 lactulose 20 gram/30 mL oral 30 gm PO TID #1200 ml 09/14/18 solution guaifenesin 600 mg tablet, 1,200 mg PO BID #120 tab 03/31/19 03/31/19 extended release 12 hr clonidine HCl 0.1 mg tablet 0.1 mg PO BID #20 tab 06/01/19 06/01/19 ondansetron HCl 4 mg tablet 4 mg PO QID PRN #20 tab 06/01/19 06/01/19 cetirizine 10 mg tablet 10 mg PO DAILY #30 tab 07/16/19 albuterol sulfate 90 mcg/actuation 2 puff INHALATION Q2H #18 gm 07/23/19 aerosol inhaler budesonide-formoterol HFA 160 2 puff INHALATION BID #1 g 07/23/19 mcg-4.5 mcg/actuation aerosol inhaler ibuprofen 600 mg tablet 600 mg PO TID PRN #30 tab 07/31/19 prednisone 10 mg tablet 10 mg PO DAILY PRN #30 tab 08/07/19 08/07/19 doxycycline hyclate 100 mg tablet 100 mg PO BID #20 tab 09/06/19 prednisone 10 mg tablet See Rx Instructions .ROUTE 09/06/19 .COMPLEX #63 tab furosemide 40 mg tablet 80 mg PO DAILY #180 tab-cap 09/07/19 azithromycin 500 mg tablet See Rx Instructions PO .COMPLEX 09/18/19 #18 tab lorazepam 0.5 mg tablet 0.5 mg PO TID PRN #90 tab 09/27/19 ipratropium 0.5 mg-albuterol 3 mg 3 ml UPD Q4H PRN PRN #120 ml 10/03/19 (2.5 mg base)/3 mL nebulization soln morphine 10 mg/5 mL oral solution 5 mg PO Q6H PRN #100 ml MDD 20 mg 10/03/19 albuterol sulfate 2.5 mg IH Q2H PRN #180 ml 10/05/19 Previous Rx's Medication Instructions Recorded tamsulosin 0.4 mg capsule See Rx Instructions PO HS #180 cap 08/24/18 diltiazem HCl 180 mg 180 mg PO DAILY #90 cap.er.24h 08/25/18 capsule,extended release 24 hr levothyroxine 100 mcg tablet 100 mcg PO DAILY #90 tab-cap 08/25/18 lactulose 20 gram/30 mL oral 30 gm PO TID #1200 ml 09/14/18 solution guaifenesin 600 mg tablet, 1,200 mg PO BID #120 tab 03/31/19 extended release 12 hr clonidine HCl 0.1 mg tablet 0.1 mg PO BID #20 tab 06/01/19 ondansetron HCl 4 mg tablet 4 mg PO QID PRN #20 tab 06/01/19 cetirizine 10 mg tablet 10 mg PO DAILY #30 tab 07/16/19 albuterol sulfate 90 mcg/actuation 2 puff INHALATION Q2H #18 gm 07/23/19 aerosol inhaler budesonide-formoterol HFA 160 2 puff INHALATION BID #1 g 07/23/19 mcg-4.5 mcg/actuation aerosol inhaler ibuprofen 600 mg tablet 600 mg PO TID PRN #30 tab 07/31/19 prednisone 10 mg tablet 10 mg PO DAILY PRN #30 tab 08/07/19 doxycycline hyclate 100 mg tablet 100 mg PO BID #20 tab 09/06/19 prednisone 10 mg tablet See Rx Instructions .ROUTE 09/06/19 .COMPLEX #63 tab furosemide 40 mg tablet 80 mg PO DAILY #180 tab-cap 09/07/19 azithromycin 500 mg tablet See Rx Instructions PO .COMPLEX 09/18/19 #18 tab lorazepam 0.5 mg tablet 0.5 mg PO TID PRN #90 tab 09/27/19 ipratropium 0.5 mg-albuterol 3 mg 3 ml UPD Q4H PRN PRN #120 ml 10/03/19 (2.5 mg base)/3 mL nebulization soln morphine 10 mg/5 mL oral solution 5 mg PO Q6H PRN #100 ml MDD 20 mg 10/03/19 albuterol sulfate 2.5 mg IH Q2H PRN #180 ml 10/05/19 Allergies Allergy/AdvReac Type Severity Reaction Status Date / Time No Known Allergies Allergy Unverified 03/01/18 14:21 General MIGUEL: 2 Review of Systems Unobtainable due to mental status [facility] Medical History 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) Acquired hypothyroidism (Chronic 07/02/16) Acute and chronic respiratory failure with hypercapnia (Chronic) Allergic rhinitis (Chronic) Asthma (Chronic) Cellulitis of both lower extremities (Resolved) Chronic obstructive lung disease (Chronic) Cirrhosis (Chronic) COPD with exacerbation (Resolved) Depressive disorder (Chronic) Encephalopathy acute (Resolved) Hepatic encephalopathy (Resolved) Hepatitis C (Chronic) History of intravenous drug abuse (Chronic) Hyperammonemia (Resolved) Multiple rib fractures involving four or more ribs (Resolved) Peripheral edema (Resolved 12/06/17) Smoker (Resolved 04/15/16) Urinary retention (Inactive) Social History Smoking/Tobacco Use Status: Current every day Quit status: has quit before Counseling given: provider counseling Alcohol Intake: current Alcohol Intake frequency: a few times a week Drug use: Occasionally Substance use type: former substance user, marijuana, IV drugs and other Details: Currently on methadone therapy Counseling given: Yes Counseling provided: provider counseling Do you feel safe in your relationship?: Yes Exam Narrative Exam Narrative: GEN: Disheveled, slurred speech, pulling at mask. HEAD: Normocephalic, atraumatic ENT: Mucous membranes dry, oropharynx unremarkable, External ear exam unremarkable EYES: PERRL, EOMI NECK: Full ROM, no JEREMIAH, no menigismus CHEST/RESP: Diminished with rhonchi and wheeze throughout CARDIOVASCULAR: Tachycardic, regular, no murmur, rub hernan. 2+ Rad pulse bilateral ABDOMEN: Soft, nontender, no mass. +Bowel sounds EXT: Full ROM, 2-3+ brawny pretibial edema, no rash Neuro: Grossly normal neurologic exam, moves all 4 extremities, attempts to interact with staff but with slurred speech.. Psych: Unable to assess
[2019-10-10] MEDS: methylPREDNISolone SUCC 125 MG VIAL IVP (15:32)
--- NOTE | 2019-10-10 15:37 | DI.RAD_ITS ---
EXAM: XR PORTABLE CHEST AP INDICATION: SOB. COMPARISON: XR PORTABLE CHEST AP from 07/08/2018 CT CHEST WO from 12/11/2018 XR PORTABLE CHEST AP POST LINE from 12/11/2018 XR PORTABLE CHEST AP POST LINE from 12/11/2018 XR PORTABLE CHEST AP from 12/12/2018 TECHNIQUE: 2D digital imaging was performed. FINDINGS: The heart size is within normal limits for projection. There are increased densities seen at the ri ght lung base adjacent to the heart border. Also question of increased densities in both upper lobes when compared with previous exams. No effusions are visible. There are underlying emphysematous an d fibrotic changes. IMPRESSION: Multi focal pulmonary infiltrates.
[2019-10-10 15:41] LABS: Abs Immature Grans 0.15 k/cumm (0.0-0.09); HCT 38.3 % (40.0-50.0); HGB 12.1 g/dL (13.5-17.5); Mean Corp. HGB Concentration 31.6 g/dL (32.0-36.0); Mean Corpuscular Hemoglobin 32.9 pg (27.0-33.0); Mean Corpuscular Volume 104.1 fL (80-95); Mean Platelet Volume 8.6 fL (8.0-11.0); Platelet Count 403 x1000/uL (130-400); RBC 3.68 m/cumm (4.50-6.00); RBC Distribution Width 16.2 % (11.8-14.1); White Blood Cell Count 8.68 k/cumm (4.4-10.8)
[2019-10-10 15:45] LABS: HCO3 39 mmol/L (22-28); pH 7.36 (7.35-7.45); pO2 66 mmHg (83-108); sO2 93 % (94-98); tCO2 36 mmol/L (22-29)
[2019-10-10 15:49] LABS: BE 13.5 mmol/L (-3-3); Site Right Radial; pCO2 69 mmHg (34-47)
[2019-10-10 15:50] LABS: FIO2 40 %
[2019-10-10 15:55] LABS: Prothrombin Time 14.4 sec (9.3-11.0)
[2019-10-10] MEDS: Albuterol/Ipratropium 3 ML UPD VIAL UPD ×2 (15:55→21:28)
[2019-10-10 15:57] LABS: ALT 104 U/L (16-63); AST 249 U/L (15-37); Albumin 2.3 g/dL (3.4-5.0); Alkaline Phosphatase 181 U/L (46-116); Anion Gap 0.1 mmol/L (3-11); BUN 6 mg/dL (7-18); Bilirubin, Total 1.8 mg/dL (0.2-1.0); CO2 38.9 mmol/L (21.0-32.0); CREATININE 0.84 mg/dL (0.70-1.30); Calcium 8.8 mg/dL (8.5-10.1); Chloride 93 mmol/L (98-107); Glucose 115 mg/dL (74-106); Sodium 132 mmol/L (136-145); Total Protein 7.6 g/dL (6.4-8.2)
[2019-10-10 15:58] LABS: Absolute Neutrophil Count 5.21 k/cumm (1.2-6.7)
[2019-10-10 15:59] LABS: Absolute Eosinophil Count 0.43 k/cumm (0.0-0.7); Absolute Lymphocyte Count 1.04 k/cumm (1.2-3.4); Absolute Monocyte Count 1.74 k/cumm (0.11-0.7); Diff Comment Manual Differential; Troponin I < 0.05 ng/Ml (<0.06)
[2019-10-10] MEDS: Albuterol/Ipratropium 3 ML UPD VIAL ×2 (15:59→16:20)
[2019-10-10 16:00] LABS: INR 1.4 (0.9-1.1); Macrocytosis 3+; Stomatocytes 2+
[2019-10-10] MEDS: LORazepam 2 MG/ML VIAL 0.5 MG IVP ×3 (16:00→18:27)
[2019-10-10 16:01] LABS: NT-proBNP 260 pg/mL (<300); Poikilocytes 2+
[2019-10-10] MEDS: cefTRIAXone 1 GM/50 ML BAG IVPB (16:04)
[2019-10-10 17:39] LABS: Ammonia 91 umol/L (11-32)
--- NOTE | 2019-10-10 17:41 | HPE_ITS ---
Date of service: 10/10/19 Time of Service: 17:41 Assessment and Plan Assessment and plan (1) Respiratory insufficiency: Status: Acute Assessment and plan: Respiratory insufficiency, multifactorial, including COPD, pneumonia, prrobable obesity/hypoventilation and possibly element of opiate respiratory suppression. I would presume also he is a CO2 retainer. Would continue steroids, antibiotics, Duonebs. Will support with hiflow O2 if not tolerant of BiPAP, with target sat approximately 90. Mental status determinants not clear at present, but would consider infection (viz, pneumonia), metabolic (hepatic encephalopathy), toxic. Will check UDS, give lactulose and continue pulmonary management as above. In meantime we have no confirmation on any of his medications. Will hold all until we are able to confirm. Will attempt to contact caregiver. History of Present Illness History of Present Illness Chief Complaint: found down Narrative: 54 male with end stage COPD, on home O2, cirrhosis, IVDA previously on Methadone, obesity -- found down unresponsive by acquaintance, EMS summoned. Given CPAP and duonebs in field. Here in ER findings of note for wheezing, agitation, bilateral pneumonitis and ABG with ph 7.36, pCOs 69, pO2 66 -- all approximately baseline. Patient given steroids, Duonebs, Rocephin and Zithromax and Ativan. Initially on BiPap but intolerant so now on hi-flow O2. Patient does not provide any history. 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) Acquired hypothyroidism (Chronic 07/02/16) Acute and chronic respiratory failure with hypercapnia (Chronic) Allergic rhinitis (Chronic) Asthma (Chronic) Cellulitis of both lower extremities (Resolved) Chronic obstructive lung disease (Chronic) Cirrhosis (Chronic) COPD with exacerbation (Resolved) Depressive disorder (Chronic) Encephalopathy acute (Resolved) Hepatic encephalopathy (Resolved) Hepatitis C (Chronic) History of intravenous drug abuse (Chronic) Hyperammonemia (Resolved) Multiple rib fractures involving four or more ribs (Resolved) Peripheral edema (Resolved 12/06/17) Smoker (Resolved 04/15/16) Urinary retention (Inactive) Social History Smoking/Tobacco Use Status: Current every day Quit status: has quit before Counseling given: provider counseling Alcohol Intake: current Alcohol Intake frequency: a few times a week Drug use: Occasionally Substance use type: former substance user, marijuana, IV drugs and other Details: Currently on methadone therapy Counseling given: Yes Counseling provided: provider counseling Do you feel safe in your relationship?: Yes Meds Home Medications and Allergies Home Medications Medication Instructions Recorded Confirmed Type nicotine [Nicoderm CQ] 21 mg TRANSDERMAL DAILY #30 patch 04/15/16 07/02/18 History polyethylene glycol 3350 [Miralax] 17 g PO DAILY #255 gm 05/11/16 07/02/18 History Pulse Oximeter 1 ea MISCELLANEOUS DAILY #1 ea 05/27/16 07/02/18 Clinic fluticasone propionate 50 2 spray ANALILIA DAILY 08/24/18 History mcg/actuation nasal spray,suspension multivitamin 1 tab PO DAILY 08/24/18 History tamsulosin 0.4 mg capsule See Rx Instructions PO HS #180 cap 08/24/18 Rx diltiazem HCl 180 mg 180 mg PO DAILY #90 cap.er.24h 08/25/18 08/25/18 Rx capsule,extended release 24 hr levothyroxine 100 mcg tablet 100 mcg PO DAILY #90 tab-cap 08/25/18 08/25/18 Rx lactulose 20 gram/30 mL oral 30 gm PO TID #1200 ml 09/14/18 Rx solution guaifenesin 600 mg tablet, 1,200 mg PO BID #120 tab 03/31/19 03/31/19 Rx extended release 12 hr clonidine HCl 0.1 mg tablet 0.1 mg PO BID #20 tab 06/01/19 06/01/19 Rx ondansetron HCl 4 mg tablet 4 mg PO QID PRN #20 tab 06/01/19 06/01/19 Rx cetirizine 10 mg tablet 10 mg PO DAILY #30 tab 07/16/19 Rx albuterol sulfate 90 mcg/actuation 2 puff INHALATION Q2H #18 gm 07/23/19 Rx aerosol inhaler budesonide-formoterol HFA 160 2 puff INHALATION BID #1 g 07/23/19 Rx mcg-4.5 mcg/actuation aerosol inhaler ibuprofen 600 mg tablet 600 mg PO TID PRN #30 tab 07/31/19 Rx prednisone 10 mg tablet 10 mg PO DAILY PRN #30 tab 08/07/19 08/07/19 Rx doxycycline hyclate 100 mg tablet 100 mg PO BID #20 tab 09/06/19 Rx prednisone 10 mg tablet See Rx Instructions .ROUTE 09/06/19 Rx .COMPLEX #63 tab furosemide 40 mg tablet 80 mg PO DAILY #180 tab-cap 09/07/19 Rx azithromycin 500 mg tablet See Rx Instructions PO .COMPLEX 09/18/19 Rx #18 tab lorazepam 0.5 mg tablet 0.5 mg PO TID PRN #90 tab 09/27/19 Rx ipratropium 0.5 mg-albuterol 3 mg 3 ml UPD Q4H PRN PRN #120 ml 10/03/19 Rx (2.5 mg base)/3 mL nebulization soln morphine 10 mg/5 mL oral solution 5 mg PO Q6H PRN #100 ml MDD 20 mg 10/03/19 Rx albuterol sulfate 2.5 mg IH Q2H PRN #180 ml 10/05/19 Rx Allergies Allergy/AdvReac Type Severity Reaction Status Date / Time No Known Allergies Allergy Unverified 03/01/18 14:21 Exam Narrative Exam Narrative: 144/73, 103, 27, 36.8. 91% at time of exam. HEENT no signs trauma, Cushingoid facies; neck supple; lungs diminished, diffuse wheez; heart diatant but RRR; abdomen protruberant, NT; extremities 3+ lymphedema; neuro awakens to sternal rub, occasional onew ord responses, moves all 4s Results Labs Result diagrams: 10/10/19 15:30 10/10/19 15:30 Labs: Laboratory Results - last 24 hr 10/10/19 10/10/19 10/10/19 15:30 15:30 15:30 WBC 8.68 RBC 3.68 L Hgb 12.1 L Hct 38.3 L MCV 104.1 H MCH 32.9 MCHC 31.6 L RDW 16.2 H Plt Count 403 H MPV 8.6 Immature Gran % See Differential Neutrophils % 60.0 Band Neutrophils % 0.0 Lymphocytes % 12.0 Monocytes % 20.0 Eosinophils % 5.0 Basophils % 0.0 Metamyelocytes % 3.0 Absolute Neutrophils 5.21 Absolute Lymphocytes 1.04 L Absolute Monocytes 1.74 H Absolute Eosinophils 0.43 Absolute Basophils 0.00 Differential Comment Manual differential RBC Morphology See below Poikilocytosis 2+ Macrocytosis 3+ Stomatocytes 2+ PT 14.4 H INR 1.4 H Sample Site pCO2 pO2 O2 Saturation ABG pH ABG HCO3 ABG Total CO2 ABG Base Excess Oxygen Liter Flow FiO2 Sodium 132 L Potassium 4.0 Chloride 93 L Carbon Dioxide 38.9 H Anion Gap 0.1 L BUN 6 L Creatinine 0.84 Estimated GFR/1.73 m2 >= 60.00 Glucose 115 H Calcium 8.8 Total Bilirubin 1.8 H AST 249 H ALT 104 H Alkaline Phosphatase 181 H Troponin I < 0.05 NT-Pro-B Natriuret Pep Total Protein 7.6 Albumin 2.3 L 10/10/19 10/10/19 15:30 15:42 WBC RBC Hgb Hct MCV MCH MCHC RDW Plt Count MPV Immature Gran % Neutrophils % Band Neutrophils % Lymphocytes % Monocytes % Eosinophils % Basophils % Metamyelocytes % Absolute Neutrophils Absolute Lymphocytes Absolute Monocytes Absolute Eosinophils Absolute Basophils Differential Comment RBC Morphology Poikilocytosis Macrocytosis Stomatocytes PT INR Sample Site Right radial pCO2 69 H* pO2 66 L O2 Saturation 93 L ABG pH 7.36 ABG HCO3 39 H ABG Total CO2 36 H ABG Base Excess 13.5 H Oxygen Liter Flow Bipap 16/7 FiO2 40 Sodium Potassium Chloride Carbon Dioxide Anion Gap BUN Creatinine Estimated GFR/1.73 m2 Glucose Calcium Total Bilirubin AST ALT Alkaline Phosphatase Troponin I NT-Pro-B Natriuret Pep 260 Total Protein Albumin Last Vital Signs Temp 36.8 C 10/10/19 15:34 Pulse 103 H 10/10/19 17:15 Resp 27 H 10/10/19 17:15 BP 144/77 H 10/10/19 17:15 Pulse Ox 95 10/10/19 17:15
[2019-10-10] MEDS: LORazepam 2 MG/ML VIAL IVP (20:32)
[2019-10-10] MEDS: Water,Injection,Sterile 10 ML VIAL (21:53)
[2019-10-11] VITALS (117 sets, daily range): BP systolic 104–157; BP diastolic 57–132; PULSE 84–132; RESP 2–29; TEMP 36.6–36.9; O2SAT 80–100
[2019-10-11] MEDS: Normal Saline Flush 10 ML SYR IVP ×5 (01:00→20:04)
[2019-10-11] MEDS: methylPREDNISolone SUCC 40 MG VIAL IVP ×3 (01:04→16:31)
[2019-10-11] MEDS: Albuterol/Ipratropium 3 ML UPD VIAL UPD ×3 (01:04→11:42)
[2019-10-11] MEDS: LORazepam 2 MG/ML VIAL IVP ×11 (01:16→22:14)
[2019-10-11] MEDS: cefTRIAXone 1,000 MG in Normal Saline 50 ML 100 MG IVPB (04:05)
[2019-10-11] MEDS: Lidocaine 2% Jelly 11 ML SYR UR (04:40)
[2019-10-11 04:51] LABS: *AMPHETAMINES SCREEN URINE Negative (Negative); *BARBITURATES SCREEN URINE Negative (Negative); *BENZODIAZEPINES SCREEN URINE Negative (Negative); Cannabinoids THC Negative (Negative); Cocaine Screen,Urine Negative (Negative); METHADONE URINE SCREEN POSITIVE (Negative); OPIATES URINE SCREEN Negative (Negative)
[2019-10-11 04:52] LABS: Tricyclic Antidepressants Negative (Negative)
[2019-10-11 06:46] LABS: HCT 33.8 % (40.0-50.0); HGB 10.7 g/dL (13.5-17.5); Mean Corp. HGB Concentration 31.7 g/dL (32.0-36.0); Mean Corpuscular Hemoglobin 32.7 pg (27.0-33.0); Mean Corpuscular Volume 103.4 fL (80-95); Mean Platelet Volume 9.4 fL (8.0-11.0); Platelet Count 433 x1000/uL (130-400); RBC 3.27 m/cumm (4.50-6.00); RBC Distribution Width 16.1 % (11.8-14.1); White Blood Cell Count 8.39 k/cumm (4.4-10.8)
[2019-10-11 06:55] LABS: Anion Gap 1.5 mmol/L (3-11); BUN 5 mg/dL (7-18); CO2 37.5 mmol/L (21.0-32.0); CREATININE 0.62 mg/dL (0.70-1.30); Chloride 97 mmol/L (98-107); Glucose 142 mg/dL (74-106); Potassium 4.6 mmol/L (3.5-5.1); Sodium 136 mmol/L (136-145)
[2019-10-11] MEDS: Lactated Ringers 1,000 ML 125 ML IV ×2 (08:17→22:20)
--- NOTE | 2019-10-11 10:04 | W.NUTCONSULT ---
Date of service: 10/11/19 Time of Service: 10:04 Nutritional Consult ASSESSMENT: 54 year old male admitted with opiate withdrawl, currently unresponsive. NPO day 1. Not requiring intubation. PMH: COPD, liver cirrhosis, hep C, peripheral edema, hx of opiate and ETOH abuse. Labs indicate elevated ammonia, Hgb dropping. At high nutritional risk in view of long hx of substance abuse- recommend 100 mg thiamine daily, MVI, folic acid, follow up on Hgb levels, replete as needed. When diet advanced recommend 2 g salt diet. Weight up 40 lbs in last 11 months of concern, BMI now 41 indicating morbid obesity. NUTRITIONAL DIAGNOSIS: NPO day 1 morbid obesity hx of multi substance abuse INTERVENTION: vitamin/mineral repletion diet advancement when appropriate MONITORING AND EVALUATION: weight, po intake, labs Time Spent in Nutritional Counseling and Treatment: 0 time spent face to face
--- NOTE | 2019-10-11 10:22 | PDOC.CMIN ---
- If Service Date Differs Date of service: 10/11/19 Time of Service: 10:22 Care Management Initial Assess REASON FOR HOSPITALIZATION:: AMS, Pneumonia, COPD PAST MEDICAL HISTORY/PAST SURGICAL HISTORY:: COPD chronic oxygen, Hep C, tobacco dependency, depressive disorder, asthma, bronchititis, hypothyroidism, multiple rib fractures, substance dependency. PREVIOUS FUNCTIONAL STATUS/SOCIAL/FAMILY SUPPORTS:: Mahamed lives at home with his friend Marcie. He is homebound and his provider does home visits. Mahamed is on chronic oxygen, he has a walker at home and a friend Marcie who provides him support at home. CURRENT FUNCTIONAL STATUS:: Mahamed is not able to engaged at this time, he has received ativan for symptoms or aggitation, and resp distress he is now tolerating BIPAP. CM left a message for his friend Mracie and waiting for a return call. ADVANCE DIRECTIVES:: None on file - Mahamed has refused to complete in the past, CM will review forms with patient when he is more alert. Has patient been provided with information about the portal?: No Did the patient sign up for the portal?: No CODE STATUS:: Full Code INSURANCE COVERAGE / FINANCIAL ISSUES:: Medicaid CURRENT HOME/COMMUNITY SERVICES/EQUIPMENT:: [employer] for oxygen, palliative care, home provider visits, and walker PRIMARY CARE PHYSICIAN:: POTENTIAL DISCHARGE NEEDS:: Follow up scheudled with provider, anticipate he will need additional support services at time of discharge. PATIENT/FAMILY EDUCATION NEEDS:: Discharge education, limitations and follow up plan of care including ask me three and self management ANTICIPATED BARRIERS TO DISCHARGE:: Ability to manage his ADL's and advance COPD symptoms TRANSPORTATION:: Via RCT vs Family to transport PLAN:: Mahamed is ICU level of care, he is unable to particpate in assessment at this time. CM will continue to assess and provide support during hospitalization for discharge planning and continued needs.
--- NOTE | 2019-10-11 11:12 | PHARADMIT ---
Addendum entered by Fang Alatorre 10/14/19 11:36: pt abx switched to vanco/zosyn due to worsening condition, vanco trough ordered for 2/3 Addendum entered by Fang Alatorre 10/14/19 11:33: Pharmacy Note Subjective pt on continuous bipap not able to wean off, pt should be hospice candidate Objective CIWA most recent 12, CO2 greater than 45, ammonia 78 Assessment needing less lorazepam per nursing, lactulose enema x 2 today for increase ammonia levels and pt unable to take PO Plan awaiting hospice consult and direction to go with treatment Addendum entered by Fang Alatorre 10/13/19 10:24: Pharmacy Note Subjective Patient is continuing withdrawal, went into rapid AFIB today, Objective CIWA 16-21, I/O -3L Assessment checking on order for serax entered 10/12 but not given as of yet?? Plan plan for RT to take trial pt off Bipap and use hi isabella cannula Addendum entered by Gene Burks III 10/12/19 13:17: Pharmacy Note Subjective Patient is withdrawing from unknown substance (buys street drugs & drinks whiskey). MD considering intubating the patient. Patients liver is failing (INR-1.5) Patient is on CIWA protocol and has a score of 21 (used 34mg iV Lorazepam ilast 12 hours) Objective HR-115 BP-158/96 I&O- 10L out over 24hrs Lytes, SCr,H&H -OK, WBC-14.74 Wgt-125.3 kg Assessment IV ABX (Rocephin & Azithromycin), Lasix for diuresis, Solu-medrol Plan No new MD note yet, unsure of future disposition Original Note: Admission Pharmacy Clinical Review pneumonia, copd, mental status change Code Status Full Code Current Weight 126.7 kg Renally Cleared and Narrow Therapeutic Index Meds CrCl ~103ml/min QTc Value / Action Taken QTc 458, meds ok BP Control, Fever BP 117/70 (up o 157/103), HR 88, afebrile Electrolytes reviewed Na 136, K+ 4.6, Mag-none DVT Prophylaxis none Opiate Usage / Scheduled Bowel Regimen Ordered none Plt/SCr for Heparin / Enoxaparin Plt 433, Scr 0.62 INR for Warfarin INR 1.4 H/H stable, WBC/Bands H/H 10.7/33.8 Antibiotic appropriateness Azithromycin 250 q24h + ceftriaxone 1g q12h Cultures and Sensitivities Flu Negative Surgical ABX d/c within 24 hr DM control / Insulin Dosing Heart Failure (Check EF%) (GAURAV's, B-Block, Diuretics) IV to PO Switch Home Meds Reviewed Yes -- most have not been confirmed recently Home Meds Not Ordered Symbicort, cetirizine, clonidine, Diltiazem CD 180 -- last confrmed 08/2018, furosemide, guaifenesin BID, Levothyroxine 100mcg - last confirmed 08/2018, lorazepam 0.5mg TID prn, morphine oral liq - confirm 10/03/[address] Petersen, multivitamin, tamsulosin, spiriva, Comments Pt's med hx is not clear -- holding all until able to confirm Banana bag ordered for probable EtOH withdrawal, also likely withdrawing from opiates
[2019-10-11] MEDS: MAGNESIUM SULFATE 8.12 MEQ, MULTIVITAMIN 10 ML, THIAMINE 100 MG, FOLIC ACID 1 MG in Nor... 168.867 MG IV (12:42)
[2019-10-11] MEDS: cefTRIAXone 1 GM/50 ML BAG IV (16:31)
[2019-10-11] MEDS: Furosemide 40 MG/4 ML VIAL IVP (17:17)
--- NOTE | 2019-10-11 18:01 | NUR.NOTE ---
I spoke with Marcie the patient's female housesmith regarding clarification on the comment she made in regards to the patient withdrawing. She clarified that he takes Methadone (un-prescribed) 10-15mg daily maintenance, but the past few days she has only given him 5mg daily. He takes oxycodone/percoset (dose unknown) PRN infrequently. He takes a low dose morphine daily as prescribed by his PCP. He drinks several cocktails of whiskey and jennie ayana daily that are prepared by Marcie. She gave him one small one on 10/09 and that was his last know drink. Nursing Note:
--- NOTE | 2019-10-11 18:24 | W.PM.PROGNOT ---
Date of Service Date of service: 10/11/19 Time of Service: 18:25 Assessment and Plan Assessment and plan (1) Alcohol withdrawal syndrome: Status: Acute Assessment and plan: Patient appears to be delirious from acute alcohol withdrawal syndrome. This is based primarily on the history that he is drinking whiskey on a daily basis. He is delirious and unable to follow commands. We have him on the CIWA scoring system with both per protocol and PRN lorazepam. (2) Cirrhosis: Status: Chronic Assessment and plan: He appears to have massive ascites and significant peripheral edema. Does not appear to have a coagulopathy at this time. There is likely a component of hepatic encephalopathy can contributing to his behavioral disturbance. He is not taking p.o. yet so we will hold on oral lactulose at this time. (3) COPD exacerbation: Status: Acute Assessment and plan: Ongoing tobacco abuse. He has severe hypercapnia and hypoxia but is well compensated with an essentially normal pH. He is BiPAP dependent at this point but is not tolerating it consistently. We will try intermittent periods of high flow oxygen to maintain his O2 sat but the bulk of the time we should have him on the BiPAP. This is all significantly more difficult with his behavioral disorder. (4) Peripheral edema: Status: Resolved Assessment and plan: Severe fluid overload with massive peripheral edema. Will switch him to IV furosemide 40 twice daily. (5) Chronic obstructive lung disease: Status: Chronic Assessment and plan: Severe wheezing. He is on IV Solu-Medrol. Qualifiers: COPD type: emphysema Emphysema type: panlobular Qualified Code(s): J43.1 - Panlobular emphysema (6) Pneumonia: Status: Acute Assessment and plan: Bilateral infiltrates. He is on ceftriaxone and azithromycin IV. (7) Discharge planning issues: Status: Resolved Assessment and plan: Patient is a full code after discussion with Dr. Nicola paul. He is not interested in DNR/DNI or hospice status despite his chronic illnesses and continuing deterioration of function. Continue to monitor in the intensive care unit. Subjective Subjective Interval history since last seen: Patient admitted overnight with marked delirium and confusion. He has been heavily medicated with lorazepam throughout the day because of presumed alcohol withdrawal. Further history from his girlfriend/caregiver includes a history of several whiskey drinks daily. He has been purchasing methadone on the street taking 10 to 15 mg daily. His girlfriend has been trying to cut this back to 5 mg daily for the last 2 to 3 days. I spoke with Dr. Kristian Petersen who had done a home visit on him recently. He had told him he was not drinking. He had kept him on the morphine elixir 5 mg daily as needed for respiratory distress but no more than 1 bottle every 20 days. He had been called by the respiratory care company that the patient had been using up oxygen bottles more quickly than usual, 60 bottles in 1 month. Today he has not been able to converse or communicate with caregivers. He would have periods where he was somnolent but then would wake up and pull the BiPAP off and will try to get out of bed. He did not appear to make eye contact or to be volitionally communicating with anyone. Exam Narrative Exam Narrative: Disheveled appearing man who is unable to communicate. He does not make eye contact or respond to verbal stimuli to any degree. When the BiPAP is off he is complaining of air hunger and is stating help me. Once the BiPAP is on and he settled he sats in the 95% range and appears calm. His lung exam shows expiratory wheezes throughout both lung fernandes. His heart sounds are regular and strong. His abdomen is overall nontender to palpation. It is quite rounded and firm and appears to be full of ascites. The lower extremities have 4+ edema and are quite tight. There is no open areas or drainage. Rice catheter is draining dark pink-tinged urine in large amounts. The skin exam notable for multiple scars and excoriations that appear old. These are on both arms both lower extremities and his abdomen. Neurologically he is obtunded as noted. He is moving all extremities without any evidence of motor deficits. He can phonate as when he says help me. But otherwise is not communicating with staff. Objective Objective Clinical Data: Abnormal lab results 10/11/19 10/11/19 10/11/19 Range/Units 03:50 06:10 06:10 RBC 3.27 L (4.50-6.00) m/cumm Hgb 10.7 L (13.5-17.5) g/dL Hct 33.8 L (40.0-50.0) % MCV 103.4 H (80-95) fL MCHC 31.7 L (32.0-36.0) g/dL RDW 16.1 H (11.8-14.1) % Plt Count 433 H (130-400) x1000/uL Chloride 97 L (98-107) mmol/L Carbon Dioxide 37.5 H (21.0-32.0) mmol/L Anion Gap 1.5 L (3-11) mmol/L BUN 5 L (7-18) mg/dL Creatinine 0.62 L (0.70-1.30) mg/dL Glucose 142 H (74-106) mg/dL Calcium 8.0 L (8.5-10.1) mg/dL Urine Methadone Screen Positive A (Negative) Vital Signs Temperature 36.6 C 10/11/19 11:21 Temperature Source Temporal Artery Scan 10/11/19 07:43 Pulse 98 H 10/11/19 18:00 Pulse 97 H 10/11/19 18:00 Respiratory Rate 11 L 10/11/19 18:00 Respiratory Effort 10/11/19 11:21 Respiratory Depth Normal 10/11/19 10:10 Respiratory Pattern Normal 10/11/19 10:10 Blood Pressure 137/81 10/11/19 18:00 Blood Pressure Mean 91 10/11/19 18:00 Pulse Oximetry 93 L 10/11/19 18:00 Oxygen Delivery Method Bi-pap 10/11/19 11:42 Oxygen Flow Rate 55 10/10/19 17:53 Fraction of Inspired Oxygen (FIO2) 40 10/11/19 17:14 Comment 10/10/19 15:34 Intake & Output 10/10/19 10/11/19 10/11/19 23:59 11:59 23:59 Intake Total 50 / 50 1050 / 1050 Output Total 7000 / 9400 2400 / 9400 Balance 50 / 50 -5950 / -8350 -2400 / -8350 Weight 126.6 kg 126.7 kg Intake: IV 50 / 50 1050 / 1050 Output: Urine 7000 / 9400 2400 / 9400 Other: Urine Color Brown Yellow Straw Urine Appearance Cloudy Clear Comment Indwelling Irce catheter with clear yellow urine. S/P Furosemide 40 mg IVP therapy, (see emar). Voiding Methods Indwelling Catheter Laboratory Results WBC 8.39 k/cumm (4.4-10.8) 10/11/19 06:10 RBC 3.27 m/cumm (4.50-6.00) L 10/11/19 06:10 Hgb 10.7 g/dL (13.5-17.5) L 10/11/19 06:10 Hct 33.8 % (40.0-50.0) L 10/11/19 06:10 MCV 103.4 fL (80-95) H 10/11/19 06:10 MCH 32.7 pg (27.0-33.0) 10/11/19 06:10 MCHC 31.7 g/dL (32.0-36.0) L 10/11/19 06:10 RDW 16.1 % (11.8-14.1) H 10/11/19 06:10 Plt Count 433 x1000/uL (130-400) H 10/11/19 06:10 MPV 9.4 fL (8.0-11.0) 10/11/19 06:10 Immature Gran % See Differential 10/10/19 15:30 Neutrophils % 60.0 10/10/19 15:30 Band Neutrophils % 0.0 % 10/10/19 15:30 Lymphocytes % 12.0 10/10/19 15:30 Monocytes % 20.0 10/10/19 15:30 Eosinophils % 5.0 10/10/19 15:30 Basophils % 0.0 10/10/19 15:30 Metamyelocytes % 3.0 % 10/10/19 15:30 Absolute Neutrophils 5.21 k/cumm (1.2-6.7) 10/10/19 15:30 Absolute Lymphocytes 1.04 k/cumm (1.2-3.4) L 10/10/19 15:30 Absolute Monocytes 1.74 k/cumm (0.11-0.7) H 10/10/19 15:30 Absolute Eosinophils 0.43 k/cumm (0.0-0.7) 10/10/19 15:30 Absolute Basophils 0.00 k/cumm (0.0-0.2) 10/10/19 15:30 Differential Comment Manual differential 10/10/19 15:30 RBC Morphology See below 10/10/19 15:30 Poikilocytosis 2+ 10/10/19 15:30 Macrocytosis 3+ 10/10/19 15:30 Stomatocytes 2+ 10/10/19 15:30 PT 14.4 sec (9.3-11.0) H 10/10/19 15:30 INR 1.4 (0.9-1.1) H 10/10/19 15:30 Sample Site Right radial 10/10/19 15:42 pCO2 69 mmHg (34-47) H* 10/10/19 15:42 pO2 66 mmHg (83-108) L 10/10/19 15:42 O2 Saturation 93 % (94-98) L 10/10/19 15:42 ABG pH 7.36 (7.35-7.45) 10/10/19 15:42 ABG HCO3 39 mmol/L (22-28) H 10/10/19 15:42 ABG Total CO2 36 mmol/L (22-29) H 10/10/19 15:42 ABG Base Excess 13.5 mmol/L (-3-3) H 10/10/19 15:42 Oxygen Liter Flow Bipap 16/7 L 10/10/19 15:42 FiO2 40 % 10/10/19 15:42 Sodium 136 mmol/L (136-145) 10/11/19 06:10 Potassium 4.6 mmol/L (3.5-5.1) 10/11/19 06:10 Chloride 97 mmol/L (98-107) L 10/11/19 06:10 Carbon Dioxide 37.5 mmol/L (21.0-32.0) H 10/11/19 06:10 Anion Gap 1.5 mmol/L (3-11) L 10/11/19 06:10 BUN 5 mg/dL (7-18) L 10/11/19 06:10 Creatinine 0.62 mg/dL (0.70-1.30) L 10/11/19 06:10 Estimated GFR/1.73 m2 >= 60.00 (mL/min/1.73m2) 10/11/19 06:10 Glucose 142 mg/dL (74-106) H 10/11/19 06:10 Calcium 8.0 mg/dL (8.5-10.1) L 10/11/19 06:10 Total Bilirubin 1.8 mg/dL (0.2-1.0) H 10/10/19 15:30 AST 249 U/L (15-37) H 10/10/19 15:30 ALT 104 U/L (16-63) H 10/10/19 15:30 Alkaline Phosphatase 181 U/L (46-116) H 10/10/19 15:30 Ammonia 91 umol/L (11-32) H 10/10/19 17:20 Troponin I Cancelled 10/10/19 18:24 NT-Pro-B Natriuret Pep 260 pg/mL (<300) 10/10/19 15:30 Total Protein 7.6 g/dL (6.4-8.2) 10/10/19 15:30 Albumin 2.3 g/dL (3.4-5.0) L 10/10/19 15:30 Urine Opiates Screen Negative (Negative) 10/11/19 03:50 Urine Methadone Screen Positive (Negative) A 10/11/19 03:50 Ur Barbiturates Screen Negative (Negative) 10/11/19 03:50 Ur Tricyclics Screen Negative (Negative) 10/11/19 03:50 Ur Amphetamines Screen Negative (Negative) 10/11/19 03:50 U Benzodiazepines Scrn Negative (Negative) 10/11/19 03:50 Urine Cocaine Screen Negative (Negative) 10/11/19 03:50 Ur THC Screen Negative (Negative) 10/11/19 03:50
[2019-10-12] VITALS (138 sets, daily range): BP systolic 130–175; BP diastolic 64–100; PULSE 75–119; RESP 4–30; TEMP 29–37; O2SAT 89–97
[2019-10-12] MEDS: Albuterol/Ipratropium 3 ML UPD VIAL UPD ×4 (00:03→23:27)
[2019-10-12] MEDS: methylPREDNISolone SUCC 40 MG VIAL IVP ×4 (00:05→23:27)
[2019-10-12] MEDS: LORazepam 2 MG/ML VIAL IVP ×13 (00:28→23:28)
[2019-10-12] MEDS: cefTRIAXone 1 GM/50 ML BAG IV ×2 (04:30→16:58)
[2019-10-12] MEDS: Lactated Ringers 1,000 ML 125 ML IV ×3 (06:30→22:10)
[2019-10-12 06:33] LABS: Abs Immature Grans 0.11 k/cumm (0.0-0.09); Absolute Basophil Count 0.01 k/cumm (0.0-0.2); Absolute Eosinophil Count 0.01 k/cumm (0.0-0.7); Absolute Lymphocyte Count 0.62 k/cumm (1.2-3.4); Absolute Monocyte Count 1.67 k/cumm (0.11-0.7); Absolute Neutrophil Count 12.32 k/cumm (1.2-6.7); Basophils % 0.1; Eosinophils % 0.1; HCT 34.6 % (40.0-50.0); HGB 10.6 g/dL (13.5-17.5); Immature Grans % 0.7 %; Lymphocytes % 4.2; Mean Corp. HGB Concentration 30.6 g/dL (32.0-36.0); Mean Corpuscular Hemoglobin 32.1 pg (27.0-33.0); Mean Corpuscular Volume 104.8 fL (80-95); Mean Platelet Volume 8.9 fL (8.0-11.0); Monocytes % 11.3; Neutrophils % 83.6; Platelet Count 462 x1000/uL (130-400); RBC Distribution Width 16.6 % (11.8-14.1); White Blood Cell Count 14.74 k/cumm (4.4-10.8)
[2019-10-12 06:44] LABS: INR 1.5 (0.9-1.1)
[2019-10-12 06:46] LABS: Ammonia 58 umol/L (11-32)
[2019-10-12 06:48] LABS: ALT 80 U/L (16-63); AST 182 U/L (15-37); Alkaline Phosphatase 137 U/L (46-116); Anion Gap -2.4 mmol/L (3-11); BUN 9 mg/dL (7-18); CO2 41.4 mmol/L (21.0-32.0); CREATININE 0.69 mg/dL (0.70-1.30); Calcium 7.7 mg/dL (8.5-10.1); Chloride 101 mmol/L (98-107); Glucose 138 mg/dL (74-106); Potassium 4.1 mmol/L (3.5-5.1); Sodium 140 mmol/L (136-145); Total Protein 6.4 g/dL (6.4-8.2)
[2019-10-12] MEDS: Normal Saline Flush 10 ML SYR IVP (08:08)
[2019-10-12] MEDS: Furosemide 40 MG/4 ML VIAL IVP ×2 (08:10→16:57)
--- NOTE | 2019-10-12 12:51 | PDOC.CMPRO ---
- If Service Date Differs Date of service: 10/12/19 Time of Service: 12:51 Care Management Progress Note S/O: Mahamed remains in the ICU, he is not alert and oriented at this time. Mahamed remains on continuos Bipap and in need of medication to treat withdrawal symptoms. Mahamed remains on IV steroids, diuretic, and abx. CM to continue to provide support discharge planning and assist patient and family determine disposition. A: Mahamed is a 54 year old male with chronic health condition including advanced COPD, Liver Disease, substance dependency and abuse and on chronic oxygen at home. Mahamed was admitted to ICU with pneumonia, and mental status changes. P: Disposition to be determine, Mahamed is not able to engage at this time with CM for discharge planning. CM will continue to provide support to patient and family.
--- NOTE | 2019-10-12 15:25 | W.NUTRFU ---
Date of service: 10/12/19 Time of Service: 15:25 Nutritional Follow up NOTE: Mahamed is written for Regular Diet but due to delerium, unable to take anything by mouth since admit. Day 3 of nothing by mouth due to AMS/ alcohol withdrawl, continuous Bipap. Continues on IV fluids and labs indicate ammonia coming down, hopefully will wake up tomorrow. If unable to take food by mouth by 10/13/19, recommend consider nutrition support- tube feeding via NG tube however, nursing reports would be difficult to keep NG tube in place, if AMS and agitation continues may need to consider PEG placement for nutrient delivery if delerium persists. At high nutritional risk as not meeting nutrient needs at this time. Without sufficient protein intake, edema will worsen. Estimated needs: 1800 kcal, 70-85 g protein, 2000 ml fluid. If decide to start tube feeding recommend: Jevity 1.2 125 ml/hour over 12 hours (7p-7a total volume: 1500 ml), flush 200 ml q 6 hours providing total of 1800 kcal, 81 g protein, 1934 ml fluid. will follow Time Spent in Nutritional Counseling and Treatment: 0 time spent face to face
--- NOTE | 2019-10-12 19:13 | W.PM.PROGNOT ---
Date of Service Date of service: 10/12/19 Time of Service: 19:13 Assessment and Plan Assessment and plan (1) Alcohol withdrawal syndrome: Status: Acute Assessment and plan: We think most of his symptoms are related to alcohol withdrawal with the associated delirium. He is responding to Lorazepam for brief intervals. He is requiring large doses of lorazepam which is concerning in the setting of his liver failure. Thus far we have avoided intubation and propofol which would probably be the next step if he does not start to clear. (2) Encephalopathy acute: Status: Acute Assessment and plan: He likely has some component of hepatic encephalopathy given his evidence of liver failure. He is not taking p.o. We have not started lactulose via enema yet but that may be the next avenue to pursue if his sensorium does not clear. Ammonia level today was 58 (3) Pneumonia: Status: Acute Assessment and plan: He continues on ceftriaxone and azithromycin for bilateral infiltrates. His lungs are clear he does not have a high white count and is not had any fever. Consideration of stopping antibiotics given the lack of objective signs of ongoing infection. (4) Respiratory insufficiency: Status: Acute Assessment and plan: He has baseline hypercapnia and hypoxia. He does well on the BiPAP. The goal is to try to keep him on the BiPAP for respiratory support given his overall debilitated state. (5) Cirrhosis: Status: Chronic Assessment and plan: His INR is elevated at 1.5. He has evidence of ascites. LFTs are trending down. He is responding to diuresis. (6) COPD exacerbation: Status: Acute Assessment and plan: Advanced COPD with O2 dependence. He continues on Solu-Medrol and as needed updrafts. (7) Discharge planning issues: Status: Resolved Assessment and plan: Patient continues as a full code. He is obviously gravely ill with this mixed substance use withdrawal syndrome. There is a component of alcohol and opiate withdrawal coupled with hepatic encephalopathy. It is overall a confusing picture with limited ability to get definitive answers. Continue to monitor in the ICU. Subjective Subjective Interval history since last seen: Patient has been management problem all day. He has been intermittently agitated, pulling at the BiPAP device, he has broken 3 of the BiPAP masks, he now has a sitter. Overnight he received 44 mg of lorazepam to keep him calm. Thus far today he is approaching or exceeding that amount. He remains delirious and agitated when he is not sedated. He has not been able to produce any coherent speech. He is not communicating. He does open his eyes and has been able to make some eye contact which is an improvement. He remains n.p.o. Exam Narrative Exam Narrative: On exam he is disheveled appearing. He is mostly obtunded but when he wakes up he is disoriented and grasping and pulling and unable to communicate his needs. His eyes now show some evidence of chemosis. His lung sounds are generally clear other than a few scattered rhonchi. His heart sounds are rapid but regular. His abdomen is much softer than yesterday. The lower extremities had tight edema yesterday and today are slightly softer but still at 4+ edema bilaterally. Neurologically he still moves upper and lower extremities vigorously when he is agitated and confused. His overall strength is good. Objective Objective Clinical Data: Abnormal lab results 10/12/19 10/12/19 10/12/19 Range/Units 06:11 06:11 06:11 WBC 14.74 H D (4.4-10.8) k/cumm RBC 3.30 L (4.50-6.00) m/cumm Hgb 10.6 L (13.5-17.5) g/dL Hct 34.6 L (40.0-50.0) % MCV 104.8 H (80-95) fL MCHC 30.6 L (32.0-36.0) g/dL RDW 16.6 H (11.8-14.1) % Plt Count 462 H (130-400) x1000/uL Absolute Neutrophils 12.32 H (1.2-6.7) k/cumm Absolute Lymphocytes 0.62 L (1.2-3.4) k/cumm Absolute Monocytes 1.67 H (0.11-0.7) k/cumm PT (9.3-11.0) sec INR (0.9-1.1) Carbon Dioxide 41.4 H (21.0-32.0) mmol/L Anion Gap -2.4 L (3-11) mmol/L Creatinine 0.69 L (0.70-1.30) mg/dL Glucose 138 H (74-106) mg/dL Calcium 7.7 L (8.5-10.1) mg/dL AST 182 H (15-37) U/L ALT 80 H (16-63) U/L Alkaline Phosphatase 137 H (46-116) U/L Ammonia 58 H (11-32) umol/L Albumin 2.0 L (3.4-5.0) g/dL 10/12/19 Range/Units 06:11 WBC (4.4-10.8) k/cumm RBC (4.50-6.00) m/cumm Hgb (13.5-17.5) g/dL Hct (40.0-50.0) % MCV (80-95) fL MCHC (32.0-36.0) g/dL RDW (11.8-14.1) % Plt Count (130-400) x1000/uL Absolute Neutrophils (1.2-6.7) k/cumm Absolute Lymphocytes (1.2-3.4) k/cumm Absolute Monocytes (0.11-0.7) k/cumm PT 15.0 H (9.3-11.0) sec INR 1.5 H (0.9-1.1) Carbon Dioxide (21.0-32.0) mmol/L Anion Gap (3-11) mmol/L Creatinine (0.70-1.30) mg/dL Glucose (74-106) mg/dL Calcium (8.5-10.1) mg/dL AST (15-37) U/L ALT (16-63) U/L Alkaline Phosphatase (46-116) U/L Ammonia (11-32) umol/L Albumin (3.4-5.0) g/dL Vital Signs Temperature 36.4 C L 10/12/19 16:00 Temperature Source Temporal Artery Scan 10/12/19 16:00 Pulse 108 H 10/12/19 18:00 Pulse 112 H 10/12/19 18:50 Respiratory Rate 23 10/12/19 18:50 Respiratory Effort Labored 10/12/19 16:00 Respiratory Depth Shallow 10/12/19 16:00 Respiratory Pattern Normal 10/12/19 16:00 Blood Pressure 168/81 H 10/12/19 18:00 Blood Pressure Mean 101 10/12/19 18:00 Blood Pressure Position Supine 10/12/19 16:00 Pulse Oximetry 91 L 10/12/19 18:50 Oxygen Delivery Method Bi-pap 10/12/19 16:00 Oxygen Flow Rate 55 10/12/19 12:42 Fraction of Inspired Oxygen (FIO2) 40 10/12/19 16:00 Pain Level 0 10/12/19 16:00 Comment 10/10/19 15:34 Intake & Output 10/11/19 10/12/19 10/12/19 23:59 11:59 23:59 Intake Total 2063.2 / 3113.2 1550 / 2550 1000 / 2550 Output Total 3400 / 19305 2350 / 4425 2074 / 4425 Balance -1336.8 / -7286.8 -800 / -1875 -1075 / -1875 Weight 125.3 kg Intake: IV 2063.2 / 3113.2 1550 / 2550 1000 / 2550 Oral 0 / 0 Output: Urine 3400 / 90185 2350 / 4425 2074 / 25 Other: Urine Color Pale Pale Pale Yellow Yellow Yellow Urine Appearance Clear Clear Clear Comment pt has indwelling quintanilla catheter Quintanilla Catheter intact and draining clear yellow urine. quintanilla cath patent Stool Size Small Stool Characteristics Soft Liquid Laboratory Results WBC 14.74 k/cumm (4.4-10.8) H D 10/12/19 06:11 RBC 3.30 m/cumm (4.50-6.00) L 10/12/19 06:11 Hgb 10.6 g/dL (13.5-17.5) L 10/12/19 06:11 Hct 34.6 % (40.0-50.0) L 10/12/19 06:11 MCV 104.8 fL (80-95) H 10/12/19 06:11 MCH 32.1 pg (27.0-33.0) 10/12/19 06:11 MCHC 30.6 g/dL (32.0-36.0) L 10/12/19 06:11 RDW 16.6 % (11.8-14.1) H 10/12/19 06:11 Plt Count 462 x1000/uL (130-400) H 10/12/19 06:11 MPV 8.9 fL (8.0-11.0) 10/12/19 06:11 Immature Gran % 0.7 % 10/12/19 06:11 Neutrophils % 83.6 10/12/19 06:11 Band Neutrophils % 0.0 % 10/10/19 15:30 Lymphocytes % 4.2 10/12/19 06:11 Monocytes % 11.3 10/12/19 06:11 Eosinophils % 0.1 10/12/19 06:11 Basophils % 0.1 10/12/19 06:11 Metamyelocytes % 3.0 % 10/10/19 15:30 Absolute Neutrophils 12.32 k/cumm (1.2-6.7) H 10/12/19 06:11 Absolute Lymphocytes 0.62 k/cumm (1.2-3.4) L 10/12/19 06:11 Absolute Monocytes 1.67 k/cumm (0.11-0.7) H 10/12/19 06:11 Absolute Eosinophils 0.01 k/cumm (0.0-0.7) 10/12/19 06:11 Absolute Basophils 0.01 k/cumm (0.0-0.2) 10/12/19 06:11 Differential Comment Manual differential 10/10/19 15:30 RBC Morphology See below 10/10/19 15:30 Poikilocytosis 2+ 10/10/19 15:30 Macrocytosis 3+ 10/10/19 15:30 Stomatocytes 2+ 10/10/19 15:30 PT 15.0 sec (9.3-11.0) H 10/12/19 06:11 INR 1.5 (0.9-1.1) H 10/12/19 06:11 Sample Site Right radial 10/10/19 15:42 pCO2 69 mmHg (34-47) H* 10/10/19 15:42 pO2 66 mmHg (83-108) L 10/10/19 15:42 O2 Saturation 93 % (94-98) L 10/10/19 15:42 ABG pH 7.36 (7.35-7.45) 10/10/19 15:42 ABG HCO3 39 mmol/L (22-28) H 10/10/19 15:42 ABG Total CO2 36 mmol/L (22-29) H 10/10/19 15:42 ABG Base Excess 13.5 mmol/L (-3-3) H 10/10/19 15:42 Oxygen Liter Flow Bipap 16/7 L 10/10/19 15:42 FiO2 40 % 10/10/19 15:42 Sodium 140 mmol/L (136-145) 10/12/19 06:11 Potassium 4.1 mmol/L (3.5-5.1) 10/12/19 06:11 Chloride 101 mmol/L (98-107) 10/12/19 06:11 Carbon Dioxide 41.4 mmol/L (21.0-32.0) H 10/12/19 06:11 Anion Gap -2.4 mmol/L (3-11) L 10/12/19 06:11 BUN 9 mg/dL (7-18) 10/12/19 06:11 Creatinine 0.69 mg/dL (0.70-1.30) L 10/12/19 06:11 Estimated GFR/1.73 m2 >= 60.00 (mL/min/1.73m2) 10/12/19 06:11 Glucose 138 mg/dL (74-106) H 10/12/19 06:11 Calcium 7.7 mg/dL (8.5-10.1) L 10/12/19 06:11 Total Bilirubin 1.0 mg/dL (0.2-1.0) 10/12/19 06:11 AST 182 U/L (15-37) H 10/12/19 06:11 ALT 80 U/L (16-63) H 10/12/19 06:11 Alkaline Phosphatase 137 U/L (46-116) H 10/12/19 06:11 Ammonia 58 umol/L (11-32) H 10/12/19 06:11 Troponin I Cancelled 10/10/19 18:24 NT-Pro-B Natriuret Pep 260 pg/mL (<300) 10/10/19 15:30 Total Protein 6.4 g/dL (6.4-8.2) 10/12/19 06:11 Albumin 2.0 g/dL (3.4-5.0) L 10/12/19 06:11 Urine Opiates Screen Negative (Negative) 10/11/19 03:50 Urine Methadone Screen Positive (Negative) A 10/11/19 03:50 Ur Barbiturates Screen Negative (Negative) 10/11/19 03:50 Ur Tricyclics Screen Negative (Negative) 10/11/19 03:50 Ur Amphetamines Screen Negative (Negative) 10/11/19 03:50 U Benzodiazepines Scrn Negative (Negative) 10/11/19 03:50 Urine Cocaine Screen Negative (Negative) 10/11/19 03:50 Ur THC Screen Negative (Negative) 10/11/19 03:50
[2019-10-12] MEDS: AZITHROMYCIN 250 MG in Normal Saline 250 ML IVPB (20:44)
[2019-10-13] VITALS (77 sets, daily range): BP systolic 150–190; BP diastolic 64–104; PULSE 66–154; RESP 4–27; TEMP 36.3–37; O2SAT 84–94
[2019-10-13] MEDS: LORazepam 2 MG/ML VIAL IVP ×6 (00:14→10:14)
[2019-10-13] MEDS: cefTRIAXone 1 GM/50 ML BAG IV ×2 (03:48→15:26)
[2019-10-13] MEDS: Albuterol/Ipratropium 3 ML UPD VIAL UPD ×3 (05:53→18:12)
[2019-10-13] MEDS: Lactated Ringers 1,000 ML 125 ML IV (05:53)
[2019-10-13 06:52] LABS: Abs Immature Grans 0.09 k/cumm (0.0-0.09); Absolute Basophil Count 0.01 k/cumm (0.0-0.2); Absolute Lymphocyte Count 0.47 k/cumm (1.2-3.4); Absolute Monocyte Count 2.01 k/cumm (0.11-0.7); Absolute Neutrophil Count 11.77 k/cumm (1.2-6.7); Basophils % 0.1; HCT 36.6 % (40.0-50.0); HGB 11.1 g/dL (13.5-17.5); Immature Grans % 0.6 %; Lymphocytes % 3.3; Mean Corp. HGB Concentration 30.3 g/dL (32.0-36.0); Mean Corpuscular Hemoglobin 32.3 pg (27.0-33.0); Mean Corpuscular Volume 106.4 fL (80-95); Mean Platelet Volume 8.8 fL (8.0-11.0); Platelet Count 473 x1000/uL (130-400); RBC 3.44 m/cumm (4.50-6.00); RBC Distribution Width 16.8 % (11.8-14.1); White Blood Cell Count 14.35 k/cumm (4.4-10.8)
[2019-10-13 07:06] LABS: ALT 118 U/L (16-63); AST 268 U/L (15-37); Albumin 2.2 g/dL (3.4-5.0); Alkaline Phosphatase 142 U/L (46-116); Anion Gap -0.5 mmol/L (3-11); BUN 13 mg/dL (7-18); Bilirubin, Total 0.9 mg/dL (0.2-1.0); CO2 44.5 mmol/L (21.0-32.0); CREATININE 0.71 mg/dL (0.70-1.30); Calcium 7.9 mg/dL (8.5-10.1); Chloride 100 mmol/L (98-107); Glucose 140 mg/dL (74-106); Potassium 3.8 mmol/L (3.5-5.1); Sodium 144 mmol/L (136-145); Total Protein 6.7 g/dL (6.4-8.2)
[2019-10-13 07:07] LABS: Diff Comment Agrees w/ Instrument; Macrocytosis 2+
[2019-10-13] MEDS: methylPREDNISolone SUCC 40 MG VIAL IVP ×2 (08:14→15:31)
[2019-10-13] MEDS: Furosemide 40 MG/4 ML VIAL IVP ×2 (08:14→15:49)
[2019-10-13] MEDS: Normal Saline Flush 10 ML SYR IVP (08:15)
--- NOTE | 2019-10-13 08:21 | W.PM.PROGNOT ---
Date of Service Date of service: 10/13/19 Time of Service: 10:07 Assessment and Plan Assessment and plan (1) Atrial fibrillation with rapid ventricular response: Status: Acute Assessment and plan: Possible component of alcohol withdrawal, but the patient does at least 2 other risk factors for it - alcohol abuse and possible cardiomyopathy as well as chronic respiratory disease and current respiratory failure. Seems to have responded to BB. Will continue to monitor in the ICU with prn metoprolol ordered. Check TSH, troponins, echo. Poor candidate for anticoagulation due to coagulopathy, noncompliance, EtOH abuse, overall poor progrnosis - will not initiate systemic anticoagulation at this time. (2) Alcohol withdrawal syndrome: Status: Acute Assessment and plan: Remains severe. At this time, CIWA score is 16. We will attempt to abstain from lorazepam gtt due to likely impossibilty of extubation. Continue to manage with prn IV ativan boluses. Unfortunately, mental status does not permit standing librium. I wrote for thiamine. (3) Acute on chronic respiratory failure with hypoxia and hypercapnia: Status: Acute Assessment and plan: Multifactorial - due to exacerbation of his severe/end-stage COPD, fluid overload (acute on chronic diastolic CHF), pneumonia. Continue monitoring in ICU on BiPAP, IV antibiotics, steroids, diuretics with daily attempts to wean to humidified heated high flow nasal cannula. (4) Encephalopathy acute: Status: Acute Assessment and plan: Likely multifactorial - alcohol withdrawal, hepatic encephalopathy, ?Wernicke's, hypercapnia, due to pneumoina. Continue to treat above to the best of our ability - CIWA with prn ativan, BiPAP, diurese, treat COPD/pneumonia. Unfortunately, unable to get either lactulose or rifaxamine without at NGT, and he is on BIPAP. Overall, prognosis is poor. (5) Pneumonia: Status: Acute Assessment and plan: Repeat CXR. Continue ceftriaxone and azithromycin for bilateral infiltrates. Check procalcitonin/CRP. (6) COPD exacerbation: Status: Acute Assessment and plan: As above (7) Cirrhosis: Status: Chronic Assessment and plan: With coagulopathy, hepatic encephalopathy and, I suspect, varices. Start PPI. Abstain from chemical DVT ppx. Also, appears to have a component of alcoholic hepatitis. (8) Alcoholic hepatitis: Status: Acute Assessment and plan: Maddrey's discriminant function score of 18.4 indicates good prognosis. At this time, however, LFTs are trending up - will continue to monitor. If Maddrey's score worsens, consider transfer to a tertiary care facility. Already on IV solumedrol. (9) Discharge planning issues: Status: Resolved Assessment and plan: Patient continues as a full code. Overall prognosis is poor. He does not have a health care proxy officially, but had indicated to Dr Delatorre in her notes that he would like for his girlfriend to make his medical decisions if he can't. Consult palliative care. I think based on severity of his chronic conditions alone, the patient would be a hospice candidate. (10) DVT prophylaxis: Status: Acute Assessment and plan: Patient would not tolerate TEDs/SCDs. Risks of chemical DVT ppx outweigh benefits due to suspected varices and known coagulopathy. Total Critical Care Time 60 minutes. Subjective Subjective Interval history since last seen: Went into rapid Afib this morning - HR up to 170's. It is difficult to say if he was symptomatic because he is still sedated/confused, not following commands. CIWA was 16 at the time, and HR, came down to 150's after 2mg of IV ativan being given (remaining 2 mg to be given right now; did not have enough in ICU at the time). Initial EKG with Afib, HR 158, no acute ischemia, nonspecific ST-T changes. 2 doses of 2.5 mg of IV lopressor succeeded in bringing HR down to 90's - low 100's, SR. Mitten restraints overnight. On BiPAP. Gets agitated - tries to take it off. Did not tolerate going to high flow nasal canula this am. CIWA 16-21, got 20 mg of IV ativan over 11-7 shift. Weight nickerson, lost 3 kg over 24 hours. Exam Narrative Exam Narrative: General: Obese male, in bed, obtunded, but restless, not following commands, does wake up to verbal and painful stimuli some HEENT: eyes closed, MMM; BiPAP mask in place Heart: tachycardic, irregularly irregular rhythm Lungs: quiet expiratory wheezing B upper lobes Abdomen: soft, nontender, nondistended Extremities: 2+ BLE edema with wrinkling Objective Objective Clinical Data: Abnormal lab results 10/13/19 10/13/19 Range/Units 06:25 06:25 WBC 14.35 H (4.4-10.8) k/cumm RBC 3.44 L (4.50-6.00) m/cumm Hgb 11.1 L (13.5-17.5) g/dL Hct 36.6 L (40.0-50.0) % MCV 106.4 H (80-95) fL MCHC 30.3 L (32.0-36.0) g/dL RDW 16.8 H (11.8-14.1) % Plt Count 473 H (130-400) x1000/uL Absolute Neutrophils 11.77 H (1.2-6.7) k/cumm Absolute Lymphocytes 0.47 L (1.2-3.4) k/cumm Absolute Monocytes 2.01 H (0.11-0.7) k/cumm Carbon Dioxide 44.5 H (21.0-32.0) mmol/L Anion Gap -0.5 L (3-11) mmol/L Glucose 140 H (74-106) mg/dL Calcium 7.9 L (8.5-10.1) mg/dL AST 268 H (15-37) U/L ALT 118 H (16-63) U/L Alkaline Phosphatase 142 H (46-116) U/L Albumin 2.2 L (3.4-5.0) g/dL Vital Signs Temperature 36.3 C L 10/13/19 07:56 Temperature Source Temporal Artery Scan 10/13/19 07:56 Pulse 68 10/13/19 07:34 Pulse 67 10/13/19 07:15 Respiratory Rate 12 10/13/19 07:34 Respiratory Effort 10/13/19 07:56 Respiratory Depth Normal 10/13/19 04:00 Respiratory Pattern Normal 10/13/19 04:00 Blood Pressure 168/80 H 10/13/19 07:15 Blood Pressure Mean 100 10/13/19 07:15 Blood Pressure Position Supine 10/13/19 07:56 Pulse Oximetry 89 L 10/13/19 07:34 Oxygen Delivery Method Bi-pap 10/13/19 07:56 Oxygen Flow Rate 55 10/12/19 12:42 Fraction of Inspired Oxygen (FIO2) 40 10/13/19 07:34 Pain Level 0 01/31/20 20:21 Comment 10/10/19 15:34 Intake & Output 10/12/19 10/12/19 10/13/19 11:59 23:59 11:59 Intake Total 1550 / 3797.917 2247.917 / 3797.917 964.583 / 964.583 Output Total 2350 / 5100 2750 / 5100 Balance -800 / -1302.083 -502.083 / -1302.083 964.583 / 964.583 Weight 125.3 kg 122.3 kg Intake: IV 1550 / 3797.917 2247.917 / 3797.917 964.583 / 964.583 Oral 0 / 0 Output: Urine 2350 / 5100 2750 / 5100 Other: Urine Color Pale Yellow Yellow Urine Appearance Clear Clear Comment Quintanilla Catheter intact and draining clear yellow urine. quintanilla to gravity with dark colored yellow urine Indwelling Quintanilla catheter. Stool Size Small Stool Characteristics Soft Liquid Laboratory Results WBC 14.35 k/cumm (4.4-10.8) H 10/13/19 06:25 RBC 3.44 m/cumm (4.50-6.00) L 10/13/19 06:25 Hgb 11.1 g/dL (13.5-17.5) L 10/13/19 06:25 Hct 36.6 % (40.0-50.0) L 10/13/19 06:25 MCV 106.4 fL (80-95) H 10/13/19 06:25 MCH 32.3 pg (27.0-33.0) 10/13/19 06:25 MCHC 30.3 g/dL (32.0-36.0) L 10/13/19 06:25 RDW 16.8 % (11.8-14.1) H 10/13/19 06:25 Plt Count 473 x1000/uL (130-400) H 10/13/19 06:25 MPV 8.8 fL (8.0-11.0) 10/13/19 06:25 Immature Gran % 0.6 % 10/13/19 06:25 Neutrophils % 82.0 10/13/19 06:25 Band Neutrophils % 0.0 % 10/10/19 15:30 Lymphocytes % 3.3 10/13/19 06:25 Monocytes % 14.0 10/13/19 06:25 Eosinophils % 0.0 10/13/19 06:25 Basophils % 0.1 10/13/19 06:25 Metamyelocytes % 3.0 % 10/10/19 15:30 Absolute Neutrophils 11.77 k/cumm (1.2-6.7) H 10/13/19 06:25 Absolute Lymphocytes 0.47 k/cumm (1.2-3.4) L 10/13/19 06:25 Absolute Monocytes 2.01 k/cumm (0.11-0.7) H 10/13/19 06:25 Absolute Eosinophils 0.00 k/cumm (0.0-0.7) 10/13/19 06:25 Absolute Basophils 0.01 k/cumm (0.0-0.2) 10/13/19 06:25 Differential Comment Agrees w/ instrument 10/13/19 06:25 RBC Morphology See below 10/13/19 06:25 Poikilocytosis 2+ 10/10/19 15:30 Macrocytosis 2+ 10/13/19 06:25 Stomatocytes 2+ 10/10/19 15:30 PT 15.0 sec (9.3-11.0) H 10/12/19 06:11 INR 1.5 (0.9-1.1) H 10/12/19 06:11 Sample Site Right radial 10/10/19 15:42 pCO2 69 mmHg (34-47) H* 10/10/19 15:42 pO2 66 mmHg (83-108) L 10/10/19 15:42 O2 Saturation 93 % (94-98) L 10/10/19 15:42 ABG pH 7.36 (7.35-7.45) 10/10/19 15:42 ABG HCO3 39 mmol/L (22-28) H 10/10/19 15:42 ABG Total CO2 36 mmol/L (22-29) H 10/10/19 15:42 ABG Base Excess 13.5 mmol/L (-3-3) H 10/10/19 15:42 Oxygen Liter Flow Bipap 16/7 L 10/10/19 15:42 FiO2 40 % 10/10/19 15:42 Sodium 144 mmol/L (136-145) 02/01/20 06:25 Potassium 3.8 mmol/L (3.5-5.1) 10/13/19 06:25 Chloride 100 mmol/L (98-107) 10/13/19 06:25 Carbon Dioxide 44.5 mmol/L (21.0-32.0) H 10/13/19 06:25 Anion Gap -0.5 mmol/L (3-11) L 10/13/19 06:25 BUN 13 mg/dL (7-18) 10/13/19 06:25 Creatinine 0.71 mg/dL (0.70-1.30) 10/13/19 06:25 Estimated GFR/1.73 m2 >= 60.00 (mL/min/1.73m2) 10/13/19 06:25 Glucose 140 mg/dL (74-106) H 10/13/19 06:25 Calcium 7.9 mg/dL (8.5-10.1) L 10/13/19 06:25 Total Bilirubin 0.9 mg/dL (0.2-1.0) 10/13/19 06:25 AST 268 U/L (15-37) H 10/13/19 06:25 ALT 118 U/L (16-63) H 10/13/19 06:25 Alkaline Phosphatase 142 U/L (46-116) H 10/13/19 06:25 Ammonia 58 umol/L (11-32) H 10/12/19 06:11 Troponin I Cancelled 10/10/19 18:24 NT-Pro-B Natriuret Pep 260 pg/mL (<300) 10/10/19 15:30 Total Protein 6.7 g/dL (6.4-8.2) 10/13/19 06:25 Albumin 2.2 g/dL (3.4-5.0) L 10/13/19 06:25 Urine Opiates Screen Negative (Negative) 10/11/19 03:50 Urine Methadone Screen Positive (Negative) A 10/11/19 03:50 Ur Barbiturates Screen Negative (Negative) 10/11/19 03:50 Ur Tricyclics Screen Negative (Negative) 10/11/19 03:50 Ur Amphetamines Screen Negative (Negative) 10/11/19 03:50 U Benzodiazepines Scrn Negative (Negative) 10/11/19 03:50 Urine Cocaine Screen Negative (Negative) 10/11/19 03:50 Ur THC Screen Negative (Negative) 10/11/19 03:50 EKG #1: HR 158, Afib, no acute ischemia, nonspecific ST-T changes EKG #2: HR 88, NSR (very low chance he has a 2nd flutter wave hidden next to the P wave, but I only see this in lead II)
[2019-10-13 08:48] LABS: INR 1.5 (0.9-1.1); Prothrombin Time 14.8 sec (9.3-11.0)
[2019-10-13] MEDS: THIAMINE 100 MG in Normal Saline 100 ML 200 MG IVPB (09:17)
[2019-10-13] MEDS: Pantoprazole 40 MG VIAL IVP (09:18)
[2019-10-13] MEDS: Metoprolol 5 MG/5 ML VIAL (09:55)
[2019-10-13] MEDS: Metoprolol 5 MG/5 ML VIAL 2.5 MG IVP (10:29)
[2019-10-13 10:56] LABS: TSH 3.81 uIU/mL (0.36-3.74)
[2019-10-13 11:04] LABS: Troponin I < 0.05 ng/Ml (<0.06)
[2019-10-13] MEDS: THIAMINE 500 MG in Normal Saline 100 ML 200 MG IVPB ×2 (11:23→19:31)
[2019-10-13] MEDS: LORazepam 20 MG/10 ML VIAL IVP ×3 (11:48→22:17)
--- NOTE | 2019-10-13 13:07 | PDOC.CMPRO ---
- If Service Date Differs Date of service: 10/13/19 Time of Service: 13:07 Care Management Progress Note S/O: No change in plan. Mahamed remains in the ICU, he is not alert and oriented at this time. Mahamed remains on continuos Bipap and in need of medication to treat withdrawal symptoms. His CIWA scores remain high.Mahamed remains on IV steroids, diuretic, and abx. CM to continue to provide support discharge planning and assist patient and family determine disposition. A: Mahamed is a 54 year old male with chronic health condition including advanced COPD, Liver Disease, substance dependency and abuse and on chronic oxygen at home. Mahamed was admitted to ICU with pneumonia, and mental status changes. P: Disposition to be determine, Mahamed is not able to engage at this time with CM for discharge planning. CM will continue to provide support to patient and family
--- NOTE | 2019-10-13 13:20 | DI.RAD_ITS ---
EXAM: XR PORTABLE CHEST AP INDICATION: follow up PNA. COMPARISON: XR PORTABLE CHEST AP from 10/10/2019 TECHNIQUE: 2D digital imaging was performed. FINDINGS: Heart size is stable. There is a new right mid lung infiltrate. There is a persistent left infiltra te. There is blunting of the left costophrenic angle suggesting a small pleural effusion. No pneumo thorax is identified. IMPRESSION: Worsening bilateral pneumonia.
--- NOTE | 2019-10-13 13:58 | DI.VRAD_ITS ---
PROCEDURE INFORMATION: Exam: XR Chest, 1 View Exam date and time: 10/13/2019 1:19 PM Age: 54 years old Clinical indication: Other: Follow up pna; Additional info: Patient disoriented, unable to follow instructions. TECHNIQUE: Imaging protocol: XR of the chest Views: 1 view. COMPARISON: CR XR PORTABLE CHEST AP 10/10/2019 3:32 PM FINDINGS: Interval development of for increase in a right upper lobe consolidation consistent with worsening pneumonia. No significant change in a left upper lobe consolidation in the mid lateral lung field. Slight increased blunting of the left costophrenic angle. Mild cardiomegaly unchanged. IMPRESSION: 1. Interval slight worsening right upper lobe pneumonia with no change in a left upper lobe pneumonia. 2. Possible slight increase in a left pleural effusion. Dictated and Authenticated by: Wu Chambers MD. Ordering:ANYA Ontiveros MD
[2019-10-13 15:11] LABS: Troponin I < 0.05 ng/Ml (<0.06)
[2019-10-13] MEDS: Refresh PLUS Eye Drops 0.4ml 1 EACH OU ×3 (15:20→22:18)
[2019-10-13] MEDS: Bisacodyl 10 MG SUPP PR (16:37)
[2019-10-13 18:56] LABS: Troponin I < 0.05 ng/Ml (<0.06)
[2019-10-13] MEDS: AZITHROMYCIN 250 MG in Normal Saline 250 ML IVPB (20:45)
[2019-10-14] VITALS (78 sets, daily range): BP systolic 141–187; BP diastolic 67–95; PULSE 7–101; RESP 4–24; TEMP 36.3–36.8; O2SAT 24–93
[2019-10-14] MEDS: Albuterol/Ipratropium 3 ML UPD VIAL UPD ×4 (00:36→17:35)
[2019-10-14] MEDS: methylPREDNISolone SUCC 40 MG VIAL IVP ×2 (00:40→08:58)
[2019-10-14] MEDS: Normal Saline Flush 10 ML SYR IVP ×3 (00:42→14:30)
[2019-10-14] MEDS: THIAMINE 500 MG in Normal Saline 100 ML 200 MG IVPB ×3 (03:55→20:00)
[2019-10-14] MEDS: cefTRIAXone 1 GM/50 ML BAG IV (03:56)
[2019-10-14] MEDS: LORazepam 20 MG/10 ML VIAL IVP ×4 (04:01→16:09)
[2019-10-14] MEDS: Refresh PLUS Eye Drops 0.4ml 1 EACH OU (06:32)
[2019-10-14 07:00] LABS: Abs Immature Grans 0.18 k/cumm (0.0-0.09); Absolute Eosinophil Count 0.01 k/cumm (0.0-0.7); Absolute Lymphocyte Count 0.69 k/cumm (1.2-3.4); Absolute Monocyte Count 1.95 k/cumm (0.11-0.7); Absolute Neutrophil Count 9.95 k/cumm (1.2-6.7); Ammonia 78 umol/L (11-32); Basophils % 0.2; Eosinophils % 0.1; HCT 37.4 % (40.0-50.0); HGB 11.6 g/dL (13.5-17.5); Immature Grans % 1.4 %; Lymphocytes % 5.4; Mean Corpuscular Hemoglobin 33.1 pg (27.0-33.0); Mean Corpuscular Volume 106.9 fL (80-95); Mean Platelet Volume 8.8 fL (8.0-11.0); Monocytes % 15.2; Neutrophils % 77.7; Platelet Count 466 x1000/uL (130-400); RBC Distribution Width 16.9 % (11.8-14.1)
[2019-10-14 07:01] LABS: ALT 191 U/L (16-63); AST 407 U/L (15-37); Albumin 2.3 g/dL (3.4-5.0); Alkaline Phosphatase 153 U/L (46-116); BUN 17 mg/dL (7-18); Bilirubin, Direct 0.84 mg/dL (0.00-0.20); Bilirubin, Total 1.1 mg/dL (0.2-1.0); C-Reactive Protein 1.22 mg/dL (0.0-0.3); CREATININE 0.74 mg/dL (0.70-1.30); Calcium 7.9 mg/dL (8.5-10.1); Chloride 100 mmol/L (98-107); Glucose 143 mg/dL (74-106); Potassium 3.9 mmol/L (3.5-5.1); Sodium 147 mmol/L (136-145); Total Protein 7.2 g/dL (6.4-8.2)
[2019-10-14 07:13] LABS: CO2 > 45.0 mmol/L (21.0-32.0)
[2019-10-14 07:20] LABS: Procalcitonin 0.1 ng/mL
[2019-10-14 07:34] LABS: Absolute Basophil Count 0.03 k/cumm (0.0-0.2)
[2019-10-14 07:36] LABS: Anisocytosis 1+; Diff Comment RBC Morph Reviewed; Macrocytosis 2+
[2019-10-14 07:37] LABS: Basophilic Stippling Present; Polychromasia Present
[2019-10-14 07:38] LABS: Poikilocytes 1+
[2019-10-14 08:08] LABS: Lipase 211 U/L (73-393)
[2019-10-14] MEDS: Furosemide 40 MG/4 ML VIAL IVP (08:17)
[2019-10-14] MEDS: Pantoprazole 40 MG VIAL IVP (08:21)
--- NOTE | 2019-10-14 08:27 | W.PM.PROGNOT ---
Date of Service Date of service: 10/14/19 Time of Service: 11:01 Assessment and Plan Assessment and plan (1) Acute on chronic respiratory failure with hypoxia and hypercapnia: Status: Acute Assessment and plan: Multifactorial - due to exacerbation of his severe/end-stage COPD, fluid overload (acute on chronic diastolic CHF), pneumonia. PNA worse on CXR. Abx changed to vancomycin, zosyn (day 1). pCO2 of >100 on ABG - IPAP is being increased from 12 to 16. The patient is still full code, and while undesirable because this patient would be very difficult if not impossible to extubation, intubation would have to be considered if these changes to do not work. I have asked for an urgent palliative care consult. I think overall, Mr Chi's prognosis is so poor that he would be appropriate for comfort measures at this time. Continue monitoring in ICU on BiPAP, IV antibiotics, steroids, diuretics. (2) Encephalopathy acute: Status: Acute Assessment and plan: Likely multifactorial - alcohol withdrawal, hepatic encephalopathy, ?Wernicke's, hypercapnia, due to pneumoina. Discussed with pharmacy - we are able to make lactulose enemas, so we will trial this today. Meanwhile, BiPAP settings are being adjusted to help with CO2 retention. Abx are being adjusted to better treat pneumonia. Overall, prognosis is poor. Palliative care is consulted. (3) Acute cholecystitis: Status: Suspected Assessment and plan: Consult general surgery. The patient would be a poor anesthesia candidate if this is indeed a real clinical finding. Cholecystostomy could be considered, but would have to be done at a tertiary care facility. Zosyn should be adequate for medical therapy. (4) Atrial fibrillation with rapid ventricular response: Status: Resolved Assessment and plan: Possible component of alcohol withdrawal, but the patient is at risk for it - alcohol abuse and possible cardiomyopathy as well as chronic respiratory disease and current respiratory failure. No recurrences since yesterday. Continue to watch on the equipment monitor phototypesetting with prn lopressor. For echo tomorrow. Ruled out for ACS. Poor candidate for anticoagulation due to coagulopathy, noncompliance, EtOH abuse, overall poor progrnosis - will not initiate systemic anticoagulation at this time. (5) Alcohol withdrawal syndrome: Status: Acute Assessment and plan: Remains severe, but improving. Continue prn ativan. Consider precedex, which would hopefully help us avoid intubation if ativan alone becomes insufficient. Also, treat with high dose IV thiamine for a possibility of Wernicke's. (6) Pneumonia: Status: Acute Assessment and plan: CXR worse - abx changed to vancomycin/zosyn day 1. (7) COPD exacerbation: Status: Acute Assessment and plan: ABG with only slightly acidotic pH, but significant worsening of CO2 retention (CO2>100). We are changing BiPAP parameters. Hold diuresis - contraction alkalosis could be the metabolic trigger causing respiratory acidosis to worsen, although my impression is that the respiratory acidosis is primary and metabolic alkalosis is secondary, based on patient's history. Recheck ABG in 1 hour. Increase steroids. Palliative care consulted, as above. If Mr Chi's respiratory status deteriorates or does not improve, intubation would be the next step, but the patient is unlikely to be able to be extubated due to severity of his underlying COPD. (8) Cirrhosis: Status: Chronic Assessment and plan: With coagulopathy, hepatic encephalopathy and, I suspect, varices. Heme +. H/H stable. Continue PPI. Will give Vitamin K. I doubt that current bleeding is variceal, but will monitor H/H. Abstain from chemical DVT ppx. Also, appears to have a component of alcoholic hepatitis. (9) Alcoholic hepatitis: Status: Acute Assessment and plan: Maddrey's discriminant function score is 16.7 today, slightly improved. He is on solumedrol. Continue to monitor LFT's, INR; vitamin K is being administered. (10) Coagulopathy: Status: Acute Assessment and plan: Due to hepatic dysfunction. (11) Heme + stool: Status: Acute Assessment and plan: As above Next H/H check at 2 pm. (12) Corneal edema of both eyes: Status: Acute Assessment and plan: written for davina and artificial tear drops. No evidence of conjunctivitis at this time, but low threshold to consider antibiotic drops. Pharmacy is going to try to get ointment versions of artificial tears and davina, which would be preferable. (13) Discharge planning issues: Status: Resolved Assessment and plan: Patient continues as a full code. Overall prognosis is very poor, especially with such worsening of respiratory status on BiPAP and possibility for need of intubation - this patient could not be extubated. I think based on severity of his chronic conditions alone, the patient would be a hospice candidate. Palliative care is consulted. I think comfort measures should be considered. He does not have a health care proxy officially, but had indicated to Dr Delatorre in her notes that he would like for his girlfriend to make his medical decisions if he can't. (14) DVT prophylaxis: Status: Acute Assessment and plan: Patient would not tolerate TEDs/SCDs. Risks of chemical DVT ppx outweigh benefits due to suspected varices and known coagulopathy. Total Critical Care Time 90 minutes. Subjective Subjective Interval history since last seen: Nursing noted different sized pupils today - L>R. Stat CT of the head negative for acute bleed. Nods yes to questions, but I cannot get reliable answers to any question other than no to pain. Still on BiPAP, ABG is being obtained. Requiring less ativan - 7a - 7p 8 mg and then again 8 mg overnight. Cough new. Small BM since dulcolax, none since. Heme +. Blood in quintanilla Afebrile. BP's stable. No further afib. No seizures. Radiology called with a preliminary read on abdominal ultrasound - cholecystitis is suspected. Exam Narrative Exam Narrative: General: Obese male, in bed, less obtunded than yesterday, lethargic, moving all extremities, I cannot definitively say if he is following commands, mildly tachypneic on BiPAP (RR 23). HEENT: eyes closed, but he does open them, R pupil < L, corneal edema B - better than yesterday, MMM; BiPAP mask in place Heart: RRR, no m/r/g Lungs: Diminished breath sounds B Abdomen: soft, nontender - no obvious Stephenson's sign, mildly distended, very hypoactive bowel sounds Extremities: BLE pitting edema all the way up to thighs and maybe even flanks with wrinkling; chronic venous stasis dermatitis Objective Objective Clinical Data: Abnormal lab results 10/13/19 10/13/19 10/14/19 Range/Units 06:25 08:30 06:30 WBC (4.4-10.8) k/cumm RBC (4.50-6.00) m/cumm Hgb (13.5-17.5) g/dL Hct (40.0-50.0) % MCV (80-95) fL MCH (27.0-33.0) pg MCHC (32.0-36.0) g/dL RDW (11.8-14.1) % Plt Count (130-400) x1000/uL Absolute Neutrophils (1.2-6.7) k/cumm Absolute Lymphocytes (1.2-3.4) k/cumm Absolute Monocytes (0.11-0.7) k/cumm PT 14.8 H (9.3-11.0) sec INR 1.5 H (0.9-1.1) Sodium 147 H (136-145) mmol/L Carbon Dioxide 44.5 H > 45.0 H (21.0-32.0) mmol/L Anion Gap -0.5 L (3-11) mmol/L Glucose 140 H 143 H (74-106) mg/dL Calcium 7.9 L 7.9 L (8.5-10.1) mg/dL Total Bilirubin 1.1 H (0.2-1.0) mg/dL Conjugated Bilirubin 0.84 H (0.00-0.20) mg/dL AST 268 H 407 H (15-37) U/L ALT 118 H 191 H (16-63) U/L Alkaline Phosphatase 142 H 153 H (46-116) U/L Ammonia (11-32) umol/L C-Reactive Protein 1.22 H (0.0-0.3) mg/dL Albumin 2.2 L 2.3 L (3.4-5.0) g/dL TSH 3.81 H (0.36-3.74) uIU/mL 10/14/19 10/14/19 Range/Units 06:30 06:30 WBC 12.80 H (4.4-10.8) k/cumm RBC 3.50 L (4.50-6.00) m/cumm Hgb 11.6 L (13.5-17.5) g/dL Hct 37.4 L (40.0-50.0) % MCV 106.9 H (80-95) fL MCH 33.1 H (27.0-33.0) pg MCHC 31.0 L (32.0-36.0) g/dL RDW 16.9 H (11.8-14.1) % Plt Count 466 H (130-400) x1000/uL Absolute Neutrophils 9.95 H (1.2-6.7) k/cumm Absolute Lymphocytes 0.69 L (1.2-3.4) k/cumm Absolute Monocytes 1.95 H (0.11-0.7) k/cumm PT (9.3-11.0) sec INR (0.9-1.1) Sodium (136-145) mmol/L Carbon Dioxide (21.0-32.0) mmol/L Anion Gap (3-11) mmol/L Glucose (74-106) mg/dL Calcium (8.5-10.1) mg/dL Total Bilirubin (0.2-1.0) mg/dL Conjugated Bilirubin (0.00-0.20) mg/dL AST (15-37) U/L ALT (16-63) U/L Alkaline Phosphatase (46-116) U/L Ammonia 78 H (11-32) umol/L C-Reactive Protein (0.0-0.3) mg/dL Albumin (3.4-5.0) g/dL TSH (0.36-3.74) uIU/mL Vital Signs Temperature 36.6 C 10/14/19 07:50 Temperature Source Temporal Artery Scan 10/14/19 07:50 Pulse 90 10/14/19 07:57 Pulse 83 10/14/19 06:00 Respiratory Rate 22 10/14/19 07:57 Respiratory Effort Labored 10/14/19 07:50 Respiratory Depth Deep 10/14/19 07:50 Respiratory Pattern Normal 10/14/19 07:50 Blood Pressure 180/90 H 10/14/19 06:00 Blood Pressure Mean 108 10/14/19 06:00 Blood Pressure Position Supine 10/14/19 07:50 Pulse Oximetry 86 L 10/14/19 07:57 Oxygen Delivery Method Bi-pap 10/14/19 07:50 Oxygen Flow Rate 55 10/12/19 12:42 Fraction of Inspired Oxygen (FIO2) 40 10/14/19 07:57 Pain Level 0 10/14/19 04:19 Comment 10/10/19 15:34 Intake & Output 10/13/19 10/13/19 10/14/19 11:59 23:59 11:59 Intake Total 1240.583 / 2395.583 1155 / 2395.583 405 / 405 Output Total 2825 / 5475 2650 / 5475 450 / 450 Balance -1584.417 / -3079.417 -1495 / -3079.417 -45 / -45 Weight 122.3 kg Intake: IV 1240.583 / 2395.583 1155 / 2395.583 405 / 405 Output: Urine 2825 / 5475 2650 / 5475 450 / 450 Other: Urine Color Pale Yellow Light Tamara Yellow Urine Appearance Clear Comment Indwelling Quintanilla catheter. quintanilla in place. Indwelling Quintanilla catheter Stool Occult Blood Positive Stool Size Small Stool Characteristics Soft Formed Brown Laboratory Results WBC 12.80 k/cumm (4.4-10.8) H 10/14/19 06:30 RBC 3.50 m/cumm (4.50-6.00) L 10/14/19 06:30 Hgb 11.6 g/dL (13.5-17.5) L 10/14/19 06:30 Hct 37.4 % (40.0-50.0) L 10/14/19 06:30 MCV 106.9 fL (80-95) H 10/14/19 06:30 MCH 33.1 pg (27.0-33.0) H 10/14/19 06:30 MCHC 31.0 g/dL (32.0-36.0) L 10/14/19 06:30 RDW 16.9 % (11.8-14.1) H 10/14/19 06:30 Plt Count 466 x1000/uL (130-400) H 10/14/19 06:30 MPV 8.8 fL (8.0-11.0) 10/14/19 06:30 Immature Gran % 1.4 % 10/14/19 06:30 Neutrophils % 77.7 10/14/19 06:30 Band Neutrophils % 0.0 % 10/10/19 15:30 Lymphocytes % 5.4 10/14/19 06:30 Monocytes % 15.2 10/14/19 06:30 Eosinophils % 0.1 10/14/19 06:30 Basophils % 0.2 10/14/19 06:30 Metamyelocytes % 3.0 % 10/10/19 15:30 Absolute Neutrophils 9.95 k/cumm (1.2-6.7) H 10/14/19 06:30 Absolute Lymphocytes 0.69 k/cumm (1.2-3.4) L 10/14/19 06:30 Absolute Monocytes 1.95 k/cumm (0.11-0.7) H 10/14/19 06:30 Absolute Eosinophils 0.01 k/cumm (0.0-0.7) 10/14/19 06:30 Absolute Basophils 0.03 k/cumm (0.0-0.2) 10/14/19 06:30 Differential Comment Rbc morph reviewed 10/14/19 06:30 RBC Morphology See below 10/14/19 06:30 Polychromasia Present 10/14/19 06:30 Poikilocytosis 1+ 10/14/19 06:30 Basophilic Stippling Present 10/14/19 06:30 Anisocytosis 1+ 10/14/19 06:30 Macrocytosis 2+ 10/14/19 06:30 Stomatocytes 2+ 10/10/19 15:30 PT 14.8 sec (9.3-11.0) H 10/13/19 08:30 INR 1.5 (0.9-1.1) H 10/13/19 08:30 Sample Site Right radial 10/10/19 15:42 pCO2 69 mmHg (34-47) H* 10/10/19 15:42 pO2 66 mmHg (83-108) L 10/10/19 15:42 O2 Saturation 93 % (94-98) L 10/10/19 15:42 ABG pH 7.36 (7.35-7.45) 10/10/19 15:42 ABG HCO3 39 mmol/L (22-28) H 10/10/19 15:42 ABG Total CO2 36 mmol/L (22-29) H 10/10/19 15:42 ABG Base Excess 13.5 mmol/L (-3-3) H 10/10/19 15:42 Oxygen Liter Flow Bipap 16/7 L 10/10/19 15:42 FiO2 40 % 10/10/19 15:42 Sodium 147 mmol/L (136-145) H 10/14/19 06:30 Potassium 3.9 mmol/L (3.5-5.1) 10/14/19 06:30 Chloride 100 mmol/L (98-107) 10/14/19 06:30 Carbon Dioxide > 45.0 mmol/L (21.0-32.0) H 10/14/19 06:30 Anion Gap mmol/L (3-11) 10/14/19 06:30 BUN 17 mg/dL (7-18) 10/14/19 06:30 Creatinine 0.74 mg/dL (0.70-1.30) 10/14/19 06:30 Estimated GFR/1.73 m2 >= 60.00 (mL/min/1.73m2) 10/14/19 06:30 Glucose 143 mg/dL (74-106) H 10/14/19 06:30 Lactate 1.0 mmol/L (0.6-1.4) 10/14/19 08:05 Calcium 7.9 mg/dL (8.5-10.1) L 10/14/19 06:30 Magnesium 2.0 mg/dL (1.8-2.4) 10/14/19 06:30 Total Bilirubin 1.1 mg/dL (0.2-1.0) H 10/14/19 06:30 Conjugated Bilirubin 0.84 mg/dL (0.00-0.20) H 10/14/19 06:30 AST 407 U/L (15-37) H 10/14/19 06:30 ALT 191 U/L (16-63) H 10/14/19 06:30 Alkaline Phosphatase 153 U/L (46-116) H 10/14/19 06:30 Ammonia 78 umol/L (11-32) H 10/14/19 06:30 Troponin I < 0.05 ng/Ml (<0.06) 10/13/19 18:35 C-Reactive Protein 1.22 mg/dL (0.0-0.3) H 10/14/19 06:30 NT-Pro-B Natriuret Pep 260 pg/mL (<300) 10/10/19 15:30 Total Protein 7.2 g/dL (6.4-8.2) 10/14/19 06:30 Albumin 2.3 g/dL (3.4-5.0) L 10/14/19 06:30 Lipase 211 U/L (73-393) 10/14/19 06:30 Procalcitonin 0.1 ng/mL 10/14/19 06:30 TSH 3.81 uIU/mL (0.36-3.74) H 10/13/19 06:25 Urine Opiates Screen Negative (Negative) 10/11/19 03:50 Urine Methadone Screen Positive (Negative) A 10/11/19 03:50 Ur Barbiturates Screen Negative (Negative) 10/11/19 03:50 Ur Tricyclics Screen Negative (Negative) 10/11/19 03:50 Ur Amphetamines Screen Negative (Negative) 10/11/19 03:50 U Benzodiazepines Scrn Negative (Negative) 10/11/19 03:50 Urine Cocaine Screen Negative (Negative) 10/11/19 03:50 Ur THC Screen Negative (Negative) 10/11/19 03:50 CT head without contrast: No acute intracranial hemorrhage. US abdomen: Thickened gallbladder wall 4 mm. Moderate pericholecystic fluid. Echogenic material slashed sludge in the neck of the gallbladder. Findings may reflect acute cholecystitis.
[2019-10-14] MEDS: THIAMINE 100 MG in Normal Saline 100 ML 200 MG IVPB (08:36)
[2019-10-14 08:41] LABS: INR 1.4 (0.9-1.1); Prothrombin Time 14.4 sec (9.3-11.0)
[2019-10-14] MEDS: PIPERACILLIN/TAZO 3.375 GM in Normal Saline 50 ML IVPB ×3 (08:50→19:42)
--- NOTE | 2019-10-14 09:42 | DI.US_ITS ---
EXAM: US ABDOMEN CLINICAL HISTORY: worsening transaminitis TECHNIQUE: Ultrasound abdomen performed using standard protocol. COMPARISON: US renal from 07/05/2018 FINDINGS: LIVER: Diffuse increased echogenicity consistent with hepatic steatosis. Hepatomegaly at 18.5 cm. H epatopetal flow through the portal vein. GALLBLADDER: There is sludge seen within the gallbladder neck. Thickened gallbladder wall at 4 jeana meters. Moderate pericholecystic fluid. KIDNEYS: Kidneys are symmetric in size. No evidence of renal calculi. No evidence of hydronephrosis. No renal mass or cyst identified. BILIARY SYSTEM: Common bile duct measures 5 mm. No intrahepatic biliary ductal dilation. MATUTE'S SIGN: Negative. PANCREAS: Normal where visualized. SPLEEN: Not enlarged. ABDOMINAL AORTA AND IVC: Visualized portions normal caliber. ASCITES: None seen. IMPRESSION: Gallbladder wall thickening, pericholecystic fluid, and gallbladder sludge. This may reflect acute c holecystitis.
--- NOTE | 2019-10-14 09:50 | DI.CT_ITS ---
EXAM: CT HEAD WO CLINICAL HISTORY: encephalopathy TECHNIQUE: The exam was performed according to the usual protocol. COMPARISON: CT HEAD WO from 12/10/2018 FINDINGS: There is significant patient motion artifact which degrades image quality. The ventricles and sulci are consistent with the patient's age. There are areas of decreased attenuation in the white matter most consistent with small vessel ischemic disease. No acute intracranial hemorrhage is present. No midline shift or mass effect is present. The calvarium is unremarkable. The visualized paranasal s inuses are clear. IMPRESSION: No acute intracranial process is identified. There is significant patient motion artifact present.
--- NOTE | 2019-10-14 10:47 | DI.VRAD_ITS ---
PROCEDURE INFORMATION: Exam: CT Head Without Contrast Exam date and time: 10/14/2019 9:41 AM Age: 54 years old Clinical indication: Other: Encephalopathy, mental status change; Additional info: Best images obtained do to patient condition. Patient unable to hold still, ativan was given for patient to hold still, repeats obtained. Best possible images. TECHNIQUE: Imaging protocol: Computed tomography of the head without contrast. Radiation optimization: All CT scans at this facility use at least one of these dose optimization techniques: automated exposure control; mA and/or kV adjustment per patient size (includes targeted exams where dose is matched to clinical indication); or iterative reconstruction. COMPARISON: CT HEAD WO 12/10/2018 11:33 PM FINDINGS: Brain: No acute intracranial hemorrhage. There is mild diffuse heterogeneity of the white matter attenuation, consistent with chronic white matter ischemic changes. Mild cerebral atrophy Ventricles: Normal. No ventriculomegaly. Bones/joints: Unremarkable. No acute fracture. Sinuses: Visualized sinuses are unremarkable. No fluid levels. Mastoid air cells: Visualized mastoid air cells are well aerated. Soft tissues: Unremarkable. Other findings: Motion artifact degrades the images IMPRESSION: No acute intracranial hemorrhage. Dictated and Authenticated by: Mia Chua MD. Ordering:ANYA Ontiveros MD
--- NOTE | 2019-10-14 10:50 | DI.VRAD_ITS ---
Addendum created by Mia Chua MD on 10/14/2019 10:55:43 AM EST THIS REPORT CONTAINS FINDINGS THAT MAY BE CRITICAL TO PATIENT CARE. The findings were verbally communicated via telephone conference with VIKKI CLEMENTS at 10:56 AM EST on 10/14/2019. The findings were acknowledged and understood. Initial report created on 10/14/2019 10:52:29 AM EST PROCEDURE INFORMATION: Exam: US Abdomen Complete Exam date and time: 10/14/2019 10:30 AM Age: 54 years old Clinical indication: Other: Worsening transaminitis; Additional info: Best images obtained do to patient condition. Patient unable to hold still, ativan was given for patient to hold still, repeats obtained. Best possible images. TECHNIQUE: Imaging protocol: Real-time ultrasound of the abdomen with image documentation. COMPARISON: US renal 07/05/2018 1:21 PM FINDINGS: Liver: There is a diffuse increase in hepatic parenchymal echogenicity, consistent with fatty infiltration. Hepatomegaly 18.5 cm Gallbladder: Thickened gallbladder wall 4 mm. Moderate pericholecystic fluid. Echogenic material slashed sludge in the neck of the gallbladder. Findings may reflect acute cholecystitis. Common bile duct: Common bile duct measures 5 mm Pancreas: Visualized pancreas is unremarkable. Right kidney: Right kidney 12.7 cm. Left kidney: Left kidney 10.9 cm Spleen: Spleen 8.6 cm Aorta: Proximal aorta 2.8 cm Inferior vena cava: Normal. Portal venous: Portal vein is patent IMPRESSION: Thickened gallbladder wall 4 mm. Moderate pericholecystic fluid. Echogenic material slashed sludge in the neck of the gallbladder. Findings may reflect acute cholecystitis. Dictated and Authenticated by: Mia Chua MD. Ordering:ANYA Ontiveros MD
[2019-10-14] MEDS: VANCOMYCIN 2,000 MG in Normal Saline 500 ML 250 MG IVPB (11:01)
[2019-10-14 11:06] LABS: pH 7.34 (7.35-7.45); pO2 62 mmHg (83-108); sO2 89 % (94-98)
[2019-10-14 11:09] LABS: Site Right Radial; pCO2 > 100 mmHg (34-47)
[2019-10-14] MEDS: LACTULOSE 200 GM PR (12:15)
[2019-10-14] MEDS: WATER FOR IRRIGATION STERILE PR (12:15)
[2019-10-14] MEDS: methylPREDNISolone SUCC 40 MG VIAL 60 MG IVP ×2 (12:39→17:35)
[2019-10-14 13:11] LABS: pH 7.34 (7.35-7.45); pO2 54 mmHg (83-108); sO2 84 % (94-98)
[2019-10-14 13:13] LABS: FIO2L 45 L; Site Left Radial
[2019-10-14 13:14] LABS: pCO2 > 100 mmHg (34-47)
--- NOTE | 2019-10-14 13:46 | W.SURGCON ---
Date of service: 10/14/19 Time of Service: 13:48 Assessment and Plan Assessment and plan (1) Acute cholecystitis: Status: Suspected Assessment and plan: pt is not a surgical candidate. He has acute peritonits. He does have ascites -so the GB wall my be actually not thickened. He does have sludge. No gallstones. no thickened CBD pt is not a candidate for for a cholecystomy tube b/c of the cirrhosis and coagulopathy INR 1.4 ammonia is 74 He would exsanguinate from any IR procedures as well cont to treat w/ abx- zosyn and see how he fares. I do'nt feel that he is going to survive this. I don't feel that he should be intubated and that he should be made comfort cares. (2) Coagulopathy: Status: Acute (3) Heme + stool: Status: Acute (4) Alcoholic hepatitis: Status: Acute (5) Acute on chronic respiratory failure with hypoxia and hypercapnia: Status: Acute Assessment and plan: Currently he is on BiPAP. He is not responsive and seems to be in pain. His pO2 is 60 on 50% oxygen Family is being called in to see if they want to intubate and procede w/ care. Between his resporatory problems and his liver failure, he would not survive any surgery/procedures He is on 6L of O2 at home. If he were intubated, he would not come off the ventilator (6) Atrial fibrillation with rapid ventricular response: Status: Resolved (7) Encephalopathy acute: Status: Acute (8) Pneumonia: Status: Acute (9) Cirrhosis: Status: Chronic (10) COPD exacerbation: Status: Acute (11) History of intravenous drug abuse: Status: Chronic (12) Hepatitis C: Status: Chronic Qualifiers: Viral hepatitis chronicity: chronic Hepatic coma status: without hepatic coma Qualified Code(s): B18.2 - Chronic viral hepatitis C (13) Chronic obstructive lung disease: Status: Chronic Qualifiers: COPD type: emphysema Emphysema type: panlobular Qualified Code(s): J43.1 - Panlobular emphysema (14) Asthma: Status: Chronic History of Present Illness Narrative: PT seen and examined. Pt is on Bipap. Pt is confused and not orientated to person. Hx obtained from chart, MD's and RN's. Pt does not have any family. He does not have POA. He has a girlfriend, but she is not POA. pt has end stage COPD. He is nl on 6L O2 at home. 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) Acquired hypothyroidism (Chronic 07/02/16) Acute and chronic respiratory failure with hypercapnia (Chronic) Allergic rhinitis (Chronic) Asthma (Chronic) Cellulitis of both lower extremities (Resolved) Chronic obstructive lung disease (Chronic) Cirrhosis (Chronic) COPD with exacerbation (Resolved) Depressive disorder (Chronic) Encephalopathy acute (Acute) Goals of care, counseling/discussion (Acute) Hepatic encephalopathy (Resolved) Hepatitis C (Chronic) History of intravenous drug abuse (Chronic) Hyperammonemia (Resolved) Multiple rib fractures involving four or more ribs (Resolved) Palliative care patient (Acute) 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 Social History (Updated 10/14/19 @ 18:02 by Rosario Castaneda MD) Smoking/Tobacco Use Status: Current every day Quit status: has quit before Smoking risk assessment performed?: No Reason tobacco screening was not done: limited life expectancy Alcohol Intake: current Alcohol Intake frequency: 3 or more drinks per day Details: Mahamed is obtunded at time of my visit, on Bipap in the ICU Drug use: Occasionally Substance use type: former substance user, marijuana and IV drugs Caregiver/Support person: Yes Household members: friend(s) Number of Children: 1 Education Level: high school What is your relationship status?: Panel score (0-1 are the most socially isolated patients): 0 What type of physical activity do you participate in: none Seatbelt use: sometimes Do you feel safe at home: Yes Do you feel safe in your relationship?: Yes Additional Social history: Friend Marcie, former romantic partner, has lived with Mahamed x 10 years. Mahamed has one son and some relatives in [place], not close to them. Mahamed filled out DPOA paperwork in 12/29 that indicated Marcie as DPOA. She feels the burden of this responsibility, wants input from son and other family if possible. Results Last Vital Signs Temp 36.6 C 10/14/19 07:50 Pulse 101 H 10/14/19 13:38 Resp 19 10/14/19 13:38 BP 168/95 H 10/14/19 09:23 Pulse Ox 88 L 10/14/19 13:38 Labs Result diagrams: 10/14/19 06:30 10/14/19 06:30 Labs: Laboratory Results - last 24 hr 10/13/19 10/13/19 10/14/19 14:35 18:35 06:30 WBC RBC Hgb Hct MCV MCH MCHC RDW Plt Count MPV Immature Gran % Neutrophils % Lymphocytes % Monocytes % Eosinophils % Basophils % Absolute Neutrophils Absolute Lymphocytes Absolute Monocytes Absolute Eosinophils Absolute Basophils Differential Comment RBC Morphology Polychromasia Poikilocytosis Basophilic Stippling Anisocytosis Macrocytosis PT INR Sample Site pCO2 pO2 O2 Saturation ABG pH ABG HCO3 ABG Total CO2 ABG Base Excess Oxygen Liter Flow FiO2 Sodium 147 H Potassium 3.9 Chloride 100 Carbon Dioxide > 45.0 H Anion Gap BUN 17 Creatinine 0.74 Estimated GFR/1.73 m2 >= 60.00 Glucose 143 H Lactate Calcium 7.9 L Magnesium 2.0 Total Bilirubin 1.1 H Conjugated Bilirubin 0.84 H AST 407 H ALT 191 H Alkaline Phosphatase 153 H Ammonia Troponin I < 0.05 < 0.05 C-Reactive Protein 1.22 H Total Protein 7.2 Albumin 2.3 L Lipase 211 Procalcitonin 10/14/19 10/14/19 10/14/19 06:30 06:30 06:30 WBC 12.80 H RBC 3.50 L Hgb 11.6 L Hct 37.4 L MCV 106.9 H MCH 33.1 H MCHC 31.0 L RDW 16.9 H Plt Count 466 H MPV 8.8 Immature Gran % 1.4 Neutrophils % 77.7 Lymphocytes % 5.4 Monocytes % 15.2 Eosinophils % 0.1 Basophils % 0.2 Absolute Neutrophils 9.95 H Absolute Lymphocytes 0.69 L Absolute Monocytes 1.95 H Absolute Eosinophils 0.01 Absolute Basophils 0.03 Differential Comment Rbc morph reviewed RBC Morphology See below Polychromasia Present Poikilocytosis 1+ Basophilic Stippling Present Anisocytosis 1+ Macrocytosis 2+ PT INR Sample Site pCO2 pO2 O2 Saturation ABG pH ABG HCO3 ABG Total CO2 ABG Base Excess Oxygen Liter Flow FiO2 Sodium Potassium Chloride Carbon Dioxide Anion Gap BUN Creatinine Estimated GFR/1.73 m2 Glucose Lactate Calcium Magnesium Total Bilirubin Conjugated Bilirubin AST ALT Alkaline Phosphatase Ammonia 78 H Troponin I C-Reactive Protein Total Protein Albumin Lipase Procalcitonin 0.1 10/14/19 10/14/19 10/14/19 08:05 08:05 11:00 WBC RBC Hgb Hct MCV MCH MCHC RDW Plt Count MPV Immature Gran % Neutrophils % Lymphocytes % Monocytes % Eosinophils % Basophils % Absolute Neutrophils Absolute Lymphocytes Absolute Monocytes Absolute Eosinophils Absolute Basophils Differential Comment RBC Morphology Polychromasia Poikilocytosis Basophilic Stippling Anisocytosis Macrocytosis PT 14.4 H INR 1.4 H Sample Site Right radial pCO2 > 100 H* pO2 62 L O2 Saturation 89 L ABG pH 7.34 L ABG HCO3 ABG Total CO2 ABG Base Excess Oxygen Liter Flow FiO2 Sodium Potassium Chloride Carbon Dioxide Anion Gap BUN Creatinine Estimated GFR/1.73 m2 Glucose Lactate 1.0 Calcium Magnesium Total Bilirubin Conjugated Bilirubin AST ALT Alkaline Phosphatase Ammonia Troponin I C-Reactive Protein Total Protein Albumin Lipase Procalcitonin 10/14/19 13:00 WBC RBC Hgb Hct MCV MCH MCHC RDW Plt Count MPV Immature Gran % Neutrophils % Lymphocytes % Monocytes % Eosinophils % Basophils % Absolute Neutrophils Absolute Lymphocytes Absolute Monocytes Absolute Eosinophils Absolute Basophils Differential Comment RBC Morphology Polychromasia Poikilocytosis Basophilic Stippling Anisocytosis Macrocytosis PT INR Sample Site Left radial pCO2 > 100 H* pO2 54 L O2 Saturation 84 L ABG pH 7.34 L ABG HCO3 ABG Total CO2 ABG Base Excess Oxygen Liter Flow 45 FiO2 Bipap 16/5 Sodium Potassium Chloride Carbon Dioxide Anion Gap BUN Creatinine Estimated GFR/1.73 m2 Glucose Lactate Calcium Magnesium Total Bilirubin Conjugated Bilirubin AST ALT Alkaline Phosphatase Ammonia Troponin I C-Reactive Protein Total Protein Albumin Lipase Procalcitonin
--- NOTE | 2019-10-14 13:54 | CMPROGNOTE_ITS ---
- If Service Date Differs Date of service: 10/14/19 Time of Service: 13:54 Care Management Progress Note S/O: Mahamed continues to meet ICU level of care. He is currently not alert and is unable to interact. At the request of the provider, a palliative care consult is requested. CM will continue to follow. A: Mahamed is a 54 year old male admitted to [facility] on 10/10/2019 for mental status change, pneumonia, and COPD. P: Disposition remains undetermined at this time, as Mahamed is unable to engage. CM will continue to follow.
--- NOTE | 2019-10-14 17:02 | W.PM.PROGNOT ---
Date of Service Date of service: 10/14/19 Time of Service: 17:03 Subjective Subjective Interval history since last seen: After several conversation with patient's DPOA Marcie, the patient is now being made DNR/DNI. He will, however, remain on bipap, on IV antibiotics and on steroids until his son is able to come say good bye. It is not clear right now when he is coming. He is also at the same time on ativan and morphine drips for comfort, with which Marcie was in agreement. Code status changed to DNR/DNI. COLST form to be signed by Marcie. Objective Objective Clinical Data: Abnormal lab results 10/14/19 10/14/19 10/14/19 Range/Units 06:30 06:30 06:30 WBC 12.80 H (4.4-10.8) k/cumm RBC 3.50 L (4.50-6.00) m/cumm Hgb 11.6 L (13.5-17.5) g/dL Hct 37.4 L (40.0-50.0) % MCV 106.9 H (80-95) fL MCH 33.1 H (27.0-33.0) pg MCHC 31.0 L (32.0-36.0) g/dL RDW 16.9 H (11.8-14.1) % Plt Count 466 H (130-400) x1000/uL Absolute Neutrophils 9.95 H (1.2-6.7) k/cumm Absolute Lymphocytes 0.69 L (1.2-3.4) k/cumm Absolute Monocytes 1.95 H (0.11-0.7) k/cumm PT (9.3-11.0) sec INR (0.9-1.1) pCO2 (34-47) mmHg pO2 (83-108) mmHg O2 Saturation (94-98) % ABG pH (7.35-7.45) Sodium 147 H (136-145) mmol/L Carbon Dioxide > 45.0 H (21.0-32.0) mmol/L Glucose 143 H (74-106) mg/dL Calcium 7.9 L (8.5-10.1) mg/dL Total Bilirubin 1.1 H (0.2-1.0) mg/dL Conjugated Bilirubin 0.84 H (0.00-0.20) mg/dL AST 407 H (15-37) U/L ALT 191 H (16-63) U/L Alkaline Phosphatase 153 H (46-116) U/L Ammonia 78 H (11-32) umol/L C-Reactive Protein 1.22 H (0.0-0.3) mg/dL Albumin 2.3 L (3.4-5.0) g/dL 10/14/19 10/14/19 10/14/19 Range/Units 08:05 11:00 13:00 WBC (4.4-10.8) k/cumm RBC (4.50-6.00) m/cumm Hgb (13.5-17.5) g/dL Hct (40.0-50.0) % MCV (80-95) fL MCH (27.0-33.0) pg MCHC (32.0-36.0) g/dL RDW (11.8-14.1) % Plt Count (130-400) x1000/uL Absolute Neutrophils (1.2-6.7) k/cumm Absolute Lymphocytes (1.2-3.4) k/cumm Absolute Monocytes (0.11-0.7) k/cumm PT 14.4 H (9.3-11.0) sec INR 1.4 H (0.9-1.1) pCO2 > 100 H* > 100 H* (34-47) mmHg pO2 62 L 54 L (83-108) mmHg O2 Saturation 89 L 84 L (94-98) % ABG pH 7.34 L 7.34 L (7.35-7.45) Sodium (136-145) mmol/L Carbon Dioxide (21.0-32.0) mmol/L Glucose (74-106) mg/dL Calcium (8.5-10.1) mg/dL Total Bilirubin (0.2-1.0) mg/dL Conjugated Bilirubin (0.00-0.20) mg/dL AST (15-37) U/L ALT (16-63) U/L Alkaline Phosphatase (46-116) U/L Ammonia (11-32) umol/L C-Reactive Protein (0.0-0.3) mg/dL Albumin (3.4-5.0) g/dL Vital Signs Temperature 36.3 C L 10/14/19 12:15 Temperature Source Temporal Artery Scan 10/14/19 12:15 Pulse 7 L 10/14/19 16:08 Pulse 87 10/14/19 15:20 Respiratory Rate 22 10/14/19 16:08 Respiratory Effort Labored 10/14/19 12:15 Respiratory Depth Deep 10/14/19 12:15 Respiratory Pattern Normal 10/14/19 12:15 Blood Pressure 141/77 H 10/14/19 15:00 Blood Pressure Mean 93 10/14/19 15:00 Blood Pressure Position Supine 10/14/19 12:15 Pulse Oximetry 86 L 10/14/19 16:08 Oxygen Delivery Method Bi-pap 10/14/19 12:15 Oxygen Flow Rate 55 10/12/19 12:42 Fraction of Inspired Oxygen (FIO2) 45 10/14/19 16:08 Pain Level 0 10/14/19 04:19 Comment 10/10/19 15:34 Intake & Output 10/13/19 10/14/19 10/14/19 23:59 11:59 23:59 Intake Total 1155 / 2395.583 485 / 486.633 1.633 / 486.633 Output Total 2650 / 5475 450 / 2725 2275 / 2725 Balance -1495 / -3079.417 35 / -2238.367 -2273.367 / -2238.367 Intake: IV 1155 / 2395.583 485 / 486.633 1.633 / 486.633 Output: Urine 2650 / 5475 450 / 2725 2275 / 2725 Other: Urine Color Yellow Light Tamara Yellow Urine Appearance Clear Clear Comment quintanilla in place. Indwelling Quintanilla catheter Indwelling Quintanilla catheter Stool Occult Blood Positive Stool Size Small Moderate Stool Characteristics Soft Soft Formed Brown Brown Laboratory Results WBC 12.80 k/cumm (4.4-10.8) H 10/14/19 06:30 RBC 3.50 m/cumm (4.50-6.00) L 10/14/19 06:30 Hgb Cancelled 10/14/19 14:00 Hct Cancelled 10/14/19 14:00 MCV 106.9 fL (80-95) H 10/14/19 06:30 MCH 33.1 pg (27.0-33.0) H 10/14/19 06:30 MCHC 31.0 g/dL (32.0-36.0) L 10/14/19 06:30 RDW 16.9 % (11.8-14.1) H 10/14/19 06:30 Plt Count 466 x1000/uL (130-400) H 10/14/19 06:30 MPV 8.8 fL (8.0-11.0) 10/14/19 06:30 Immature Gran % 1.4 % 10/14/19 06:30 Neutrophils % 77.7 10/14/19 06:30 Band Neutrophils % 0.0 % 10/10/19 15:30 Lymphocytes % 5.4 10/14/19 06:30 Monocytes % 15.2 10/14/19 06:30 Eosinophils % 0.1 10/14/19 06:30 Basophils % 0.2 10/14/19 06:30 Metamyelocytes % 3.0 % 10/10/19 15:30 Absolute Neutrophils 9.95 k/cumm (1.2-6.7) H 10/14/19 06:30 Absolute Lymphocytes 0.69 k/cumm (1.2-3.4) L 10/14/19 06:30 Absolute Monocytes 1.95 k/cumm (0.11-0.7) H 10/14/19 06:30 Absolute Eosinophils 0.01 k/cumm (0.0-0.7) 10/14/19 06:30 Absolute Basophils 0.03 k/cumm (0.0-0.2) 10/14/19 06:30 Differential Comment Rbc morph reviewed 10/14/19 06:30 RBC Morphology See below 10/14/19 06:30 Polychromasia Present 10/14/19 06:30 Poikilocytosis 1+ 10/14/19 06:30 Basophilic Stippling Present 10/14/19 06:30 Anisocytosis 1+ 10/14/19 06:30 Macrocytosis 2+ 10/14/19 06:30 Stomatocytes 2+ 10/10/19 15:30 PT 14.4 sec (9.3-11.0) H 10/14/19 08:05 INR 1.4 (0.9-1.1) H 10/14/19 08:05 Sample Site Left radial 10/14/19 13:00 pCO2 > 100 mmHg (34-47) H* 10/14/19 13:00 pO2 54 mmHg (83-108) L 10/14/19 13:00 O2 Saturation 84 % (94-98) L 10/14/19 13:00 ABG pH 7.34 (7.35-7.45) L 10/14/19 13:00 ABG HCO3 mmol/L (22-28) 10/14/19 13:00 ABG Total CO2 mmol/L (22-29) 10/14/19 13:00 ABG Base Excess mmol/L (-3-3) 10/14/19 13:00 Oxygen Liter Flow 45 L 10/14/19 13:00 FiO2 Bipap 16/5 % 10/14/19 13:00 Sodium 147 mmol/L (136-145) H 10/14/19 06:30 Potassium 3.9 mmol/L (3.5-5.1) 10/14/19 06:30 Chloride 100 mmol/L (98-107) 10/14/19 06:30 Carbon Dioxide > 45.0 mmol/L (21.0-32.0) H 10/14/19 06:30 Anion Gap mmol/L (3-11) 10/14/19 06:30 BUN 17 mg/dL (7-18) 10/14/19 06:30 Creatinine 0.74 mg/dL (0.70-1.30) 10/14/19 06:30 Estimated GFR/1.73 m2 >= 60.00 (mL/min/1.73m2) 10/14/19 06:30 Glucose 143 mg/dL (74-106) H 10/14/19 06:30 Lactate 1.0 mmol/L (0.6-1.4) 10/14/19 08:05 Calcium 7.9 mg/dL (8.5-10.1) L 10/14/19 06:30 Magnesium 2.0 mg/dL (1.8-2.4) 10/14/19 06:30 Total Bilirubin 1.1 mg/dL (0.2-1.0) H 10/14/19 06:30 Conjugated Bilirubin 0.84 mg/dL (0.00-0.20) H 10/14/19 06:30 AST 407 U/L (15-37) H 10/14/19 06:30 ALT 191 U/L (16-63) H 10/14/19 06:30 Alkaline Phosphatase 153 U/L (46-116) H 10/14/19 06:30 Ammonia 78 umol/L (11-32) H 10/14/19 06:30 Troponin I < 0.05 ng/Ml (<0.06) 10/13/19 18:35 C-Reactive Protein 1.22 mg/dL (0.0-0.3) H 10/14/19 06:30 NT-Pro-B Natriuret Pep 260 pg/mL (<300) 10/10/19 15:30 Total Protein 7.2 g/dL (6.4-8.2) 10/14/19 06:30 Albumin 2.3 g/dL (3.4-5.0) L 10/14/19 06:30 Lipase 211 U/L (73-393) 10/14/19 06:30 Procalcitonin 0.1 ng/mL 10/14/19 06:30 TSH 3.81 uIU/mL (0.36-3.74) H 10/13/19 06:25 Urine Opiates Screen Negative (Negative) 10/11/19 03:50 Urine Methadone Screen Positive (Negative) A 10/11/19 03:50 Ur Barbiturates Screen Negative (Negative) 10/11/19 03:50 Ur Tricyclics Screen Negative (Negative) 10/11/19 03:50 Ur Amphetamines Screen Negative (Negative) 10/11/19 03:50 U Benzodiazepines Scrn Negative (Negative) 10/11/19 03:50 Urine Cocaine Screen Negative (Negative) 10/11/19 03:50 Ur THC Screen Negative (Negative) 10/11/19 03:50
--- NOTE | 2019-10-14 17:34 | W.PALLCONSUL ---
Date of service: 10/14/19 History of Present Illness History of Present Illness Chief Complaint: multiple life-threatening illness, C discussion with DPOA Narrative: Mahamed is a usual palliative care patient of Dr Delatorre; she is out of town and I am covering for her. Dr aNpier could not wait for input until Tuesday so she asked that I see Mahamed emergently. She felt that his FULL CODE status was not in his best interest and wanted palliative care insight into how to proceed toward a DNR/DNI status, given his critically ill status. Per Dr Delatorre's last note: Mahamed appears to be in denial about how sick he is. He does not want to fill out a COLST form because he thinks if he feels this out and chooses DNR that he will soon . He did fill out a DPOA form that indicated his former romantic partner, now roommate of 10 years, Katarina, can make decisions for him if he is unable. I met with and examined Mahamed, who was unresponsive; talked to his nurse, Concepcion Villarreal RN, several times; his hospitalist, Dr Napier, several times, and his DPOA and her support team twice. I also discussed his surgical options with Dr Bañuelos and reviewed his records. Mahamed is on bipap. He is unable to wean off it. He has pneumonia which is not responding to IV antibiotics clinically or on imaging; encephalopathy from multiple illnesses, including cirrhosis of alcholism and hepatitis C, hypercapnea, and sepsis; he has acute cholecystitis and peritonitis, for which he is not a surgical candidate or even a candidate for IR given his coagulopathy; he has heme + stools, likely from a combination of liver disease effects. His DPOA and her 2 support people seemed to understand how sick he was. His DPOA wanted reassurance that her not being able to convince Mahamed to come in sooner was not leading to his . She has spoken to his son, Jr Mahamed, who lives in [place]. Dr Napier also spoke to ESTELLA as he is known. I did not. Consults Consult date: 10/14/19 Requesting physician: Rama Napier Assessment and Plan Assessment and plan (1) Patient has active durable power of health care attorney (DPOA) designee for healthcare: Status: Chronic Assessment and plan: Dr Napier and I met with Marcie to discuss what Mahamed would want if he could speak for himself. He would not want to be a vegetable. He would not want to live in a care home for long, maybe a week or two. She also described Mahamed's clear sense prior to this admission that his health was declining beyond recovery. Marcie is feeling burdened by the responsibility of making health decisions for Mahamed. She did agree to DNR/DNI upon advice from myself and Dr Napier that we did not think Mahamed would survive this admission, but if he did, he would not be able to return to the same poor level of health he had previously. (2) Goals of care, counseling/discussion: Status: Acute Assessment and plan: Based on Katarina's knowledge of Mahamed, and Tee Napier, Edda, and my understanding of Mahamed's multifactorial illness, we did change his code status from FULL to DNR./DNI. Mahamed will continue to receive antibiotics and remain on the Bipap for now. His son, ESTELLA, may come up from [place]; he's undecided. Dr Delatorre will meet with Katarina and Mahamed and whoever else has gathered tomorrow, 10/15/19, at 5 pm to see what further decisions need to be made. (3) Palliative care patient: Status: Acute Assessment and plan: Dr Delatorre has seen Mahamed previously, though not for a while. Marcie says he has managed to stay out of the hospital by sheer will. (4) Acute on chronic respiratory failure with hypoxia and hypercapnia: Status: Acute Assessment and plan: Note that Mahamed's hypercapnea on BiPap is unusually high. He has both pulmonary and cardiac reasons for his respiratory failure; he has end-stage lung and heart disease, both. (5) Encephalopathy acute: Status: Acute Assessment and plan: Multifactorial. Unable to speak for himself. Given lactulose per rectum today in an attempt to help clear his mind. (6) Pneumonia: Status: Acute Assessment and plan: Intensified his IV antibiotics today. Will see if he responds at all. Not ready to stop them yet, per DPOA. Review of Systems Constitutional Constitutional: Reports daytime sleepiness, Reports fatigue, Reports lethargy, Reports poor appetite, Reports stops breathing during sleep and Reports weakness Comments: has not eaten since before admission cannot tolerate coming off bipap minimally responsive brow was furrowed and he was grimacing at my first visit after we started a low dose morphine and lorazapem drip, he appeared more comfortable Eyes Eyes: Reports eye discharge Comments: keeping his eyes closed, corneas edematous bilaterally, unable to close his lids ENT Comments: bipap in place Cardiovascular Cardiovascular: Reports rapid heart rate, Reports dyspnea and Reports dyspnea on exertion Respiratory Respiratory: Reports cough, Reports dyspnea and Reports dyspnea on exertion Gastrointestinal Gastrointestinal: Reports constipation Comments: given a lactulose enema, with some results had not had a BM from admission until after the enema Genitourinary Genitourinary: Reports other (quintanilla in place, urinating well per nursing) Musculoskeletal Musculoskeletal: Reports muscle weakness Integumentary/Breasts Skin/Breast: Reports dry skin Neurologic Neurologic: Reports weakness Comments: obtunded Psychiatric Comments: DPOA reports that he did not want to be admitted to hospital. He was convinced that he would not survive this admission. 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) Acquired hypothyroidism (Chronic 07/02/16) Acute and chronic respiratory failure with hypercapnia (Chronic) Allergic rhinitis (Chronic) Asthma (Chronic) Cellulitis of both lower extremities (Resolved) Chronic obstructive lung disease (Chronic) Cirrhosis (Chronic) COPD with exacerbation (Resolved) Depressive disorder (Chronic) Encephalopathy acute (Acute) Goals of care, counseling/discussion (Acute) Hepatic encephalopathy (Resolved) Hepatitis C (Chronic) History of intravenous drug abuse (Chronic) Hyperammonemia (Resolved) Multiple rib fractures involving four or more ribs (Resolved) Palliative care patient (Acute) Patient has active durable power of health care attorney (DPOA) designee for healthcare (Chronic) Peripheral edema (Resolved 12/06/17) Smoker (Resolved 04/15/16) Urinary retention (Inactive) Family History (Updated 10/14/19 @ 17:59 by Rosario Castaneda MD) Son No problems noted. Social History (Updated 10/14/19 @ 18:02 by Rosario Castaneda MD) Smoking/Tobacco Use Status: Current every day Quit status: has quit before Smoking risk assessment performed?: No Reason tobacco screening was not done: limited life expectancy Alcohol Intake: current Alcohol Intake frequency: 3 or more drinks per day Details: Mahamed is obtunded at time of my visit, on Bipap in the ICU Drug use: Occasionally Substance use type: former substance user, marijuana and IV drugs Caregiver/Support person: Yes Household members: friend(s) Number of Children: 1 Education Level: high school What is your relationship status?: Panel score (0-1 are the most socially isolated patients): 0 What type of physical activity do you participate in: none Seatbelt use: sometimes Do you feel safe at home: Yes Do you feel safe in your relationship?: Yes Additional Social history: Friend Marcie, former romantic partner, has lived with Mahamed x 10 years. Mahamed has one son and some relatives in [place], not close to them. Mahamed filled out DPOA paperwork in 12/29 that indicated Marcie as DPOA. She feels the burden of this responsibility, wants input from son and other family if possible. Exam Narrative Exam Narrative: General: Obese male, in bed, minimally responsive, lethargic, looked uncomfortable at my first visit, much more comfortable after morphine and lorazepam drips hanging, still mildly tachypneic on BiPAP (RR 23). HEENT: eyes closed, corneal edema, BiPAP mask in place--hearing appears to be grossly intact, neck full, hard to determine whether JVD or LAD Heart: RRR, no m/r/g, Lungs: Diminished breath sounds, no increased work of breathing Abdomen: distended, + rebound, very hypoactive bowel sounds, +2-3 pitting edema in abdominal skin Extremities: BLE pitting edema to thighs and abdomen; chronic venous stasis dermatitis : quintanilla in place neuro: did not respond to my calling his name, does appear to be in pain at first, resolved by second visit Results Last Vital Signs Temp 97.3 F L 10/14/19 12:15 Pulse 7 L 10/14/19 16:08 Resp 22 10/14/19 16:08 BP 141/77 H 10/14/19 15:00 Pulse Ox 86 L 10/14/19 16:08 Labs Result diagrams: 10/14/19 06:30 10/14/19 06:30 Labs: Laboratory Results - last 24 hr 10/13/19 10/14/19 10/14/19 18:35 06:30 06:30 WBC RBC Hgb Hct MCV MCH MCHC RDW Plt Count MPV Immature Gran % Neutrophils % Lymphocytes % Monocytes % Eosinophils % Basophils % Absolute Neutrophils Absolute Lymphocytes Absolute Monocytes Absolute Eosinophils Absolute Basophils Differential Comment RBC Morphology Polychromasia Poikilocytosis Basophilic Stippling Anisocytosis Macrocytosis PT INR Sample Site pCO2 pO2 O2 Saturation ABG pH ABG HCO3 ABG Total CO2 ABG Base Excess Oxygen Liter Flow FiO2 Sodium 147 H Potassium 3.9 Chloride 100 Carbon Dioxide > 45.0 H Anion Gap BUN 17 Creatinine 0.74 Estimated GFR/1.73 m2 >= 60.00 Glucose 143 H Lactate Calcium 7.9 L Magnesium 2.0 Total Bilirubin 1.1 H Conjugated Bilirubin 0.84 H AST 407 H ALT 191 H Alkaline Phosphatase 153 H Ammonia 78 H Troponin I < 0.05 C-Reactive Protein 1.22 H Total Protein 7.2 Albumin 2.3 L Lipase 211 Procalcitonin 10/14/19 10/14/19 10/14/19 06:30 06:30 08:05 WBC 12.80 H RBC 3.50 L Hgb 11.6 L Hct 37.4 L MCV 106.9 H MCH 33.1 H MCHC 31.0 L RDW 16.9 H Plt Count 466 H MPV 8.8 Immature Gran % 1.4 Neutrophils % 77.7 Lymphocytes % 5.4 Monocytes % 15.2 Eosinophils % 0.1 Basophils % 0.2 Absolute Neutrophils 9.95 H Absolute Lymphocytes 0.69 L Absolute Monocytes 1.95 H Absolute Eosinophils 0.01 Absolute Basophils 0.03 Differential Comment Rbc morph reviewed RBC Morphology See below Polychromasia Present Poikilocytosis 1+ Basophilic Stippling Present Anisocytosis 1+ Macrocytosis 2+ PT 14.4 H INR 1.4 H Sample Site pCO2 pO2 O2 Saturation ABG pH ABG HCO3 ABG Total CO2 ABG Base Excess Oxygen Liter Flow FiO2 Sodium Potassium Chloride Carbon Dioxide Anion Gap BUN Creatinine Estimated GFR/1.73 m2 Glucose Lactate Calcium Magnesium Total Bilirubin Conjugated Bilirubin AST ALT Alkaline Phosphatase Ammonia Troponin I C-Reactive Protein Total Protein Albumin Lipase Procalcitonin 0.1 10/14/19 10/14/19 10/14/19 08:05 11:00 13:00 WBC RBC Hgb Hct MCV MCH MCHC RDW Plt Count MPV Immature Gran % Neutrophils % Lymphocytes % Monocytes % Eosinophils % Basophils % Absolute Neutrophils Absolute Lymphocytes Absolute Monocytes Absolute Eosinophils Absolute Basophils Differential Comment RBC Morphology Polychromasia Poikilocytosis Basophilic Stippling Anisocytosis Macrocytosis PT INR Sample Site Right radial Left radial pCO2 > 100 H* > 100 H* pO2 62 L 54 L O2 Saturation 89 L 84 L ABG pH 7.34 L 7.34 L ABG HCO3 ABG Total CO2 ABG Base Excess Oxygen Liter Flow 45 FiO2 Bipap 16/5 Sodium Potassium Chloride Carbon Dioxide Anion Gap BUN Creatinine Estimated GFR/1.73 m2 Glucose Lactate 1.0 Calcium Magnesium Total Bilirubin Conjugated Bilirubin AST ALT Alkaline Phosphatase Ammonia Troponin I C-Reactive Protein Total Protein Albumin Lipase Procalcitonin 10/14/19 14:00 WBC RBC Hgb Cancelled Hct Cancelled MCV MCH MCHC RDW Plt Count MPV Immature Gran % Neutrophils % Lymphocytes % Monocytes % Eosinophils % Basophils % Absolute Neutrophils Absolute Lymphocytes Absolute Monocytes Absolute Eosinophils Absolute Basophils Differential Comment RBC Morphology Polychromasia Poikilocytosis Basophilic Stippling Anisocytosis Macrocytosis PT INR Sample Site pCO2 pO2 O2 Saturation ABG pH ABG HCO3 ABG Total CO2 ABG Base Excess Oxygen Liter Flow FiO2 Sodium Potassium Chloride Carbon Dioxide Anion Gap BUN Creatinine Estimated GFR/1.73 m2 Glucose Lactate Calcium Magnesium Total Bilirubin Conjugated Bilirubin AST ALT Alkaline Phosphatase Ammonia Troponin I C-Reactive Protein Total Protein Albumin Lipase Procalcitonin
[2019-10-15] VITALS (55 sets, daily range): BP systolic 155–177; BP diastolic 64–89; PULSE 72–105; RESP 4–24; TEMP 36.3–36.9; O2SAT 87–96
[2019-10-15] MEDS: Albuterol/Ipratropium 3 ML UPD VIAL UPD ×3 (00:12→11:42)
[2019-10-15] MEDS: methylPREDNISolone SUCC 40 MG VIAL 60 MG IVP ×3 (00:13→12:26)
[2019-10-15] MEDS: PIPERACILLIN/TAZO 3.375 GM in Normal Saline 50 ML IVPB ×3 (02:15→14:01)
[2019-10-15] MEDS: THIAMINE 500 MG in Normal Saline 100 ML 200 MG IVPB ×2 (05:04→12:47)
[2019-10-15 06:26] LABS: Abs Immature Grans 0.19 k/cumm (0.0-0.09); Absolute Basophil Count 0.02 k/cumm (0.0-0.2); Absolute Lymphocyte Count 0.56 k/cumm (1.2-3.4); Absolute Monocyte Count 1.74 k/cumm (0.11-0.7); Basophils % 0.2; HCT 38.2 % (40.0-50.0); HGB 11.7 g/dL (13.5-17.5); Immature Grans % 1.6 %; Lymphocytes % 4.8; Mean Corp. HGB Concentration 30.6 g/dL (32.0-36.0); Mean Platelet Volume 8.7 fL (8.0-11.0); Monocytes % 14.9; Neutrophils % 78.5; Platelet Count 403 x1000/uL (130-400); RBC 3.44 m/cumm (4.50-6.00); RBC Distribution Width 16.8 % (11.8-14.1); White Blood Cell Count 11.65 k/cumm (4.4-10.8)
[2019-10-15 06:32] LABS: Absolute Neutrophil Count 9.15 k/cumm (1.2-6.7)
[2019-10-15 06:37] LABS: INR 1.4 (0.9-1.1); Prothrombin Time 13.8 sec (9.3-11.0)
[2019-10-15 06:41] LABS: Ammonia 99 umol/L (11-32)
[2019-10-15 06:42] LABS: ALT 221 U/L (16-63); AST 395 U/L (15-37); Albumin 2.4 g/dL (3.4-5.0); Alkaline Phosphatase 142 U/L (46-116); BUN 18 mg/dL (7-18); Bilirubin, Direct 0.83 mg/dL (0.00-0.20); Bilirubin, Total 1.1 mg/dL (0.2-1.0); CREATININE 0.73 mg/dL (0.70-1.30); Calcium 7.8 mg/dL (8.5-10.1); Chloride 103 mmol/L (98-107); Glucose 143 mg/dL (74-106); Magnesium 2.3 mg/dL (1.8-2.4); Potassium 4.2 mmol/L (3.5-5.1); Sodium 149 mmol/L (136-145)
[2019-10-15 06:50] LABS: Anion Gap 0.99999 mmol/L (3-11); CO2 > 45.0 mmol/L (21.0-32.0)
[2019-10-15 07:03] LABS: Anisocytosis 1+; Diff Comment Agrees w/ Instrument; Macrocytosis 2+
[2019-10-15 07:04] LABS: Polychromasia Present
--- NOTE | 2019-10-15 08:19 | W.PM.PROGNOT ---
Date of Service Date of service: 10/15/19 Time of Service: 11:24 Assessment and Plan Assessment and plan (1) Acute on chronic respiratory failure with hypoxia and hypercapnia: Status: Acute Assessment and plan: Multifactorial - due to exacerbation of his severe/end-stage COPD, fluid overload (acute on chronic diastolic CHF), pneumonia. PNA worse on CXR, so abx were adjusted to vanco/zosyn (now day 2) pCO2 of >100 on repeat ABG yesterday, even after BiPAP changes - made DNI by Marcie (DPOA) yesterday. At this point, the focus isn't on normalizing the ABG, but in making the patient comfortable while keeping him alive until his son gets here. His brother and sister from [facility] (Georgie Dutta) are already here. Per Marcie, she would like us to continue BiPAP, antibiotics, steroids at this time. There is a palliative care consult planned for [address] Delatorre. (2) Encephalopathy acute: Status: Acute Assessment and plan: Likely multifactorial - alcohol withdrawal, hepatic encephalopathy, ?Wernicke's, hypercapnia, due to pneumoina. Ammonia is worse even after lactulose enemas, and in abscence of ability to treat this with oral medications (patient cannot take PO or have an NGT), as well as likely deteriorating CO2, the patient's mental status is not expected to recover. (3) Acute cholecystitis: Status: Acute Assessment and plan: Per general surgery, the patient is not a surgical candidate or a candidate for a cholecystostomy tube. Continue medical therapy with zosyn. Could be contributing to peritonitis. (4) Atrial fibrillation with rapid ventricular response: Status: Resolved Assessment and plan: Possible component of alcohol withdrawal, but the patient is at risk for it - alcohol abuse and possible cardiomyopathy as well as chronic respiratory disease and current respiratory failure. No recurrences the one episode on 10/13/2019. Continue to watch on the cardiac rehabilitation specialist with prn lopressor. Now made DNR. No longer pursuing echo. Ruled out for ACS. Not a candidate for anticoagulation due to coagulopathy, heme + stools, noncompliance, EtOH abuse, overall poor prognosis. Patient is not expected to survive this admission. (5) Alcohol withdrawal syndrome: Status: Acute Assessment and plan: Currently on ativan drip with improvement in CIWA scores. Would continue to monitor on CIWA. Continue prn ativan in addition to ativan drip. Also, treat with high dose IV thiamine for a possibility of Wernicke's. (6) Pneumonia: Status: Acute Assessment and plan: Continue vancomycin/zosyn day 2. End point is expected to be tomorrow after the son ESTELLA gets here or unless goals of care change after palliative care meeting today. (7) COPD exacerbation: Status: Acute Assessment and plan: ABG with only slightly acidotic pH, but significant worsening of CO2 retention (CO2>100). Not improved with changing of BiPAP parameters. Made DNR/DNI verbally. We are awaiting a signed COLST form from Marcie. Hold diuresis - contraction alkalosis could be the metabolic trigger causing respiratory acidosis to worsen, although my impression is that the respiratory acidosis is primary and metabolic alkalosis is secondary, based on patient's history. Continue increased dose of steroids. (8) Cirrhosis: Status: Chronic Assessment and plan: With coagulopathy, hepatic encephalopathy, likely varices, ascites with what appears to be SBP. Heme +. H/H stable. Continue PPI. S/p Vitamin K. On vanco/zosyn. (9) Alcoholic hepatitis: Status: Acute Assessment and plan: He is on solumedrol. 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 (10) Coagulopathy: Status: Acute Assessment and plan: Due to hepatic dysfunction. S/p Vit K. (11) Heme + stool: Status: Acute Assessment and plan: As above (12) Corneal edema of both eyes: Status: Acute Assessment and plan: written for davina and artificial tear drops. No evidence of conjunctivitis at this time, but low threshold to consider antibiotic drops. Pharmacy is going to try to get ointment versions of artificial tears and davina, which would be preferable. (13) SBP (spontaneous bacterial peritonitis): Status: Acute Assessment and plan: As above (14) Discharge planning issues: Status: Acute Assessment and plan: Paperwork from [facility] [place] that Marcie is patient's DPOA. She did make him DNR/DNI verbally, but did not leave a signed COLST form with us as she had promised. Overall prognosis is very poor. The patient is not expected to survive, and escalating care or even continuing current aggressive care is, in my opinion, medically futile. We are giving the family (Marcie, son DJ) a chance to come to terms with that and make their own decision to place the patient on comfort measures. As is, the patient is essentially on modified comfort measures - we are continues BiPAP, antibiotics, steroids, nebs, but he is also on ativan and morphine drip that Marcie made very clear she wanted us to titrate up to patient's comfort, even though this could affect his breathing. There is an expected palliative care meeting tonight at 5 pm to discuss further goals of care. Total Critical Care Time 60 minutes. (15) DVT prophylaxis: Status: Acute Assessment and plan: Patient would not tolerate TEDs/SCDs. Risks of chemical DVT ppx outweigh benefits due to suspected varices and known coagulopathy. Subjective Subjective Interval history since last seen: Unresponsive today, more comfortable than when I left yesterday. RR 10-12, on morphine/ativan gtt, being titrated. UOP 1000 cc cloudy urine. BiPAP - O2 sats 91%. /. CIWA - 4. No Afib overnight. COLST form - still not signed by family - reportedly, Marcie apprehensive, though verbally stated DNR/DNI to me yesterday in presence of a at risk specialist. Exam Narrative Exam Narrative: General: Obese male, in bed, unresponsive on BiPAP, comfortable, eyes closed. Not gasping for air, not restless, not tachypneic. HEENT: Eyes closed, MMM, BiPAP on. Heart: RRR, no m/r/g Lungs: Diminished breath sounds B Abdomen: soft, with ascites Extremities: Covered in blankets; Objective Objective Clinical Data: Abnormal lab results 10/14/19 10/14/19 10/14/19 Range/Units 08:05 11:00 13:00 WBC (4.4-10.8) k/cumm RBC (4.50-6.00) m/cumm Hgb (13.5-17.5) g/dL Hct (40.0-50.0) % MCV (80-95) fL MCH (27.0-33.0) pg MCHC (32.0-36.0) g/dL RDW (11.8-14.1) % Plt Count (130-400) x1000/uL Absolute Neutrophils (1.2-6.7) k/cumm Absolute Lymphocytes (1.2-3.4) k/cumm Absolute Monocytes (0.11-0.7) k/cumm PT 14.4 H (9.3-11.0) sec INR 1.4 H (0.9-1.1) pCO2 > 100 H* > 100 H* (34-47) mmHg pO2 62 L 54 L (83-108) mmHg O2 Saturation 89 L 84 L (94-98) % ABG pH 7.34 L 7.34 L (7.35-7.45) Sodium (136-145) mmol/L Carbon Dioxide (21.0-32.0) mmol/L Anion Gap (3-11) mmol/L Glucose (74-106) mg/dL Calcium (8.5-10.1) mg/dL Total Bilirubin (0.2-1.0) mg/dL Conjugated Bilirubin (0.00-0.20) mg/dL AST (15-37) U/L ALT (16-63) U/L Alkaline Phosphatase (46-116) U/L Ammonia (11-32) umol/L Albumin (3.4-5.0) g/dL 10/15/19 10/15/19 10/15/19 Range/Units 06:10 06:10 06:10 WBC 11.65 H (4.4-10.8) k/cumm RBC 3.44 L (4.50-6.00) m/cumm Hgb 11.7 L (13.5-17.5) g/dL Hct 38.2 L (40.0-50.0) % MCV 111.0 H D (80-95) fL MCH 34.0 H (27.0-33.0) pg MCHC 30.6 L (32.0-36.0) g/dL RDW 16.8 H (11.8-14.1) % Plt Count 403 H (130-400) x1000/uL Absolute Neutrophils 9.15 H (1.2-6.7) k/cumm Absolute Lymphocytes 0.56 L (1.2-3.4) k/cumm Absolute Monocytes 1.74 H (0.11-0.7) k/cumm PT (9.3-11.0) sec INR (0.9-1.1) pCO2 (34-47) mmHg pO2 (83-108) mmHg O2 Saturation (94-98) % ABG pH (7.35-7.45) Sodium 149 H (136-145) mmol/L Carbon Dioxide > 45.0 H (21.0-32.0) mmol/L Anion Gap 0.62854 L (3-11) mmol/L Glucose 143 H (74-106) mg/dL Calcium 7.8 L (8.5-10.1) mg/dL Total Bilirubin 1.1 H (0.2-1.0) mg/dL Conjugated Bilirubin 0.83 H (0.00-0.20) mg/dL AST 395 H (15-37) U/L ALT 221 H (16-63) U/L Alkaline Phosphatase 142 H (46-116) U/L Ammonia 99 H (11-32) umol/L Albumin 2.4 L (3.4-5.0) g/dL 10/15/19 Range/Units 06:10 WBC (4.4-10.8) k/cumm RBC (4.50-6.00) m/cumm Hgb (13.5-17.5) g/dL Hct (40.0-50.0) % MCV (80-95) fL MCH (27.0-33.0) pg MCHC (32.0-36.0) g/dL RDW (11.8-14.1) % Plt Count (130-400) x1000/uL Absolute Neutrophils (1.2-6.7) k/cumm Absolute Lymphocytes (1.2-3.4) k/cumm Absolute Monocytes (0.11-0.7) k/cumm PT 13.8 H (9.3-11.0) sec INR 1.4 H (0.9-1.1) pCO2 (34-47) mmHg pO2 (83-108) mmHg O2 Saturation (94-98) % ABG pH (7.35-7.45) Sodium (136-145) mmol/L Carbon Dioxide (21.0-32.0) mmol/L Anion Gap (3-11) mmol/L Glucose (74-106) mg/dL Calcium (8.5-10.1) mg/dL Total Bilirubin (0.2-1.0) mg/dL Conjugated Bilirubin (0.00-0.20) mg/dL AST (15-37) U/L ALT (16-63) U/L Alkaline Phosphatase (46-116) U/L Ammonia (11-32) umol/L Albumin (3.4-5.0) g/dL Vital Signs Temperature 36.3 C L 10/15/19 04:00 Temperature Source Temporal Artery Scan 10/15/19 04:00 Pulse 83 10/15/19 07:01 Pulse 84 10/15/19 07:40 Respiratory Rate 11 L 10/15/19 07:40 Respiratory Effort 10/15/19 04:00 Respiratory Depth Deep 10/14/19 12:15 Respiratory Pattern Normal 10/15/19 04:00 Blood Pressure 168/72 H 10/15/19 07:01 Blood Pressure Mean 93 10/15/19 07:01 Blood Pressure Position Supine 10/15/19 04:00 Pulse Oximetry 89 L 10/15/19 07:40 Oxygen Delivery Method Bi-pap 10/14/19 17:56 Oxygen Flow Rate 55 10/12/19 12:42 Fraction of Inspired Oxygen (FIO2) 50 10/15/19 05:17 Pain Level 0 10/15/19 04:00 Comment 10/10/19 15:34 Intake & Output 10/14/19 10/14/19 10/15/19 11:59 23:59 11:59 Intake Total 485 / 3221.810 5503.633 / 1647.633 405 / 405 Output Total 450 / 3725 3275 / 3725 450 / 450 Balance 35 / -2077.367 -2112.367 / -2077.367 -45 / -45 Intake: IV 485 / 6726.495 8238.633 / 1647.633 405 / 405 Output: Urine 450 / 2725 2275 / 2725 450 / 450 Stool 1000 / 1000 Other: Urine Color Light Tamara Yellow Light Tamara Urine Appearance Clear Clear Comment Indwelling Rice catheter Indwelling Rice catheter Indwelling Rice catheter Stool Size Moderate Stool Characteristics Soft Liquid Brown Laboratory Results WBC 11.65 k/cumm (4.4-10.8) H 10/15/19 06:10 RBC 3.44 m/cumm (4.50-6.00) L 10/15/19 06:10 Hgb 11.7 g/dL (13.5-17.5) L 10/15/19 06:10 Hct 38.2 % (40.0-50.0) L 10/15/19 06:10 MCV 111.0 fL (80-95) H D 10/15/19 06:10 MCH 34.0 pg (27.0-33.0) H 10/15/19 06:10 MCHC 30.6 g/dL (32.0-36.0) L 10/15/19 06:10 RDW 16.8 % (11.8-14.1) H 10/15/19 06:10 Plt Count 403 x1000/uL (130-400) H 10/15/19 06:10 MPV 8.7 fL (8.0-11.0) 10/15/19 06:10 Immature Gran % 1.6 % 10/15/19 06:10 Neutrophils % 78.5 10/15/19 06:10 Band Neutrophils % 0.0 % 10/10/19 15:30 Lymphocytes % 4.8 10/15/19 06:10 Monocytes % 14.9 10/15/19 06:10 Eosinophils % 0.0 10/15/19 06:10 Basophils % 0.2 10/15/19 06:10 Metamyelocytes % 3.0 % 10/10/19 15:30 Absolute Neutrophils 9.15 k/cumm (1.2-6.7) H 10/15/19 06:10 Absolute Lymphocytes 0.56 k/cumm (1.2-3.4) L 10/15/19 06:10 Absolute Monocytes 1.74 k/cumm (0.11-0.7) H 10/15/19 06:10 Absolute Eosinophils 0.00 k/cumm (0.0-0.7) 10/15/19 06:10 Absolute Basophils 0.02 k/cumm (0.0-0.2) 10/15/19 06:10 Differential Comment Agrees w/ instrument 10/15/19 06:10 RBC Morphology See below 10/15/19 06:10 Polychromasia Present 10/15/19 06:10 Poikilocytosis 1+ 10/14/19 06:30 Basophilic Stippling Present 10/14/19 06:30 Anisocytosis 1+ 10/15/19 06:10 Macrocytosis 2+ 10/15/19 06:10 Stomatocytes 2+ 10/10/19 15:30 PT 13.8 sec (9.3-11.0) H 10/15/19 06:10 INR 1.4 (0.9-1.1) H 10/15/19 06:10 Sample Site Left radial 10/14/19 13:00 pCO2 > 100 mmHg (34-47) H* 10/14/19 13:00 pO2 54 mmHg (83-108) L 10/14/19 13:00 O2 Saturation 84 % (94-98) L 10/14/19 13:00 ABG pH 7.34 (7.35-7.45) L 10/14/19 13:00 ABG HCO3 mmol/L (22-28) 10/14/19 13:00 ABG Total CO2 mmol/L (22-29) 10/14/19 13:00 ABG Base Excess mmol/L (-3-3) 10/14/19 13:00 Oxygen Liter Flow 45 L 10/14/19 13:00 FiO2 Bipap 16/5 % 10/14/19 13:00 Sodium 149 mmol/L (136-145) H 10/15/19 06:10 Potassium 4.2 mmol/L (3.5-5.1) 10/15/19 06:10 Chloride 103 mmol/L (98-107) 10/15/19 06:10 Carbon Dioxide > 45.0 mmol/L (21.0-32.0) H 10/15/19 06:10 Anion Gap 0.30792 mmol/L (3-11) L 10/15/19 06:10 BUN 18 mg/dL (7-18) 10/15/19 06:10 Creatinine 0.73 mg/dL (0.70-1.30) 10/15/19 06:10 Estimated GFR/1.73 m2 >= 60.00 (mL/min/1.73m2) 10/15/19 06:10 Glucose 143 mg/dL (74-106) H 10/15/19 06:10 Lactate 1.0 mmol/L (0.6-1.4) 10/14/19 08:05 Calcium 7.8 mg/dL (8.5-10.1) L 10/15/19 06:10 Magnesium 2.3 mg/dL (1.8-2.4) 10/15/19 06:10 Total Bilirubin 1.1 mg/dL (0.2-1.0) H 10/15/19 06:10 Conjugated Bilirubin 0.83 mg/dL (0.00-0.20) H 10/15/19 06:10 AST 395 U/L (15-37) H 10/15/19 06:10 ALT 221 U/L (16-63) H 10/15/19 06:10 Alkaline Phosphatase 142 U/L (46-116) H 10/15/19 06:10 Ammonia 99 umol/L (11-32) H 10/15/19 06:10 Troponin I < 0.05 ng/Ml (<0.06) 10/13/19 18:35 C-Reactive Protein 1.22 mg/dL (0.0-0.3) H 10/14/19 06:30 NT-Pro-B Natriuret Pep 260 pg/mL (<300) 10/10/19 15:30 Total Protein 7.0 g/dL (6.4-8.2) 10/15/19 06:10 Albumin 2.4 g/dL (3.4-5.0) L 10/15/19 06:10 Lipase 211 U/L (73-393) 10/14/19 06:30 Procalcitonin 0.1 ng/mL 10/14/19 06:30 TSH 3.81 uIU/mL (0.36-3.74) H 10/13/19 06:25 Urine Opiates Screen Negative (Negative) 10/11/19 03:50 Urine Methadone Screen Positive (Negative) A 10/11/19 03:50 Ur Barbiturates Screen Negative (Negative) 10/11/19 03:50 Ur Tricyclics Screen Negative (Negative) 10/11/19 03:50 Ur Amphetamines Screen Negative (Negative) 10/11/19 03:50 U Benzodiazepines Scrn Negative (Negative) 10/11/19 03:50 Urine Cocaine Screen Negative (Negative) 10/11/19 03:50 Ur THC Screen Negative (Negative) 10/11/19 03:50
--- NOTE | 2019-10-15 09:15 | W.PM.PROGNOT ---
Date of Service Date of service: 10/15/19 Time of Service: 09:15 Assessment and Plan Assessment and plan (1) Acute cholecystitis: Status: Suspected Assessment and plan: Patient remains unresponsive, ammonia level climbing. Difficult to say how relevant the gallbladder disease is - the liver failure is more of a factor. Agree with nonsurgical management given his poor prognosis and multiple medical issues. Please contact surgery if any further assistance needed. Subjective Subjective Interval history since last seen: Patient unresponsive, on BiPAP Exam Narrative Exam Narrative: Unresponsive Abdomen soft, no tenderness to palpation or masses. Objective Objective Clinical Data: Abnormal lab results 10/14/19 10/14/19 10/15/19 Range/Units 11:00 13:00 06:10 WBC (4.4-10.8) k/cumm RBC (4.50-6.00) m/cumm Hgb (13.5-17.5) g/dL Hct (40.0-50.0) % MCV (80-95) fL MCH (27.0-33.0) pg MCHC (32.0-36.0) g/dL RDW (11.8-14.1) % Plt Count (130-400) x1000/uL Absolute Neutrophils (1.2-6.7) k/cumm Absolute Lymphocytes (1.2-3.4) k/cumm Absolute Monocytes (0.11-0.7) k/cumm PT (9.3-11.0) sec INR (0.9-1.1) pCO2 > 100 H* > 100 H* (34-47) mmHg pO2 62 L 54 L (83-108) mmHg O2 Saturation 89 L 84 L (94-98) % ABG pH 7.34 L 7.34 L (7.35-7.45) Sodium 149 H (136-145) mmol/L Carbon Dioxide > 45.0 H (21.0-32.0) mmol/L Anion Gap 0.88112 L (3-11) mmol/L Glucose 143 H (74-106) mg/dL Calcium 7.8 L (8.5-10.1) mg/dL Total Bilirubin 1.1 H (0.2-1.0) mg/dL Conjugated Bilirubin 0.83 H (0.00-0.20) mg/dL AST 395 H (15-37) U/L ALT 221 H (16-63) U/L Alkaline Phosphatase 142 H (46-116) U/L Ammonia (11-32) umol/L Albumin 2.4 L (3.4-5.0) g/dL 10/15/19 10/15/19 10/15/19 Range/Units 06:10 06:10 06:10 WBC 11.65 H (4.4-10.8) k/cumm RBC 3.44 L (4.50-6.00) m/cumm Hgb 11.7 L (13.5-17.5) g/dL Hct 38.2 L (40.0-50.0) % MCV 111.0 H D (80-95) fL MCH 34.0 H (27.0-33.0) pg MCHC 30.6 L (32.0-36.0) g/dL RDW 16.8 H (11.8-14.1) % Plt Count 403 H (130-400) x1000/uL Absolute Neutrophils 9.15 H (1.2-6.7) k/cumm Absolute Lymphocytes 0.56 L (1.2-3.4) k/cumm Absolute Monocytes 1.74 H (0.11-0.7) k/cumm PT 13.8 H (9.3-11.0) sec INR 1.4 H (0.9-1.1) pCO2 (34-47) mmHg pO2 (83-108) mmHg O2 Saturation (94-98) % ABG pH (7.35-7.45) Sodium (136-145) mmol/L Carbon Dioxide (21.0-32.0) mmol/L Anion Gap (3-11) mmol/L Glucose (74-106) mg/dL Calcium (8.5-10.1) mg/dL Total Bilirubin (0.2-1.0) mg/dL Conjugated Bilirubin (0.00-0.20) mg/dL AST (15-37) U/L ALT (16-63) U/L Alkaline Phosphatase (46-116) U/L Ammonia 99 H (11-32) umol/L Albumin (3.4-5.0) g/dL Vital Signs Temperature 97.3 F L 10/15/19 04:00 Temperature Source Temporal Artery Scan 10/15/19 04:00 Pulse 83 10/15/19 07:01 Pulse 84 10/15/19 07:40 Respiratory Rate 11 L 10/15/19 07:40 Respiratory Effort 10/15/19 04:00 Respiratory Depth Deep 10/14/19 12:15 Respiratory Pattern Normal 10/15/19 04:00 Blood Pressure 168/72 H 10/15/19 07:01 Blood Pressure Mean 93 10/15/19 07:01 Blood Pressure Position Supine 10/15/19 04:00 Pulse Oximetry 89 L 10/15/19 07:40 Oxygen Delivery Method Bi-pap 10/14/19 17:56 Oxygen Flow Rate 55 10/12/19 12:42 Fraction of Inspired Oxygen (FIO2) 50 10/15/19 05:17 Pain Level 0 10/15/19 04:00 Comment 10/10/19 15:34 Intake & Output 10/14/19 10/14/19 10/15/19 11:59 23:59 11:59 Intake Total 485 / 9789.258 3615.633 / 1647.633 405 / 405 Output Total 450 / 3725 3275 / 3725 450 / 450 Balance 35 / -2077.367 -2112.367 / -2077.367 -45 / -45 Intake: IV 485 / 6296.265 0827.633 / 1647.633 405 / 405 Output: Urine 450 / 2725 2275 / 2725 450 / 450 Stool 1000 / 1000 Other: Urine Color Light Tamara Yellow Light Tamara Urine Appearance Clear Clear Comment Indwelling Rice catheter Indwelling Rice catheter Indwelling Rice catheter Stool Size Moderate Stool Characteristics Soft Liquid Brown Laboratory Results WBC 11.65 k/cumm (4.4-10.8) H 10/15/19 06:10 RBC 3.44 m/cumm (4.50-6.00) L 10/15/19 06:10 Hgb 11.7 g/dL (13.5-17.5) L 10/15/19 06:10 Hct 38.2 % (40.0-50.0) L 10/15/19 06:10 MCV 111.0 fL (80-95) H D 10/15/19 06:10 MCH 34.0 pg (27.0-33.0) H 10/15/19 06:10 MCHC 30.6 g/dL (32.0-36.0) L 10/15/19 06:10 RDW 16.8 % (11.8-14.1) H 10/15/19 06:10 Plt Count 403 x1000/uL (130-400) H 10/15/19 06:10 MPV 8.7 fL (8.0-11.0) 10/15/19 06:10 Immature Gran % 1.6 % 10/15/19 06:10 Neutrophils % 78.5 10/15/19 06:10 Band Neutrophils % 0.0 % 10/10/19 15:30 Lymphocytes % 4.8 10/15/19 06:10 Monocytes % 14.9 10/15/19 06:10 Eosinophils % 0.0 10/15/19 06:10 Basophils % 0.2 10/15/19 06:10 Metamyelocytes % 3.0 % 10/10/19 15:30 Absolute Neutrophils 9.15 k/cumm (1.2-6.7) H 10/15/19 06:10 Absolute Lymphocytes 0.56 k/cumm (1.2-3.4) L 10/15/19 06:10 Absolute Monocytes 1.74 k/cumm (0.11-0.7) H 10/15/19 06:10 Absolute Eosinophils 0.00 k/cumm (0.0-0.7) 10/15/19 06:10 Absolute Basophils 0.02 k/cumm (0.0-0.2) 10/15/19 06:10 Differential Comment Agrees w/ instrument 10/15/19 06:10 RBC Morphology See below 10/15/19 06:10 Polychromasia Present 10/15/19 06:10 Poikilocytosis 1+ 10/14/19 06:30 Basophilic Stippling Present 10/14/19 06:30 Anisocytosis 1+ 10/15/19 06:10 Macrocytosis 2+ 10/15/19 06:10 Stomatocytes 2+ 10/10/19 15:30 PT 13.8 sec (9.3-11.0) H 10/15/19 06:10 INR 1.4 (0.9-1.1) H 10/15/19 06:10 Sample Site Left radial 10/14/19 13:00 pCO2 > 100 mmHg (34-47) H* 10/14/19 13:00 pO2 54 mmHg (83-108) L 10/14/19 13:00 O2 Saturation 84 % (94-98) L 10/14/19 13:00 ABG pH 7.34 (7.35-7.45) L 10/14/19 13:00 ABG HCO3 mmol/L (22-28) 10/14/19 13:00 ABG Total CO2 mmol/L (22-29) 10/14/19 13:00 ABG Base Excess mmol/L (-3-3) 10/14/19 13:00 Oxygen Liter Flow 45 L 10/14/19 13:00 FiO2 Bipap 16/5 % 10/14/19 13:00 Sodium 149 mmol/L (136-145) H 10/15/19 06:10 Potassium 4.2 mmol/L (3.5-5.1) 10/15/19 06:10 Chloride 103 mmol/L (98-107) 10/15/19 06:10 Carbon Dioxide > 45.0 mmol/L (21.0-32.0) H 10/15/19 06:10 Anion Gap 0.38830 mmol/L (3-11) L 10/15/19 06:10 BUN 18 mg/dL (7-18) 10/15/19 06:10 Creatinine 0.73 mg/dL (0.70-1.30) 10/15/19 06:10 Estimated GFR/1.73 m2 >= 60.00 (mL/min/1.73m2) 10/15/19 06:10 Glucose 143 mg/dL (74-106) H 10/15/19 06:10 Lactate 1.0 mmol/L (0.6-1.4) 10/14/19 08:05 Calcium 7.8 mg/dL (8.5-10.1) L 10/15/19 06:10 Magnesium 2.3 mg/dL (1.8-2.4) 10/15/19 06:10 Total Bilirubin 1.1 mg/dL (0.2-1.0) H 10/15/19 06:10 Conjugated Bilirubin 0.83 mg/dL (0.00-0.20) H 10/15/19 06:10 AST 395 U/L (15-37) H 10/15/19 06:10 ALT 221 U/L (16-63) H 10/15/19 06:10 Alkaline Phosphatase 142 U/L (46-116) H 10/15/19 06:10 Ammonia 99 umol/L (11-32) H 10/15/19 06:10 Troponin I < 0.05 ng/Ml (<0.06) 10/13/19 18:35 C-Reactive Protein 1.22 mg/dL (0.0-0.3) H 10/14/19 06:30 NT-Pro-B Natriuret Pep 260 pg/mL (<300) 10/10/19 15:30 Total Protein 7.0 g/dL (6.4-8.2) 10/15/19 06:10 Albumin 2.4 g/dL (3.4-5.0) L 10/15/19 06:10 Lipase 211 U/L (73-393) 10/14/19 06:30 Procalcitonin 0.1 ng/mL 10/14/19 06:30 TSH 3.81 uIU/mL (0.36-3.74) H 10/13/19 06:25 Urine Opiates Screen Negative (Negative) 10/11/19 03:50 Urine Methadone Screen Positive (Negative) A 10/11/19 03:50 Ur Barbiturates Screen Negative (Negative) 10/11/19 03:50 Ur Tricyclics Screen Negative (Negative) 10/11/19 03:50 Ur Amphetamines Screen Negative (Negative) 10/11/19 03:50 U Benzodiazepines Scrn Negative (Negative) 10/11/19 03:50 Urine Cocaine Screen Negative (Negative) 10/11/19 03:50 Ur THC Screen Negative (Negative) 10/11/19 03:50
[2019-10-15] MEDS: Pantoprazole 40 MG VIAL IVP (09:23)
[2019-10-15 09:25] LABS: Vancomycin, Trough 18.8 ug/mL (10.0-20.0)
[2019-10-15] MEDS: Normal Saline Flush 10 ML SYR IVP (09:27)
--- NOTE | 2019-10-15 09:58 | W.NUTRFU ---
Date of service: 10/15/19 Time of Service: 09:59 Nutritional Follow up NOTE: Mahamed continues to be unresponsive. According to Dr. Napier, nutrition support not considered at this time in view of his condition in which he is not likely to recover. COLST form not signed. Will be available as needed. Time Spent in Nutritional Counseling and Treatment: 0 time spent face to face
--- NOTE | 2019-10-15 15:29 | PDOC.CMPRO ---
- If Service Date Differs Date of service: 10/15/19 Time of Service: 15:29 Care Management Progress Note S/O: Mahamed continues to receive ICU level of care. He remains on Bipap continuously and is unable to engage. His s/o Marcie was in the room, as well as his brother and sister. CM spoke with his son, ESTELLA this morning, who reported that he would not be able to make it to see his dad in the next couple of days, so he does not believe he will see him before he passes. CM will continue to follow. A: Mahamed is a 54 year old male admitted to [facility] on 10/10/2019 for mental status change, pneumonia, and COPD. P: Per provider, it appears Mahamed's passing is imminent. CM offered resources for final arrangements, which was declined by Marcie. CM will continue to follow and provide support to pt, family and staff.
--- NOTE | 2019-10-15 18:05 | W.PALLCONSUL ---
Date of service: 10/15/19 Time of Service: 18:06 History of Present Illness Narrative: Mahamed is a 54-year-old man with severe COPD. He has been living on the edge for many years. I have been has palliative care doctor for quite some time. He has made it through some intubations and have come back, although to a lesser quality of life. His significant other/roommate states that at this time he can sit in the living room and watch TV. He is not able to take showers etc. because it takes too much out of him. He has not left the house since he has stopped the methadone clinic program. She states that he has been getting his methadone on the street and has been drinking. He became ill recently and finally when he was obtunded came to the emergency room. In the emergency room he was found to have several infections in including abdominal infections, liver failure, atrial fibrillation, SBP, and respiratory failure. In the past he has been a full code, but with the mounting number of diseases was unlikely that he could survive. My colleague Dr. Marshall had seen him on Tuesday. At that time she felt that a CO LST form stating futility in making him a DNR was reasonable. I am seeing Mahamed and his significant other Marcie hancock. Mahamed is obtunded. When I went in to see him he was lying down with his eyes rolled back in his head. He did not respond to me. His significant other, Marcie is concerned about removing life support. Earlier today she had spoken with Dr. Napier and due to his multiple diseases, had made him a DNR/DNI. I met with Marcie, care management Susan, son ESTELLA, and Georgie sister, by conference call. Both ESTELLA and Georgie stated clearly that they wanted Mahamed to be kept comfortable and that Marcie was the decision maker. On a previous CO LST form Mahamed himself had designated Marcie as a decision-maker. I will described his present state as probably unsurvivable and wanted comfort. Marcie stated many times that if he could return to the life he had it is still of very poor quality. Consults Consult date: 10/15/19 Requesting physician: Rama Napier Assessment and Plan Assessment and plan (1) SBP (spontaneous bacterial peritonitis): Status: Acute (2) Acute cholecystitis: Status: Acute (3) Alcoholic hepatitis: Status: Acute (4) Acute on chronic respiratory failure with hypoxia and hypercapnia: Status: Acute (5) Atrial fibrillation with rapid ventricular response: Status: Resolved (6) Cirrhosis: Status: Chronic (7) COPD exacerbation: Status: Acute (8) Goals of care, counseling/discussion: Status: Acute Assessment and plan: After a long discussion with Ariana in Care Management, nursing, Georgie, his sister, and DJ his son, the family decided that Mahamed would want to be kept comfortable. They do not see that he would be able to recover from this illness considering burden of diseases (severe COPD, cholycystis, abdominal infection, liver disease, coagulopathy). Plan is to keep him comfortable overnight with ativam, morphine drip and Bipap and tomorrow at around 10 AM start to dial back the Bipap after sister Georgie is here to support Carmelo Jack. I have discussed the plan with Dr Hummel. He has allowed me to enter the medication changes. D/C metoprolol,pantoprazole, antibiotics. Plan to adjust morphine to keep Mahamed comfortable per families wishes This document was created by [employer] recognition and may contain grammatical and translation errors. I have spent more than 50% of time in counseling with this patient and families Review of Systems Narrative: Patient is unable to give me a review of systems. Nursing states that he does not like being on his left side. 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) Acquired hypothyroidism (Chronic 07/02/16) Acute and chronic respiratory failure with hypercapnia (Chronic) Allergic rhinitis (Chronic) Asthma (Chronic) Cellulitis of both lower extremities (Resolved) Chronic obstructive lung disease (Chronic) Cirrhosis (Chronic) COPD with exacerbation (Resolved) Depressive disorder (Chronic) Encephalopathy acute (Acute) Goals of care, counseling/discussion (Acute) Hepatic encephalopathy (Resolved) Hepatitis C (Chronic) History of intravenous drug abuse (Chronic) Hyperammonemia (Resolved) Multiple rib fractures involving four or more ribs (Resolved) Palliative care patient (Acute) Patient has active durable power of assistant county attorney (DPOA) designee for healthcare (Chronic) Peripheral edema (Resolved 12/06/17) Smoker (Resolved 04/15/16) Urinary retention (Inactive) Family History (Updated 10/14/19 @ 17:59 by Rosario Castaneda MD) Son No problems noted. Social History Smoking/Tobacco Use Status: Current every day Quit status: has quit before Smoking risk assessment performed?: No Reason tobacco screening was not done: limited life expectancy Alcohol Intake: current Alcohol Intake frequency: 3 or more drinks per day Details: Mahamed is obtunded at time of my visit, on Bipap in the ICU Drug use: Occasionally Substance use type: former substance user, marijuana and IV drugs Caregiver/Support person: Yes Household members: friend(s) Number of Children: 1 Education Level: high school What is your relationship status?: Panel score (0-1 are the most socially isolated patients): 0 What type of physical activity do you participate in: none Seatbelt use: sometimes Do you feel safe at home: Yes Do you feel safe in your relationship?: Yes Additional Social history: Friend Marcie, former romantic partner, has lived with Mahamed x 10 years. Mahamed has one son and some relatives in [place], not close to them. Mahamed filled out DPOA paperwork in 12/29 that indicated Marcie as DPOA. She feels the burden of this responsibility, wants input from son and other family if possible. Exam Narrative Exam Narrative: He is lying in bed with BiPAP on. He does not respond to me. When I look in his eyes his eyes are rolled back in his head. His breathing does not appear to be labored. His abdomen is not rigid. He does not respond when I palpate at he does have a morphine and Ativan drip as well as multiple antibiotics. Results Last Vital Signs Temp 98.4 F 10/15/19 16:00 Pulse 83 10/15/19 17:00 Resp 11 L 10/15/19 17:00 BP 159/73 H 10/15/19 17:00 Pulse Ox 89 L 10/15/19 17:00 Labs Result diagrams: 10/15/19 06:10 10/15/19 06:10 Labs: Laboratory Results - last 24 hr 10/15/19 10/15/19 10/15/19 06:10 06:10 06:10 WBC 11.65 H RBC 3.44 L Hgb 11.7 L Hct 38.2 L MCV 111.0 H D MCH 34.0 H MCHC 30.6 L RDW 16.8 H Plt Count 403 H MPV 8.7 Immature Gran % 1.6 Neutrophils % 78.5 Lymphocytes % 4.8 Monocytes % 14.9 Eosinophils % 0.0 Basophils % 0.2 Absolute Neutrophils 9.15 H Absolute Lymphocytes 0.56 L Absolute Monocytes 1.74 H Absolute Eosinophils 0.00 Absolute Basophils 0.02 Differential Comment Agrees w/ instrument RBC Morphology See below Polychromasia Present Anisocytosis 1+ Macrocytosis 2+ PT INR Sodium 149 H Potassium 4.2 Chloride 103 Carbon Dioxide > 45.0 H Anion Gap 0.36879 L BUN 18 Creatinine 0.73 Estimated GFR/1.73 m2 >= 60.00 Glucose 143 H Calcium 7.8 L Magnesium 2.3 Total Bilirubin 1.1 H Conjugated Bilirubin 0.83 H AST 395 H ALT 221 H Alkaline Phosphatase 142 H Ammonia 99 H Total Protein 7.0 Albumin 2.4 L Vancomycin Trough 10/15/19 10/15/19 06:10 09:00 WBC RBC Hgb Hct MCV MCH MCHC RDW Plt Count MPV Immature Gran % Neutrophils % Lymphocytes % Monocytes % Eosinophils % Basophils % Absolute Neutrophils Absolute Lymphocytes Absolute Monocytes Absolute Eosinophils Absolute Basophils Differential Comment RBC Morphology Polychromasia Anisocytosis Macrocytosis PT 13.8 H INR 1.4 H Sodium Potassium Chloride Carbon Dioxide Anion Gap BUN Creatinine Estimated GFR/1.73 m2 Glucose Calcium Magnesium Total Bilirubin Conjugated Bilirubin AST ALT Alkaline Phosphatase Ammonia Total Protein Albumin Vancomycin Trough 18.8
[2019-10-16] MEDS: Albuterol/Ipratropium 3 ML UPD VIAL UPD (00:11)
[2019-10-16 01:11] VITALS: PULSE 91; PULSE 98; RESP 12; RESP 14; RESP 18; TEMP 36.9; O2SAT 89; O2SAT 94
[2019-10-16 05:01] VITALS: PULSE 98; RESP 12; TEMP 36.3; O2SAT 94
[2019-10-16 07:47] VITALS: RESP 13; RESP 14
--- NOTE | 2019-10-16 08:10 | W.PALPGNOTE ---
Date of service: 10/16/19 Time of Service: 08:10 Assessment and Plan Assessment and plan (1) SBP (spontaneous bacterial peritonitis): Status: Acute (2) Heme + stool: Status: Acute (3) Alcoholic hepatitis: Status: Acute (4) Atrial fibrillation with rapid ventricular response: Status: Resolved (5) Goals of care, counseling/discussion: Status: Acute Assessment and plan: Per discussion last evening Mahamed was to be kept comfortable overnight. Nursing did a great job doing this. Plan is to keep him comfortable as BiPAP is withdrawn. Sister is supposed to arrive around 10:00 this morning. Support will be here for his significant other. Discussed with nursing goals of care, increasing morphine prior to withdrawal of BiPAP, and an increase if necessary of Ativan. This document was created by [employer] recognition and may contain grammatical and translation errors. Subjective Subjective Interval history since last seen: Nursing states that he was fairly quiet overnight and last they tried to turn him on his left side. Per family's request we have DC'd most care except for his morphine drip and Ativan drip as well as his BiPAP Exam Narrative Exam Narrative: Mahamed is not responsive to my touch. His eyes are rolled back in his sockets. His heart is irregular. Breathing supported with BiPAP is fairly regular. Objective Objective Clinical Data: Vital Signs Temperature 97.3 F L 10/16/19 05:01 Temperature Source Temporal Artery Scan 10/16/19 05:01 Pulse 98 H 10/16/19 05:01 Pulse 91 H 10/15/19 20:10 Respiratory Rate 13 10/16/19 07:47 Respiratory Effort 10/16/19 05:01 Respiratory Depth Shallow 10/16/19 05:01 Respiratory Pattern Normal 10/16/19 05:01 Blood Pressure 163/70 H 10/15/19 20:00 Blood Pressure Mean 91 10/15/19 20:00 Blood Pressure Position Left Lateral 10/15/19 16:00 Pulse Oximetry 94 L 10/16/19 05:01 Oxygen Delivery Method Bi-pap 10/16/19 05:01 Oxygen Flow Rate 50 10/15/19 16:00 Fraction of Inspired Oxygen (FIO2) 50 10/16/19 07:47 Pain Level 0 10/16/19 05:01 Comment 10/10/19 15:34 Intake & Output 10/15/19 10/15/19 10/16/19 11:59 23:59 11:59 Intake Total 455 / 888.450 433.450 / 888.450 78.450 / 78.450 Output Total 450 / 950 500 / 950 Balance 5 / -61.550 -66.550 / -61.550 78.450 / 78.450 Intake: IV 455 / 888.450 433.450 / 888.450 78.450 / 78.450 Output: Urine 450 / 950 500 / 950 Other: Urine Color Light Roman Dark Roman Urine Appearance Clear Clear Comment Rice Catheter intact and draining clear straw urine. Rice Catheter intact and draining clear dark roman urine. Rice Catheter intact and draining clear dark roman urine. Laboratory Results WBC 11.65 k/cumm (4.4-10.8) H 10/15/19 06:10 RBC 3.44 m/cumm (4.50-6.00) L 10/15/19 06:10 Hgb 11.7 g/dL (13.5-17.5) L 10/15/19 06:10 Hct 38.2 % (40.0-50.0) L 10/15/19 06:10 MCV 111.0 fL (80-95) H D 10/15/19 06:10 MCH 34.0 pg (27.0-33.0) H 10/15/19 06:10 MCHC 30.6 g/dL (32.0-36.0) L 10/15/19 06:10 RDW 16.8 % (11.8-14.1) H 10/15/19 06:10 Plt Count 403 x1000/uL (130-400) H 10/15/19 06:10 MPV 8.7 fL (8.0-11.0) 10/15/19 06:10 Immature Gran % 1.6 % 10/15/19 06:10 Neutrophils % 78.5 10/15/19 06:10 Band Neutrophils % 0.0 % 10/10/19 15:30 Lymphocytes % 4.8 10/15/19 06:10 Monocytes % 14.9 10/15/19 06:10 Eosinophils % 0.0 10/15/19 06:10 Basophils % 0.2 10/15/19 06:10 Metamyelocytes % 3.0 % 10/10/19 15:30 Absolute Neutrophils 9.15 k/cumm (1.2-6.7) H 10/15/19 06:10 Absolute Lymphocytes 0.56 k/cumm (1.2-3.4) L 10/15/19 06:10 Absolute Monocytes 1.74 k/cumm (0.11-0.7) H 10/15/19 06:10 Absolute Eosinophils 0.00 k/cumm (0.0-0.7) 10/15/19 06:10 Absolute Basophils 0.02 k/cumm (0.0-0.2) 10/15/19 06:10 Differential Comment Agrees w/ instrument 10/15/19 06:10 RBC Morphology See below 10/15/19 06:10 Polychromasia Present 10/15/19 06:10 Poikilocytosis 1+ 10/14/19 06:30 Basophilic Stippling Present 10/14/19 06:30 Anisocytosis 1+ 10/15/19 06:10 Macrocytosis 2+ 10/15/19 06:10 Stomatocytes 2+ 10/10/19 15:30 PT 13.8 sec (9.3-11.0) H 10/15/19 06:10 INR 1.4 (0.9-1.1) H 10/15/19 06:10 Sample Site Left radial 10/14/19 13:00 pCO2 > 100 mmHg (34-47) H* 10/14/19 13:00 pO2 54 mmHg (83-108) L 10/14/19 13:00 O2 Saturation 84 % (94-98) L 10/14/19 13:00 ABG pH 7.34 (7.35-7.45) L 10/14/19 13:00 ABG HCO3 mmol/L (22-28) 10/14/19 13:00 ABG Total CO2 mmol/L (22-29) 10/14/19 13:00 ABG Base Excess mmol/L (-3-3) 10/14/19 13:00 Oxygen Liter Flow 45 L 10/14/19 13:00 FiO2 Bipap 16/5 % 10/14/19 13:00 Sodium 149 mmol/L (136-145) H 10/15/19 06:10 Potassium 4.2 mmol/L (3.5-5.1) 10/15/19 06:10 Chloride 103 mmol/L (98-107) 10/15/19 06:10 Carbon Dioxide > 45.0 mmol/L (21.0-32.0) H 10/15/19 06:10 Anion Gap 0.15785 mmol/L (3-11) L 10/15/19 06:10 BUN 18 mg/dL (7-18) 10/15/19 06:10 Creatinine 0.73 mg/dL (0.70-1.30) 10/15/19 06:10 Estimated GFR/1.73 m2 >= 60.00 (mL/min/1.73m2) 10/15/19 06:10 Glucose 143 mg/dL (74-106) H 10/15/19 06:10 Lactate 1.0 mmol/L (0.6-1.4) 10/14/19 08:05 Calcium 7.8 mg/dL (8.5-10.1) L 10/15/19 06:10 Magnesium 2.3 mg/dL (1.8-2.4) 10/15/19 06:10 Total Bilirubin 1.1 mg/dL (0.2-1.0) H 10/15/19 06:10 Conjugated Bilirubin 0.83 mg/dL (0.00-0.20) H 10/15/19 06:10 AST 395 U/L (15-37) H 10/15/19 06:10 ALT 221 U/L (16-63) H 10/15/19 06:10 Alkaline Phosphatase 142 U/L (46-116) H 10/15/19 06:10 Ammonia 99 umol/L (11-32) H 10/15/19 06:10 Troponin I < 0.05 ng/Ml (<0.06) 10/13/19 18:35 C-Reactive Protein 1.22 mg/dL (0.0-0.3) H 10/14/19 06:30 NT-Pro-B Natriuret Pep 260 pg/mL (<300) 10/10/19 15:30 Total Protein 7.0 g/dL (6.4-8.2) 10/15/19 06:10 Albumin 2.4 g/dL (3.4-5.0) L 10/15/19 06:10 Lipase 211 U/L (73-393) 10/14/19 06:30 Procalcitonin 0.1 ng/mL 10/14/19 06:30 TSH 3.81 uIU/mL (0.36-3.74) H 10/13/19 06:25 Vancomycin Trough 18.8 ug/mL (10.0-20.0) 10/15/19 09:00 Urine Opiates Screen Negative (Negative) 10/11/19 03:50 Urine Methadone Screen Positive (Negative) A 10/11/19 03:50 Ur Barbiturates Screen Negative (Negative) 10/11/19 03:50 Ur Tricyclics Screen Negative (Negative) 10/11/19 03:50 Ur Amphetamines Screen Negative (Negative) 10/11/19 03:50 U Benzodiazepines Scrn Negative (Negative) 10/11/19 03:50 Urine Cocaine Screen Negative (Negative) 10/11/19 03:50 Ur THC Screen Negative (Negative) 10/11/19 03:50
--- NOTE | 2019-10-16 08:22 | W.PM.PROGNOT ---
Subjective Subjective Interval history since last seen: BiPAP to be weaned once the family arrives. Remains on morphine gtt/ativan gtt. Morphine gtt to be increased to 10 mg/hr with a bolus when BiPAP is off. Objective Objective Clinical Data: Vital Signs Temperature 36.3 C L 10/16/19 05:01 Temperature Source Temporal Artery Scan 10/16/19 05:01 Pulse 98 H 10/16/19 05:01 Pulse 91 H 10/15/19 20:10 Respiratory Rate 13 10/16/19 07:47 Respiratory Effort 10/16/19 05:01 Respiratory Depth Shallow 10/16/19 05:01 Respiratory Pattern Normal 10/16/19 05:01 Blood Pressure 163/70 H 10/15/19 20:00 Blood Pressure Mean 91 10/15/19 20:00 Blood Pressure Position Left Lateral 10/15/19 16:00 Pulse Oximetry 94 L 10/16/19 05:01 Oxygen Delivery Method Bi-pap 10/16/19 05:01 Oxygen Flow Rate 50 10/15/19 16:00 Fraction of Inspired Oxygen (FIO2) 50 10/16/19 07:47 Pain Level 0 10/16/19 05:01 Comment 10/10/19 15:34 Intake & Output 10/15/19 10/15/19 10/16/19 11:59 23:59 11:59 Intake Total 455 / 888.450 433.450 / 888.450 78.450 / 78.450 Output Total 450 / 950 500 / 950 Balance 5 / -61.550 -66.550 / -61.550 78.450 / 78.450 Intake: IV 455 / 888.450 433.450 / 888.450 78.450 / 78.450 Output: Urine 450 / 950 500 / 950 Other: Urine Color Light Roman Dark Roman Urine Appearance Clear Clear Comment Rice Catheter intact and draining clear straw urine. Rice Catheter intact and draining clear dark roman urine. Rice Catheter intact and draining clear dark roman urine. Laboratory Results WBC 11.65 k/cumm (4.4-10.8) H 10/15/19 06:10 RBC 3.44 m/cumm (4.50-6.00) L 10/15/19 06:10 Hgb 11.7 g/dL (13.5-17.5) L 10/15/19 06:10 Hct 38.2 % (40.0-50.0) L 10/15/19 06:10 MCV 111.0 fL (80-95) H D 10/15/19 06:10 MCH 34.0 pg (27.0-33.0) H 10/15/19 06:10 MCHC 30.6 g/dL (32.0-36.0) L 10/15/19 06:10 RDW 16.8 % (11.8-14.1) H 10/15/19 06:10 Plt Count 403 x1000/uL (130-400) H 10/15/19 06:10 MPV 8.7 fL (8.0-11.0) 10/15/19 06:10 Immature Gran % 1.6 % 10/15/19 06:10 Neutrophils % 78.5 10/15/19 06:10 Band Neutrophils % 0.0 % 10/10/19 15:30 Lymphocytes % 4.8 10/15/19 06:10 Monocytes % 14.9 10/15/19 06:10 Eosinophils % 0.0 10/15/19 06:10 Basophils % 0.2 10/15/19 06:10 Metamyelocytes % 3.0 % 10/10/19 15:30 Absolute Neutrophils 9.15 k/cumm (1.2-6.7) H 10/15/19 06:10 Absolute Lymphocytes 0.56 k/cumm (1.2-3.4) L 10/15/19 06:10 Absolute Monocytes 1.74 k/cumm (0.11-0.7) H 10/15/19 06:10 Absolute Eosinophils 0.00 k/cumm (0.0-0.7) 10/15/19 06:10 Absolute Basophils 0.02 k/cumm (0.0-0.2) 10/15/19 06:10 Differential Comment Agrees w/ instrument 10/15/19 06:10 RBC Morphology See below 10/15/19 06:10 Polychromasia Present 10/15/19 06:10 Poikilocytosis 1+ 10/14/19 06:30 Basophilic Stippling Present 10/14/19 06:30 Anisocytosis 1+ 10/15/19 06:10 Macrocytosis 2+ 10/15/19 06:10 Stomatocytes 2+ 10/10/19 15:30 PT 13.8 sec (9.3-11.0) H 10/15/19 06:10 INR 1.4 (0.9-1.1) H 10/15/19 06:10 Sample Site Left radial 10/14/19 13:00 pCO2 > 100 mmHg (34-47) H* 10/14/19 13:00 pO2 54 mmHg (83-108) L 10/14/19 13:00 O2 Saturation 84 % (94-98) L 10/14/19 13:00 ABG pH 7.34 (7.35-7.45) L 10/14/19 13:00 ABG HCO3 mmol/L (22-28) 10/14/19 13:00 ABG Total CO2 mmol/L (22-29) 10/14/19 13:00 ABG Base Excess mmol/L (-3-3) 10/14/19 13:00 Oxygen Liter Flow 45 L 10/14/19 13:00 FiO2 Bipap 16/5 % 10/14/19 13:00 Sodium 149 mmol/L (136-145) H 10/15/19 06:10 Potassium 4.2 mmol/L (3.5-5.1) 10/15/19 06:10 Chloride 103 mmol/L (98-107) 10/15/19 06:10 Carbon Dioxide > 45.0 mmol/L (21.0-32.0) H 10/15/19 06:10 Anion Gap 0.19446 mmol/L (3-11) L 10/15/19 06:10 BUN 18 mg/dL (7-18) 10/15/19 06:10 Creatinine 0.73 mg/dL (0.70-1.30) 10/15/19 06:10 Estimated GFR/1.73 m2 >= 60.00 (mL/min/1.73m2) 10/15/19 06:10 Glucose 143 mg/dL (74-106) H 10/15/19 06:10 Lactate 1.0 mmol/L (0.6-1.4) 10/14/19 08:05 Calcium 7.8 mg/dL (8.5-10.1) L 10/15/19 06:10 Magnesium 2.3 mg/dL (1.8-2.4) 10/15/19 06:10 Total Bilirubin 1.1 mg/dL (0.2-1.0) H 10/15/19 06:10 Conjugated Bilirubin 0.83 mg/dL (0.00-0.20) H 10/15/19 06:10 AST 395 U/L (15-37) H 10/15/19 06:10 ALT 221 U/L (16-63) H 10/15/19 06:10 Alkaline Phosphatase 142 U/L (46-116) H 10/15/19 06:10 Ammonia 99 umol/L (11-32) H 10/15/19 06:10 Troponin I < 0.05 ng/Ml (<0.06) 10/13/19 18:35 C-Reactive Protein 1.22 mg/dL (0.0-0.3) H 10/14/19 06:30 NT-Pro-B Natriuret Pep 260 pg/mL (<300) 10/10/19 15:30 Total Protein 7.0 g/dL (6.4-8.2) 10/15/19 06:10 Albumin 2.4 g/dL (3.4-5.0) L 10/15/19 06:10 Lipase 211 U/L (73-393) 10/14/19 06:30 Procalcitonin 0.1 ng/mL 10/14/19 06:30 TSH 3.81 uIU/mL (0.36-3.74) H 10/13/19 06:25 Vancomycin Trough 18.8 ug/mL (10.0-20.0) 10/15/19 09:00 Urine Opiates Screen Negative (Negative) 10/11/19 03:50 Urine Methadone Screen Positive (Negative) A 10/11/19 03:50 Ur Barbiturates Screen Negative (Negative) 10/11/19 03:50 Ur Tricyclics Screen Negative (Negative) 10/11/19 03:50 Ur Amphetamines Screen Negative (Negative) 10/11/19 03:50 U Benzodiazepines Scrn Negative (Negative) 10/11/19 03:50 Urine Cocaine Screen Negative (Negative) 10/11/19 03:50 Ur THC Screen Negative (Negative) 10/11/19 03:50
[2019-10-16 08:58] VITALS: PULSE 116; RESP 12; TEMP 37.3; O2SAT 66
[2019-10-16 10:00] VITALS: RESP 14; RESP 15
[2019-10-16] MEDS: MORPHine 10 MG/ML VIAL 5 MG IVP (11:06)
[2019-10-16] MEDS: LORazepam 2 MG/ML VIAL 1 MG IVP (11:20)
--- NOTE | 2019-10-16 13:56 | EXPE_ITS ---
Date of service: 10/16/19 Time of Service: 13:56 Discharge Sum: Prov Provider Consults: 10/10/19 15:27 Respiratory Therapy Consult [CONS] Routine Consultation Status:: Contact made by Clarification:: Manage/follow per spec. Reason for consult:: COPD exacerb 10/13/19 10:40 Palliative Care Consult [CONS] Routine Consultation Status:: Follow-up needed Clarification:: Manage/follow per spec. Reason for consult:: severe COPD, cirrhosis, substance abuse. Here with severe encephalopathy, respiratory failure, pneumonia, EtOH withdrawal. Still full code. Consult to establish goals of care. 10/13/19 15:15 Nutrition Consult [CONS] Routine Consultation Status:: Follow-up needed Clarification:: Manage/follow per spec. Reason for consult:: Possible TPN recommendations 10/14/19 11:19 Surgical Consult [CONS] Routine Consulting Provider: Nancy Bañuelos Consultation Status:: Contact made by Clarification:: Manage/follow per spec. Reason for consult:: Cholecystitis vs gallbladder edema due to cirrhosis/ascites/hypoalbumenic state Discharge Sum: Diag PCOD Cause of : Respiratory failure with hypoxia and hypercapnia Contributing Factors (1) CAP (community acquired pneumonia): (2) End stage COPD: (3) Acute on chronic diastolic ACC/AHA stage C congestive heart failure: (4) SBP (spontaneous bacterial peritonitis): (5) Heme + stool: (6) Acute cholecystitis: (7) Alcoholic hepatitis: (8) Alcohol withdrawal syndrome: (9) Encephalopathy acute: (10) Hepatitis C: (11) History of intravenous drug abuse: (12) Coagulopathy: Discharge Sum: Summary Summary Details: Mr Chi was a 54 year old male with PMHx of end-stage COPD, chronic hypoxic hypercapnic respiratory failure, normally on 6 L of O2, hepatic cirrhosis, and alcohol and opioid abuse, who was admitted to [facility] on 10/10/2019 after being found obtunded on the floor. He was in acute on chronic hypoxic and hypercapnic respiratory failure and was admitted to the ICU on BiPAP therapy. He did have evidence of pneumonia, acute exacerbation of chronic diastolic CHF, COPD exacerbation and was also found to have likely SBP and cholecystitis. The patient was not considered a surgical candidate due to his respiratory status and coagulopath - he would not survive surgery, and continued to clinically deteriorate after antibiotics were changed. He had evidence of hepatic, hypercapnic, and septic encephalopathy. This did not improve with lactulose enemas. He did not respond to the original antibiotics, steroids, and though his response to diuresis was good, it did not improve his respiratory failure. The patient also had significant alcohol withdrawal requiring very high doses of ativan and had significant amount of discomfort on BiPAP, with air hunger and restlessness. He was considered a poor intubation candidate due to severity of his underlying pulmonary illness - he would be unlikely to get extubated as his encephalopathy was getting worse, not better. Until 10/14/2019 it was not clear whether or not the patient had a DPOA document signed. We did locate one in [facility] [place]. His significant other Marcie met with myself and palliative care and, with the explanation that Mr Chi was dying, did initially make him DNR/DNI with modified comfort measures (agreed to start on ativan and morphine drips, but keep antibiotics and steroids on board). On 10/16/2019, the patient was taken off of BiPAP with ativan and morphine drips for comfort. He peacefully on comfort measures on 10/16/2019 at 12:12 PM (pronounced on 12:14). We appreciate the opportunity to help Mahamed in his final days and wish his loved ones well. Care for patient on day of preparation of this summary took 60 minutes. Additional Data Confirmation of as documented by pronouncing clinician: no pulse, no respirations, no heart sounds and pupils fixed and dilated Family: at bedside Additional persons at bedside: alternative financing specialist and health care social worker Attending/PCP notified?: Yes Attending Physician: Mahamed Rivera Was code activated?: No Autopsy requested?: No finished yarn examiner notified?: No Organ bank notified?: Yes Advance directives: Yes Hospice patient?: No
--- NOTE | 2019-10-16 13:56 | NUR.NOTE ---
1217 10/16/2019-superivisor notified of pt's expiration. Nursing Note:
--- NOTE | 2019-10-16 15:07 | CHAPLAIN ---
Yesterday I met Mahamed's sister and brother in his room. They had traveled from [place] to see him, although he had not been in contact with them for more than 10 years. His brother has returned to [place], but his sister, Georgie is here. Mahamed's significant other, Marcie, is here as well. Mahamed has not been responsive for the past few days. After a Palliative Care meeting with Dr. Delatorre last night it was decided that Mahamed's CPAP would be taken off this morning. Respiratory staff and Dr. Napier told Marcie that Mahamed would not live much longer after that. Ella Isaac, RT, told Marcie what to expected and prepared her. Marcie asked me to offer a prayer with Mahamed and I did. Mahamed's CPAP was taken off about 11 a.m. He not too long after noon. Marcie was very supportive and comforting with Mahamed, talking to him constantly for the hour and 15 minutes. Georgie was supportive of both Mahamed and Marcie. Marcie met with Chitra Doyle from Care Management to talk about next steps. Mahamed was connected to Rev. Stew Combs from the [employer] and he visited with Marcie and Mahamed last night. He was unable to be here today, but has been in touch with Marcie by phone.
--- NOTE | 2019-10-16 16:54 | CMPROGNOTE_ITS ---
- If Service Date Differs Date of service: 10/16/19 Time of Service: 16:54 Care Management Progress Note S/O: Mahamed's s/o Marcie made the decision for Mahamed to transition to ASE MASTER MECHANIC this morning. CM met with Marcie and Georgie, Mahamed's sister, along with other staff in the room as Mahamed was made comfortable. He passed at 12:12pm, peacefully. CM met with Georgie Jack and Damaris (Conceptor) to discuss final arrangements. Marcie and Georgie agreed upon cremation through [facility] in [facility]. Georgie will transport the body once it is cleared by the claim review medical director. CM offered continued support, if needed. A: Mahamed is a 54 year old male who was admitted to [facility] on 10/10/19 with end stage COPD. P: Mahamed today while receiving ASE MASTER MECHANIC care in the ICU. His s/o Marcie and sister, Georgie were in the room with him. Many staff members supported the patient and family during this process. Georgei will be transporting Mahamed's body to [facility] once all paperwork is filed. LILIYA offered the family continued support, if needed.
--- NOTE | 2019-10-16 16:54 | PDOC.CMPRO ---
- If Service Date Differs Date of service: 10/16/19 Time of Service: 16:54 Care Management Progress Note S/O: Mahamed's s/o Marcie made the decision for Mahamed to transition to PATTERN CHECKER this morning. CM met with Marcie and Georgie, Mahamed's sister, along with other staff in the room as Mahamed was made comfortable. He passed at 12:12pm, peacefully. CM met with Georgie Jack and Damaris (Urology Surgeon) to discuss final arrangements. Marcie and Georgie agreed upon cremation through [employer] in [facility]. Georgie will transport the body once it is cleared by the medical insurance claims processor. CM offered continued support, if needed. A: Mahamed is a 54 year old male who was admitted to [facility] on 10/10/19 with end stage COPD. P: Mahamed today while receiving PATTERN CHECKER care in the ICU. His s/o Marcie and sister, Georgie were in the room with him. Many staff members supported the patient and family during this process. Georgie will be transporting Mahamed's body to [employer] once all paperwork is filed. offered the family continued support, if needed.
== END 2019-10-16 12:12 | disposition other institution (70) | DRG 189 ==
LOC: ER 18:33 → ICU 20:08
PROVIDERS: Family Medicine; Admitting Provider General Practice; Emergency Provider Emergency Medicine; PCP Family Medicine; Visit Provider Internal Medicine
DX: J96.22 Acute and chronic respiratory failure with hypercapnia (principal); J18.9 Pneumonia, unspecified organism; I50.33 Acute on chronic diastolic (congestive) heart failure; K65.2 Spontaneous bacterial peritonitis; K72.00 Acute and subacute hepatic failure without coma; G93.41 Metabolic encephalopathy; J44.0 Chronic obstructive pulmonary disease with (acute) lower respiratory infection; K81.0 Acute cholecystitis; D68.9 Coagulation defect, unspecified; G93.49 Other encephalopathy; F10.231 Alcohol dependence with withdrawal delirium; F11.23 Opioid dependence with withdrawal; E87.4 Mixed disorder of acid-base balance; I85.10 Secondary esophageal varices without bleeding; J96.21 Acute and chronic respiratory failure with hypoxia; K70.11 Alcoholic hepatitis with ascites; R19.5 Other fecal abnormalities; F44.1 Dissociative fugue; B18.2 Chronic viral hepatitis C; E66.9 Obesity, unspecified; F17.210 Nicotine dependence, cigarettes, uncomplicated; K70.31 Alcoholic cirrhosis of liver with ascites; R60.0 Localized edema; H11.423 Conjunctival edema, bilateral; I48.91 Unspecified atrial fibrillation; Z78.1 Physical restraint status; Z68.39 Body mass index [BMI] 39.0-39.9, adult; H18.20 Unspecified corneal edema; Z51.5 Encounter for palliative care; Z71.89 Other specified counseling; Z66 Do not resuscitate
CPT/HCPCS: 36415; 80048; 80053; 80076; 80307; 82805; 83690; 84145; 85027; 87449; 93005; 94640; 96365; 96375; 96376; 99223; 99231; 99233; 99239; 99254; 99255; 99285; 99291; NC; 36600; 70450; 71045; 76700; 80202; 82140; 83605; 83735; 83880; 84443; 84484; 85014; 85018; 85025; 85610; 86140; 93010; 94660; 99292; J0456; J0696; J1940; J2060; J2543; J2930; J3370; J3430; J3490; J7620